=== PATIENT | male | born 1935 | race Caucasian/White ===

== ENCOUNTER 2017-04-29 08:15 | Emergency (ER) | payer MEDICARE, OTHER ==
[2017-04-29] MEDS ORDERED: HYDROmorphone 0.5 MG/0.5 ML Syringe IVPUSH ONE (08:49)
[2017-04-29] MEDS ORDERED: LORazepam 2 MG/ML MDV IVPUSH STA (08:49)
[2017-04-29] MEDS ORDERED: HYDROmorphone 0.5 MG/0.5 ML Syringe IVPUSH STA (10:00)
--- NOTE | 2017-04-29 11:03 | EDM.PDOC ---
ED HPI GENERAL MEDICAL PROBLEM - General Chief Complaint: Back Pain or Injury Stated Complaint: BACK PAIN Time Seen by Provider: 04/29/17 08:34 Source of Information: Reports: Patient, Family (), RN (Izabella) History Limitations: Reports: No Limitations - History of Present Illness INITIAL COMMENTS - FREE TEXT/NARRATIVE: The patient has had low back pain for the past 5-10 years, and right lower extremity radiculopathy for the past 1 year, approximately. He has undergone 3 local spinal injections. He states that the last 2 of them have induced the right lower extremity radiculopathy that eventually resolved. His most recent injection was about 2 months ago. He then developed right lower extremity radiculopathy, felt as pain going from his groin down his anterior thigh and to his mid-leg, about one month ago. He denies tingling, numbness, or weakness. No bowel or bladder incontinence. The pain has become significantly worse over the past week, however, to the point that he cannot longer walk, as his pain is made worse with straightening of his thigh at the hip. He is most comfortable if his right hip is flexed, regardless of whatever position he is in. He therefore has difficulty walking, and cannot lie flat unless he flexes his right hip, however, he states that he is "perfectly comfortable" while in a seated position. The patient was originally scheduled to have a MRI of his lumbar spine this coming 05/01/2017, however, arrangements have been made for the patient to undergo the study at 1045 this point. He now presents to the ED for pain control to allow him to undergo the MRI. The patient has oral narcotics already prescribed to him by his PCP, Dr. Ziegler, however, he has not found that they are adequate to treat his current pain. Lower Back Pain Score (Numeric/FACES): 8 - Related Data Allergies Allergy/AdvReac Type Severity Reaction Status Date / Time No Known Allergies Allergy Verified 04/29/17 08:50 Home Meds: Home Meds Albuterol Sulfate [Proair Respiclick] 2 puff IH QID PRN 04/29/17 [History] Albuterol/Ipratropium [DuoNeb 3.0-0.5 MG/3 ML] 3 ml INH Q6H PRN 04/29/17 [ History] Apixaban [Eliquis] 2.5 mg PO BID 04/29/17 [History] Ascorbic Acid [Vitamin C] 1,000 mg PO DAILY 04/29/17 [History] Aspirin 81 mg PO DAILY 04/29/17 [History] Budesonide/Formoterol [Symbicort 80-4.5 MCG] 2 puff INH BID 04/29/17 [History] Cholecalciferol (Vitamin D3) [Vitamin D3] 2,000 unit PO DAILY 04/29/17 [History] Furosemide 20 mg PO DAILY 04/29/17 [History] Isosorbide Mononitrate [Isosorbide Mononitrate ER] 60 mg PO DAILY 04/29/17 [ History] Lactobac Cmb #3/Fos/Pantethine [Probiotic & Acidophilus] 1 tab PO DAILY [History] Losartan [Cozaar] 25 mg PO DAILY 04/29/17 [History] Metoprolol Tartrate [Lopressor] 25 mg PO BID 04/29/17 [History] Nitroglycerin [Nitrostat] 0.4 mg SL Q5M PRN 04/29/17 [History] Rosuvastatin Calcium 20 mg PO DAILY 04/29/17 [History] Past Medical History HEENT History: Reports: Hard of Hearing, Impaired Vision Cardiovascular History: Reports: Afib, High Cholesterol, Hypertension Respiratory History: Reports: COPD - Past Surgical History Cardiovascular Surgical History: Reports: Coronary Artery Bypass, Coronary Artery Stent Musculoskeletal Surgical History: Reports: Knee Replacement Social & Family History - Tobacco Use Smoking Status *Q: Former Smoker Used Tobacco, but Quit: Yes Month Tobacco Last Used: 1982 - Caffeine Use Caffeine Use: Reports: Coffee - Recreational Drug Use Recreational Drug Use: No ED ROS GENERAL - Review of Systems Review Of Systems: See Below Constitutional: Reports: No Symptoms HEENT: Reports: No Symptoms Respiratory: Reports: No Symptoms Cardiovascular: Reports: No Symptoms Endocrine: Reports: No Symptoms GI/Abdominal: Reports: No Symptoms. Denies: Stool Incontinence : Reports: No Symptoms. Denies: Incontinence Musculoskeletal: Reports: Back Pain (as per the HPI) Skin: Reports: No Symptoms Neurological: Reports: Other (RLE radiculopathy pain, as per the HPI). Denies: Numbness, Tingling, Weakness Psychiatric: Reports: No Symptoms Hematologic/Lymphatic: Reports: No Symptoms Immunologic: Reports: No Symptoms ED EXAM, GENERAL - Physical Exam Exam: See Below Exam Limited By: No Limitations General Appearance: Alert, WD/WN, No Apparent Distress Ears: Normal External Exam, Hearing Grossly Normal (with hearing aids) Nose: Normal Inspection, No Blood Throat/Mouth: Normal Inspection, Normal Lips, Normal Voice, No Airway Compromise Head: Atraumatic, Normocephalic Neck: Normal Inspection, Full Range of Motion Respiratory/Chest: No Respiratory Distress, Lungs Clear, Normal Breath Sounds, No Accessory Muscle Use Cardiovascular: Normal Peripheral Pulses, Regular Rate, Rhythm, No Gallop, No JVD, No Murmur, No Rub Peripheral Pulses: 4+: Radial (L), Radial (R) GI/Abdominal: Normal Bowel Sounds, Soft, Non-Tender, No Organomegaly, No Distention, No Abnormal Bruit, No Mass (Male) Exam: Deferred Rectal (Males) Exam: Deferred Back Exam: Normal Inspection, Full Range of Motion. No: CVA Tenderness (L), CVA Tenderness (R), Muscle Spasm, Paraspinal Tenderness, Vertebral Tenderness Extremities: Normal Inspection, Normal Range of Motion, Non-Tender (including to right anterior thigh, leg), No Pedal Edema, Normal Capillary Refill Neurological: Alert, Oriented, Normal Cognition, No Motor/Sensory Deficits Psychiatric: Normal Affect Skin Exam: Warm, Dry, Intact, Normal Color, No Rash Course - Vital Signs Last Recorded V/S: Last Vital Signs Temp 36.3 C 04/29/17 08:48 Pulse 73 04/29/17 08:48 Resp 18 04/29/17 08:48 BP 136/82 04/29/17 08:48 Pulse Ox 98 04/29/17 08:48 - Orders/Labs/Meds Orders: Active Orders 24 hr Category Date Time Status Lumbar Spine Comp wo Cont [MR] Routine Exams 04/29/17 10:35 Taken Meds: Medications Discontinued Medications Generic Name Dose Route Start Last Admin Trade Name Freq PRN Reason Stop Dose Admin Hydromorphone HCl 0.5 mg 04/29/17 08:49 04/29/17 09:28 Dilaudid IVPUSH 04/29/17 08:50 0.5 mg ONETIME ONE Administration Hydromorphone HCl 0.5 mg 04/29/17 10:00 04/29/17 10:20 Dilaudid IVPUSH 04/29/17 10:01 0.5 mg STAT STA Administration Lorazepam 1 mg 04/29/17 08:49 04/29/17 09:30 Ativan IVPUSH 04/29/17 08:50 1 mg ONETIME STA Administration - Re-Assessments/Exams Free Text/Narrative Re-Assessment/Exam: 04/29/17 10:59 The patient was given Dilaudid 0.5 mg IVP and Ativan 1 mg IVP. In the ED. The patient stated that these medicines did not touch him, however, he was found to be quite groggy with slurred speech after receiving them. He was given an additional Dilaudid 0.5 mg just before going over to MRI. The patient already has prescriptions for oral narcotic medication. The purpose of his ER visit was to make him comfortable enough to be able to tolerate the MRI. I will have him follow-up with his PCP. Departure - Departure Time of Disposition: 11:01 Disposition: Home, Self-Care 01 Condition: Good Clinical Impression: Right lumbar radiculopathy - Discharge Information Instructions: Sciatica, [id number] Referrals: Dave Ziegler MD [Primary Care Provider] - Forms: ED Department Discharge Additional Instructions: You were seen in the emergency room for pain control prior to a MRI of your lower back. You received Dilaudid and Ativan in the ER. Follow-up with your PCP, Dr. Borjas, for long-term pain control. If any other problems, please do not hesitate to return to the ER. - My Orders Last 24 Hours: My Active Orders 04/29/17 10:35 Lumbar Spine Comp wo Cont [MR] Routine - Assessment/Plan Last 24 Hours: My Active Orders 04/29/17 10:35 Lumbar Spine Comp wo Cont [MR] Routine
--- NOTE | 2017-04-29 11:55 | MR ---
MRI lumbar spine Technique: T1 and T2-weighted axial images were obtained from above T12-L1 disc to the L5-S1 disc. T1, T2 and fat suppressed inversion recovery sagittal images were also obtained through the lumbar spine. Comparison: Previous MRI lumbar spine study of 06/04/11. Findings: T10-T11: Posterior disc shows narrowing. Disc protrusion is seen into the inferior endplate of T10. Disc bulging is seen into both neural foramina which is worse on the left side. Nerve roots appear to exit without definite compromise. Anterior disc bulge is also seen to the right side. T11-T12: Mild disc space narrowing is seen. Circumferential disc bulge is seen. Slight disc bulging into both inferior neural foramina are seen. No central canal stenosis or neural foraminal stenosis is seen. T12-L1: Circumferential disc bulge is seen. Very small disc herniation is seen to the midline. Mild degenerative apophyseal change is seen. No central canal stenosis is seen. Disc bulging is seen into both inferior neural foramina but nerve roots appear to exit without compromise. L1-L2: Moderate disc space narrowing is seen. Circumferential disc bulge is seen. Posterior disc maintains a concave margin. Mild degenerative apophyseal change is seen. Moderate left-sided neural foraminal stenosis is seen. Posterolateral spurring is seen off the endplates into the neural foramina on the left side. Disc bulge is seen into the inferior right neural foramina but nerve root appears to exit without compromise. Degenerative endplate signal change is seen. No central canal stenosis is seen. L2-L3: Severe disc space narrowing is seen. Circumferential disc bulge is noted. Mild degenerative apophyseal change is seen. Thickening of the ligamentum flavum is seen with findings causing a moderate degree of central canal stenosis. Disc bulging seen into both inferior neural foramina but nerve roots appear to exit without definite compromise. L3-L4: Mild disc space narrowing is seen. Circumferential disc bulge is present. Thickening of the ligamentum flavum is seen. Findings cause a moderate degree of central canal stenosis. Disc bulging is seen into both neural foramina which on the right side causes fairly severe is neural foraminal stenosis. Left neural foramina is patent where the nerve roots exit. L5-S1: Severe disc space narrowing is seen. Posterior spurring and diffuse circumferential disc bulge is noted. Mild degenerative apophyseal change is seen. Mild central canal stenosis is noted. Bilateral neural foraminal stenosis is seen causing compromise upon both nerve roots. L5-S1: Spondylolisthesis is seen measuring approximately 8 mm. Spondylolisthesis is due to degenerative apophyseal change. Diffuse posterior disc distortion from the spondylolisthesis is seen. Thickening of the ligamentum flavum is seen. Findings cause moderate to severe central canal stenosis. Bilateral neural foraminal stenosis is seen causing compromise upon both exiting nerve roots. Diffuse degenerative dehydration change seen. Conus medullaris and cauda equina shows no abnormal signal or mass. Impression: 1. Severe and diffuse degenerative change as described above. Multiple levels of neural foraminal stenosis are seen which have worsened in the interim from prior study. Areas of central canal stenosis are seen which have worsened in the interim from prior study. Diagnostic code #3
== END 2017-04-29 11:16 | disposition home or self-care (01) ==
LOC: JD.ED 08:15 → MERGE 08:15 → JD.ED 11:16
DX: M54.16 Radiculopathy, lumbar region (principal); I10 Essential (primary) hypertension; E78.00 Pure hypercholesterolemia, unspecified; J44.9 Chronic obstructive pulmonary disease, unspecified; Z87.891 Personal history of nicotine dependence; Z95.5 Presence of coronary angioplasty implant and graft; Z79.82 Long term (current) use of aspirin; Z79.899 Other long term (current) drug therapy
CPT/HCPCS: 72148; 96374; 96375; 96376; 99284; J1170; J2060

== ENCOUNTER 2020-03-24 15:01 | Emergency (ER) | payer MEDICARE, OTHER ==
[2020-03-24] MEDS ORDERED: Acetaminophen 325 MG Tab PO PRN (15:31)
--- NOTE | 2020-03-24 15:40 | EDM.PDOC ---
ED HPI GENERAL MEDICAL PROBLEM - General Chief Complaint: Respiratory Problem Stated Complaint: COVID +, WEAK AND FALLING Time Seen by Provider: 03/24/20 15:31 Source of Information: Reports: Patient History Limitations: Reports: No Limitations - History of Present Illness INITIAL COMMENTS - FREE TEXT/NARRATIVE: 84-year-old male presents to the ED for evaluation of COVID-19 illness. Patient has known quite bad COPD and chronic bronchitis. Increased fatigue and weakness over the last 24 hours. He fell last night and had a great deal of difficulty getting back up. He did not hit his head. He is not on home oxygen therapy. O2 sats here are 94 to 95% at rest. Patient knows he desaturates quite badly on exertion. Uses a cane or a walker to aid his ambulation. His was positive with COVID-19 illness 10 days ago. He got tested on Thursday,March 20 and was phoned last night that he is COVID-19 positive. He has been suffering fever chills mildly sore throat nasal congestion and increased paroxysmal cough not all that productive. Mildly decreased appetite with no diarrhea. He has not taken any medication for fever at this time Onset: Gradual Onset Date: 03/21/20 Duration: Day(s):, Getting Worse Location: Reports: Chest (Paroxysmal minimally productive cough.), Generalized (Generalized myalgia), Other (Creased appetite. Nasal congestion) Quality: Reports: Other (Typical symptoms of COVID-19 illness.) Severity: Moderate Improves with: Reports: None Worsens with: Reports: Other (Comes very short of breath on minimal exertion such as walking) Context: Reports: Sick Contact. Denies: Activity, Exercise ( 15 feet or so.), Lifting, Trauma, Other (Is ill at home with COVID-19 illness. She is doing well at this time she is on day 10 of illness.) Associated Symptoms: Reports: Cough, cough w sputum, Loss of Appetite, Malaise, Shortness of Breath, Weakness. 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 (see below) - Related Data Allergies Allergy/AdvReac Type Severity Reaction Status Date / Time No Known Allergies Allergy Verified 03/24/20 15:21 Home Meds: Home Meds Albuterol Sulfate [Proair Respiclick] 2 puff IH QID PRN 04/29/17 [History] Albuterol/Ipratropium [DuoNeb 3.0-0.5 MG/3 ML] 3 ml INH Q6H PRN 04/29/17 [History] Apixaban [Eliquis] 2.5 mg PO BID 04/29/17 [History] Ascorbic Acid [Vitamin C] 1,000 mg PO DAILY 04/29/17 [History] Aspirin 81 mg PO DAILY 04/29/17 [History] Budesonide/Formoterol [Symbicort 80-4.5 MCG] 2 puff INH BID 04/29/17 [History] Cholecalciferol (Vitamin D3) [Vitamin D3] 2,000 unit PO DAILY 04/29/17 [History] Furosemide 20 mg PO DAILY 04/29/17 [History] Isosorbide Mononitrate [Isosorbide Mononitrate ER] 60 mg PO DAILY 04/29/17 [History] Lactobacillus 3/Fos/Pantethine [Probiotic & Acidophilus] 1 tab PO DAILY 04/29/17 [History] Losartan [Cozaar] 25 mg PO DAILY 04/29/17 [History] Metoprolol Tartrate [Lopressor] 25 mg PO BID 04/29/17 [History] Nitroglycerin [Nitrostat] 0.4 mg SL Q5M PRN 04/29/17 [History] Rosuvastatin Calcium 20 mg PO DAILY 04/29/17 [History] Past Medical History HEENT History: Reports: Hard of Hearing, Impaired Vision Cardiovascular History: Reports: Afib, High Cholesterol, Hypertension Respiratory History: Reports: COPD - Infectious Disease History Infectious Disease History: Reports: Novel Coronavirus - Past Surgical History Cardiovascular Surgical History: Reports: Coronary Artery Bypass, Coronary Artery Stent Musculoskeletal Surgical History: Reports: Knee Replacement Social & Family History - Caffeine Use Caffeine Use: Reports: Coffee - Living Situation & Occupation Living situation: Reports: 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 Denies: Pleuritic Chest Pain Cardiovascular: Reports: Dyspnea on Exertion ( after having total knee replacement on that side chronically), Edema (Mild edema left lower extremity), Lightheadedness. Denies: Chest Pain, Blood Pressure Problem, Claudication, Orthopnea Endocrine: Reports: Fatigue GI/Abdominal: Reports: Decreased Appetite. Denies: Constipation, Diarrhea, Flatus, Nausea, Vomiting : Reports: Frequency, Other (Teary at x2. Patient has had a previous TURP) Musculoskeletal: Reports: Shoulder Pain, Back Pain (Knees hips chronic low back pain with multiple surgeries on his lower back due to degenerative disc disease and is fused.), Joint Pain Skin: Reports: Bruising Neurological: Reports: Difficulty Walking ( in his legs that caused him to fall. Difficulty walking since low back surgery and uses a walker or cane to aid his ambulation and balance), Weakness (Yes last night). Denies: Confusion, Dizziness (Bruises easily), Headache, Numbness, Syncope, Tingling Psychiatric: Reports: No Symptoms Hematologic/Lymphatic: Reports: No Symptoms Immunologic: Reports: No Symptoms ED EXAM, GENERAL - Physical Exam Exam: See Below Exam Limited By: No Limitations General Appearance: Alert, WD/WN, Mild Distress, Other (Patient is alert orientated and answers all questions appropriately. He is short of breath even on speaking more than 3 or 4 words.) Eye Exam: Bilateral Eye: Normal Inspection, PERRL Throat/Mouth: Normal Inspection, Normal Oropharynx, Other Head: Atraumatic, Other (Is mildly dry.) Neck: Normal Inspection, Supple, Full Range of Motion, Limited Range of Motion, Tender Lateral (Tenderness lateral cervical spine bilaterally. He reports no worse than normal). No: Lymphadenopathy (L), Lymphadenopathy (R) Respiratory/Chest: No Accessory Muscle Use, Respiratory Distress (Apnea at rest 25 to 28/min with O2 sats of 94 to 96% on room air), Decreased Breath Sounds, Rhonchi. No: Normal Breath Sounds, Crackles (Rhonchi upper anterior chest that clear with coughing.), Rales, Stridor Cardiovascular: Regular Rate, Rhythm, No Edema, No Gallop, No Murmur (Decreased breath sounds to the lower 25% lung vitale bilaterally.), No Rub. No: Normal Peripheral Pulses Peripheral Pulses: 1+: Posterior Tibial (L), Posterior Tibial (R), Dorsalis Pedis (L), Dorsalis Pedis (R), 2+: Carotid (L), Carotid (R) GI/Abdominal: Normal Bowel Sounds, Soft, Non-Tender, No Organomegaly (Groin is firm to palpation. Mildly distended to be to percussion compared with some degree of aerophagia.), No Mass, Pelvis Stable, Distended, Other Back Exam: Other (Patient has evidence of lumbar spine surgery with fixation.) Extremities: Pedal Edema (Base pedal edema left lower extremity. Feet are cool suggesting some degree of peripheral vascular disease.), Other (Arthritic changes both knees with left total knee replacement evident.) Neurological: Alert, Oriented, CN II-XII Intact, Normal Cognition Psychiatric: Normal Affect, Normal Mood Skin Exam: Warm, Dry, Intact, Normal Color, No Rash #1 Interpretation Rhythm: A-Fib (With rate) Rate (Beats/Min): 104 [place]: Normal P-Wave: Variable QRS: RBBB ST-T: Other (Of your wandering baseline makes interpretation impossible) QT: Prolonged EKG Interpretation Comments: Abnormal ECG Course - Vital Signs Last Recorded V/S: Last Vital Signs Temp 36.8 C 03/24/20 19:30 Pulse 73 03/24/20 19:30 Resp 32 H 03/24/20 19:30 BP 92/57 L 03/24/20 19:30 Pulse Ox 92 L 03/24/20 19:30 - Orders/Labs/Meds Orders: Active Orders 24 hr Category Date Time Status Chest 1V Frontal [CR] Stat Exams 03/24/20 15:33 Taken Acetaminophen [TylenoL] Med 03/24/20 15:31 Active 650 mg PO Q4H PRN Dextrose 5%-0.9% NaCl [Dextrose 5%-Normal Saline] 1,000 Med 03/24/20 15:45 Active ml IV ASDIRECTED Medication Orders Acetaminophen (Tylenol) 650 mg PO Q4H PRN PRN Reason: Pain Last Admin: 03/24/20 16:03 Dose: 650 mg Documented by: CHRISTIAN Dextrose/Sodium Chloride (Dextrose 5%-Normal Saline) 1,000 mls @ 150 mls/hr IV ASDIRECTED CHARLEE Last Admin: 03/24/20 16:03 Dose: 150 mls/hr Documented by: CHRISTIAN Labs: Laboratory Tests 03/24/20 03/24/20 03/24/20 Range/Units 16:00 16:00 16:00 WBC 4.43 (4.23-9.07) K/mm3 RBC 4.41 L (4.63-6.08) M/mm3 Hgb 13.2 L (13.7-17.5) gm/dl Hct 41.0 (40.1-51.0) % MCV 93.0 H (79.0-92.2) fl MCH 29.9 (25.7-32.2) pg MCHC 32.2 (32.2-35.5) g/dl RDW Std Deviation 50.6 H (35.1-43.9) fL Plt Count 110 L (163-337) K/mm3 MPV 10.6 (9.4-12.3) fl Neut % (Auto) 62.8 (34.0-67.9) % Lymph % (Auto) 19.6 L (21.8-53.1) % Br[place]ley % (Auto) 16.7 H (5.3-12.2) % Eos % (Auto) 0.5 L (0.8-7.0) Baso % (Auto) 0.2 (0.1-1.2) % Neut # (Auto) 2.78 (1.78-5.38) K/mm3 Lymph # (Auto) 0.87 L (1.32-3.57) K/mm3 [place]ley # (Auto) 0.74 (0.30-0.82) K/mm3 Eos # (Auto) 0.02 L (0.04-0.54) K/mm3 Baso # (Auto) 0.01 (0.01-0.08) K/mm3 Manual Slide Review Abnormal smear D-Dimer, Quantitative 0.49 (0.19-0.50) mg/L Sodium 136 (136-145) mEq/L Potassium 5.2 H (3.5-5.1) mEq/L Chloride 104 (98-107) mEq/L Carbon Dioxide 20 L (21-32) mEq/L Anion Gap 17.2 H (5-15) BUN 59 H (7-18) mg/dL Creatinine 2.7 H (0.7-1.3) mg/dL Est Cr Clr Drug Dosing 20.00 mL/min Estimated GFR (MDRD) 23 (>60) mL/min BUN/Creatinine Ratio 21.9 H (14-18) Glucose 115 (83-115) mg/dL Lactic Acid (0.4-2.0) mmol/L Calcium 8.1 L (8.5-10.1) mg/dL Magnesium 2.2 (1.8-2.4) mg/dl Ferritin (26-388) ng/ml Total Bilirubin 0.4 (0.2-1.0) mg/dL AST 18 (15-37) U/L ALT 21 (16-63) U/L Alkaline Phosphatase 46 (46-116) U/L Lactate Dehydrogenase 180 (85-227) U/L Troponin I 0.055 (0.00-0.056) ng/mL C-Reactive Protein 3.8 H* (<1.0) mg/dL NT-Pro-B Natriuret Pep (0-450) pg/mL Total Protein 6.0 L (6.4-8.2) g/dl Albumin 2.9 L (3.4-5.0) g/dl Globulin 3.1 gm/dL Albumin/Globulin Ratio 0.9 L (1-2) Urine Color (Yellow) Urine Appearance (Clear) Urine pH (5.0-8.0) Ur Specific [place] (1.005-1.030) Urine Protein (Negative) Urine Glucose (UA) (Negative) Urine Ketones (Negative) Urine Occult Blood (Negative) Urine Nitrite (Negative) Urine Bilirubin (Negative) Urine Urobilinogen (0.2-1.0) Ur Leukocyte Esterase (Negative) U Hyaline Cast (Auto) (0-5) /lpf Urine RBC (0-5) /hpf Urine WBC (0-5) /hpf Ur Squamous Epith Cells (0-5) /hpf Urine Bacteria (FEW) /hpf Urine Mucus (FEW) /hpf 03/24/20 03/24/20 03/24/20 Range/Units 16:00 16:00 16:00 WBC (4.23-9.07) K/mm3 RBC (4.63-6.08) M/mm3 Hgb (13.7-17.5) gm/dl Hct (40.1-51.0) % MCV (79.0-92.2) fl MCH (25.7-32.2) pg MCHC (32.2-35.5) g/dl RDW Std Deviation (35.1-43.9) fL Plt Count (163-337) K/mm3 MPV (9.4-12.3) fl Neut % (Auto) (34.0-67.9) % Lymph % (Auto) (21.8-53.1) % Brantley % (Auto) (5.3-12.2) % Eos % (Auto) (0.8-7.0) Baso % (Auto) (0.1-1.2) % Neut # (Auto) (1.78-5.38) K/mm3 Lymph # (Auto) (1.32-3.57) K/mm3 [place]ley # (Auto) (0.30-0.82) K/mm3 Eos # (Auto) (0.04-0.54) K/mm3 Baso # (Auto) (0.01-0.08) K/mm3 Manual Slide Review D-Dimer, Quantitative (0.19-0.50) mg/L Sodium (136-145) mEq/L Potassium (3.5-5.1) mEq/L Chloride (98-107) mEq/L Carbon Dioxide (21-32) mEq/L Anion Gap (5-15) BUN (7-18) mg/dL Creatinine (0.7-1.3) mg/dL Est Cr Clr Drug Dosing mL/min Estimated GFR (MDRD) (>60) mL/min BUN/Creatinine Ratio (14-18) Glucose (83-115) mg/dL Lactic Acid 1.0 (0.4-2.0) mmol/L Calcium (8.5-10.1) mg/dL Magnesium (1.8-2.4) mg/dl Ferritin 163 (26-388) ng/ml Total Bilirubin (0.2-1.0) mg/dL AST (15-37) U/L ALT (16-63) U/L Alkaline Phosphatase (46-116) U/L Lactate Dehydrogenase (85-227) U/L Troponin I (0.00-0.056) ng/mL C-Reactive Protein (<1.0) mg/dL NT-Pro-B Natriuret Pep 2006 H (0-450) pg/mL Total Protein (6.4-8.2) g/dl Albumin (3.4-5.0) g/dl Globulin gm/dL Albumin/Globulin Ratio (1-2) Urine Color (Yellow) Urine Appearance (Clear) Urine pH (5.0-8.0) Ur Specific [place] (1.005-1.030) Urine Protein (Negative) Urine Glucose (UA) (Negative) Urine Ketones (Negative) Urine Occult Blood (Negative) Urine Nitrite (Negative) Urine Bilirubin (Negative) Urine Urobilinogen (0.2-1.0) Ur Leukocyte Esterase (Negative) U Hyaline Cast (Auto) (0-5) /lpf Urine RBC (0-5) /hpf Urine WBC (0-5) /hpf Ur Squamous Epith Cells (0-5) /hpf Urine Bacteria (FEW) /hpf Urine Mucus (FEW) /hpf 03/24/20 Range/Units 17:36 WBC (4.23-9.07) K/mm3 RBC (4.63-6.08) M/mm3 Hgb (13.7-17.5) gm/dl Hct (40.1-51.0) % MCV (79.0-92.2) fl MCH (25.7-32.2) pg MCHC (32.2-35.5) g/dl RDW Std Deviation (35.1-43.9) fL Plt Count (163-337) K/mm3 MPV (9.4-12.3) fl Neut % (Auto) (34.0-67.9) % Lymph % (Auto) (21.8-53.1) % [place] % (Auto) (5.3-12.2) % Eos % (Auto) (0.8-7.0) Baso % (Auto) (0.1-1.2) % Neut # (Auto) (1.78-5.38) K/mm3 Lymph # (Auto) (1.32-3.57) K/mm3 [place] # (Auto) (0.30-0.82) K/mm3 Eos # (Auto) (0.04-0.54) K/mm3 Baso # (Auto) (0.01-0.08) K/mm3 Manual Slide Review D-Dimer, Quantitative (0.19-0.50) mg/L Sodium (136-145) mEq/L Potassium (3.5-5.1) mEq/L Chloride (98-107) mEq/L Carbon Dioxide (21-32) mEq/L Anion Gap (5-15) BUN (7-18) mg/dL Creatinine (0.7-1.3) mg/dL Est Cr Clr Drug Dosing mL/min Estimated GFR (MDRD) (>60) mL/min BUN/Creatinine Ratio (14-18) Glucose (83-115) mg/dL Lactic Acid (0.4-2.0) mmol/L Calcium (8.5-10.1) mg/dL Magnesium (1.8-2.4) mg/dl Ferritin (26-388) ng/ml Total Bilirubin (0.2-1.0) mg/dL AST (15-37) U/L ALT (16-63) U/L Alkaline Phosphatase (46-116) U/L Lactate Dehydrogenase (85-227) U/L Troponin I (0.00-0.056) ng/mL C-Reactive Protein (<1.0) mg/dL NT-Pro-B Natriuret Pep (0-450) pg/mL Total Protein (6.4-8.2) g/dl Albumin (3.4-5.0) g/dl Globulin gm/dL Albumin/Globulin Ratio (1-2) Urine Color Yellow (Yellow) Urine Appearance Clear (Clear) Urine pH 5.5 (5.0-8.0) Ur Specific [place] 1.025 (1.005-1.030) Urine Protein Trace H (Negative) Urine Glucose (UA) Negative (Negative) Urine Ketones Negative (Negative) Urine Occult Blood Negative (Negative) Urine Nitrite Negative (Negative) Urine Bilirubin Negative (Negative) Urine Urobilinogen 0.2 (0.2-1.0) Ur Leukocyte Esterase Negative (Negative) U Hyaline Cast (Auto) 5-10 H (0-5) /lpf Urine RBC Not seen (0-5) /hpf Urine WBC 0-5 (0-5) /hpf Ur Squamous Epith Cells 0-5 (0-5) /hpf Urine Bacteria Not seen (FEW) /hpf Urine Mucus Not seen (FEW) /hpf Meds: Medications Generic Name Dose Route Start Last Admin Trade Name Freq PRN Reason Stop Dose Admin Acetaminophen 650 mg 03/24/20 15:31 03/24/20 16:03 Tylenol PO 650 mg Q4H PRN Administration Pain Dextrose/Sodium Chloride 1,000 mls @ 150 mls/hr 03/24/20 15:45 03/24/20 16:03 Dextrose 5%-Normal Saline IV 150 mls/hr ASDIRECTED CHARLEE Administration Discontinued Medications Generic Name Dose Route Start Last Admin Trade Name Freq PRN Reason Stop Dose Admin Furosemide 40 mg 03/24/20 17:53 03/24/20 18:49 Lasix IVPUSH 03/24/20 17:54 40 mg NOW ONE Administration Bamlanivimab 700 mg/ Sodium 200 mls @ 200 mls/hr 03/24/20 16:48 03/24/20 17:28 Chloride IV 03/24/20 16:49 200 mls/hr ONETIME ONE Administration - Radiology Interpretation Free Text/Narrative:: 84-year-old male with known COPD with chronic bronchitis presents to the ED with COVID-19 illness diagnosed yesterday but tested on March 20. His also has contracted COVID-19 the week prior. He has fever chills mild headache nasal congestion paroxysmal cough decreased appetite no diarrhea or vomiting. O2 sats are 94 to 95% on room air. He is therefore a candidate for Bamlanivimab--clonal antibody. Consents to this procedure. Understands that it is an experimental drug and not cleared by the FDA. Spoken with Mr. Magen Finney to provide information aboutbamlanivamab been for himself. I offered the patient and caregiverEUA Bamlanivamab fax sheet to read and review. I stated the drug has been approved by an emergency use authorization process and has not been fully vetted by the FDA or approved. The patient meets the EUA requirements. I discussed there are other potential treatment options that are currently not FDA approved to treat COVID-19 illness. Offered opportunity to t alk and ask questions and all questions were answered. The patient Mr. Magen Finney voiced understanding and agreed to proceed with treatment for himself - Re-Assessments/Exams Free Text/Narrative Re-Assessment/Exam: 03/24/20 16:49 x-ray done portably reveals slightly hyperinflated lung vitale bilaterally. Cardiac silhouette is limits of normal. Previous cardiac bypass surgery noted. There is an infiltrate left lower lobe that could raise represent a early consolidation pneumonia. They could also represent scar tissue. Prominent right pulmonary artery noted. His white count is 4.43. Differential shows 62.8% neutrophils. Hemoglobin is 13.2 with hematocrit of 41.0 MCV is 90 with 3.0. Platelet counts 110,000 low side of normal. 03/24/20 17:01 His D-dimer is 0.49 normal for him. Sodium 136 potassium slightly elevated at 5.2. Chloride 104 the bicarb of 20 anion gap is elevated at 17.2. BUN was 59 indicating he is volume depleted. Creatinine is 2.7. Estimated GFR is 23 i.e. stage IV chronic kidney disease. Glucose is 115 with a lactic acid of 1.0 calcium is low at 8.1. Magnesium is 2.2 serum ferritin normal at 163 liver function normal lactic dehydrogenase normal at 180. Troponin I is 0.055 C-reactive protein is 3.8. BNP is elevated at 2006 total protein 6.0 with an albumin fraction of 2.9 03/24/20 17:40 vRAD over read of the chest x-ray done portably shows chronic appearing interstitial changes are present with focal airspace opacity in the left lower lobe finding is nonspecific this could represent pneumonia there is no pulmonary edema moderate grade cardiomegaly and postoperative change from prior coronary bypass surgery. He does mention patchy groundglass appearance in the left lower lobe and the patient is known to be COVID-19 positive. 03/24/20 18:15 Patient seems to be tolerating the infusion well with no side effects at this point time. Be given Lasix 40 mg IV after the infusion has been completed as his BNP is greater than 2000 at this time. Departure - Departure Time of Disposition: 20:10 Disposition: Home, Self-Care 01 Condition: Fair Clinical Impression: COVID-19 determined by clinical diagnostic criteria, Mild congestive heart failure, Chronic renal insufficiency, stage IV (severe) COPD (chronic obstructive pulmonary disease) Qualifiers: COPD type: emphysema Emphysema type: panlobular Qualified Code(s): J43.1 - Panlobular emphysema - Discharge Information Instructions: COVID-19, Chronic Obstructive Pulmonary Disease Exacerbation, Chronic Kidney Disease, Adult, [id number], Heart Failure, Diagnosis, [id number] Referrals: Dave Ziegler MD [Primary Care Provider] - Forms: ED Department Discharge Additional Instructions: Evaluation in the emergency room today in regards to at least a 3-day history of COVID-19 illness. Oxygen saturations are staying between 94 to 96% at rest. You were therefore a candidate for monoclonal antibody intravenous infusion and this was what was carried out. You appeared to tolerate this infusion very well. Lab tests reveal that you are a little bit on the dry side and need to take in a little bit more fluids particularly things like Gatorade or Powerade which is similar to IV fluid to improve your kidney function. Appetite is course very poor with COVID-19 illness. You would need to return to the hospital if your O2 sats on your pulse oximeter continuously drop particular if they are staying 90 and not coming up. Sepsis Event Note (ED) - Evaluation Sepsis Screening Result: No Definite Risk - Focused Exam Vital Signs: Vital Signs Temp Pulse Resp BP Pulse Ox 03/24/20 19:30 36.8 C 73 32 H 92/57 L 92 L 03/24/20 15:10 37.2 C 81 25 H 95/60 - My Orders Last 24 Hours: My Active Orders 03/24/20 15:31 Acetaminophen [TylenoL] 650 mg PO Q4H PRN 03/24/20 15:33 Chest 1V Frontal [CR] Stat 03/24/20 15:45 Dextrose 5%-0.9% NaCl [Dextrose 5%-Normal Saline] 1,000 ml IV ASDIRECTED - Assessment/Plan Last 24 Hours: My Active Orders 03/24/20 15:31 Acetaminophen [TylenoL] 650 mg PO Q4H PRN 03/24/20 15:33 Chest 1V Frontal [CR] Stat 03/24/20 15:45 Dextrose 5%-0.9% NaCl [Dextrose 5%-Normal Saline] 1,000 ml IV ASDIRECTED
[2020-03-24] MEDS ORDERED: Dextrose 5%-0.9% NaCl 1,000 ML IV SCH (15:45)
[2020-03-24] MEDS ORDERED: Furosemide 40 MG/4 ML VIAL IVPUSH ONE (17:53)
--- NOTE | 2020-03-26 12:38 | CR ---
PROCEDURE INFORMATION: Exam: XR Chest, 1 View Exam date and time: 03/24/2020 4:02 PM Age: 84 years old Clinical indication: Other: Known copd. Chronic bronchitis. Covid positive TECHNIQUE: Imaging protocol: XR of the chest Views: 1 view. COMPARISON: No relevant prior studies available. FINDINGS: Lungs: Chronic appearing interstitial changes are present with focal airspace opacity in the left lower lobe. Finding is nonspecific. This could represent pneumonia. There is no pulmonary edema. Pleural space: Unremarkable. No pleural effusion. No pneumothorax. Heart/Mediastinum: Moderate grade cardiomegaly and postoperative change from prior coronary bypass surgery present. Bones/joints: Unremarkable. IMPRESSION: 1. Chronic appearing interstitial change and postoperative change with patchy ground-glass in the left lower lobe. Pneumonia is possible. Consider viral etiology. Thank you for allowing us to participate in the care of your patient. Dictated and Authenticated by: Al Caputo MD 03/24/2020 5:52 PM Central Time ([place] & [place]) MTDNancy
== END 2020-03-24 20:15 | disposition home or self-care (01) ==
LOC: JD.ED 15:01
DX: U07.1 COVID-19 (principal); J43.1 Panlobular emphysema; I13.0 Hypertensive heart and chronic kidney disease with heart failure and stage 1 through stage 4 chronic kidney disease, or unspecified chronic kidney disease; N18.4 Chronic kidney disease, stage 4 (severe); I50.9 Heart failure, unspecified; I48.91 Unspecified atrial fibrillation; E78.00 Pure hypercholesterolemia, unspecified; I45.10 Unspecified right bundle-branch block; Z95.1 Presence of aortocoronary bypass graft; Z79.01 Long term (current) use of anticoagulants; Z79.82 Long term (current) use of aspirin; Z79.899 Other long term (current) drug therapy
CPT/HCPCS: 36415; 71045; 80053; 81001; 82728; 83605; 83615; 83735; 83880; 84484; 85025; 85379; 86140; 93005; 96365; 96375; 99285; A9270; J1940; J7042; J7050; 93010

== ENCOUNTER 2020-03-28 13:24 | Inpatient (IN) | payer MEDICARE, OTHER ==
[2020-03-28] MEDS ORDERED: Acetaminophen 325 MG Tab PO PRN (13:36)
[2020-03-28] MEDS ORDERED: Docusate Sodium 100 MG Cap PO PRN (13:36)
[2020-03-28] MEDS ORDERED: Ondansetron 4 MG/2 ML SDV IV PRN (13:36)
[2020-03-28] MEDS ORDERED: Sodium Chloride 0.9% 10 ML Syringe FLUSH PRN (13:36)
[2020-03-28] MEDS ORDERED: REMDESIVIR 200 MG in Sodium Chloride 0.9% 250 ML IV ONE ×2 (13:43→18:00)
--- NOTE | 2020-03-28 14:10 | PCM.HP.2 ---
H&P History of Present Illness - General Date of Service: 03/28/20 Admit Problem/Dx: Admission Diagnosis/Problem Admission Diagnosis/Problem Hypoxia Source of Information: Patient, Other (Family friend) History Limitations: Reports: No Limitations - History of Present Illness Initial Comments - Free Text/Narative: 84-year-old male presented to the ED for evaluation of COVID-19 illness on 03/24/20. Patient has known quite bad COPD and chronic bronchitis. Increased fatigue and weakness over the last 24 hours. He fell last night and had a great deal of difficulty getting back up. He did not hit his head. He is not on home oxygen therapy. O2 sats here are 94 to 95% at rest. Patient knows he desaturates quite badly on exertion. Uses a cane or a walker to aid his a mbulation. His was positive with COVID-19 illness on 03/14/2020. He got tested on March 20 and was phoned 03/23/2020 that he is COVID-19 positive. He has been suffering fever chills mildly sore throat nasal congestion and increased paroxysmal cough not all that productive. Mildly decreased appetite with no diarrhea. He has not taken any medication for fever at this time Pt is sent to us as a direct admit today. States he has increased shortness of breath and weakness despite receiving Bamlanivimad, the monoclonal antibody approved for emergency use for COVID-19 positive patients who are high risk on 03/24/20. Patient is 86% on room air at the time of admit. States he has had an increased cough as he also has a chronic cough prior to Covid diagnosis. States he is able to taste and smell however his appetite has been poor to fair. Denies body aches, nausea, vomiting, or diarrhea. - Related Data Allergies/Adverse Reactions: Allergies Allergy/AdvReac Type Severity Reaction Status Date / Time No Known Allergies Allergy Verified 03/28/20 13:48 Home Medications: Home Meds Albuterol Sulfate [Proair Respiclick] 2 puff IH QID PRN 04/29/17 [History] Albuterol/Ipratropium [DuoNeb 3.0-0.5 MG/3 ML] 3 ml INH Q6H PRN 04/29/17 [History] Apixaban [Eliquis] 2.5 mg PO BID 04/29/17 [History] Ascorbic Acid [Vitamin C] 1,000 mg PO DAILY 04/29/17 [History] Aspirin 81 mg PO DAILY 04/29/17 [History] Budesonide/Formoterol [Symbicort 80-4.5 MCG] 2 puff INH BID 04/29/17 [History] Cholecalciferol (Vitamin D3) [Vitamin D3] 2,000 unit PO DAILY 04/29/17 [History] Furosemide 20 mg PO DAILY 04/29/17 [History] Isosorbide Mononitrate [Isosorbide Mononitrate ER] 60 mg PO DAILY 04/29/17 [History] Lactobacillus 3/Fos/Pantethine [Probiotic & Acidophilus] 1 tab PO DAILY 04/29/17 [History] Losartan [Cozaar] 25 mg PO DAILY 04/29/17 [History] Metoprolol Tartrate [Lopressor] 25 mg PO BID 04/29/17 [History] Nitroglycerin [Nitrostat] 0.4 mg SL Q5M PRN 04/29/17 [History] Rosuvastatin Calcium 20 mg PO DAILY 04/29/17 [History] Past Medical History HEENT History: Reports: Hard of Hearing, Impaired Vision Cardiovascular History: Reports: Afib, High Cholesterol, Hypertension Respiratory History: Reports: COPD Neurological History: Reports: CVA - Infectious Disease History Infectious Disease History: Reports: Novel Coronavirus - Past Surgical History Cardiovascular Surgical History: Reports: Coronary Artery Bypass, Coronary Artery Stent Musculoskeletal Surgical History: Reports: Knee Replacement Social & Family History - Caffeine Use Caffeine Use: Reports: Coffee - Living Situation & Occupation Living situation: Reports: Occupation: Retired H&P Review of Systems - Review of Systems: Review Of Systems: See Below General: Reports: Fever, Chills, Malaise, Weakness, Decreased Appetite HEENT: Reports: Glasses Pulmonary: Reports: Shortness of Breath, Wheezing, Cough. Denies: Sputum Cardiovascular: Reports: No Symptoms Gastrointestinal: Reports: No Symptoms. Denies: Diarrhea, Nausea, Vomiting Genitourinary: Reports: No Symptoms Musculoskeletal: Reports: No Symptoms Skin: Reports: No Symptoms Psychiatric: Reports: No Symptoms Neurological: Reports: No Symptoms Hematologic/Lymphatic: Reports: No Symptoms Immunologic: Reports: No Symptoms Exam - Exam Exam: See Below - Vital Signs Vital Signs: Last Vital Signs Temp 97.4 F 03/28/20 13:37 Pulse 80 03/28/20 13:37 Resp 20 03/28/20 13:37 BP 102/76 03/28/20 13:37 Pulse Ox 92 L 03/28/20 13:37 - Exam Quality Assessment: Supplemental Oxygen (Patient was 86% on room air. O2 applied at 2 L per nasal cannula.), DVT Prophylaxis (Patient takes Eliquis for a trial fibrillation.) General: Alert, Oriented, Cooperative, Moderate Distress HEENT: Conjunctiva Clear, EACs Clear, Hearing Intact, Mucosa Moist & [place], Pupils Equal, Pupils Reactive Neck: Supple, Trachea Midline. No: Lymphadenopathy Lungs: Decreased Breath Sounds, Crackles (Right middle and lower lobe and bilateral lower lobes.), Wheezing (Expiratory wheeze noted anteriorly) Cardiovascular: Regular Rate, Irregular Rhythm (History of atrial fibrillation.) GI/Abdominal Exam: Normal Bowel Sounds, Soft, Non-Tender, No Distention (Male) Exam: Deferred Rectal (Males) Exam: Deferred Back Exam: Normal Inspection, Full Range of Motion Extremities: Normal Inspection, Normal Range of Motion, Non-Tender, No Pedal Edema, Normal Capillary Refill Peripheral Pulses: 2+: Radial (L), Radial (R), Dorsalis Pedis (L), Dorsalis Pe dis (R) Skin: Warm, Dry, Intact Neuro Extensive - Mental Status: Alert, Oriented x3, Normal Mood/Affect, Normal Cognition, Memory Intact Neuro Extensive - Motor, Sensory, Reflexes: Normal Gait Psychiatric: Alert, Normal Affect, Normal Mood - Patient Data Result Diagrams: 03/28/20 14:00 03/28/20 14:00 Sepsis Event Note - Focused Exam Vital Signs: Vital Signs Temp Pulse Resp BP Pulse Ox 03/28/20 13:37 97.4 F 80 20 102/76 92 L - Problem List (1) Pneumonia due to 2019 novel coronavirus SNOMED Code(s): 694851250401997249 ICD Code: U07.1 - COVID-19; J12.89 - OTHER VIRAL PNEUMONIA Status: Acute Priority: High Current Visit: Yes (2) COPD (chronic obstructive pulmonary disease) SNOMED Code(s): 25286350 ICD Code: J44.9 - CHRONIC OBSTRUCTIVE PULMONARY DISEASE, UNSPECIFIED Status: Chronic Priority: High Current Visit: Yes Qualifiers: COPD type: emphysema Emphysema type: panlobular Qualified Code(s): J43.1 - Panlobular emphysema (3) COVID-19 determined by clinical diagnostic criteria SNOMED Code(s): 843750844, 300780726 ICD Code: U07.1 - COVID-19 Status: Acute Priority: High Current Visit: Yes (4) Chronic renal insufficiency, stage IV (severe) SNOMED Code(s): 094626136 ICD Code: N18.4 - CHRONIC KIDNEY DISEASE, STAGE 4 (SEVERE) Status: Chronic Priority: High Current Visit: Yes (5) Mild congestive heart failure SNOMED Code(s): 83505399 ICD Code: I50.9 - HEART FAILURE, UNSPECIFIED Status: Chronic Priority: High Current Visit: Yes Problem List Initiated/Reviewed/Updated: Yes Orders Last 24hrs: Active Orders 24 hr Category Date Time Status Patient Status [ADT] Routine ADT 03/28/20 13:37 Active Height and Weight [RC] DAILY Care 03/28/20 13:36 Active Intake and Output [RC] QSHIFT Care 03/28/20 13:38 Active Nurse Communication: Isolation [RC] ASDIRECTED Care 03/28/20 13:45 Active Oxygen Therapy [RC] PRN Care 03/28/20 13:37 Active Pulse Oximetry [RC] CONTINUOUS Care 03/28/20 13:38 Active RT Aerosol Therapy [RC] ASDIRECTED Care 03/28/20 13:40 Active VTE/DVT Education [RC] PER UNIT ROUTINE Care 03/28/20 13:37 Active Vital Signs [RC] Q4H Care 03/28/20 13:37 Active Consult to Case Management/Drill Press Operator Numerical Control [CONS] Cons 03/28/20 13:36 Active Routine Consult to Learning Administrator [CONS] Routine Cons 03/28/20 13:36 Active Consult to Spiritual Care [CONS] Routine Cons 03/28/20 13:36 Active OT Evaluation and Treatment [CONS] Routine Cons 03/28/20 13:36 Active PT Evaluation and Treatment [CONS] Routine Cons 03/28/20 13:36 Active Respiratory Care Assess and Treatment [CONS] Routine Cons 03/28/20 13:36 Active Chest 1V Frontal [CR] Stat Exams 03/28/20 13:36 Taken BLOOD GAS ARTERIAL [BG] Stat Lab 03/28/20 13:44 Ordered C-REACTIVE PROTEIN [CHEM] Stat Lab 03/28/20 13:43 Ordered CBC WITH AUTO DIFF [HEME] Stat Lab 03/28/20 13:44 Ordered COMPREHENSIVE METABOLIC PN,CMP [CHEM] Stat Lab 03/28/20 13:43 Ordered CULTURE BLOOD [BC] Stat Lab 03/28/20 13:45 Ordered CULTURE SPUTUM + SMEAR [RM] Routine Lab 03/28/20 13:45 Ordered D-DIMER QUANTITATIVE [COAG] Stat Lab 03/28/20 13:43 Ordered FERRITIN [CHEM] Routine Lab 03/28/20 13:43 Ordered INR,PT,PROTHROMBIN TIME [COAG] Routine Lab 03/28/20 13:45 Ordered LACTATE DEHYDROGENASE,LDH [CHEM] Stat Lab 03/28/20 13:43 Ordered LACTIC ACID [CHEM] Stat Lab 03/28/20 13:43 Ordered PRO B-TYPE NATRIUR PEPT,BNPPRO [CHEM] Stat Lab 03/28/20 13:48 Ordered PROCALCITONIN [REF] Stat Lab 03/28/20 13:43 Ordered PTT,PARTIAL THROMBOPLSTIN TIME [COAG] Routine Lab 03/28/20 13:43 Ordered UA W/TREV RFLX IF INDICATED [URIN] Routine Lab 03/28/20 13:43 Ordered Acetaminophen [TylenoL] Med 03/28/20 13:36 Active 650 mg PO Q4H PRN Albuterol [Proventil Neb Soln] Med 03/28/20 13:36 Active 2.5 mg NEB Q2H PRN Docusate Sodium [Colace] Med 03/28/20 13:36 Active 100 mg PO BID PRN Ondansetron [Zofran] Med 03/28/20 13:36 Active 4 mg IV Q4H PRN Remdesivir (Eua) [Remdesivir (EUA)] 100 mg Med 03/29/20 09:00 Ordered Sodium Chloride 0.9% [Normal Saline] 100 ml IV DAILY Remdesivir (Eua) [Remdesivir (EUA)] 200 mg Med 03/28/20 13:43 Pending Sodium Chloride 0.9% [Normal Saline] 250 ml IV ONETIME Sodium Chloride 0.9% [Saline Flush] Med 03/28/20 13:36 Active 10 ml FLUSH ASDIRECTED PRN dexAMETHasone Med 03/28/20 15:00 Pending 6 mg PO Q24H Isolation [COMM] Stat Oth 11/18/20 13:44 Ordered Saline Lock Insert [OM.PC] Routine Oth 03/28/20 13:36 Ordered Medication Orders Acetaminophen (Tylenol) 650 mg PO Q4H PRN PRN Reason: Pain (Mild 1-3)/fever Albuterol (Proventil Neb Soln) 2.5 mg NEB Q2H PRN PRN Reason: Shortness Of Breath/wheezing Dexamethasone (Dexamethasone) 6 mg PO Q24H CHARLEE Stop: 04/06/20 15:01 Docusate Sodium (Colace) 100 mg PO BID PRN PRN Reason: Constipation Remdesivir 200 mg/ Sodium (Chloride) 250 mls @ 250 mls/hr IV ONETIME ONE Stop: 03/28/20 13:44 Remdesivir 100 mg/ Sodium (Chloride) 100 mls @ 100 mls/hr IV DAILY CHARLEE Stop: 04/01/20 09:59 Ondansetron HCl (Zofran) 4 mg IV Q4H PRN PRN Reason: Nausea/Vomiting Sodium Chloride (Saline Flush) 10 ml FLUSH ASDIRECTED PRN PRN Reason: Keep Vein Open Assessment/Plan Comment:: * 84-year-old male with an 8-day history of cough, shortness of breath, fever, chills, decreased appetite and general malaise. * Tested positive for Covid on 03/23/2020. * Received Bamlanivimab on 03/24/20. States that he felt better for about 24 hours and then symptoms of Covid returned. * Chest x-ray taken 03/28/20 shows patchy groundglass and interstitial opacities mid right and left lungs suggesting bilateral pneumonia. * Blood cultures x2 collected * Labs reveal: WBC 3.94, hemoglobin 13.1, platelet count 99, D-dimer 0.76, sodium 135, potassium 4.7, BUN 55, creatinine 2.4, GFR 26, ferritin 418, LDH 310, alk phos 43, C-reactive protein 7.6, BNP 1868, procalcitonin has been ordered. * Blood gases on 2 L of oxygen per nasal cannula reveal a pH of 7.43, PCO2 of 24.9, PO2 of 70.0, bicarb of 16.1 * Patient does have a significant history of COPD, chronic renal failure, CHF, and has atrial fibrillation taking Eliquis. PLAN: * Will be admitted to [facility] [place] floor with telemetry and continuous pulse oximetry. * Renally dose all medications. * Respiratory therapy to titrate oxygen as needed to maintain O2 saturations greater than 88%. * Incentive spirometer and flutter valve every 1 hour while awake. * Per Dr. Sellers we will give the patient loading dose of remdesivir even though his GFR is 26. * Rocephin 2 g IV daily x5 days and Zithromax 500 mg daily x3 days to treat pneumonia. * Patient received 2 units of convalescent plasma. Consent has been obtained. I spoke with the patient to provide information about convalescent plasma for himself. I offered him the fax sheet for patients and parents/caregivers for COVID-19 convalescent plasma to read and review. I stated the therapy has been approved by an emergency youth authorization process and has not fully been FDA reviewed or approved. I shared potential risks from the therapy including transmission of blood-borne pathogens such as HIV and hepatitis C, allergic and transfusion related reactions, post transfusion purpura. Additionally theoretical risks including a phenomenon called antibody dependent enhancement of infection such as seen in dengue or attenuation of an immune response that may may make the patients more susceptible to reinfection. I discussed there are other potential treatment options that are currently not FDA approved to treat Covid. Offered opportunity to ask questions and all questions were answered. Patient voiced understanding and agreed to proceed with the treatment for himself. * Closely monitor intake and output and daily weights as patient does have congestive heart failure. * Eliquis for DVT prophylaxis. * Repeat labs in the a.m. * career services assistant consult for discharge planning * PT and OT to evaluate and treat the patient * Dietitian to consult regarding dietary needs. * Spiritual care * Patient is a full code. - Mortality Measure Prognosis:: Poor
--- NOTE | 2020-03-28 14:28 | CR ---
PROCEDURE INFORMATION: Exam: XR Chest, 1 View Exam date and time: 03/28/2020 1:28 PM Age: 84 years old Clinical indication: Other: Covid TECHNIQUE: Imaging protocol: XR of the chest Views: 1 view. COMPARISON: CR Chest 1V Frontal 03/24/2020 4:02 PM FINDINGS: Lungs: Patchy ground-glass and interstitial opacities right and left mid lung. There is some reticulation at the left lung base which may represent some underlying chronic lung change. Pleural space: Unremarkable. No pleural effusion. No pneumothorax. Heart/Mediastinum: Unremarkable. No cardiomegaly. Bones/joints: Postsurgical changes with sternotomy wires and surgical clips. IMPRESSION: Patchy ground-glass and interstitial opacities mid right and left lungs suggesting bilateral pneumonia. Thank you for allowing us to participate in the care of your patient. Dictated and Authenticated by: Kaleb Sauceda MD 03/28/2020 3:22 PM Central Time ([place] & [place]) [place]
[2020-03-28] MEDS: cefTRIAXone 2 GM in Sodium Chloride 0.9% 100 ML IV SCH (15:54)
[2020-03-28] MEDS: Azithromycin 500 MG in Sodium Chloride 0.9% 250 ML IV SCH (15:57)
[2020-03-28] MEDS: Dexamethasone 4 MG Tab PO SCH (15:58)
[2020-03-28] MEDS ORDERED: Sodium Chloride 0.9% 250 ML IV SCH (17:00)
[2020-03-28] MEDS ORDERED: Sodium Chloride 0.9% 1,000 ML ONE (18:37)
[2020-03-28] MEDS ORDERED: Sodium Chloride 0.9% 1,000 ML IV ONE (18:45)
[2020-03-28] MEDS: Albuterol 0.083% 2.5 MG/3 ML Neb Soln NEB PRN (19:03)
[2020-03-29] MEDS ORDERED: Nitroglycerin 0.4 MG Tab.SL SL PRN (08:22)
[2020-03-29] MEDS ORDERED: REMDESIVIR 100 MG in Sodium Chloride 0.9% 100 ML IV SCH (09:00)
[2020-03-29] MEDS ORDERED: Albuterol 6.7 GM Inhaler INH PRN (11:29)
[2020-03-29] MEDS: Cholecalciferol (Vitamin D3) 25 MCG Tab PO SCH (12:45)
[2020-03-29] MEDS: Metoprolol Tartrate 25 MG Tab PO SCH ×2 (12:45→22:49)
[2020-03-29] MEDS: Isosorbide Mononitrate 60 MG Tab.ER PO SCH (12:45)
[2020-03-29] MEDS: Furosemide 20 MG Tab PO SCH (12:45)
[2020-03-29] MEDS: Aspirin 81 MG Tab.Chew PO SCH (12:45)
[2020-03-29] MEDS: Rosuvastatin 10 MG Tab PO SCH (12:46)
[2020-03-29] MEDS: Ascorbic Acid 500 MG Tab PO SCH (12:46)
[2020-03-29] MEDS: Apixaban 2.5 MG Tab PO SCH ×2 (12:46→22:49)
[2020-03-29] MEDS: Losartan 25 MG Tab PO SCH (12:46)
--- NOTE | 2020-03-29 13:44 | PCM.PN ---
- General Info Date of Service: 03/29/20 Admission Dx/Problem (Free Text): Admission Diagnosis/Problem Admission Diagnosis/Problem Hypoxia Functional Status: Reports: Pain Controlled, Tolerating Diet, Ambulating (With physical therapy), Urinating - Review of Systems General: Reports: No Symptoms HEENT: Reports: No Symptoms, Glasses Pulmonary: Reports: Cough. Denies: Sputum Cardiovascular: Reports: No Symptoms Gastrointestinal: Reports: No Symptoms Genitourinary: Reports: Incontinence Musculoskeletal: Reports: No Symptoms Skin: Reports: Other (2 areas of hallman noted to patient's lower backpatient admits to sleeping on a heating pad and not realizing that he had hallman.) Neurological: Reports: No Symptoms Psychiatric: Reports: No Symptoms - Patient Data Vitals - Most Recent: Last Vital Signs Temp 97.9 F 03/29/20 12:04 Pulse 80 03/29/20 12:45 Resp 24 H 03/29/20 12:04 BP 100/80 03/29/20 12:46 Pulse Ox 93 L 03/29/20 12:04 Weight - Most Recent: 181 lb I&O - Last 24 Hours: Intake & Output 03/28/20 03/29/20 03/29/20 22:59 06:59 14:59 Intake Total 635 500 480 Output Total 300 475 Balance 335 25 480 Lab Results Last 24 Hours: Laboratory Results - last 24 hr 03/28/20 03/28/20 03/28/20 Range/Units 13:44 14:00 14:00 WBC (4.23-9.07) K/mm3 RBC (4.63-6.08) M/mm3 Hgb (13.7-17.5) gm/dl Hct (40.1-51.0) % MCV (79.0-92.2) fl MCH (25.7-32.2) pg MCHC (32.2-35.5) g/dl RDW Std Deviation (35.1-43.9) fL Plt Count (163-337) K/mm3 MPV (9.4-12.3) fl Neut % (Auto) (34.0-67.9) % Lymph % (Auto) (21.8-53.1) % [place] % (Auto) (5.3-12.2) % Eos % (Auto) (0.8-7.0) Baso % (Auto) (0.1-1.2) % Neut # (Auto) (1.78-5.38) K/mm3 Lymph # (Auto) (1.32-3.57) K/mm3 [place] # (Auto) (0.30-0.82) K/mm3 Eos # (Auto) (0.04-0.54) K/mm3 Baso # (Auto) (0.01-0.08) K/mm3 Manual Slide Review PT (9.7-12.0) SECONDS INR APTT (21.7-31.4) SECONDS D-Dimer, Quantitative (0.19-0.50) mg/L Puncture Site Lt radial ABG pH 7.43 (7.35-7.45) ABG pCO2 24.9 L (35.0-45.0) mmHg ABG pO2 70.0 L (80.0-100.0) mmHg ABG HCO3 16.1 L (22.0-26.0) meq/L ABG O2 Saturation 93.7 L (96.0-97.0) % ABG Base Excess -6.4 L (-2-2.0) Bradley Test Positive O2 Delivery Device Nasal cannula Oxygen Flow Rate 2.0 FiO2 0.00 L (21.00-100.00) % Sodium 135 L (136-145) mEq/L Potassium 4.7 (3.5-5.1) mEq/L Chloride 104 (98-107) mEq/L Carbon Dioxide 22 (21-32) mEq/L Anion Gap 13.7 (5-15) BUN 55 H (7-18) mg/dL Creatinine 2.4 H (0.7-1.3) mg/dL Est Cr Clr Drug Dosing TNP Estimated GFR (MDRD) 26 (>60) mL/min BUN/Creatinine Ratio 22.9 H (14-18) Glucose 119 H (83-115) mg/dL Lactic Acid (0.4-2.0) mmol/L Calcium 8.2 L (8.5-10.1) mg/dL Magnesium (1.8-2.4) mg/dl Ferritin 418 H (26-388) ng/ml Total Bilirubin 0.4 (0.2-1.0) mg/dL AST 34 (15-37) U/L ALT 27 (16-63) U/L Alkaline Phosphatase 43 L (46-116) U/L Lactate Dehydrogenase 310 H (85-227) U/L C-Reactive Protein 7.6 H* (<1.0) mg/dL NT-Pro-B Natriuret Pep (0-450) pg/mL Total Protein 6.3 L (6.4-8.2) g/dl Albumin 2.7 L (3.4-5.0) g/dl Globulin 3.6 gm/dL Albumin/Globulin Ratio 0.8 L (1-2) Urine Color (Yellow) Urine Appearance (Clear) Urine pH (5.0-8.0) Ur Specific [place] (1.005-1.030) Urine Protein (Negative) Urine Glucose (UA) (Negative) Urine Ketones (Negative) Urine Occult Blood (Negative) Urine Nitrite (Negative) Urine Bilirubin (Negative) Urine Urobilinogen (0.2-1.0) Ur Leukocyte Esterase (Negative) U Hyaline Cast (Auto) (0-5) /lpf Urine RBC (0-5) /hpf Urine WBC (0-5) /hpf Ur Squamous Epith Cells (0-5) /hpf Amorphous Sediment (NOT SEEN) /hpf Urine Bacteria (FEW) /hpf Urine Mucus (FEW) /hpf Blood Type Tx Rx Implicated Unit 1 Unit 1 Component Tx React Review Date Reaction Clerical Check Pre-Trans Vis Hemolysis Pre-Trans Icterus Post-Trans Blood Type Post-Tx Visible Hemolys Post-Trans Icterus Post-Trans LISSY Poly Reaction Interpretation Reaction Pathol Review 03/28/20 03/28/20 03/28/20 Range/Units 14:00 14:00 14:00 WBC 3.94 L (4.23-9.07) K/mm3 RBC 4.42 L (4.63-6.08) M/mm3 Hgb 13.1 L (13.7-17.5) gm/dl Hct 40.3 (40.1-51.0) % MCV 91.2 (79.0-92.2) fl MCH 29.6 (25.7-32.2) pg MCHC 32.5 (32.2-35.5) g/dl RDW Std Deviation 49.3 H (35.1-43.9) fL Plt Count 99 L (163-337) K/mm3 MPV 10.5 (9.4-12.3) fl Neut % (Auto) 70.0 H (34.0-67.9) % Lymph % (Auto) 17.5 L (21.8-53.1) % [place] % (Auto) 11.4 (5.3-12.2) % Eos % (Auto) 0.3 L (0.8-7.0) Baso % (Auto) 0.3 (0.1-1.2) % Neut # (Auto) 2.76 (1.78-5.38) K/mm3 Lymph # (Auto) 0.69 L (1.32-3.57) K/mm3 [place] # (Auto) 0.45 (0.30-0.82) K/mm3 Eos # (Auto) 0.01 L (0.04-0.54) K/mm3 Baso # (Auto) 0.01 (0.01-0.08) K/mm3 Manual Slide Review Abnormal smear PT 11.4 (9.7-12.0) SECONDS INR 1.07 APTT 31.6 H (21.7-31.4) SECONDS D-Dimer, Quantitative 0.76 H (0.19-0.50) mg/L Puncture Site ABG pH (7.35-7.45) ABG pCO2 (35.0-45.0) mmHg ABG pO2 (80.0-100.0) mmHg ABG HCO3 (22.0-26.0) meq/L ABG O2 Saturation (96.0-97.0) % ABG Base Excess (-2-2.0) Bradley Test O2 Delivery Device Oxygen Flow Rate FiO2 (21.00-100.00) % Sodium (136-145) mEq/L Potassium (3.5-5.1) mEq/L Chloride (98-107) mEq/L Carbon Dioxide (21-32) mEq/L Anion Gap (5-15) BUN (7-18) mg/dL Creatinine (0.7-1.3) mg/dL Est Cr Clr Drug Dosing Estimated GFR (MDRD) (>60) mL/min BUN/Creatinine Ratio (14-18) Glucose (83-115) mg/dL Lactic Acid (0.4-2.0) mmol/L Calcium (8.5-10.1) mg/dL Magnesium (1.8-2.4) mg/dl Ferritin (26-388) ng/ml Total Bilirubin (0.2-1.0) mg/dL AST (15-37) U/L ALT (16-63) U/L Alkaline Phosphatase (46-116) U/L Lactate Dehydrogenase (85-227) U/L C-Reactive Protein (<1.0) mg/dL NT-Pro-B Natriuret Pep 1868 H (0-450) pg/mL Total Protein (6.4-8.2) g/dl Albumin (3.4-5.0) g/dl Globulin gm/dL Albumin/Globulin Ratio (1-2) Urine Color (Yellow) Urine Appearance (Clear) Urine pH (5.0-8.0) Ur Specific [place] (1.005-1.030) Urine Protein (Negative) Urine Glucose (UA) (Negative) Urine Ketones (Negative) Urine Occult Blood (Negative) Urine Nitrite (Negative) Urine Bilirubin (Negative) Urine Urobilinogen (0.2-1.0) Ur Leukocyte Esterase (Negative) U Hyaline Cast (Auto) (0-5) /lpf Urine RBC (0-5) /hpf Urine WBC (0-5) /hpf Ur Squamous Epith Cells (0-5) /hpf Amorphous Sediment (NOT SEEN) /hpf Urine Bacteria (FEW) /hpf Urine Mucus (FEW) /hpf Blood Type Tx Rx Implicated Unit 1 Unit 1 Component Tx React Review Date Reaction Clerical Check Pre-Trans Vis Hemolysis Pre-Trans Icterus Post-Trans Blood Type Post-Tx Visible Hemolys Post-Trans Icterus Post-Trans LISSY Poly Reaction Interpretation Reaction Pathol Review 03/28/20 03/28/20 03/28/20 Range/Units 14:00 14:00 14:30 WBC (4.23-9.07) K/mm3 RBC (4.63-6.08) M/mm3 Hgb (13.7-17.5) gm/dl Hct (40.1-51.0) % MCV (79.0-92.2) fl MCH (25.7-32.2) pg MCHC (32.2-35.5) g/dl RDW Std Deviation (35.1-43.9) fL Plt Count (163-337) K/mm3 MPV (9.4-12.3) fl Neut % (Auto) (34.0-67.9) % Lymph % (Auto) (21.8-53.1) % [place] % (Auto) (5.3-12.2) % Eos % (Auto) (0.8-7.0) Baso % (Auto) (0.1-1.2) % Neut # (Auto) (1.78-5.38) K/mm3 Lymph # (Auto) (1.32-3.57) K/mm3 [place] # (Auto) (0.30-0.82) K/mm3 Eos # (Auto) (0.04-0.54) K/mm3 Baso # (Auto) (0.01-0.08) K/mm3 Manual Slide Review PT (9.7-12.0) SECONDS INR APTT (21.7-31.4) SECONDS D-Dimer, Quantitative (0.19-0.50) mg/L Puncture Site ABG pH (7.35-7.45) ABG pCO2 (35.0-45.0) mmHg ABG pO2 (80.0-100.0) mmHg ABG HCO3 (22.0-26.0) meq/L ABG O2 Saturation (96.0-97.0) % ABG Base Excess (-2-2.0) Bradley Test O2 Delivery Device Oxygen Flow Rate FiO2 (21.00-100.00) % Sodium (136-145) mEq/L Potassium (3.5-5.1) mEq/L Chloride (98-107) mEq/L Carbon Dioxide (21-32) mEq/L Anion Gap (5-15) BUN (7-18) mg/dL Creatinine (0.7-1.3) mg/dL Est Cr Clr Drug Dosing Estimated GFR (MDRD) (>60) mL/min BUN/Creatinine Ratio (14-18) Glucose (83-115) mg/dL Lactic Acid 1.2 (0.4-2.0) mmol/L Calcium (8.5-10.1) mg/dL Magnesium 2.0 (1.8-2.4) mg/dl Ferritin (26-388) ng/ml Total Bilirubin (0.2-1.0) mg/dL AST (15-37) U/L ALT (16-63) U/L Alkaline Phosphatase (46-116) U/L Lactate Dehydrogenase (85-227) U/L C-Reactive Protein (<1.0) mg/dL NT-Pro-B Natriuret Pep (0-450) pg/mL Total Protein (6.4-8.2) g/dl Albumin (3.4-5.0) g/dl Globulin gm/dL Albumin/Globulin Ratio (1-2) Urine Color (Yellow) Urine Appearance (Clear) Urine pH (5.0-8.0) Ur Specific [place] (1.005-1.030) Urine Protein (Negative) Urine Glucose (UA) (Negative) Urine Ketones (Negative) Urine Occult Blood (Negative) Urine Nitrite (Negative) Urine Bilirubin (Negative) Urine Urobilinogen (0.2-1.0) Ur Leukocyte Esterase (Negative) U Hyaline Cast (Auto) (0-5) /lpf Urine RBC (0-5) /hpf Urine WBC (0-5) /hpf Ur Squamous Epith Cells (0-5) /hpf Amorphous Sediment (NOT SEEN) /hpf Urine Bacteria (FEW) /hpf Urine Mucus (FEW) /hpf Blood Type O POSITIVE Tx Rx Implicated Unit 1 Unit 1 Component Tx React Review Date Reaction Clerical Check Pre-Trans Vis Hemolysis Pre-Trans Icterus Post-Trans Blood Type Post-Tx Visible Hemolys Post-Trans Icterus Post-Trans LISSY Poly Reaction Interpretation Reaction Pathol Review 03/28/20 03/28/20 03/28/20 Range/Units 15:45 19:58 21:08 WBC (4.23-9.07) K/mm3 RBC (4.63-6.08) M/mm3 Hgb (13.7-17.5) gm/dl Hct (40.1-51.0) % MCV (79.0-92.2) fl MCH (25.7-32.2) pg MCHC (32.2-35.5) g/dl RDW Std Deviation (35.1-43.9) fL Plt Count (163-337) K/mm3 MPV (9.4-12.3) fl Neut % (Auto) (34.0-67.9) % Lymph % (Auto) (21.8-53.1) % [place] % (Auto) (5.3-12.2) % Eos % (Auto) (0.8-7.0) Baso % (Auto) (0.1-1.2) % Neut # (Auto) (1.78-5.38) K/mm3 Lymph # (Auto) (1.32-3.57) K/mm3 [place] # (Auto) (0.30-0.82) K/mm3 Eos # (Auto) (0.04-0.54) K/mm3 Baso # (Auto) (0.01-0.08) K/mm3 Manual Slide Review PT (9.7-12.0) SECONDS INR APTT (21.7-31.4) SECONDS D-Dimer, Quantitative (0.19-0.50) mg/L Puncture Site ABG pH (7.35-7.45) ABG pCO2 (35.0-45.0) mmHg ABG pO2 (80.0-100.0) mmHg ABG HCO3 (22.0-26.0) meq/L ABG O2 Saturation (96.0-97.0) % ABG Base Excess (-2-2.0) Bradley Test O2 Delivery Device Oxygen Flow Rate FiO2 (21.00-100.00) % Sodium (136-145) mEq/L Potassium (3.5-5.1) mEq/L Chloride (98-107) mEq/L Carbon Dioxide (21-32) mEq/L Anion Gap (5-15) BUN (7-18) mg/dL Creatinine (0.7-1.3) mg/dL Est Cr Clr Drug Dosing Estimated GFR (MDRD) (>60) mL/min BUN/Creatinine Ratio (14-18) Glucose (83-115) mg/dL Lactic Acid (0.4-2.0) mmol/L Calcium (8.5-10.1) mg/dL Magnesium (1.8-2.4) mg/dl Ferritin (26-388) ng/ml Total Bilirubin (0.2-1.0) mg/dL AST (15-37) U/L ALT (16-63) U/L Alkaline Phosphatase (46-116) U/L Lactate Dehydrogenase (85-227) U/L C-Reactive Protein (<1.0) mg/dL NT-Pro-B Natriuret Pep (0-450) pg/mL Total Protein (6.4-8.2) g/dl Albumin (3.4-5.0) g/dl Globulin gm/dL Albumin/Globulin Ratio (1-2) Urine Color Yellow Yellow (Yellow) Urine Appearance Clear Clear (Clear) Urine pH 6.0 5.5 (5.0-8.0) Ur Specific [place] 1.025 1.020 (1.005-1.030) Urine Protein 2+ H 1+ H (Negative) Urine Glucose (UA) Negative Negative (Negative) Urine Ketones Negative Negative (Negative) Urine Occult Blood Negative Negative (Negative) Urine Nitrite Negative Negative (Negative) Urine Bilirubin Negative Negative (Negative) Urine Urobilinogen 0.2 0.2 (0.2-1.0) Ur Leukocyte Esterase Negative Negative (Negative) U Hyaline Cast (Auto) 0-5 (0-5) /lpf Urine RBC 0-5 Not seen (0-5) /hpf Urine WBC 0-5 0-5 (0-5) /hpf Ur Squamous Epith Cells 0-5 0-5 (0-5) /hpf Amorphous Sediment Few H (NOT SEEN) /hpf Urine Bacteria Few Rare (FEW) /hpf Urine Mucus Few Not seen (FEW) /hpf Blood Type Tx Rx Implicated Unit 1 [id number] Unit 1 Component Ffp Tx React Review Date Reaction Clerical Check Acceptable Pre-Trans Vis Hemolysis Negative Pre-Trans Icterus Negative Post-Trans Blood Type O positive Post-Tx Visible Hemolys Negative Post-Trans Icterus Negative Post-Trans LISSY Poly Negative Reaction Interpretation Non-hem transf rx Reaction Pathol Review 03/29/20 03/29/20 03/29/20 Range/Units 05:22 05:22 05:22 WBC 2.67 L (4.23-9.07) K/mm3 RBC 4.07 L (4.63-6.08) M/mm3 Hgb 12.0 L (13.7-17.5) gm/dl Hct 36.9 L (40.1-51.0) % MCV 90.7 (79.0-92.2) fl MCH 29.5 (25.7-32.2) pg MCHC 32.5 (32.2-35.5) g/dl RDW Std Deviation 48.5 H (35.1-43.9) fL Plt Count 98 L (163-337) K/mm3 MPV 11.0 (9.4-12.3) fl Neut % (Auto) 74.2 H (34.0-67.9) % Lymph % (Auto) 16.1 L (21.8-53.1) % [place] % (Auto) 8.6 (5.3-12.2) % Eos % (Auto) 0 L (0.8-7.0) Baso % (Auto) 0.4 (0.1-1.2) % Neut # (Auto) 1.98 (1.78-5.38) K/mm3 Lymph # (Auto) 0.43 L (1.32-3.57) K/mm3 [place] # (Auto) 0.23 L (0.30-0.82) K/mm3 Eos # (Auto) 0.00 L (0.04-0.54) K/mm3 Baso # (Auto) 0.01 (0.01-0.08) K/mm3 Manual Slide Review Abnormal smear PT (9.7-12.0) SECONDS INR APTT (21.7-31.4) SECONDS D-Dimer, Quantitative 0.67 H (0.19-0.50) mg/L Puncture Site ABG pH (7.35-7.45) ABG pCO2 (35.0-45.0) mmHg ABG pO2 (80.0-100.0) mmHg ABG HCO3 (22.0-26.0) meq/L ABG O2 Saturation (96.0-97.0) % ABG Base Excess (-2-2.0) Bradley Test O2 Delivery Device Oxygen Flow Rate FiO2 (21.00-100.00) % Sodium 137 (136-145) mEq/L Potassium 4.5 (3.5-5.1) mEq/L Chloride 106 (98-107) mEq/L Carbon Dioxide 17 L (21-32) mEq/L Anion Gap 18.5 H (5-15) BUN 54 H (7-18) mg/dL Creatinine 2.1 H (0.7-1.3) mg/dL Est Cr Clr Drug Dosing 26.55 Estimated GFR (MDRD) 30 (>60) mL/min BUN/Creatinine Ratio 25.7 H (14-18) Glucose 145 H (83-115) mg/dL Lactic Acid (0.4-2.0) mmol/L Calcium 7.7 L (8.5-10.1) mg/dL Magnesium (1.8-2.4) mg/dl Ferritin (26-388) ng/ml Total Bilirubin 0.2 (0.2-1.0) mg/dL AST 34 (15-37) U/L ALT 28 (16-63) U/L Alkaline Phosphatase 36 L (46-116) U/L Lactate Dehydrogenase (85-227) U/L C-Reactive Protein 8.1 H* (<1.0) mg/dL NT-Pro-B Natriuret Pep (0-450) pg/mL Total Protein 5.7 L (6.4-8.2) g/dl Albumin 2.4 L (3.4-5.0) g/dl Globulin 3.3 gm/dL Albumin/Globulin Ratio 0.7 L (1-2) Urine Color (Yellow) Urine Appearance (Clear) Urine pH (5.0-8.0) Ur Specific [place] (1.005-1.030) Urine Protein (Negative) Urine Glucose (UA) (Negative) Urine Ketones (Negative) Urine Occult Blood (Negative) Urine Nitrite (Negative) Urine Bilirubin (Negative) Urine Urobilinogen (0.2-1.0) Ur Leukocyte Esterase (Negative) U Hyaline Cast (Auto) (0-5) /lpf Urine RBC (0-5) /hpf Urine WBC (0-5) /hpf Ur Squamous Epith Cells (0-5) /hpf Amorphous Sediment (NOT SEEN) /hpf Urine Bacteria (FEW) /hpf Urine Mucus (FEW) /hpf Blood Type Tx Rx Implicated Unit 1 Unit 1 Component Tx React Review Date Reaction Clerical Check Pre-Trans Vis Hemolysis Pre-Trans Icterus Post-Trans Blood Type Post-Tx Visible Hemolys Post-Trans Icterus Post-Trans LISSY Poly Reaction Interpretation Reaction Pathol Review Dimitrios Results Last 24 Hours: Microbiology 03/28/20 16:30 Gram Stain - Preliminary Sputum - Expectorated Sputum Culture - Preliminary Med Orders - Current: Current Medications Acetaminophen (Tylenol) 650 mg PO Q4H PRN PRN Reason: Pain (Mild 1-3)/fever Albuterol (Proventil Neb Soln) 2.5 mg NEB Q2H PRN PRN Reason: Shortness Of Breath/wheezing Last Admin: 03/28/20 19:03 Dose: 2.5 mg Documented by: Albuterol (Proventil Hfa) 0 gm INH QID PRN PRN Reason: Shortness of Breath Albuterol/Ipratropium (Duoneb 3.0-0.5 Mg/3 Ml) 3 ml INH Q6H PRN PRN Reason: Shortness of Breath Apixaban (Eliquis) 2.5 mg PO BID [facility] Last Admin: 03/29/20 12:46 Dose: 2.5 mg Documented by: Ascorbic Acid (Vitamin C) 1,000 mg PO DAILY [facility] Last Admin: 03/29/20 12:46 Dose: 1,000 mg Documented by: Aspirin (Aspirin) 81 mg PO DAILY [facility] Last Admin: 03/29/20 12:45 Dose: 81 mg Documented by: Cholecalciferol (Vitamin D3) 50 mcg PO DAILY [facility] Last Admin: 03/29/20 12:45 Dose: 50 mcg Documented by: Dexamethasone (Dexamethasone) 6 mg PO Q24H [facility] Stop: 04/06/20 16:01 Last Admin: 03/28/20 15:58 Dose: 6 mg Documented by: Docusate Sodium (Colace) 100 mg PO BID PRN PRN Reason: Constipation Furosemide (Lasix) 20 mg PO DAILY [facility] Last Admin: 03/29/20 12:45 Dose: 20 mg Documented by: Azithromycin 500 mg/ Sodium (Chloride) 250 mls @ 250 mls/hr IV Q24H [facility] Stop: 03/30/20 17:29 Last Admin: 03/28/20 15:57 Dose: 250 mls/hr Documented by: Ceftriaxone Sodium 2 gm/ (Sodium Chloride) 100 mls @ 200 mls/hr IV Q24H [facility] Stop: 04/01/20 16:29 Last Admin: 03/28/20 15:54 Dose: 200 mls/hr Documented by: Remdesivir 100 mg/ Sodium (Chloride) 100 mls @ 100 mls/hr IV Q24H [facility] Stop: 04/01/20 18:59 Isosorbide Mononitrate (Imdur) 60 mg PO DAILY [facility] Last Admin: 03/29/20 12:45 Dose: 60 mg Documented by: Losartan Potassium (Cozaar) 25 mg PO DAILY [facility] Last Admin: 03/29/20 12:46 Dose: 25 mg Documented by: Metoprolol Tartrate (Lopressor) 25 mg PO BID [facility] Last Admin: 03/29/20 12:45 Dose: 25 mg Documented by: Mometasone Furoate/Formoterol Fumar (Dulera 200-5 Mcg) 2 puff IH BID [facility] Nitroglycerin (Nitrostat) 0.4 mg SL Q5M PRN PRN Reason: Chest Pain Non-Formulary Medication (Budesonide/Formoterol) 2 puff INH BID [facility] Non-Formulary Medication (Tiotropium) 2 puff INH DAILY [facility] Ondansetron HCl (Zofran) 4 mg IV Q4H PRN PRN Reason: Nausea/Vomiting Oxybutynin Chloride (Oxybutynin Er) 10 mg PO DAILY [facility] Rosuvastatin Calcium (Crestor) 20 mg PO DAILY [facility] Last Admin: 03/29/20 12:46 Dose: 20 mg Documented by: Saccharomyces Boulardii (Florastor) 250 mg PO DAILY [facility] Sodium Chloride (Saline Flush) 10 ml FLUSH ASDIRECTED PRN PRN Reason: Keep Vein Open Discontinued Medications Remdesivir 200 mg/ Sodium (Chloride) 250 mls @ 250 mls/hr IV ONETIME ONE Stop: 03/28/20 13:44 Last Admin: 03/28/20 16:38 Dose: Not Given Documented by: Remdesivir 100 mg/ Sodium (Chloride) 100 mls @ 100 mls/hr IV DAILY [facility] Stop: 04/01/20 09:59 Remdesivir 200 mg/ Sodium (Chloride) 250 mls @ 250 mls/hr IV ONETIME ONE Stop: 03/28/20 18:59 Last Admin: 03/28/20 19:13 Dose: 250 mls/hr Documented by: Sodium Chloride (Normal Saline) 250 mls @ 100 mls/hr IV ASDIRECTED [facility] Stop: 03/28/20 23:00 Sodium Chloride (Normal Saline) 1,000 mls @ 999 mls/hr IV ONETIME ONE Stop: 03/28/20 19:45 Last Admin: 03/28/20 19:26 Dose: 999 mls/hr Documented by: Sodium Chloride (Normal Saline) Confirm Administered Dose 1,000 mls @ as directed .ROUTE .STK-MED ONE Stop: 03/28/20 18:38 Last Admin: 03/28/20 19:45 Dose: Not Given Documented by: - Exam Quality Assessment: Supplemental Oxygen (2 L per nasal cannula), DVT Prophylaxis (Patient takes Eliquis) General: Alert, Oriented, Cooperative, No Acute Distress HEENT: Pupils Equal, Pupils Reactive, Mucous Membr. Moist/Secor Neck: Supple, Trachea Midline. No: Lymphadenopathy Lungs: Normal Respiratory Effort, Decreased Breath Sounds, Crackles (Bilateral bases) Cardiovascular: Regular Rate, Irregular Rhythm (History of atrial fibrillation) GI/Abdominal Exam: Normal Bowel Sounds, Soft, Non-Tender, No Distention (Male) Exam: Deferred Back Exam: Normal Inspection, Full Range of Motion Extremities: Normal Inspection, Normal Range of Motion, Non-Tender, No Pedal Edema, Normal Capillary Refill Peripheral Pulses: 2+: Radial (L), Radial (R), Dorsalis Pedis (L), Dorsalis Pedis (R) Skin: Warm, Dry, Intact Neurological: No New Focal Deficit Psy/Mental Status: Alert, Normal Affect, Normal Mood Sepsis Event Note - Evaluation Sepsis Screening Result: No Definite Risk - Focused Exam Vital Signs: Vital Signs Temp Pulse Resp BP Pulse Ox Pulse Ox 03/29/20 12:46 100/80 03/29/20 12:45 80 100/80 03/29/20 12:04 97.9 F 80 24 H 100/80 93 L 03/29/20 09:21 93 L 03/29/20 07:45 97.5 F 72 20 126/59 L 92 L 03/29/20 05:41 93 L 03/29/20 04:17 97.3 F 72 20 113/74 91 L - Problem List & Annotations (1) Pneumonia due to 2019 novel coronavirus SNOMED Code(s): 837517141798803706 Code(s): U07.1 - COVID-19; J12.89 - OTHER VIRAL PNEUMONIA Status: Acute Priority: High Current Visit: Yes (2) COPD (chronic obstructive pulmonary disease) SNOMED Code(s): 18236066 Code(s): J44.9 - CHRONIC OBSTRUCTIVE PULMONARY DISEASE, UNSPECIFIED Status: Chronic Priority: High Current Visit: Yes Qualifiers: COPD type: emphysema Emphysema type: panlobular Qualified Code(s): J43.1 - Panlobular emphysema (3) COVID-19 determined by clinical diagnostic criteria SNOMED Code(s): 877719680, 196821144 Code(s): U07.1 - COVID-19 Status: Acute Priority: High Current Visit: Yes (4) Chronic renal insufficiency, stage IV (severe) SNOMED Code(s): 785487651 Code(s): N18.4 - CHRONIC KIDNEY DISEASE, STAGE 4 (SEVERE) Status: Chronic Priority: High Current Visit: Yes (5) Mild congestive heart failure SNOMED Code(s): 83115755 Code(s): I50.9 - HEART FAILURE, UNSPECIFIED Status: Chronic Priority: High Current Visit: Yes - Problem List Review Problem List Initiated/Reviewed/Updated: Yes - My Orders Last 24 Hours: My Active Orders 03/28/20 13:36 Consult to Case Management/Video Effects Editor [CONS] Routine Consult to Director Of Cardiology [CONS] Routine Consult to Spiritual Care [CONS] Routine OT Evaluation and Treatment [CONS] Routine PT Evaluation and Treatment [CONS] Routine Respiratory Care Assess and Treatment [CONS] Routine Acetaminophen [TylenoL] 650 mg PO Q4H PRN Albuterol [Proventil Neb Soln] 2.5 mg NEB Q2H PRN Docusate Sodium [Colace] 100 mg PO BID PRN Ondansetron [Zofran] 4 mg IV Q4H PRN Sodium Chloride 0.9% [Saline Flush] 10 ml FLUSH ASDIRECTED PRN Saline Lock Insert [OM.PC] Routine 03/28/20 13:37 Patient Status [ADT] Routine Oxygen Therapy [RC] PRN VTE/DVT Education [RC] PER UNIT ROUTINE 03/28/20 13:38 Intake and Output [RC] 04,16 Pulse Oximetry [RC] CONTINUOUS 03/28/20 13:40 RT Aerosol Therapy [RC] ASDIRECTED 03/28/20 13:44 Isolation [COMM] Stat 03/28/20 13:45 Nurse Communication: Isolation [RC] ASDIRECTED 03/28/20 14:00 ABO/RH TYPE [BBK] Routine FRESH FROZEN PLASMA [BBK] Routine PROCALCITONIN [REF] Stat 03/28/20 14:25 CULTURE BLOOD [BC] Stat 03/28/20 14:30 CULTURE BLOOD [BC] Stat 03/28/20 15:23 Verify Patient Consent Obtain [RC] ASDIRECTED Transfuse Fresh Frozen Plasma [COMM] Routine 03/28/20 15:26 Flutter Valve Therapy [RT Chest Physiotherapy] [RC] ASDIRECTED RT Incentive Spirometry [RC] Q1HWA 03/28/20 15:44 Code Status [Resuscitation Status] Routine 03/28/20 16:00 cefTRIAXone [Rocephin] 2 gm Sodium Chloride 0.9% [Normal Saline] 100 ml IV Q24H dexAMETHasone 6 mg PO Q24H 03/28/20 16:30 CULTURE SPUTUM + SMEAR [RM] Routine Azithromycin [Zithromax] 500 mg Sodium Chloride 0.9% [Normal Saline (AdvBag)] 250 ml IV Q24H 03/29/20 08:22 Albuterol/Ipratropium [DuoNeb 3.0-0.5 MG/3 ML] 3 ml INH Q6H PRN Nitroglycerin [Nitrostat] 0.4 mg SL Q5M PRN 03/29/20 08:25 RT Aerosol Therapy [RC] ASDIRECTED 03/29/20 11:29 Albuterol [Proventil HFA] 0 gm INH QID PRN 03/29/20 12:00 Apixaban [Eliquis] 2.5 mg PO BID Ascorbic Acid [Vitamin C] 1,000 mg PO DAILY Aspirin 81 mg PO DAILY Cholecalciferol (Vitamin D3) [Vitamin D3] 50 mcg PO DAILY Furosemide [Lasix] 20 mg PO DAILY Isosorbide Mononitrate [Imdur] 60 mg PO DAILY Losartan [Cozaar] 25 mg PO DAILY Metoprolol Tartrate [Lopressor] 25 mg PO BID Rosuvastatin [Crestor] 20 mg PO DAILY 03/29/20 13:45 Budesonide/Formoterol 2 puff INH BID Oxybutynin [Oxybutynin ER] 10 mg PO DAILY Tiotropium 2 puff INH DAILY 03/29/20 18:00 Remdesivir (Eua) [Remdesivir (EUA)] 100 mg Sodium Chloride 0.9% [Normal Saline] 100 ml IV Q24H 03/29/20 21:00 Mometasone/Formoterol [Dulera 200-5 MCG] 2 puff IH BID 03/30/20 05:11 CBC WITH AUTO DIFF [HEME] DAILY COMPREHENSIVE METABOLIC PN,CMP [CHEM] DAILY 03/30/20 09:00 Saccharomyces Boulardii [Florastor] 250 mg PO DAILY 03/31/20 05:11 CBC WITH AUTO DIFF [HEME] DAILY COMPREHENSIVE METABOLIC PN,CMP [CHEM] DAILY CRP [C-REACTIVE PROTEIN] [CHEM] Q48H D-DIMER QUANTITATIVE [COAG] Q48H 04/01/20 05:11 CBC WITH AUTO DIFF [HEME] DAILY COMPREHENSIVE METABOLIC PN,CMP [CHEM] DAILY 04/02/20 05:11 CBC WITH AUTO DIFF [HEME] DAILY COMPREHENSIVE METABOLIC PN,CMP [CHEM] DAILY CRP [C-REACTIVE PROTEIN] [CHEM] Q48H D-DIMER QUANTITATIVE [COAG] Q48H 04/04/20 05:11 CRP [C-REACTIVE PROTEIN] [CHEM] Q48H D-DIMER QUANTITATIVE [COAG] Q48H 04/06/20 05:11 CRP [C-REACTIVE PROTEIN] [CHEM] Q48H D-DIMER QUANTITATIVE [COAG] Q48H - Assessment Assessment:: 03/29/20 * Patient had a transfusion reaction to convalescent plasma last evening. He had received 14.7 mL of the convalescent plasma when his blood pressures dropped into the 70s systolically and his temperature manish to around 101. Infusion was immediately stopped at that time and he did receive a 500 mL fluid bolus. First voided urine after his reaction was sent to the lab for analysis. I suspect this is due to the patient receiving the Bamlanivimab. * Patient reports feeling much better today. Less shortness of breath noted. And less generalized malaise. * Day 2 of remdesivir and dexamethasone. * Currently on 2 L of oxygen per nasal cannula * Labs reveal: WBC 2.67, D-dimer 0.67, BUN 54, creatinine 2.1, GFR 30, C- reactive protein 8.1. * Patient takes Eliquis for DVT prophylaxis. - Plan Plan:: 03/29/20 * Renally dose all medications. * Respiratory therapy to titrate oxygen as needed to maintain O2 saturations greater than 88%. * Incentive spirometer and flutter valve every 1 hour while awake. * Continue remdesivir and dexamethasone * Rocephin 2 g IV daily x5 days and Zithromax 500 mg daily x3 days to treat pneumonia. * Closely monitor intake and output and daily weights as patient does have congestive heart failure. * Eliquis for DVT prophylaxis. * Repeat labs in the a.m. * tax services specialist consult for discharge planning * PT and OT to evaluate and treat the patient * Dietitian to consult regarding dietary needs. * Spiritual care * Patient is a full code.
[2020-03-29] MEDS ORDERED: Non-Formulary Medication 1 Each (Budesonide/Formoterol 2 PUFF) INH SCH (13:45)
[2020-03-29] MEDS: Dexamethasone 4 MG Tab PO SCH (15:06)
[2020-03-29] MEDS: Oxybutynin 5 MG Tab.ER PO SCH (15:06)
[2020-03-29] MEDS: cefTRIAXone 2 GM in Sodium Chloride 0.9% 100 ML IV SCH (15:07)
[2020-03-29] MEDS: Azithromycin 500 MG in Sodium Chloride 0.9% 250 ML IV SCH (15:52)
[2020-03-29] MEDS: REMDESIVIR 100 MG in Sodium Chloride 0.9% 100 ML IV SCH (17:13)
[2020-03-29] MEDS: Formoterol/Mometasone 200-5 MCG 8.8 GM Inhaler IH SCH (20:00)
[2020-03-30] MEDS: Formoterol/Mometasone 200-5 MCG 8.8 GM Inhaler IH SCH (08:41)
[2020-03-30] MEDS: Isosorbide Mononitrate 60 MG Tab.ER PO SCH (09:33)
[2020-03-30] MEDS: Aspirin 81 MG Tab.Chew PO SCH (09:33)
[2020-03-30] MEDS: Oxybutynin 5 MG Tab.ER PO SCH (09:33)
[2020-03-30] MEDS: Metoprolol Tartrate 25 MG Tab PO SCH ×2 (09:33→21:44)
[2020-03-30] MEDS: Saccharomyces Boulardii (Probiotic) 250 MG Cap PO SCH (09:33)
[2020-03-30] MEDS: Furosemide 20 MG Tab PO SCH (09:33)
[2020-03-30] MEDS: Apixaban 2.5 MG Tab PO SCH ×2 (09:34→21:44)
[2020-03-30] MEDS: Rosuvastatin 10 MG Tab PO SCH (09:34)
[2020-03-30] MEDS: Cholecalciferol (Vitamin D3) 25 MCG Tab PO SCH (09:34)
[2020-03-30] MEDS: Losartan 25 MG Tab PO SCH (09:34)
[2020-03-30] MEDS: Ascorbic Acid 500 MG Tab PO SCH (09:35)
[2020-03-30] MEDS ORDERED: Albuterol 6.7 GM Inhaler **PTOM INH PRN (10:02)
[2020-03-30] MEDS: Tiotropium Bromide 4 GM Inhalation Spray (2.5mcg/1 dose; 10 doses) INH SCH (10:09)
[2020-03-30] MEDS: SYMBICORT INH SCH ×2 (10:14→20:52)
--- NOTE | 2020-03-30 14:36 | PCM.PN ---
- General Info Date of Service: 03/30/20 Admission Dx/Problem (Free Text): Admission Diagnosis/Problem Admission Diagnosis/Problem Hypoxia Subjective Update: Reports feeling much better today. Continues on 2 L of oxygen per nasal cannula. Is requesting to be up independently in his room. Will wait for physical therapy recommendations. Functional Status: Reports: Pain Controlled, Tolerating Diet, Ambulating, Urinating, Incentive Spirometry - Review of Systems General: Reports: No Symptoms HEENT: Reports: No Symptoms, Glasses Pulmonary: Reports: Cough, Wheezing. Denies: Sputum Cardiovascular: Reports: No Symptoms Gastrointestinal: Reports: Diarrhea. Denies: Nausea, Vomiting Genitourinary: Reports: No Symptoms Musculoskeletal: Reports: No Symptoms Skin: Reports: Other (Ortega noted to the lower back from heating pad use. Dressings are intact) Neurological: Reports: No Symptoms Psychiatric: Reports: No Symptoms - Patient Data Vitals - Most Recent: Last Vital Signs Temp 98.2 F 03/30/20 11:08 Pulse 74 03/30/20 11:08 Resp 22 H 03/30/20 11:08 BP 117/75 03/30/20 11:08 Pulse Ox 90 L 03/30/20 11:08 Weight - Most Recent: 179 lb 12.8 oz I&O - Last 24 Hours: Intake & Output 03/29/20 03/30/20 03/30/20 22:59 06:59 14:59 Intake Total 1450 500 240 Output Total 650 1200 Balance 800 -700 240 Lab Results Last 24 Hours: Laboratory Results - last 24 hr 03/28/20 03/30/20 03/30/20 Range/Units 14:00 05:22 05:22 WBC 7.26 (4.23-9.07) K/mm3 RBC 4.34 L (4.63-6.08) M/mm3 Hgb 12.9 L (13.7-17.5) gm/dl Hct 39.1 L (40.1-51.0) % MCV 90.1 (79.0-92.2) fl MCH 29.7 (25.7-32.2) pg MCHC 33.0 (32.2-35.5) g/dl RDW Std Deviation 48.8 H (35.1-43.9) fL Plt Count 126 L (163-337) K/mm3 MPV 10.9 (9.4-12.3) fl Neut % (Auto) 84.0 H (34.0-67.9) % Lymph % (Auto) 7.3 L (21.8-53.1) % [place] % (Auto) 7.9 (5.3-12.2) % Eos % (Auto) 0 L (0.8-7.0) Baso % (Auto) 0.1 (0.1-1.2) % Neut # (Auto) 6.10 H (1.78-5.38) K/mm3 Lymph # (Auto) 0.53 L (1.32-3.57) K/mm3 [place] # (Auto) 0.57 (0.30-0.82) K/mm3 Eos # (Auto) 0.00 L (0.04-0.54) K/mm3 Baso # (Auto) 0.01 (0.01-0.08) K/mm3 Manual Slide Review Sodium 135 L (136-145) mEq/L Potassium 4.1 (3.5-5.1) mEq/L Chloride 106 (98-107) mEq/L Carbon Dioxide 20 L (21-32) mEq/L Anion Gap 13.1 (5-15) BUN 58 H (7-18) mg/dL Creatinine 1.9 H (0.7-1.3) mg/dL Est Cr Clr Drug Dosing 29.35 mL/min Estimated GFR (MDRD) 34 (>60) mL/min BUN/Creatinine Ratio 30.5 H (14-18) Glucose 116 H (83-115) mg/dL Calcium 7.7 L (8.5-10.1) mg/dL Total Bilirubin 0.2 (0.2-1.0) mg/dL AST 40 H (15-37) U/L ALT 31 (16-63) U/L Alkaline Phosphatase 41 L (46-116) U/L Total Protein 5.9 L (6.4-8.2) g/dl Albumin 2.4 L (3.4-5.0) g/dl Globulin 3.5 gm/dL Albumin/Globulin Ratio 0.7 L (1-2) Procalcitonin 0.29 H (<0.10) ng/mL Dimitrios Results Last 24 Hours: Microbiology 03/28/20 14:30 Aerobic Blood Culture - Preliminary Blood - Venous NO GROWTH AFTER 1 DAY Anaerobic Blood Culture - Preliminary NO GROWTH AFTER 1 DAY 03/28/20 14:25 Aerobic Blood Culture - Preliminary Blood NO GROWTH AFTER 1 DAY Anaerobic Blood Culture - Preliminary NO GROWTH AFTER 1 DAY Med Orders - Current: Current Medications Acetaminophen (Tylenol) 650 mg PO Q4H PRN PRN Reason: Pain (Mild 1-3)/fever Albuterol (Proventil Neb Soln) 2.5 mg NEB Q2H PRN PRN Reason: Shortness Of Breath/wheezing Last Admin: 03/28/20 19:03 Dose: 2.5 mg Documented by: Albuterol/Ipratropium (Duoneb 3.0-0.5 Mg/3 Ml) 3 ml INH Q6H PRN PRN Reason: Shortness of Breath Apixaban (Eliquis) 2.5 mg PO BID [facility] Last Admin: 03/30/20 09:34 Dose: 2.5 mg Documented by: Ascorbic Acid (Vitamin C) 1,000 mg PO DAILY [facility] Last Admin: 03/30/20 09:35 Dose: 1,000 mg Documented by: Aspirin (Aspirin) 81 mg PO DAILY [facility] Last Admin: 03/30/20 09:33 Dose: 81 mg Documented by: Cholecalciferol (Vitamin D3) 50 mcg PO DAILY [facility] Last Admin: 03/30/20 09:34 Dose: 50 mcg Documented by: Dexamethasone (Dexamethasone) 6 mg PO Q24H [facility] Stop: 04/06/20 16:01 Last Admin: 03/29/20 15:06 Dose: 6 mg Documented by: Docusate Sodium (Colace) 100 mg PO BID PRN PRN Reason: Constipation Furosemide (Lasix) 20 mg PO DAILY [facility] Last Admin: 03/30/20 09:33 Dose: 20 mg Documented by: Azithromycin 500 mg/ Sodium (Chloride) 250 mls @ 250 mls/hr IV Q24H [facility] Stop: 03/30/20 17:29 Last Admin: 03/29/20 15:52 Dose: 250 mls/hr Documented by: Ceftriaxone Sodium 2 gm/ (Sodium Chloride) 100 mls @ 200 mls/hr IV Q24H [facility] Stop: 04/01/20 16:29 Last Admin: 03/29/20 15:07 Dose: 200 mls/hr Documented by: Remdesivir 100 mg/ Sodium (Chloride) 100 mls @ 100 mls/hr IV Q24H [facility] Stop: 04/01/20 18:59 Last Admin: 03/29/20 17:13 Dose: 100 mls/hr Documented by: Isosorbide Mononitrate (Imdur) 60 mg PO DAILY [facility] Last Admin: 03/30/20 09:33 Dose: 60 mg Documented by: Losartan Potassium (Cozaar) 25 mg PO DAILY [facility] Last Admin: 03/30/20 09:34 Dose: 25 mg Documented by: Metoprolol Tartrate (Lopressor) 25 mg PO BID [facility] Last Admin: 03/30/20 09:33 Dose: 25 mg Documented by: Nitroglycerin (Nitrostat) 0.4 mg SL Q5M PRN PRN Reason: Chest Pain Symbicort 160/4.5 (Mcg Inhaler Ptom) 2 puff INH BID [facility] Last Admin: 03/30/20 10:14 Dose: Not Given Documented by: Ondansetron HCl (Zofran) 4 mg IV Q4H PRN PRN Reason: Nausea/Vomiting Oxybutynin Chloride (Oxybutynin Er) 10 mg PO DAILY [facility] Last Admin: 03/30/20 09:33 Dose: 10 mg Documented by: Proair Inhaler 6.7 (Gm Inhaler Ptom) 0 each INH BID [facility] Rosuvastatin Calcium (Crestor) 20 mg PO DAILY [facility] Last Admin: 03/30/20 09:34 Dose: 20 mg Documented by: Saccharomyces Boulardii (Florastor) 250 mg PO DAILY [facility] Last Admin: 03/30/20 09:33 Dose: 250 mg Documented by: Sodium Chloride (Saline Flush) 10 ml FLUSH ASDIRECTED PRN PRN Reason: Keep Vein Open Tiotropium [place] (Spiriva Respimat) 0 gm INH DAILY [facility] Last Admin: 03/30/20 10:09 Dose: 4 gm Documented by: Discontinued Medications Albuterol (Proventil Hfa) 0 gm INH QID PRN PRN Reason: Shortness of Breath Albuterol (Proventil Hfa) 0 gm INH QID PRN PRN Reason: Shortness of Breath Remdesivir 200 mg/ Sodium (Chloride) 250 mls @ 250 mls/hr IV ONETIME ONE Stop: 03/28/20 13:44 Last Admin: 03/28/20 16:38 Dose: Not Given Documented by: Remdesivir 100 mg/ Sodium (Chloride) 100 mls @ 100 mls/hr IV DAILY [facility] Stop: 04/01/20 09:59 Remdesivir 200 mg/ Sodium (Chloride) 250 mls @ 250 mls/hr IV ONETIME ONE Stop: 03/28/20 18:59 Last Admin: 03/28/20 19:13 Dose: 250 mls/hr Documented by: Sodium Chloride (Normal Saline) 250 mls @ 100 mls/hr IV ASDIRECTED [facility] Stop: 03/28/20 23:00 Sodium Chloride (Normal Saline) 1,000 mls @ 999 mls/hr IV ONETIME ONE Stop: 03/28/20 19:45 Last Admin: 03/28/20 19:26 Dose: 999 mls/hr Documented by: Sodium Chloride (Normal Saline) Confirm Administered Dose 1,000 mls @ as directed .ROUTE .STK-MED ONE Stop: 03/28/20 18:38 Last Admin: 03/28/20 19:45 Dose: Not Given Documented by: Mometasone Furoate/Formoterol Fumar (Dulera 200-5 Mcg) 2 puff IH BID [facility] Last Admin: 03/30/20 08:41 Dose: Not Given Documented by: Non-Formulary Medication (Budesonide/Formoterol) 2 puff INH BID [facility] - Exam Quality Assessment: Supplemental Oxygen (2 L per nasal cannula), DVT Prophylaxis (Eliquis) General: Alert, Oriented, Cooperative, No Acute Distress HEENT: Pupils Equal, Pupils Reactive, Mucous Membr. Moist/[place] Neck: Supple, Trachea Midline. No: Lymphadenopathy Lungs: Decreased Breath Sounds, Crackles, Wheezing Cardiovascular: Regular Rate, No Murmurs, Irregular Rhythm (History of atrial fibrillation) GI/Abdominal Exam: Normal Bowel Sounds, Soft, Non-Tender, No Distention (Male) Exam: Deferred Back Exam: Normal Inspection, Full Range of Motion Extremities: Normal Inspection, Normal Range of Motion, Non-Tender, No Pedal Edema, Normal Capillary Refill Peripheral Pulses: 2+: Radial (L), Radial (R), Dorsalis Pedis (L), Dorsalis Pedis (R) Skin: Warm, Dry, Intact Neurological: No New Focal Deficit Psy/Mental Status: Alert, Normal Affect, Normal Mood Sepsis Event Note - Evaluation Sepsis Screening Result: No Definite Risk - Focused Exam Vital Signs: Vital Signs Temp Pulse Resp BP Pulse Ox Pulse Ox 03/30/20 11:08 98.2 F 74 22 H 117/75 90 L 03/30/20 09:34 137/78 03/30/20 09:33 70 138/78 03/30/20 07:32 97.5 F 70 20 137/78 91 L 03/30/20 06:49 68 20 125/76 91 L 03/30/20 06:07 92 L - Problem List & Annotations (1) Pneumonia due to 2019 novel coronavirus SNOMED Code(s): 583194959084246778 Code(s): U07.1 - COVID-19; J12.89 - OTHER VIRAL PNEUMONIA Status: Acute Priority: High Current Visit: Yes (2) COPD (chronic obstructive pulmonary disease) SNOMED Code(s): 04064781 Code(s): J44.9 - CHRONIC OBSTRUCTIVE PULMONARY DISEASE, UNSPECIFIED Status: Chronic Priority: High Current Visit: Yes Qualifiers: COPD type: emphysema Emphysema type: panlobular Qualified Code(s): J43.1 - Panlobular emphysema (3) COVID-19 determined by clinical diagnostic criteria SNOMED Code(s): 349943716, 141848881 Code(s): U07.1 - COVID-19 Status: Acute Priority: High Current Visit: Yes (4) Chronic renal insufficiency, stage IV (severe) SNOMED Code(s): 708383608 Code(s): N18.4 - CHRONIC KIDNEY DISEASE, STAGE 4 (SEVERE) Status: Chronic Priority: High Current Visit: Yes (5) Mild congestive heart failure SNOMED Code(s): 83947597 Code(s): I50.9 - HEART FAILURE, UNSPECIFIED Status: Chronic Priority: High Current Visit: Yes - Problem List Review Problem List Initiated/Reviewed/Updated: Yes - My Orders Last 24 Hours: My Active Orders 03/29/20 14:00 Oxybutynin [Oxybutynin ER] 10 mg PO DAILY 03/29/20 18:00 Remdesivir (Eua) [Remdesivir (EUA)] 100 mg Sodium Chloride 0.9% [Normal Saline] 100 ml IV Q24H 03/30/20 09:00 Saccharomyces Boulardii [Florastor] 250 mg PO DAILY Tiotropium [place] [Spiriva Respimat] 0 gm INH DAILY 03/30/20 11:00 Budesonide/Formoterol 2 puff INH BID 03/30/20 21:00 Patient's Own Medication [Ptom] 0 each INH BID 03/31/20 05:11 CBC WITH AUTO DIFF [HEME] DAILY COMPREHENSIVE METABOLIC PN,CMP [CHEM] DAILY CRP [C-REACTIVE PROTEIN] [CHEM] Q48H D-DIMER QUANTITATIVE [COAG] Q48H 04/01/20 05:11 CBC WITH AUTO DIFF [HEME] DAILY COMPREHENSIVE METABOLIC PN,CMP [CHEM] DAILY 04/02/20 05:11 CBC WITH AUTO DIFF [HEME] DAILY COMPREHENSIVE METABOLIC PN,CMP [CHEM] DAILY CRP [C-REACTIVE PROTEIN] [CHEM] Q48H D-DIMER QUANTITATIVE [COAG] Q48H 04/04/20 05:11 CRP [C-REACTIVE PROTEIN] [CHEM] Q48H D-DIMER QUANTITATIVE [COAG] Q48H 04/06/20 05:11 CRP [C-REACTIVE PROTEIN] [CHEM] Q48H D-DIMER QUANTITATIVE [COAG] Q48H - Assessment Assessment:: 03/29/20 * Patient had a transfusion reaction to convalescent plasma last evening. He had received 14.7 mL of the convalescent plasma when his blood pressures dropped into the 70s systolically and his temperature manish to around 101. Infusion was immediately stopped at that time and he did receive a 500 mL fluid bolus. First voided urine after his reaction was sent to the lab for analysis. I suspect this transfusion reaction is due to the patient receiving the Bamlanivimab. * Patient reports feeling much better today. Less shortness of breath noted. And less generalized malaise. * Day 2 of remdesivir and dexamethasone. * Currently on 2 L of oxygen per nasal cannula * Labs reveal: WBC 2.67, D-dimer 0.67, BUN 54, creatinine 2.1, GFR 30, C- reactive protein 8.1. * Patient takes Eliquis for DVT prophylaxis. 03/30/20 * Patient is doing much better today. Denies shortness of breath even with activity, however he continues on 2 L of oxygen per nasal cannula. * Increased crackles and wheezes noted posteriorly. Expiratory wheeze noted anteriorly. * Day 3 of remdesivir and dexamethasone. * Pro calcitonin that was drawn on 03/28/20 is 0.29. * Day 3 of Rocephin and Zithromax. * Labs reveal WBC 7.26, hemoglobin 12.9, platelet 126, anion gap 13.1, BUN 58, creatinine 1.9, urinalysis post transfusion reaction is unremarkable, blood cultures are showing no growth after 1 day. * Most recent echocardiogram dated 12/27/2019: 1. Left ventricular ejection fraction is 55 to 60%. 2. Mild to moderately increased left ventricular cavity size. 3. Mild concentric left ventricular hypertrophy. 4. Basal and mid inferior wall and basal and mid inferolateral wall are abnormal. 5. Severely dilated left atrium. 6. Moderate to severely dilated right atrium. 7. Mild mitral valve regurgitation. - Plan Plan:: 03/29/20 * Renally dose all medications. * Respiratory therapy to titrate oxygen as needed to maintain O2 saturations greater than 88%. * Incentive spirometer and flutter valve every 1 hour while awake. * Continue remdesivir and dexamethasone * Rocephin 2 g IV daily x5 days and Zithromax 500 mg daily x3 days to treat pneumonia. * Closely monitor intake and output and daily weights as patient does have congestive heart failure. * Eliquis for DVT prophylaxis. * Repeat labs in the a.m. * director of convention services consult for discharge planning * PT and OT to evaluate and treat the patient * Dietitian to consult regarding dietary needs. * Spiritual care * Patient is a full code. 03/30/20 * Continue to titrate oxygen per respiratory therapy * Incentive spirometer and flutter valve every 1 hour while awake * Renally dose all medications * Continue remdesivir and dexamethasone * Continue Rocephin and Zithromax * Continue to monitor intake and output and daily weights * Eliquis for DVT prophylaxis * PT and OT to continue to evaluate and treat the patient * Repeat labs in the a.m. * Patient is a full code * Patient will be here greater than 96 hours due to the 5-day treatment course for Covid
[2020-03-30] MEDS: Azithromycin 500 MG in Sodium Chloride 0.9% 250 ML IV SCH (15:39)
[2020-03-30] MEDS: Dexamethasone 4 MG Tab PO SCH (15:42)
[2020-03-30] MEDS: cefTRIAXone 2 GM in Sodium Chloride 0.9% 100 ML IV SCH (15:43)
[2020-03-30] MEDS: REMDESIVIR 100 MG in Sodium Chloride 0.9% 100 ML IV SCH (17:25)
[2020-03-30] MEDS: ALBUTEROL INH SCH (20:52)
[2020-03-31] MEDS: Tiotropium Bromide 4 GM Inhalation Spray (2.5mcg/1 dose; 10 doses) INH SCH (09:26)
[2020-03-31] MEDS: ALBUTEROL INH SCH ×2 (09:26→21:30)
[2020-03-31] MEDS: SYMBICORT INH SCH ×2 (09:26→21:30)
[2020-03-31] MEDS: Saccharomyces Boulardii (Probiotic) 250 MG Cap PO SCH (09:43)
[2020-03-31] MEDS: Cholecalciferol (Vitamin D3) 25 MCG Tab PO SCH (09:43)
[2020-03-31] MEDS: Oxybutynin 5 MG Tab.ER PO SCH (09:43)
[2020-03-31] MEDS: Isosorbide Mononitrate 60 MG Tab.ER PO SCH (09:44)
[2020-03-31] MEDS: Ascorbic Acid 500 MG Tab PO SCH (09:45)
[2020-03-31] MEDS: Aspirin 81 MG Tab.Chew PO SCH (09:45)
[2020-03-31] MEDS: Losartan 25 MG Tab PO SCH (09:45)
[2020-03-31] MEDS: Furosemide 20 MG Tab PO SCH (09:46)
[2020-03-31] MEDS: Metoprolol Tartrate 25 MG Tab PO SCH ×2 (09:46→20:07)
[2020-03-31] MEDS: Rosuvastatin 10 MG Tab PO SCH (09:46)
[2020-03-31] MEDS: Apixaban 2.5 MG Tab PO SCH ×2 (09:47→20:11)
--- NOTE | 2020-03-31 14:19 | PCM.PN ---
- General Info Date of Service: 03/31/20 Admission Dx/Problem (Free Text): Admission Diagnosis/Problem Admission Diagnosis/Problem Hypoxia Subjective Update: No overnight or acute issues. He rested well and feels pretty good this morning. He denies having shortness of breath or chest pain. He is eating and drinking well. No GI/ complaints. However he is still on 3.5 L NC sating bet 87-92%. His cr continues to improve. BS is controlled. Functional Status: Reports: Pain Controlled - Review of Systems General: Denies: Fever, Fatigue, Chills HEENT: Denies: Headaches Pulmonary: Denies: Shortness of Breath, Cough Cardiovascular: Denies: Chest Pain Gastrointestinal: Denies: Abdominal Pain, Nausea, Vomiting Genitourinary: Denies: Incontinence Musculoskeletal: Denies: Joint Pain Skin: Denies: Rash Neurological: Denies: Dizziness, Difficulty Walking, Weakness Psychiatric: Denies: Confusion, Depression, Anxiety - Patient Data Vitals - Most Recent: Last Vital Signs Temp 36.8 C 03/31/20 05:17 Pulse 74 03/31/20 11:17 Resp 28 H 03/31/20 11:16 BP 121/82 03/31/20 11:16 Pulse Ox 92 L 03/31/20 12:13 Weight - Most Recent: 80.739 kg I&O - Last 24 Hours: Intake & Output 03/30/20 03/31/20 03/31/20 22:59 06:59 14:59 Intake Total 2410 500 120 Output Total 1025 1250 Balance 1385 -750 120 Lab Results Last 24 Hours: Laboratory Results - last 24 hr 03/31/20 03/31/20 03/31/20 Range/Units 07:01 07:01 07:01 WBC 8.67 (4.23-9.07) K/mm3 RBC 4.72 (4.63-6.08) M/mm3 Hgb 14.1 (13.7-17.5) gm/dl Hct 42.3 (40.1-51.0) % MCV 89.6 (79.0-92.2) fl MCH 29.9 (25.7-32.2) pg MCHC 33.3 (32.2-35.5) g/dl RDW Std Deviation 48.9 H (35.1-43.9) fL Plt Count 152 L (163-337) K/mm3 MPV 10.5 (9.4-12.3) fl Neut % (Auto) 88.2 H (34.0-67.9) % Lymph % (Auto) 4.5 L (21.8-53.1) % [place] % (Auto) 6.6 (5.3-12.2) % Eos % (Auto) 0 L (0.8-7.0) Baso % (Auto) 0.1 (0.1-1.2) % Neut # (Auto) 7.65 H (1.78-5.38) K/mm3 Lymph # (Auto) 0.39 L (1.32-3.57) K/mm3 [place] # (Auto) 0.57 (0.30-0.82) K/mm3 Eos # (Auto) 0.00 L (0.04-0.54) K/mm3 Baso # (Auto) 0.01 (0.01-0.08) K/mm3 Manual Slide Review Abnormal smear D-Dimer, Quantitative 1.63 H (0.19-0.50) mg/L Sodium 140 (136-145) mEq/L Potassium 3.9 (3.5-5.1) mEq/L Chloride 107 (98-107) mEq/L Carbon Dioxide 21 (21-32) mEq/L Anion Gap 15.9 H (5-15) BUN 57 H (7-18) mg/dL Creatinine 1.8 H (0.7-1.3) mg/dL Est Cr Clr Drug Dosing 30.98 mL/min Estimated GFR (MDRD) 36 (>60) mL/min BUN/Creatinine Ratio 31.7 H (14-18) Glucose 113 (83-115) mg/dL Calcium 8.0 L (8.5-10.1) mg/dL Total Bilirubin 0.3 (0.2-1.0) mg/dL AST 31 (15-37) U/L ALT 31 (16-63) U/L Alkaline Phosphatase 53 (46-116) U/L C-Reactive Protein 4.3 H* (<1.0) mg/dL Total Protein 6.3 L (6.4-8.2) g/dl Albumin 2.6 L (3.4-5.0) g/dl Globulin 3.7 gm/dL Albumin/Globulin Ratio 0.7 L (1-2) Dimitrios Results Last 24 Hours: Microbiology 03/28/20 16:30 Gram Stain - Final Sputum - Expectorated Sputum Culture - Final NORMAL RESPIRATORY TIFFANIE 2 DAYS 03/28/20 14:30 Aerobic Blood Culture - Preliminary Blood - Venous NO GROWTH AFTER 2 DAYS Anaerobic Blood Culture - Preliminary NO GROWTH AFTER 2 DAYS 03/28/20 14:25 Aerobic Blood Culture - Preliminary Blood NO GROWTH AFTER 2 DAYS Anaerobic Blood Culture - Preliminary NO GROWTH AFTER 2 DAYS Med Orders - Current: Current Medications Acetaminophen (Tylenol) 650 mg PO Q4H PRN PRN Reason: Pain (Mild 1-3)/fever Albuterol (Proventil Neb Soln) 2.5 mg NEB Q2H PRN PRN Reason: Shortness Of Breath/wheezing Last Admin: 03/28/20 19:03 Dose: 2.5 mg Documented by: Albuterol/Ipratropium (Duoneb 3.0-0.5 Mg/3 Ml) 3 ml INH Q6H PRN PRN Reason: Shortness of Breath Apixaban (Eliquis) 2.5 mg PO BID [facility] Last Admin: 03/31/20 09:47 Dose: 2.5 mg Documented by: Ascorbic Acid (Vitamin C) 1,000 mg PO DAILY [facility] Last Admin: 03/31/20 09:45 Dose: 1,000 mg Documented by: Aspirin (Aspirin) 81 mg PO DAILY [facility] Last Admin: 03/31/20 09:45 Dose: 81 mg Documented by: Cholecalciferol (Vitamin D3) 50 mcg PO DAILY [facility] Last Admin: 03/31/20 09:43 Dose: 50 mcg Documented by: Dexamethasone (Dexamethasone) 6 mg PO Q24H [facility] Stop: 04/06/20 16:01 Last Admin: 03/30/20 15:42 Dose: 6 mg Documented by: Docusate Sodium (Colace) 100 mg PO BID PRN PRN Reason: Constipation Furosemide (Lasix) 20 mg PO DAILY [facility] Last Admin: 03/31/20 09:46 Dose: 20 mg Documented by: Ceftriaxone Sodium 2 gm/ (Sodium Chloride) 100 mls @ 200 mls/hr IV Q24H [facility] Stop: 04/01/20 16:29 Last Admin: 03/30/20 15:43 Dose: 200 mls/hr Documented by: Remdesivir 100 mg/ Sodium (Chloride) 100 mls @ 100 mls/hr IV Q24H [facility] Stop: 04/01/20 18:59 Last Admin: 03/30/20 17:25 Dose: 100 mls/hr Documented by: Isosorbide Mononitrate (Imdur) 60 mg PO DAILY [facility] Last Admin: 03/31/20 09:44 Dose: 60 mg Documented by: Losartan Potassium (Cozaar) 25 mg PO DAILY [facility] Last Admin: 03/31/20 09:45 Dose: 25 mg Documented by: Metoprolol Tartrate (Lopressor) 25 mg PO BID [facility] Last Admin: 03/31/20 09:46 Dose: 25 mg Documented by: Nitroglycerin (Nitrostat) 0.4 mg SL Q5M PRN PRN Reason: Chest Pain Symbicort 160/4.5 (Mcg Inhaler Ptom) 2 puff INH BID [facility] Last Admin: 03/31/20 09:26 Dose: 2 puff Documented by: Ondansetron HCl (Zofran) 4 mg IV Q4H PRN PRN Reason: Nausea/Vomiting Oxybutynin Chloride (Oxybutynin Er) 10 mg PO DAILY [facility] Last Admin: 03/31/20 09:43 Dose: 10 mg Documented by: Proair Inhaler 6.7 (Gm Inhaler Ptom) 0 each INH BID [facility] Last Admin: 03/31/20 09:26 Dose: 2 each Documented by: Rosuvastatin Calcium (Crestor) 20 mg PO DAILY [facility] Last Admin: 03/31/20 09:46 Dose: 20 mg Documented by: Saccharomyces Boulardii (Florastor) 250 mg PO DAILY [facility] Last Admin: 03/31/20 09:43 Dose: 250 mg Documented by: Sodium Chloride (Saline Flush) 10 ml FLUSH ASDIRECTED PRN PRN Reason: Keep Vein Open Tiotropium [place] (Spiriva Respimat) 0 gm INH DAILY [facility] Last Admin: 03/31/20 09:26 Dose: 4 gm Documented by: Discontinued Medications Albuterol (Proventil Hfa) 0 gm INH QID PRN PRN Reason: Shortness of Breath Albuterol (Proventil Hfa) 0 gm INH QID PRN PRN Reason: Shortness of Breath Remdesivir 200 mg/ Sodium (Chloride) 250 mls @ 250 mls/hr IV ONETIME ONE Stop: 03/28/20 13:44 Last Admin: 03/28/20 16:38 Dose: Not Given Documented by: Remdesivir 100 mg/ Sodium (Chloride) 100 mls @ 100 mls/hr IV DAILY [facility] Stop: 04/01/20 09:59 Azithromycin 500 mg/ Sodium (Chloride) 250 mls @ 250 mls/hr IV Q24H [facility] Stop: 03/30/20 17:29 Last Admin: 03/30/20 15:39 Dose: 250 mls/hr Documented by: Remdesivir 200 mg/ Sodium (Chloride) 250 mls @ 250 mls/hr IV ONETIME ONE Stop: 03/28/20 18:59 Last Admin: 03/28/20 19:13 Dose: 250 mls/hr Documented by: Sodium Chloride (Normal Saline) 250 mls @ 100 mls/hr IV ASDIRECTED [facility] Stop: 03/28/20 23:00 Sodium Chloride (Normal Saline) 1,000 mls @ 999 mls/hr IV ONETIME ONE Stop: 03/28/20 19:45 Last Admin: 03/28/20 19:26 Dose: 999 mls/hr Documented by: Sodium Chloride (Normal Saline) Confirm Administered Dose 1,000 mls @ as directed .ROUTE .STK-MED ONE Stop: 03/28/20 18:38 Last Admin: 03/28/20 19:45 Dose: Not Given Documented by: Mometasone Furoate/Formoterol Fumar (Dulera 200-5 Mcg) 2 puff IH BID [facility] Last Admin: 03/30/20 08:41 Dose: Not Given Documented by: Non-Formulary Medication (Budesonide/Formoterol) 2 puff INH BID [facility] - Exam Quality Assessment: Supplemental Oxygen General: Alert, Oriented, Cooperative, No Acute Distress HEENT: Pupils Equal, Pupils Reactive, EOMI, Mucous Membr. Moist/[place] Neck: Supple Lungs: Clear to Auscultation, Normal Respiratory Effort Cardiovascular: Regular Rate, Regular Rhythm GI/Abdominal Exam: Normal Bowel Sounds, Soft, Non-Tender, No Organomegaly, No Distention, No Abnormal Bruit (Male) Exam: Deferred Back Exam: Normal Inspection, Decreased Range of Motion Extremities: Normal Inspection, Normal Range of Motion, Non-Tender, No Pedal Edema, Normal Capillary Refill Peripheral Pulses: 2+: Dorsalis Pedis (L), Dorsalis Pedis (R) Skin: Warm, Dry, Intact Neurological: No New Focal Deficit, Normal Gait Psy/Mental Status: Alert, Normal Affect, Normal Mood Sepsis Event Note - Evaluation Sepsis Screening Result: No Definite Risk - Focused Exam Vital Signs: Vital Signs Temp Pulse Resp BP Pulse Ox Pulse Ox 03/31/20 12:13 92 L 03/31/20 11:17 74 89 L 03/31/20 11:16 73 28 H 121/82 87 L 03/31/20 09:46 66 149/68 H 03/31/20 09:45 149/68 H 03/31/20 09:26 91 L 03/31/20 07:58 66 149/68 H 90 L 03/31/20 05:22 92 L 03/31/20 05:17 36.8 C 67 16 124/82 - Problem List Review Problem List Initiated/Reviewed/Updated: Yes - Assessment Assessment:: Covid-19 Infection Viral Pneumonitis COPD CKD Stage IV CHF S/p Lymphophenia Elevated D-Dimer already on eliquis Increased AG Metabolic Acidosis Hypocalcemia, non corrected Elevated CRP Hypoalbuminemia - Plan Plan:: 03/29/20 * Renally dose all medications. * Respiratory therapy to titrate oxygen as needed to maintain O2 saturations greater than 88%. * Incentive spirometer and flutter valve every 1 hour while awake. * Continue remdesivir and dexamethasone * Rocephin 2 g IV daily x5 days and Zithromax 500 mg daily x3 days to treat pneumonia. * Closely monitor intake and output and daily weights as patient does have congestive heart failure. * Eliquis for DVT prophylaxis. * Repeat labs in the a.m. * career services assistant consult for discharge planning * PT and OT to evaluate and treat the patient * Dietitian to consult regarding dietary needs. * Spiritual care * Patient is a full code. 03/30/20 * Continue to titrate oxygen per respiratory therapy * Incentive spirometer and flutter valve every 1 hour while awake * Renally dose all medications * Continue remdesivir and dexamethasone * Continue Rocephin and Zithromax * Continue to monitor intake and output and daily weights * Eliquis for DVT prophylaxis * PT and OT to continue to evaluate and treat the patient * Repeat labs in the a.m. * Patient is a full code * Patient will be here greater than 96 hours due to the 5-day treatment course for Covid 03/31/20 * Did not have is O2 on when I walked into his room this morning * Continue to titrate O2 * Completed Azithromycin * Continue with Rocephine 07/13 and Dexamethasone 07/18 * Remedisir 06/14 * Encourage to use IS/FV and bedside pulmonary exercise * Routine AM Labs * DVT ppx on elqiuis * Anticipate discharge > 96 hrs * Discharge pending completion of treatment
[2020-03-31] MEDS: cefTRIAXone 2 GM in Sodium Chloride 0.9% 100 ML IV SCH (15:12)
[2020-03-31] MEDS: Dexamethasone 4 MG Tab PO SCH (15:13)
[2020-03-31] MEDS: REMDESIVIR 100 MG in Sodium Chloride 0.9% 100 ML IV SCH (17:04)
[2020-04-01] MEDS: Tiotropium Bromide 4 GM Inhalation Spray (2.5mcg/1 dose; 10 doses) INH SCH (08:58)
[2020-04-01] MEDS: ALBUTEROL INH SCH ×2 (08:58→20:44)
[2020-04-01] MEDS: SYMBICORT INH SCH ×2 (08:58→20:44)
[2020-04-01] MEDS: Aspirin 81 MG Tab.Chew PO SCH (09:37)
[2020-04-01] MEDS: Ascorbic Acid 500 MG Tab PO SCH (09:38)
[2020-04-01] MEDS: Cholecalciferol (Vitamin D3) 25 MCG Tab PO SCH (09:38)
[2020-04-01] MEDS: Rosuvastatin 10 MG Tab PO SCH (09:39)
[2020-04-01] MEDS: Oxybutynin 5 MG Tab.ER PO SCH (09:39)
[2020-04-01] MEDS: Saccharomyces Boulardii (Probiotic) 250 MG Cap PO SCH (09:41)
[2020-04-01] MEDS: Apixaban 2.5 MG Tab PO SCH ×2 (09:41→20:54)
[2020-04-01] MEDS: Furosemide 20 MG Tab PO SCH (09:43)
[2020-04-01] MEDS: Losartan 25 MG Tab PO SCH (09:44)
[2020-04-01] MEDS: Metoprolol Tartrate 25 MG Tab PO SCH ×2 (09:45→20:53)
[2020-04-01] MEDS: Isosorbide Mononitrate 60 MG Tab.ER PO SCH (09:46)
[2020-04-01] MEDS: Dexamethasone 4 MG Tab PO SCH (16:13)
[2020-04-01] MEDS: cefTRIAXone 2 GM in Sodium Chloride 0.9% 100 ML IV SCH (16:13)
[2020-04-01] MEDS: REMDESIVIR 100 MG in Sodium Chloride 0.9% 100 ML IV SCH (17:12)
--- NOTE | 2020-04-01 17:37 | PCM.PN ---
- General Info Date of Service: 04/01/20 Admission Dx/Problem (Free Text): Admission Diagnosis/Problem Admission Diagnosis/Problem Hypoxia Subjective Update: Magen is doing well today. He has no significant complaints. Appetite is good. Still short of breath. Functional Status: Reports: Pain Controlled - Review of Systems General: Reports: No Symptoms HEENT: Reports: No Symptoms Pulmonary: Reports: Shortness of Breath Cardiovascular: Reports: No Symptoms Gastrointestinal: Reports: No Symptoms Musculoskeletal: Reports: No Symptoms Neurological: Reports: No Symptoms Psychiatric: Reports: No Symptoms - Patient Data Vitals - Most Recent: Last Vital Signs Temp 98.4 F 04/01/20 07:42 Pulse 74 04/01/20 09:45 Resp 24 H 04/01/20 07:42 BP 120/80 04/01/20 09:45 Pulse Ox 94 L 04/01/20 17:21 Weight - Most Recent: 179 lb I&O - Last 24 Hours: Intake & Output 04/01/20 04/01/20 04/01/20 06:59 14:59 22:59 Intake Total 162 736 3373 Output Total 750 950 Balance -550 240 770 Lab Results Last 24 Hours: Laboratory Results - last 24 hr 04/01/20 04/01/20 Range/Units 05:38 05:38 WBC 8.84 (4.23-9.07) K/mm3 RBC 4.65 (4.63-6.08) M/mm3 Hgb 13.8 (13.7-17.5) gm/dl Hct 41.4 (40.1-51.0) % MCV 89.0 (79.0-92.2) fl MCH 29.7 (25.7-32.2) pg MCHC 33.3 (32.2-35.5) g/dl RDW Std Deviation 48.4 H (35.1-43.9) fL Plt Count 167 (163-337) K/mm3 MPV 10.4 (9.4-12.3) fl Neut % (Auto) 88.8 H (34.0-67.9) % Lymph % (Auto) 4.2 L (21.8-53.1) % [place] % (Auto) 6.2 (5.3-12.2) % Eos % (Auto) 0 L (0.8-7.0) Baso % (Auto) 0.2 (0.1-1.2) % Neut # (Auto) 7.85 H (1.78-5.38) K/mm3 Lymph # (Auto) 0.37 L (1.32-3.57) K/mm3 [place] # (Auto) 0.55 (0.30-0.82) K/mm3 Eos # (Auto) 0.00 L (0.04-0.54) K/mm3 Baso # (Auto) 0.02 (0.01-0.08) K/mm3 Manual Slide Review Abnormal smear Sodium 138 (136-145) mEq/L Potassium 4.2 (3.5-5.1) mEq/L Chloride 108 H (98-107) mEq/L Carbon Dioxide 20 L (21-32) mEq/L Anion Gap 14.2 (5-15) BUN 55 H (7-18) mg/dL Creatinine 1.7 H (0.7-1.3) mg/dL Est Cr Clr Drug Dosing 32.80 mL/min Estimated GFR (MDRD) 38 (>60) mL/min BUN/Creatinine Ratio 32.4 H (14-18) Glucose 118 H (83-115) mg/dL Calcium 8.1 L (8.5-10.1) mg/dL Total Bilirubin 0.4 (0.2-1.0) mg/dL AST 30 (15-37) U/L ALT 30 (16-63) U/L Alkaline Phosphatase 54 (46-116) U/L Total Protein 6.0 L (6.4-8.2) g/dl Albumin 2.5 L (3.4-5.0) g/dl Globulin 3.5 gm/dL Albumin/Globulin Ratio 0.7 L (1-2) Dimitrios Results Last 24 Hours: Microbiology 03/28/20 14:30 Aerobic Blood Culture - Preliminary Blood - Venous NO GROWTH AFTER 4 DAYS Anaerobic Blood Culture - Preliminary NO GROWTH AFTER 4 DAYS 03/28/20 14:25 Aerobic Blood Culture - Preliminary Blood NO GROWTH AFTER 4 DAYS Anaerobic Blood Culture - Preliminary NO GROWTH AFTER 4 DAYS Med Orders - Current: Current Medications Acetaminophen (Tylenol) 650 mg PO Q4H PRN PRN Reason: Pain (Mild 1-3)/fever Albuterol (Proventil Neb Soln) 2.5 mg NEB Q2H PRN PRN Reason: Shortness Of Breath/wheezing Last Admin: 03/28/20 19:03 Dose: 2.5 mg Documented by: Albuterol/Ipratropium (Duoneb 3.0-0.5 Mg/3 Ml) 3 ml INH Q6H PRN PRN Reason: Shortness of Breath Apixaban (Eliquis) 2.5 mg PO BID [facility] Last Admin: 04/01/20 09:41 Dose: 2.5 mg Documented by: Ascorbic Acid (Vitamin C) 1,000 mg PO DAILY [facility] Last Admin: 04/01/20 09:38 Dose: 1,000 mg Documented by: Aspirin (Aspirin) 81 mg PO DAILY [facility] Last Admin: 04/01/20 09:37 Dose: 81 mg Documented by: Cholecalciferol (Vitamin D3) 50 mcg PO DAILY [facility] Last Admin: 04/01/20 09:38 Dose: 50 mcg Documented by: Dexamethasone (Dexamethasone) 6 mg PO Q24H [facility] Stop: 04/06/20 16:01 Last Admin: 04/01/20 16:13 Dose: 6 mg Documented by: Docusate Sodium (Colace) 100 mg PO BID PRN PRN Reason: Constipation Furosemide (Lasix) 20 mg PO DAILY [facility] Last Admin: 04/01/20 09:43 Dose: 20 mg Documented by: Remdesivir 100 mg/ Sodium (Chloride) 100 mls @ 100 mls/hr IV Q24H [facility] Stop: 04/01/20 18:59 Last Admin: 04/01/20 17:12 Dose: 100 mls/hr Documented by: Isosorbide Mononitrate (Imdur) 60 mg PO DAILY [facility] Last Admin: 04/01/20 09:46 Dose: 60 mg Documented by: Losartan Potassium (Cozaar) 25 mg PO DAILY [facility] Last Admin: 04/01/20 09:44 Dose: 25 mg Documented by: Metoprolol Tartrate (Lopressor) 25 mg PO BID [facility] Last Admin: 04/01/20 09:45 Dose: 25 mg Documented by: Nitroglycerin (Nitrostat) 0.4 mg SL Q5M PRN PRN Reason: Chest Pain Symbicort 160/4.5 (Mcg Inhaler Ptom) 2 puff INH BID [facility] Last Admin: 04/01/20 08:58 Dose: 2 puff Documented by: Ondansetron HCl (Zofran) 4 mg IV Q4H PRN PRN Reason: Nausea/Vomiting Oxybutynin Chloride (Oxybutynin Er) 10 mg PO DAILY [facility] Last Admin: 04/01/20 09:39 Dose: 10 mg Documented by: Proair Inhaler 6.7 (Gm Inhaler Ptom) 0 each INH BID [facility] Last Admin: 04/01/20 08:58 Dose: 2 each Documented by: Rosuvastatin Calcium (Crestor) 20 mg PO DAILY [facility] Last Admin: 04/01/20 09:39 Dose: 20 mg Documented by: Saccharomyces Boulardii (Florastor) 250 mg PO DAILY [facility] Last Admin: 04/01/20 09:41 Dose: 250 mg Documented by: Sodium Chloride (Saline Flush) 10 ml FLUSH ASDIRECTED PRN PRN Reason: Keep Vein Open Tiotropium [place] (Spiriva Respimat) 0 gm INH DAILY [facility] Last Admin: 04/01/20 08:58 Dose: 4 gm Documented by: Discontinued Medications Albuterol (Proventil Hfa) 0 gm INH QID PRN PRN Reason: Shortness of Breath Albuterol (Proventil Hfa) 0 gm INH QID PRN PRN Reason: Shortness of Breath Remdesivir 200 mg/ Sodium (Chloride) 250 mls @ 250 mls/hr IV ONETIME ONE Stop: 03/28/20 13:44 Last Admin: 03/28/20 16:38 Dose: Not Given Documented by: Remdesivir 100 mg/ Sodium (Chloride) 100 mls @ 100 mls/hr IV DAILY [facility] Stop: 04/01/20 09:59 Azithromycin 500 mg/ Sodium (Chloride) 250 mls @ 250 mls/hr IV Q24H [facility] Stop: 03/30/20 17:29 Last Admin: 03/30/20 15:39 Dose: 250 mls/hr Documented by: Ceftriaxone Sodium 2 gm/ (Sodium Chloride) 100 mls @ 200 mls/hr IV Q24H [facility] Stop: 04/01/20 16:29 Last Admin: 04/01/20 16:13 Dose: 200 mls/hr Documented by: Remdesivir 200 mg/ Sodium (Chloride) 250 mls @ 250 mls/hr IV ONETIME ONE Stop: 03/28/20 18:59 Last Admin: 03/28/20 19:13 Dose: 250 mls/hr Documented by: Sodium Chloride (Normal Saline) 250 mls @ 100 mls/hr IV ASDIRECTED [facility] Stop: 03/28/20 23:00 Sodium Chloride (Normal Saline) 1,000 mls @ 999 mls/hr IV ONETIME ONE Stop: 03/28/20 19:45 Last Admin: 03/28/20 19:26 Dose: 999 mls/hr Documented by: Sodium Chloride (Normal Saline) Confirm Administered Dose 1,000 mls @ as directed .ROUTE .STK-MED ONE Stop: 03/28/20 18:38 Last Admin: 03/28/20 19:45 Dose: Not Given Documented by: Mometasone Furoate/Formoterol Fumar (Dulera 200-5 Mcg) 2 puff IH BID [facility] Last Admin: 03/30/20 08:41 Dose: Not Given Documented by: Non-Formulary Medication (Budesonide/Formoterol) 2 puff INH BID [facility] - Exam Quality Assessment: Supplemental Oxygen General: Alert, Oriented HEENT: Pupils Equal, Mucous Membr. Moist/[place] Neck: Supple Lungs: Normal Respiratory Effort, [place] Cardiovascular: Regular Rate, Regular Rhythm GI/Abdominal Exam: Normal Bowel Sounds, Soft, Non-Tender, No Distention Extremities: Normal Inspection, Normal Capillary Refill Skin: Warm, Dry, Intact Psy/Mental Status: Alert, Normal Affect, Normal Mood Sepsis Event Note - Evaluation Sepsis Screening Result: No Definite Risk - Focused Exam Vital Signs: Vital Signs Temp Pulse Resp BP BP Pulse Ox Pulse Ox 04/01/20 17:21 94 L 04/01/20 09:45 74 120/80 04/01/20 09:44 120/80 04/01/20 08:59 92 L 04/01/20 07:42 98.4 F 74 24 H 120/81 88 L - Problem List & Annotations (1) Pneumonia due to 2019 novel coronavirus SNOMED Code(s): 354741113161961136 Code(s): U07.1 - COVID-19; J12.89 - OTHER VIRAL PNEUMONIA Status: Acute Priority: High Current Visit: Yes (2) COPD (chronic obstructive pulmonary disease) SNOMED Code(s): 15703334 Code(s): J44.9 - CHRONIC OBSTRUCTIVE PULMONARY DISEASE, UNSPECIFIED Status: Chronic Priority: High Current Visit: Yes Qualifiers: COPD type: emphysema Emphysema type: panlobular Qualified Code(s): J43.1 - Panlobular emphysema (3) Chronic renal insufficiency, stage IV (severe) SNOMED Code(s): 440186945 Code(s): N18.4 - CHRONIC KIDNEY DISEASE, STAGE 4 (SEVERE) Status: Chronic Priority: High Current Visit: Yes (4) Mild congestive heart failure SNOMED Code(s): 52400353 Code(s): I50.9 - HEART FAILURE, UNSPECIFIED Status: Chronic Priority: High Current Visit: Yes (5) Right lumbar radiculopathy SNOMED Code(s): 230818196 Code(s): M54.16 - RADICULOPATHY, LUMBAR REGION Status: Acute Current Visit: No - Problem List Review Problem List Initiated/Reviewed/Updated: Yes - Assessment Assessment:: Covid-19 Infection-unchanged Viral Pneumonitisunchanged COPDstable CKD Stage 3improved CHFimproved S/p Lymphophenia Elevated D-Dimer already on eliquis Increased AG Metabolic Acidosisresolved Normal calcium level when corrected9.3 Elevated CRP Hypoalbuminemia2.5 g/dL - Plan Plan:: 03/29/20 * Renally dose all medications. * Respiratory therapy to titrate oxygen as needed to maintain O2 saturations greater than 88%. * Incentive spirometer and flutter valve every 1 hour while awake. * Continue remdesivir and dexamethasone * Rocephin 2 g IV daily x5 days and Zithromax 500 mg daily x3 days to treat pneumonia. * Closely monitor intake and output and daily weights as patient does have congestive heart failure. * Eliquis for DVT prophylaxis. * Repeat labs in the a.m. * technical services specialist consult for discharge planning * PT and OT to evaluate and treat the patient * Dietitian to consult regarding dietary needs. * Spiritual care * Patient is a full code. 03/30/20 * Continue to titrate oxygen per respiratory therapy * Incentive spirometer and flutter valve every 1 hour while awake * Renally dose all medications * Continue remdesivir and dexamethasone * Continue Rocephin and Zithromax * Continue to monitor intake and output and daily weights * Eliquis for DVT prophylaxis * PT and OT to continue to evaluate and treat the patient * Repeat labs in the a.m. * Patient is a full code * Patient will be here greater than 96 hours due to the 5-day treatment course for Covid 03/31/20 * Did not have is O2 on when I walked into his room this morning * Continue to titrate O2 * Completed Azithromycin * Continue with Rocephine 07/13 and Dexamethasone 07/18 * Remedisir 06/14 * Encourage to use IS/FV and bedside pulmonary exercise * Routine AM Labs * DVT ppx on elqiuis * Anticipate discharge > 96 hrs * Discharge pending completion of treatment 04/01/2020 * Currently on 5 L nasal cannula with oxygen saturations in the low to mid 90s * Continue titrating O2 * Rocephin day of 5 and dexamethasone day * Remdesivir day 5 of * Completed azithromycin * Continue encouraging I-S and Acapella with RT consult * Length of stay greater than 96 hours secondary to treatment for COVID-19 and continued hypoxemia
[2020-04-02] MEDS: SYMBICORT INH SCH ×2 (08:27→20:53)
[2020-04-02] MEDS: ALBUTEROL INH SCH ×2 (08:27→20:53)
[2020-04-02] MEDS: Tiotropium Bromide 4 GM Inhalation Spray (2.5mcg/1 dose; 10 doses) INH SCH (08:27)
[2020-04-02] MEDS: Rosuvastatin 10 MG Tab PO SCH (09:07)
[2020-04-02] MEDS: Losartan 25 MG Tab PO SCH (09:07)
[2020-04-02] MEDS: Furosemide 20 MG Tab PO SCH (09:07)
[2020-04-02] MEDS: Oxybutynin 5 MG Tab.ER PO SCH (09:07)
[2020-04-02] MEDS: Cholecalciferol (Vitamin D3) 25 MCG Tab PO SCH (09:07)
[2020-04-02] MEDS: Aspirin 81 MG Tab.Chew PO SCH (09:07)
[2020-04-02] MEDS: Saccharomyces Boulardii (Probiotic) 250 MG Cap PO SCH (09:07)
[2020-04-02] MEDS: Apixaban 2.5 MG Tab PO SCH (09:08)
[2020-04-02] MEDS: Isosorbide Mononitrate 60 MG Tab.ER PO SCH (09:08)
[2020-04-02] MEDS: Ascorbic Acid 500 MG Tab PO SCH (09:08)
[2020-04-02] MEDS: Metoprolol Tartrate 25 MG Tab PO SCH ×2 (09:08→20:22)
--- NOTE | 2020-04-02 11:06 | CR ---
PROCEDURE INFORMATION: Exam: XR Chest, 1 View Exam date and time: 04/02/2020 7:31 AM Age: 84 years old Clinical indication: Other: Covid TECHNIQUE: Imaging protocol: XR of the chest Views: 1 view. COMPARISON: CR Chest 1V Frontal 03/28/2020 1:28 PM FINDINGS: Lungs: There are mildly increasing interstitial and patchy airspace opacities in the bilateral mid and left lower lung vitale. Pleural space: Unremarkable. No pleural effusion. No pneumothorax. Heart/Mediastinum: The cardiomediastinal silhouette is fairly stable in appearance. 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 Bones/joints: Median sternotomy wires are again present. IMPRESSION: Mildly increasing interstitial and patchy airspace opacities in the bilateral mid and left lower lung vitale as compared with 03/28/20. Thank you for allowing us to participate in the care of your patient. Dictated and Authenticated by: Michael Shaffer MD 04/02/2020 9:22 AM Central Time ([place] & [place]) [place]
[2020-04-02] MEDS ORDERED: Apixaban 2.5 MG Tab PO ONE (11:15)
[2020-04-02] MEDS ORDERED: Enoxaparin 80 MG/0.8 ML Syringe SUBCUT SCH (11:30)
[2020-04-02] MEDS ORDERED: Aspirin 81 MG Tab.Chew PO ONE (11:31)
[2020-04-02] MEDS ORDERED: Aspirin 81 MG Tab.Chew ONE (11:32)
[2020-04-02] MEDS: Enoxaparin 80 MG/0.8 ML Syringe SUBCUT ONE ×3 (11:35→11:51)
[2020-04-02] MEDS ORDERED: Enoxaparin 80 MG/0.8 ML Syringe SUBCUT ONE (12:00)
--- NOTE | 2020-04-02 14:52 | PCM.PN ---
- General Info Date of Service: 04/02/20 Admission Dx/Problem (Free Text): Admission Diagnosis/Problem Admission Diagnosis/Problem Hypoxia Subjective Update: Patient reports feeling well today, however his oxygen needs have increased over the weekend. Currently on 5 L per nasal cannula. He does appear short of breath. Functional Status: Reports: Pain Controlled, Tolerating Diet, Ambulating (With physical therapy in the room), Urinating, Incentive Spirometry - Review of Systems General: Reports: No Symptoms HEENT: Reports: Glasses Pulmonary: Reports: Shortness of Breath, Cough, Sputum, Wheezing Cardiovascular: Reports: Dyspnea on Exertion. Denies: Chest Pain, Palpitations, Edema, Lightheadedness Gastrointestinal: Reports: No Symptoms Genitourinary: Reports: No Symptoms Musculoskeletal: Reports: No Symptoms Skin: Reports: No Symptoms Neurological: Reports: No Symptoms Psychiatric: Reports: No Symptoms - Patient Data Vitals - Most Recent: Last Vital Signs Temp 98.6 F 04/02/20 04:04 Pulse 77 04/02/20 11:36 Resp 20 04/02/20 11:36 BP 109/88 04/02/20 11:36 Pulse Ox 89 L 04/02/20 11:46 Weight - Most Recent: 175 lb 9.6 oz I&O - Last 24 Hours: Intake & Output 04/01/20 04/02/20 04/02/20 22:59 06:59 14:59 Intake Total 1920 600 Output Total 950 925 Balance 970 -325 Lab Results Last 24 Hours: Laboratory Results - last 24 hr 04/02/20 04/02/20 04/02/20 Range/Units 07:06 07:06 07:06 WBC 11.99 H (4.23-9.07) K/mm3 RBC 4.93 (4.63-6.08) M/mm3 Hgb 14.7 (13.7-17.5) gm/dl Hct 43.0 (40.1-51.0) % MCV 87.2 (79.0-92.2) fl MCH 29.8 (25.7-32.2) pg MCHC 34.2 (32.2-35.5) g/dl RDW Std Deviation 47.5 H (35.1-43.9) fL Plt Count 147 L (163-337) K/mm3 MPV 10.4 (9.4-12.3) fl Neut % (Auto) 88.4 H (34.0-67.9) % Lymph % (Auto) 4.1 L (21.8-53.1) % [place] % (Auto) 6.2 (5.3-12.2) % Eos % (Auto) 0 L (0.8-7.0) Baso % (Auto) 0.2 (0.1-1.2) % Neut # (Auto) 10.61 H (1.78-5.38) K/mm3 Lymph # (Auto) 0.49 L (1.32-3.57) K/mm3 [place] # (Auto) 0.74 (0.30-0.82) K/mm3 Eos # (Auto) 0.00 L (0.04-0.54) K/mm3 Baso # (Auto) 0.02 (0.01-0.08) K/mm3 Manual Slide Review Abnormal smear D-Dimer, Quantitative 27.88 H (0.19-0.50) mg/L Sodium 140 (136-145) mEq/L Potassium 4.1 (3.5-5.1) mEq/L Chloride 109 H (98-107) mEq/L Carbon Dioxide 18 L (21-32) mEq/L Anion Gap 17.1 H (5-15) BUN 49 H (7-18) mg/dL Creatinine 1.7 H (0.7-1.3) mg/dL Est Cr Clr Drug Dosing 32.80 mL/min Estimated GFR (MDRD) 38 (>60) mL/min BUN/Creatinine Ratio 28.8 H (14-18) Glucose 118 H (83-115) mg/dL Calcium 8.2 L (8.5-10.1) mg/dL Total Bilirubin 0.4 (0.2-1.0) mg/dL AST 35 (15-37) U/L ALT 27 (16-63) U/L Alkaline Phosphatase 68 (46-116) U/L Troponin I (0.00-0.056) ng/mL C-Reactive Protein 3.5 H* (<1.0) mg/dL Total Protein 6.2 L (6.4-8.2) g/dl Albumin 2.6 L (3.4-5.0) g/dl Globulin 3.6 gm/dL Albumin/Globulin Ratio 0.7 L (1-2) 04/02/20 04/02/20 Range/Units 09:20 10:47 WBC (4.23-9.07) K/mm3 RBC (4.63-6.08) M/mm3 Hgb (13.7-17.5) gm/dl Hct (40.1-51.0) % MCV (79.0-92.2) fl MCH (25.7-32.2) pg MCHC (32.2-35.5) g/dl RDW Std Deviation (35.1-43.9) fL Plt Count (163-337) K/mm3 MPV (9.4-12.3) fl Neut % (Auto) (34.0-67.9) % Lymph % (Auto) (21.8-53.1) % [place] % (Auto) (5.3-12.2) % Eos % (Auto) (0.8-7.0) Baso % (Auto) (0.1-1.2) % Neut # (Auto) (1.78-5.38) K/mm3 Lymph # (Auto) (1.32-3.57) K/mm3 [place] # (Auto) (0.30-0.82) K/mm3 Eos # (Auto) (0.04-0.54) K/mm3 Baso # (Auto) (0.01-0.08) K/mm3 Manual Slide Review D-Dimer, Quantitative > 35.20 H (0.19-0.50) mg/L Sodium (136-145) mEq/L Potassium (3.5-5.1) mEq/L Chloride (98-107) mEq/L Carbon Dioxide (21-32) mEq/L Anion Gap (5-15) BUN (7-18) mg/dL Creatinine (0.7-1.3) mg/dL Est Cr Clr Drug Dosing mL/min Estimated GFR (MDRD) (>60) mL/min BUN/Creatinine Ratio (14-18) Glucose (83-115) mg/dL Calcium (8.5-10.1) mg/dL Total Bilirubin (0.2-1.0) mg/dL AST (15-37) U/L ALT (16-63) U/L Alkaline Phosphatase (46-116) U/L Troponin I 1.517 H* (0.00-0.056) ng/mL C-Reactive Protein (<1.0) mg/dL Total Protein (6.4-8.2) g/dl Albumin (3.4-5.0) g/dl Globulin gm/dL Albumin/Globulin Ratio (1-2) Dimitrios Results Last 24 Hours: Microbiology 03/28/20 14:30 Aerobic Blood Culture - Preliminary Blood - Venous NO GROWTH AFTER 5 DAYS Anaerobic Blood Culture - Preliminary NO GROWTH AFTER 5 DAYS 03/28/20 14:25 Aerobic Blood Culture - Preliminary Blood NO GROWTH AFTER 5 DAYS Anaerobic Blood Culture - Preliminary NO GROWTH AFTER 5 DAYS Med Orders - Current: Current Medications Acetaminophen (Tylenol) 650 mg PO Q4H PRN PRN Reason: Pain (Mild 1-3)/fever Albuterol (Proventil Neb Soln) 2.5 mg NEB Q2H PRN PRN Reason: Shortness Of Breath/wheezing Last Admin: 03/28/20 19:03 Dose: 2.5 mg Documented by: Albuterol/Ipratropium (Duoneb 3.0-0.5 Mg/3 Ml) 3 ml INH Q6H PRN PRN Reason: Shortness of Breath Ascorbic Acid (Vitamin C) 1,000 mg PO DAILY [facility] Last Admin: 04/02/20 09:08 Dose: 1,000 mg Documented by: Aspirin (Aspirin) 81 mg PO DAILY [facility] Last Admin: 04/02/20 09:07 Dose: 81 mg Documented by: Cholecalciferol (Vitamin D3) 50 mcg PO DAILY [facility] Last Admin: 04/02/20 09:07 Dose: 50 mcg Documented by: Dexamethasone (Dexamethasone) 6 mg PO Q24H [facility] Stop: 04/06/20 16:01 Last Admin: 04/01/20 16:13 Dose: 6 mg Documented by: Docusate Sodium (Colace) 100 mg PO BID PRN PRN Reason: Constipation Enoxaparin Sodium (Lovenox) 80 mg SUBCUT Q12H [facility] Furosemide (Lasix) 20 mg PO DAILY [facility] Last Admin: 04/02/20 09:07 Dose: 20 mg Documented by: Isosorbide Mononitrate (Imdur) 60 mg PO DAILY [facility] Last Admin: 04/02/20 09:08 Dose: 60 mg Documented by: Losartan Potassium (Cozaar) 25 mg PO DAILY [facility] Last Admin: 04/02/20 09:07 Dose: 25 mg Documented by: Metoprolol Tartrate (Lopressor) 25 mg PO BID [facility] Last Admin: 04/02/20 09:08 Dose: 25 mg Documented by: Nitroglycerin (Nitrostat) 0.4 mg SL Q5M PRN PRN Reason: Chest Pain Symbicort 160/4.5 (Mcg Inhaler Ptom) 2 puff INH BID [facility] Last Admin: 04/02/20 08:27 Dose: 2 puff Documented by: Ondansetron HCl (Zofran) 4 mg IV Q4H PRN PRN Reason: Nausea/Vomiting Oxybutynin Chloride (Oxybutynin Er) 10 mg PO DAILY [facility] Last Admin: 04/02/20 09:07 Dose: 10 mg Documented by: Proair Inhaler 6.7 (Gm Inhaler Ptom) 0 each INH BID [facility] Last Admin: 04/02/20 08:27 Dose: 2 each Documented by: Rosuvastatin Calcium (Crestor) 20 mg PO DAILY [facility] Last Admin: 04/02/20 09:07 Dose: 20 mg Documented by: Saccharomyces Boulardii (Florastor) 250 mg PO DAILY [facility] Last Admin: 04/02/20 09:07 Dose: 250 mg Documented by: Sodium Chloride (Saline Flush) 10 ml FLUSH ASDIRECTED PRN PRN Reason: Keep Vein Open Tiotropium [place] (Spiriva Respimat) 0 gm INH DAILY [facility] Last Admin: 04/02/20 08:27 Dose: 4 gm Documented by: Discontinued Medications Albuterol (Proventil Hfa) 0 gm INH QID PRN PRN Reason: Shortness of Breath Albuterol (Proventil Hfa) 0 gm INH QID PRN PRN Reason: Shortness of Breath Apixaban (Eliquis) 2.5 mg PO BID [facility] Last Admin: 04/02/20 09:08 Dose: 2.5 mg Documented by: Aspirin (Aspirin) 243 mg PO ONETIME ONE Stop: 04/02/20 11:32 Last Admin: 04/02/20 11:34 Dose: 243 mg Documented by: Aspirin (Aspirin) Confirm Administered Dose 81 mg .ROUTE .STK-MED ONE Stop: 04/02/20 11:33 Last Admin: 04/02/20 11:40 Dose: 81 mg Documented by: Enoxaparin Sodium (Lovenox) 80 mg SUBCUT ONETIME ONE Stop: 04/02/20 11:31 Last Admin: 04/02/20 11:51 Dose: 80 mg Documented by: Enoxaparin Sodium (Lovenox) 80 mg SUBCUT ONETIME ONE Stop: 04/02/20 12:01 Last Admin: 04/02/20 11:51 Dose: Not Given Documented by: Remdesivir 200 mg/ Sodium (Chloride) 250 mls @ 250 mls/hr IV ONETIME ONE Stop: 03/28/20 13:44 Last Admin: 03/28/20 16:38 Dose: Not Given Documented by: Remdesivir 100 mg/ Sodium (Chloride) 100 mls @ 100 mls/hr IV DAILY [facility] Stop: 04/01/20 09:59 Azithromycin 500 mg/ Sodium (Chloride) 250 mls @ 250 mls/hr IV Q24H [facility] Stop: 03/30/20 17:29 Last Admin: 03/30/20 15:39 Dose: 250 mls/hr Documented by: Ceftriaxone Sodium 2 gm/ (Sodium Chloride) 100 mls @ 200 mls/hr IV Q24H [facility] Stop: 04/01/20 16:29 Last Admin: 04/01/20 16:13 Dose: 200 mls/hr Documented by: Remdesivir 200 mg/ Sodium (Chloride) 250 mls @ 250 mls/hr IV ONETIME ONE Stop: 03/28/20 18:59 Last Admin: 03/28/20 19:13 Dose: 250 mls/hr Documented by: Remdesivir 100 mg/ Sodium (Chloride) 100 mls @ 100 mls/hr IV Q24H [facility] Stop: 04/01/20 18:59 Last Admin: 04/01/20 17:12 Dose: 100 mls/hr Documented by: Sodium Chloride (Normal Saline) 250 mls @ 100 mls/hr IV ASDIRECTED [facility] Stop: 03/28/20 23:00 Sodium Chloride (Normal Saline) 1,000 mls @ 999 mls/hr IV ONETIME ONE Stop: 03/28/20 19:45 Last Admin: 03/28/20 19:26 Dose: 999 mls/hr Documented by: Sodium Chloride (Normal Saline) Confirm Administered Dose 1,000 mls @ as directed .ROUTE .STK-MED ONE Stop: 03/28/20 18:38 Last Admin: 03/28/20 19:45 Dose: Not Given Documented by: Mometasone Furoate/Formoterol Fumar (Dulera 200-5 Mcg) 2 puff IH BID [facility] Last Admin: 03/30/20 08:41 Dose: Not Given Documented by: Non-Formulary Medication (Budesonide/Formoterol) 2 puff INH BID [facility]LEE - Exam Quality Assessment: Supplemental Oxygen (5 L per nasal cannula), DVT Prophylaxis (Eliquis 2.5 mg twice daily) General: Alert, Oriented, Cooperative, Mild Distress HEENT: Pupils Equal, Pupils Reactive, Mucous Membr. Moist/[place] Neck: Supple, Trachea Midline. No: Lymphadenopathy Lungs: Decreased Breath Sounds, Crackles, Wheezing Cardiovascular: Regular Rate, Irregular Rhythm (History of atrial fibrillation). No: Regular Rhythm GI/Abdominal Exam: Normal Bowel Sounds, Soft, Non-Tender, No Distention (Male) Exam: Deferred Back Exam: Normal Inspection, Full Range of Motion Extremities: Normal Inspection, Normal Range of Motion, Non-Tender, No Pedal Edema, Normal Capillary Refill Peripheral Pulses: 2+: Radial (L), Radial (R), Dorsalis Pedis (L), Dorsalis Pedis (R) Skin: Warm, Dry, Intact Neurological: No New Focal Deficit Psy/Mental Status: Alert, Normal Affect, Normal Mood Sepsis Event Note - Evaluation Sepsis Screening Result: No Definite Risk - Focused Exam Vital Signs: Vital Signs Temp Pulse Resp BP Pulse Ox Pulse Ox 04/02/20 11:46 89 L 04/02/20 11:36 77 20 109/88 89 L 04/02/20 09:08 72 139/85 04/02/20 09:07 139/85 04/02/20 07:59 72 24 H 139/85 89 L 04/02/20 06:28 96 04/02/20 04:04 98.6 F 65 16 134/95 H 04/02/20 04:00 95 - Problem List & Annotations (1) Pneumonia due to 2019 novel coronavirus SNOMED Code(s): 071739712109877431 Code(s): U07.1 - COVID-19; J12.89 - OTHER VIRAL PNEUMONIA Status: Acute Priority: High Current Visit: Yes (2) COPD (chronic obstructive pulmonary disease) SNOMED Code(s): 45350769 Code(s): J44.9 - CHRONIC OBSTRUCTIVE PULMONARY DISEASE, UNSPECIFIED Status: Chronic Priority: High Current Visit: Yes Qualifiers: COPD type: emphysema Emphysema type: panlobular Qualified Code(s): J43.1 - Panlobular emphysema (3) COVID-19 determined by clinical diagnostic criteria SNOMED Code(s): 705029311, 686661860 Code(s): U07.1 - COVID-19 Status: Acute Priority: High Current Visit: Yes (4) Chronic renal insufficiency, stage IV (severe) SNOMED Code(s): 026069083 Code(s): N18.4 - CHRONIC KIDNEY DISEASE, STAGE 4 (SEVERE) Status: Chronic Priority: High Current Visit: Yes (5) Mild congestive heart failure SNOMED Code(s): 48702680 Code(s): I50.9 - HEART FAILURE, UNSPECIFIED Status: Chronic Priority: High Current Visit: Yes (6) Troponin level elevated SNOMED Code(s): 097529608, 062522355, 181990170 Code(s): R77.8 - OTHER SPECIFIED ABNORMALITIES OF PLASMA PROTEINS Status: Acute Priority: High Current Visit: Yes - Problem List Review Problem List Initiated/Reviewed/Updated: Yes - My Orders Last 24 Hours: My Active Orders 04/02/20 10:47 PROCALCITONIN [REF] Stat 04/02/20 11:26 EKG Documentation Completion [RC] STAT 04/02/20 16:00 TROPONIN I [CHEM] Routine 04/02/20 21:00 Enoxaparin [Lovenox] 80 mg SUBCUT Q12H 04/03/20 05:11 C-REACTIVE PROTEIN [CHEM] AM CBC WITH AUTO DIFF [HEME] AM COMPREHENSIVE METABOLIC PN,CMP [CHEM] AM D-DIMER QUANTITATIVE [COAG] AM MAGNESIUM [CHEM] AM 04/04/20 05:11 CRP [C-REACTIVE PROTEIN] [CHEM] Q48H D-DIMER QUANTITATIVE [COAG] Q48H 04/06/20 05:11 CRP [C-REACTIVE PROTEIN] [CHEM] Q48H D-DIMER QUANTITATIVE [COAG] Q48H - Assessment Assessment:: Covid-19 Infection-unchanged Viral Pneumonitisunchanged COPDstable CKD Stage 3improved CHFimproved S/p Lymphophenia Elevated D-Dimer already on eliquis Increased AG Metabolic Acidosisresolved Normal calcium level when corrected9.3 Elevated CRP Hypoalbuminemia2.5 g/dL 04/02/20 * Patient with increased oxygen needs and noticeable dyspnea at rest. * D-dimer is elevated at 27.88. I requested that the lab redraw this patient and D-dimer came back at greater than 35.2. Patient is denying increased shortness of breath or chest pain. Denies any pains in extremities. Patient also has been taking Eliquis 2.5 mg twice daily while hospitalized. * Shortly after rounding on this patient nursing staff notified me that the patient was complaining of numbness to his left cheek. Thorough neuro risk assessment was unremarkable and patient denied numbness to his left cheek at the time of assessment. I ordered an EKG stat this was unchanged from EKG that was taken on 1113 other than the fact that he is now in a sinus rhythm versus atrial fib from 03/24/2020. Patient was also given 4 baby aspirin at this time. Eliquis was discontinued after consult with pharmacy and they recommend full dose Lovenox twice daily. This was ordered for the patient. Troponin from today reveals1.517, WBC 11.99 and that is up from 8.84, platelet count 147, that is down from 167, neutrophil percentage 88.4, BUN 49, creatinine 1.7, GFR 38, C-reactive protein 3.5 which is down from 4.3. Patient continues to deny chest pain. I consulted with Dr. Martinez regarding the current patient situation and he agrees that we do not need to do a CTA on this patient as we will just treat him with high-dose Lovenox rather than subject him to CT dye and worsen his renal status. It is agreed that we will recheck the troponin in 4 hours as we both believe the elevation in troponin is due to the Covid virus. We will continue all other current treatments. * Chest x-ray from today impression: Mildly increasing interstitial and patchy airspace opacities in the bilateral mid and left lower lung vitale as compared with 03/28/2020. Patient is currently receiving Rocephin and Zithromax and remdesivir. - Plan Plan:: 03/29/20 * Renally dose all medications. * Respiratory therapy to titrate oxygen as needed to maintain O2 saturations greater than 88%. * Incentive spirometer and flutter valve every 1 hour while awake. * Continue remdesivir and dexamethasone * Rocephin 2 g IV daily x5 days and Zithromax 500 mg daily x3 days to treat pneumonia. * Closely monitor intake and output and daily weights as patient does have congestive heart failure. * Eliquis for DVT prophylaxis. * Repeat labs in the a.m. * environmental services associate consult for discharge planning * PT and OT to evaluate and treat the patient * Dietitian to consult regarding dietary needs. * Spiritual care * Patient is a full code. 03/30/20 * Continue to titrate oxygen per respiratory therapy * Incentive spirometer and flutter valve every 1 hour while awake * Renally dose all medications * Continue remdesivir and dexamethasone * Continue Rocephin and Zithromax * Continue to monitor intake and output and daily weights * Eliquis for DVT prophylaxis * PT and OT to continue to evaluate and treat the patient * Repeat labs in the a.m. * Patient is a full code * Patient will be here greater than 96 hours due to the 5-day treatment course for Covid 03/31/20 * Did not have is O2 on when I walked into his room this morning * Continue to titrate O2 * Completed Azithromycin * Continue with Rocephine 07/13 and Dexamethasone 07/18 * Remedisir 06/14 * Encourage to use IS/FV and bedside pulmonary exercise * Routine AM Labs * DVT ppx on elqiuis * Anticipate discharge > 96 hrs * Discharge pending completion of treatment 04/01/2020 * Currently on 5 L nasal cannula with oxygen saturations in the low to mid 90s * Continue titrating O2 * Rocephin day 5 of 5 and dexamethasone day 5 of * Remdesivir day 5 of 5 * Completed azithromycin * Continue encouraging I-S and Acapella with RT consult * Length of stay greater than 96 hours secondary to treatment for COVID-19 and continued hypoxemia 04/02/20 * Currently on 6 L per nasal cannula with oxygen saturations in the upper 80s. Respiratory therapy to titrate oxygen as needed for sats greater than 88%. * Incentive spirometer and flutter valve every 1 hour while awake * C completed Rocephin, azithromycin, and remdesivir. * Continues on dexamethasone * Repeat troponin * Lovenox 1 mg/kg every 12 hours. Discontinue Eliquis * Renally dose all medications * Repeat labs in the a.m. * Encourage prone positioning. * Length of stay will be greater than 96 hours due to the treatment of Covid and hypoxemia.
[2020-04-02] MEDS: Dexamethasone 4 MG Tab PO SCH (15:17)
[2020-04-02] MEDS: Clopidogrel 75 MG Tab PO SCH (18:36)
[2020-04-02] MEDS: Enoxaparin 80 MG/0.8 ML Syringe SUBCUT SCH (20:23)
[2020-04-02] MEDS ORDERED: Apixaban 5 MG Tab PO SCH (21:00)
[2020-04-03] MEDS: ALBUTEROL INH SCH ×2 (08:26→20:12)
[2020-04-03] MEDS: SYMBICORT INH SCH ×2 (08:26→20:12)
[2020-04-03] MEDS: Tiotropium Bromide 4 GM Inhalation Spray (2.5mcg/1 dose; 10 doses) INH SCH (08:26)
[2020-04-03] MEDS: Aspirin 81 MG Tab.Chew PO SCH (09:44)
[2020-04-03] MEDS: Enoxaparin 80 MG/0.8 ML Syringe SUBCUT SCH ×2 (09:44→20:44)
[2020-04-03] MEDS: Saccharomyces Boulardii (Probiotic) 250 MG Cap PO SCH (09:45)
[2020-04-03] MEDS: Ascorbic Acid 500 MG Tab PO SCH (09:45)
[2020-04-03] MEDS: Oxybutynin 5 MG Tab.ER PO SCH (09:45)
[2020-04-03] MEDS: Cholecalciferol (Vitamin D3) 25 MCG Tab PO SCH (09:45)
[2020-04-03] MEDS: Rosuvastatin 10 MG Tab PO SCH (09:45)
[2020-04-03] MEDS: Isosorbide Mononitrate 60 MG Tab.ER PO SCH (09:45)
[2020-04-03] MEDS: Furosemide 20 MG Tab PO SCH (09:46)
[2020-04-03] MEDS: Clopidogrel 75 MG Tab PO SCH (09:46)
[2020-04-03] MEDS: Metoprolol Tartrate 25 MG Tab PO SCH ×2 (09:55→20:45)
[2020-04-03] MEDS: Losartan 25 MG Tab PO SCH (09:55)
[2020-04-03] MEDS ORDERED: Furosemide 20 MG/2 ML VIAL IVPUSH ONE (11:00)
--- NOTE | 2020-04-03 14:38 | PCM.PN ---
- General Info Date of Service: 04/03/20 Admission Dx/Problem (Free Text): Admission Diagnosis/Problem Admission Diagnosis/Problem Hypoxia Subjective Update: Patient reports feeling well however he appears very dyspneic and tired. States he is still coughing a moderate amount of sputum. Functional Status: Reports: Pain Controlled, Tolerating Diet, Ambulating (With physical therapy), Urinating, Incentive Spirometry - Review of Systems General: Reports: Weakness, Fatigue HEENT: Reports: Glasses Pulmonary: Reports: Shortness of Breath, Cough, Sputum, Wheezing Cardiovascular: Reports: Dyspnea on Exertion. Denies: Chest Pain, Palpitations, Edema Gastrointestinal: Reports: No Symptoms Genitourinary: Reports: No Symptoms Musculoskeletal: Reports: No Symptoms Skin: Reports: No Symptoms Neurological: Reports: No Symptoms Psychiatric: Reports: No Symptoms - Patient Data Vitals - Most Recent: Last Vital Signs Temp 98.8 F 04/03/20 12:06 Pulse 82 04/03/20 12:06 Resp 22 H 04/03/20 12:06 BP 100/78 04/03/20 12:06 Pulse Ox 83 L 04/03/20 12:06 Weight - Most Recent: 176 lb 11.2 oz I&O - Last 24 Hours: Intake & Output 04/02/20 04/03/20 04/03/20 22:59 06:59 14:59 Intake Total 700 600 Output Total 525 700 Balance 175 -100 Lab Results Last 24 Hours: Laboratory Results - last 24 hr 03/28/20 04/02/20 04/02/20 Range/Units 14:00 10:47 16:08 WBC (4.23-9.07) K/mm3 RBC (4.63-6.08) M/mm3 Hgb (13.7-17.5) gm/dl Hct (40.1-51.0) % MCV (79.0-92.2) fl MCH (25.7-32.2) pg MCHC (32.2-35.5) g/dl RDW Std Deviation (35.1-43.9) fL Plt Count (163-337) K/mm3 MPV (9.4-12.3) fl Neut % (Auto) (34.0-67.9) % Lymph % (Auto) (21.8-53.1) % [place] % (Auto) (5.3-12.2) % Eos % (Auto) (0.8-7.0) Baso % (Auto) (0.1-1.2) % Neut # (Auto) (1.78-5.38) K/mm3 Lymph # (Auto) (1.32-3.57) K/mm3 [place] # (Auto) (0.30-0.82) K/mm3 Eos # (Auto) (0.04-0.54) K/mm3 Baso # (Auto) (0.01-0.08) K/mm3 Manual Slide Review D-Dimer, Quantitative (0.19-0.50) mg/L Puncture Site ABG pH (7.35-7.45) ABG pCO2 (35.0-45.0) mmHg ABG pO2 (80.0-100.0) mmHg ABG HCO3 (22.0-26.0) meq/L ABG O2 Saturation (96.0-97.0) % ABG Base Excess (-2-2.0) Bradley Test A-a Gradient mmHg O2 Delivery Device Oxygen Flow Rate FiO2 (21.00-100.00) % Sodium (136-145) mEq/L Potassium (3.5-5.1) mEq/L Chloride (98-107) mEq/L Carbon Dioxide (21-32) mEq/L Anion Gap (5-15) BUN (7-18) mg/dL Creatinine (0.7-1.3) mg/dL Est Cr Clr Drug Dosing mL/min Estimated GFR (MDRD) (>60) mL/min BUN/Creatinine Ratio (14-18) Glucose (83-115) mg/dL Calcium (8.5-10.1) mg/dL Magnesium (1.8-2.4) mg/dl Total Bilirubin (0.2-1.0) mg/dL AST (15-37) U/L ALT (16-63) U/L Alkaline Phosphatase (46-116) U/L Troponin I 2.608 H* (0.00-0.056) ng/mL C-Reactive Protein (<1.0) mg/dL NT-Pro-B Natriuret Pep (0-450) pg/mL Total Protein (6.4-8.2) g/dl Albumin (3.4-5.0) g/dl Globulin gm/dL Albumin/Globulin Ratio (1-2) Procalcitonin <0.05 (<0.10) ng/mL Blood Type O POSITIVE 04/03/20 04/03/20 04/03/20 Range/Units 04:41 04:41 04:41 WBC 12.47 H (4.23-9.07) K/mm3 RBC 5.14 (4.63-6.08) M/mm3 Hgb 15.6 (13.7-17.5) gm/dl Hct 43.9 (40.1-51.0) % MCV 85.4 (79.0-92.2) fl MCH 30.4 (25.7-32.2) pg MCHC 35.5 (32.2-35.5) g/dl RDW Std Deviation 46.7 H (35.1-43.9) fL Plt Count 147 L (163-337) K/mm3 MPV 10.8 (9.4-12.3) fl Neut % (Auto) 88.7 H (34.0-67.9) % Lymph % (Auto) 4.0 L (21.8-53.1) % [place] % (Auto) 6.8 (5.3-12.2) % Eos % (Auto) 0 L (0.8-7.0) Baso % (Auto) 0.5 (0.1-1.2) % Neut # (Auto) 11.06 H (1.78-5.38) K/mm3 Lymph # (Auto) 0.50 L (1.32-3.57) K/mm3 [place] # (Auto) 0.85 H (0.30-0.82) K/mm3 Eos # (Auto) 0.00 L (0.04-0.54) K/mm3 Baso # (Auto) 0.06 (0.01-0.08) K/mm3 Manual Slide Review Abnormal smear D-Dimer, Quantitative 25.53 H (0.19-0.50) mg/L Puncture Site ABG pH (7.35-7.45) ABG pCO2 (35.0-45.0) mmHg ABG pO2 (80.0-100.0) mmHg ABG HCO3 (22.0-26.0) meq/L ABG O2 Saturation (96.0-97.0) % ABG Base Excess (-2-2.0) Bradley Test A-a Gradient mmHg O2 Delivery Device Oxygen Flow Rate FiO2 (21.00-100.00) % Sodium 141 (136-145) mEq/L Potassium 4.3 (3.5-5.1) mEq/L Chloride 110 H (98-107) mEq/L Carbon Dioxide 13 L (21-32) mEq/L Anion Gap 22.3 H (5-15) BUN 60 H (7-18) mg/dL Creatinine 1.7 H (0.7-1.3) mg/dL Est Cr Clr Drug Dosing 32.80 mL/min Estimated GFR (MDRD) 38 (>60) mL/min BUN/Creatinine Ratio 35.3 H (14-18) Glucose 122 H (83-115) mg/dL Calcium 8.3 L (8.5-10.1) mg/dL Magnesium 2.1 (1.8-2.4) mg/dl Total Bilirubin 0.6 (0.2-1.0) mg/dL AST 36 (15-37) U/L ALT 34 (16-63) U/L Alkaline Phosphatase 76 (46-116) U/L Troponin I 2.395 H* (0.00-0.056) ng/mL C-Reactive Protein 4.6 H* (<1.0) mg/dL NT-Pro-B Natriuret Pep (0-450) pg/mL Total Protein 6.7 (6.4-8.2) g/dl Albumin 2.9 L (3.4-5.0) g/dl Globulin 3.8 gm/dL Albumin/Globulin Ratio 0.8 L (1-2) Procalcitonin (<0.10) ng/mL Blood Type 04/03/20 04/03/20 Range/Units 08:50 11:49 WBC (4.23-9.07) K/mm3 RBC (4.63-6.08) M/mm3 Hgb (13.7-17.5) gm/dl Hct (40.1-51.0) % MCV (79.0-92.2) fl MCH (25.7-32.2) pg MCHC (32.2-35.5) g/dl RDW Std Deviation (35.1-43.9) fL Plt Count (163-337) K/mm3 MPV (9.4-12.3) fl Neut % (Auto) (34.0-67.9) % Lymph % (Auto) (21.8-53.1) % [place] % (Auto) (5.3-12.2) % Eos % (Auto) (0.8-7.0) Baso % (Auto) (0.1-1.2) % Neut # (Auto) (1.78-5.38) K/mm3 Lymph # (Auto) (1.32-3.57) K/mm3 [place] # (Auto) (0.30-0.82) K/mm3 Eos # (Auto) (0.04-0.54) K/mm3 Baso # (Auto) (0.01-0.08) K/mm3 Manual Slide Review D-Dimer, Quantitative (0.19-0.50) mg/L Puncture Site Rt radial ABG pH 7.44 (7.35-7.45) ABG pCO2 21.9 L (35.0-45.0) mmHg ABG pO2 52.0 L (80.0-100.0) mmHg ABG HCO3 14.5 L (22.0-26.0) meq/L ABG O2 Saturation 84.1 L (96.0-97.0) % ABG Base Excess -7.4 L (-2-2.0) Bradley Test Positive A-a Gradient 235 mmHg O2 Delivery Device Nasal cannula Oxygen Flow Rate 6.0 FiO2 44.00 (21.00-100.00) % Sodium (136-145) mEq/L Potassium (3.5-5.1) mEq/L Chloride (98-107) mEq/L Carbon Dioxide (21-32) mEq/L Anion Gap (5-15) BUN (7-18) mg/dL Creatinine (0.7-1.3) mg/dL Est Cr Clr Drug Dosing mL/min Estimated GFR (MDRD) (>60) mL/min BUN/Creatinine Ratio (14-18) Glucose (83-115) mg/dL Calcium (8.5-10.1) mg/dL Magnesium (1.8-2.4) mg/dl Total Bilirubin (0.2-1.0) mg/dL AST (15-37) U/L ALT (16-63) U/L Alkaline Phosphatase (46-116) U/L Troponin I (0.00-0.056) ng/mL C-Reactive Protein (<1.0) mg/dL NT-Pro-B Natriuret Pep 6267 H (0-450) pg/mL Total Protein (6.4-8.2) g/dl Albumin (3.4-5.0) g/dl Globulin gm/dL Albumin/Globulin Ratio (1-2) Procalcitonin (<0.10) ng/mL Blood Type Dimitrios Results Last 24 Hours: Microbiology 03/28/20 14:30 Aerobic Blood Culture - Preliminary Blood - Venous NO GROWTH AFTER 5 DAYS Anaerobic Blood Culture - Preliminary NO GROWTH AFTER 5 DAYS 03/28/20 14:25 Aerobic Blood Culture - Preliminary Blood NO GROWTH AFTER 5 DAYS Anaerobic Blood Culture - Preliminary NO GROWTH AFTER 5 DAYS Med Orders - Current: Current Medications Acetaminophen (Tylenol) 650 mg PO Q4H PRN PRN Reason: Pain (Mild 1-3)/fever Albuterol (Proventil Neb Soln) 2.5 mg NEB Q2H PRN PRN Reason: Shortness Of Breath/wheezing Last Admin: 03/28/20 19:03 Dose: 2.5 mg Documented by: Albuterol/Ipratropium (Duoneb 3.0-0.5 Mg/3 Ml) 3 ml INH Q6H PRN PRN Reason: Shortness of Breath Ascorbic Acid (Vitamin C) 1,000 mg PO DAILY [facility] Last Admin: 04/03/20 09:45 Dose: 1,000 mg Documented by: Aspirin (Aspirin) 81 mg PO DAILY [facility] Last Admin: 04/03/20 09:44 Dose: 81 mg Documented by: Cholecalciferol (Vitamin D3) 50 mcg PO DAILY [facility] Last Admin: 04/03/20 09:45 Dose: 50 mcg Documented by: Clopidogrel Bisulfate (Plavix) 75 mg PO DAILY [facility] Last Admin: 04/03/20 09:46 Dose: 75 mg Documented by: Dexamethasone (Dexamethasone) 6 mg PO Q24H [facility] Stop: 04/06/20 16:01 Last Admin: 04/02/20 15:17 Dose: 6 mg Documented by: Docusate Sodium (Colace) 100 mg PO BID PRN PRN Reason: Constipation Enoxaparin Sodium (Lovenox) 80 mg SUBCUT Q12H [facility] Last Admin: 04/03/20 09:44 Dose: 80 mg Documented by: Furosemide (Lasix) 20 mg PO DAILY [facility] Last Admin: 04/03/20 09:46 Dose: 20 mg Documented by: Isosorbide Mononitrate (Imdur) 60 mg PO DAILY [facility] Last Admin: 04/03/20 09:45 Dose: 60 mg Documented by: Losartan Potassium (Cozaar) 25 mg PO DAILY [facility] Last Admin: 04/03/20 09:55 Dose: 25 mg Documented by: Metoprolol Tartrate (Lopressor) 12.5 mg PO BID [facility] Nitroglycerin (Nitrostat) 0.4 mg SL Q5M PRN PRN Reason: Chest Pain Symbicort 160/4.5 (Mcg Inhaler Ptom) 2 puff INH BID [facility] Last Admin: 04/03/20 08:26 Dose: 2 puff Documented by: Ondansetron HCl (Zofran) 4 mg IV Q4H PRN PRN Reason: Nausea/Vomiting Oxybutynin Chloride (Oxybutynin Er) 10 mg PO DAILY [facility] Last Admin: 04/03/20 09:45 Dose: 10 mg Documented by: Proair Inhaler 6.7 (Gm Inhaler Ptom) 0 each INH BID [facility] Last Admin: 04/03/20 08:26 Dose: 2 each Documented by: Rosuvastatin Calcium (Crestor) 20 mg PO DAILY [facility] Last Admin: 04/03/20 09:45 Dose: 20 mg Documented by: Saccharomyces Boulardii (Florastor) 250 mg PO DAILY [facility] Last Admin: 04/03/20 09:45 Dose: 250 mg Documented by: Sodium Chloride (Saline Flush) 10 ml FLUSH ASDIRECTED PRN PRN Reason: Keep Vein Open Tiotropium Rogers (Spiriva Respimat) 0 gm INH DAILY [facility] Last Admin: 04/03/20 08:26 Dose: 4 gm Documented by: Discontinued Medications Albuterol (Proventil Hfa) 0 gm INH QID PRN PRN Reason: Shortness of Breath Albuterol (Proventil Hfa) 0 gm INH QID PRN PRN Reason: Shortness of Breath Apixaban (Eliquis) 2.5 mg PO BID [facility] Last Admin: 04/02/20 09:08 Dose: 2.5 mg Documented by: Aspirin (Aspirin) 243 mg PO ONETIME ONE Stop: 04/02/20 11:32 Last Admin: 04/02/20 11:34 Dose: 243 mg Documented by: Aspirin (Aspirin) Confirm Administered Dose 81 mg .ROUTE .STK-MED ONE Stop: 04/02/20 11:33 Last Admin: 04/02/20 11:40 Dose: 81 mg Documented by: Enoxaparin Sodium (Lovenox) 80 mg SUBCUT ONETIME ONE Stop: 04/02/20 11:31 Last Admin: 04/02/20 11:51 Dose: 80 mg Documented by: Enoxaparin Sodium (Lovenox) 80 mg SUBCUT ONETIME ONE Stop: 04/02/20 12:01 Last Admin: 04/02/20 11:51 Dose: Not Given Documented by: Furosemide (Lasix) 20 mg IVPUSH NOW ONE Stop: 04/03/20 11:01 Last Admin: 04/03/20 12:02 Dose: 20 mg Documented by: Remdesivir 200 mg/ Sodium (Chloride) 250 mls @ 250 mls/hr IV ONETIME ONE Stop: 03/28/20 13:44 Last Admin: 03/28/20 16:38 Dose: Not Given Documented by: Remdesivir 100 mg/ Sodium (Chloride) 100 mls @ 100 mls/hr IV DAILY [facility] Stop: 04/01/20 09:59 Azithromycin 500 mg/ Sodium (Chloride) 250 mls @ 250 mls/hr IV Q24H [facility] Stop: 03/30/20 17:29 Last Admin: 03/30/20 15:39 Dose: 250 mls/hr Documented by: Ceftriaxone Sodium 2 gm/ (Sodium Chloride) 100 mls @ 200 mls/hr IV Q24H [facility]LEE Stop: 04/01/20 16:29 Last Admin: 04/01/20 16:13 Dose: 200 mls/hr Documented by: Remdesivir 200 mg/ Sodium (Chloride) 250 mls @ 250 mls/hr IV ONETIME ONE Stop: 03/28/20 18:59 Last Admin: 03/28/20 19:13 Dose: 250 mls/hr Documented by: Remdesivir 100 mg/ Sodium (Chloride) 100 mls @ 100 mls/hr IV Q24H [facility] Stop: 04/01/20 18:59 Last Admin: 04/01/20 17:12 Dose: 100 mls/hr Documented by: Sodium Chloride (Normal Saline) 250 mls @ 100 mls/hr IV ASDIRECTED [facility] Stop: 03/28/20 23:00 Sodium Chloride (Normal Saline) 1,000 mls @ 999 mls/hr IV ONETIME ONE Stop: 03/28/20 19:45 Last Admin: 03/28/20 19:26 Dose: 999 mls/hr Documented by: Sodium Chloride (Normal Saline) Confirm Administered Dose 1,000 mls @ as directed .ROUTE .STK-MED ONE Stop: 03/28/20 18:38 Last Admin: 03/28/20 19:45 Dose: Not Given Documented by: Metoprolol Tartrate (Lopressor) 25 mg PO BID [facility] Last Admin: 04/03/20 09:55 Dose: 25 mg Documented by: Mometasone Furoate/Formoterol Fumar (Dulera 200-5 Mcg) 2 puff IH BID [facility] Last Admin: 03/30/20 08:41 Dose: Not Given Documented by: Non-Formulary Medication (Budesonide/Formoterol) 2 puff INH BID CHARLEE - Exam Quality Assessment: Supplemental Oxygen (6 L per nasal cannula), DVT Prophylaxis (Lovenox) General: Alert, Oriented, Cooperative, Moderate Distress HEENT: Pupils Equal, Pupils Reactive, Mucous Membr. Moist/[place] Neck: Supple, Trachea Midline. No: Lymphadenopathy Lungs: Decreased Breath Sounds, Crackles, Rhonchi Cardiovascular: Regular Rate, Regular Rhythm GI/Abdominal Exam: Normal Bowel Sounds, Soft, Non-Tender, No Distention (Male) Exam: Deferred Back Exam: Normal Inspection, Full Range of Motion Extremities: Normal Inspection, Normal Range of Motion, Non-Tender, No Pedal Edema, Normal Capillary Refill Peripheral Pulses: 2+: Radial (L), Radial (R), Dorsalis Pedis (L), Dorsalis Pedis (R) Skin: Warm, Dry, Intact Neurological: No New Focal Deficit Psy/Mental Status: Alert, Normal Affect, Normal Mood Sepsis Event Note - Evaluation Sepsis Screening Result: No Definite Risk - Focused Exam Vital Signs: Vital Signs Temp Temp Pulse Resp BP Pulse Ox Pulse Ox 04/03/20 12:06 98.8 F 82 22 H 100/78 83 L 04/03/20 09:55 78 123/63 04/03/20 09:54 97.5 F 91 22 H 122/63 89 L 04/03/20 08:27 90 L 04/03/20 04:25 133/81 04/03/20 04:05 79 87 L 04/03/20 04:00 97.9 F 16 - Problem List & Annotations (1) Pneumonia due to 2019 novel coronavirus SNOMED Code(s): 615727246398808553 Code(s): U07.1 - COVID-19; J12.89 - OTHER VIRAL PNEUMONIA Status: Acute Priority: High Current Visit: Yes (2) COPD (chronic obstructive pulmonary disease) SNOMED Code(s): 93776610 Code(s): J44.9 - CHRONIC OBSTRUCTIVE PULMONARY DISEASE, UNSPECIFIED Status: Chronic Priority: High Current Visit: Yes Qualifiers: COPD type: emphysema Emphysema type: panlobular Qualified Code(s): J43.1 - Panlobular emphysema (3) COVID-19 determined by clinical diagnostic criteria SNOMED Code(s): 317585547, 953060452 Code(s): U07.1 - COVID-19 Status: Acute Priority: High Current Visit: Yes (4) Chronic renal insufficiency, stage IV (severe) SNOMED Code(s): 094929603 Code(s): N18.4 - CHRONIC KIDNEY DISEASE, STAGE 4 (SEVERE) Status: Chronic Priority: High Current Visit: Yes (5) Mild congestive heart failure SNOMED Code(s): 51638598 Code(s): I50.9 - HEART FAILURE, UNSPECIFIED Status: Chronic Priority: High Current Visit: Yes (6) Troponin level elevated SNOMED Code(s): 810514426, 848091455, 833366790 Code(s): R77.8 - OTHER SPECIFIED ABNORMALITIES OF PLASMA PROTEINS Status: Acute Priority: High Current Visit: Yes - Problem List Review Problem List Initiated/Reviewed/Updated: Yes - My Orders Last 24 Hours: My Active Orders 04/02/20 21:00 Enoxaparin [Lovenox] 80 mg SUBCUT Q12H 04/03/20 11:05 EKG Documentation Completion [RC] STAT 04/03/20 11:44 RT Arterial Blood Gases, ABG [RC] Click to Edit 04/03/20 11:49 One To One Therapy [] Stat 04/03/20 12:32 Echo Comp wo Cont [US] Stat 04/03/20 21:00 Metoprolol Tartrate [Lopressor] 12.5 mg PO BID 04/04/20 05:11 CRP [C-REACTIVE PROTEIN] [CHEM] Q48H D-DIMER QUANTITATIVE [COAG] Q48H 04/06/20 05:11 CRP [C-REACTIVE PROTEIN] [CHEM] Q48H D-DIMER QUANTITATIVE [COAG] Q48H - Assessment Assessment:: Covid-19 Infection-unchanged Viral Pneumonitisunchanged COPDstable CKD Stage 3improved CHFimproved S/p Lymphophenia Elevated D-Dimer already on eliquis Increased AG Metabolic Acidosisresolved Normal calcium level when corrected9.3 Elevated CRP Hypoalbuminemia2.5 g/dL 04/02/20 * Patient with increased oxygen needs and noticeable dyspnea at rest. * D-dimer is elevated at 27.88. I requested that the lab redraw this patient and D-dimer came back at greater than 35.2. Patient is denying increased shortness of breath or chest pain. Denies any pains in extremities. Patient also has been taking Eliquis 2.5 mg twice daily while hospitalized. * Shortly after rounding on this patient nursing staff notified me that the patient was complaining of numbness to his left cheek. Thorough neuro risk assessment was unremarkable and patient denied numbness to his left cheek at the time of assessment. I ordered an EKG stat this was unchanged from EKG t hat was taken on 1113 other than the fact that he is now in a sinus rhythm versus atrial fib from 03/24/2020. Patient was also given 4 baby aspirin at this time. Eliquis was discontinued after consult with pharmacy and they recommend full dose Lovenox twice daily. This was ordered for the patient. Troponin from today reveals1.517, WBC 11.99 and that is up from 8.84, platelet count 147, that is down from 167, neutrophil percentage 88.4, BUN 49, creatinine 1.7, GFR 38, C-reactive protein 3.5 which is down from 4.3. Patient continues to deny chest pain. I consulted with Dr. Martinez regarding the current patient situation and he agrees that we do not need to do a CTA on this patient as we will just treat him with high-dose Lovenox rather than subject him to CT dye and worsen his renal status. It is agreed that we will recheck the troponin in 4 hours as we both believe the elevation in troponin is due to the Covid virus. We will continue all other current treatments. * Chest x-ray from today impression: Mildly increasing interstitial and patchy airspace opacities in the bilateral mid and left lower lung vitale as compared with 03/28/2020. Patient is currently receiving Rocephin and Zithromax and remdesivir. 04/03/20 * Continues on 6 L of oxygen per nasal cannula with moderate dyspnea and respiratory distress noted. Patient however reports that he is feeling well. * Patient was placed on Plavix yesterday per Dr. Martinez after second troponin came back at 2.608. * Labs reveal WBC 12.47 which is up from 11.99, platelet count 147, D-dimer 25 .53 which is down from greater than 35.20, anion gap is 22.3 which is up from 17.1, BUN 60, creatinine 1.7, C-reactive protein 4.6 which is up from 3.5, troponin 2.395 which is down from 2.608, proBNP 6267, procalcitonin that was drawn yesterday less than 0.05. * At around 1130 this morning nursing staff reported to me that patient was found in his room without his oxygen in place and was very confused. Blood gases were drawn at this time and they revealed a pH of 7.44, PCO2 21.9, PO2 of 52, bicarb 14.5, base excess -7.4. * EKG was obtained as well. This showed no acute changes from the EKG that was taken yesterday. There is no obvious acute cardiac injury noted. 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 An episode of bradycardia into the 30s was also noted around 830 this morning. * I attempted to transfer the patient however there are no beds available at either [facility] or [facility] in [place]. I then called [facility] in [place] and consulted with their surgical scrub tech Dr. Beckman and distributed energy systems consultant Dr. Ramirez regarding the patient's condition. They stated at this point we are doing everything for the patient treatment ibarra that they would be doing at their facility. They requested that I get a new echo on the patient since his diagnosis of Covid and if it shows any changes in the ejection fraction or any new wall motion changes to contact them and they would be more likely to accept him in transfer. 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 - Plan Plan:: 03/29/20 * Renally dose all medications. * Respiratory therapy to titrate oxygen as needed to maintain O2 saturations greater than 88%. * Incentive spirometer and flutter valve every 1 hour while awake. * Continue remdesivir and dexamethasone * Rocephin 2 g IV daily x5 days and Zithromax 500 mg daily x3 days to treat pneumonia. * Closely monitor intake and output and daily weights as patient does have congestive heart failure. * Eliquis for DVT prophylaxis. * Repeat labs in the a.m. * patient financial services specialist consult for discharge planning * PT and OT to evaluate and treat the patient * Dietitian to consult regarding dietary needs. * Spiritual care * Patient is a full code. 03/30/20 * Continue to titrate oxygen per respiratory therapy * Incentive spirometer and flutter valve every 1 hour while awake * Renally dose all medications * Continue remdesivir and dexamethasone * Continue Rocephin and Zithromax * Continue to monitor intake and output and daily weights * Eliquis for DVT prophylaxis * PT and OT to continue to evaluate and treat the patient * Repeat labs in the a.m. * Patient is a full code * Patient will be here greater than 96 hours due to the 5-day treatment course for Covid 03/31/20 * Did not have is O2 on when I walked into his room this morning * Continue to titrate O2 * Completed Azithromycin * Continue with Rocephine 07/13 and Dexamethasone 07/18 * Remedisir 06/14 * Encourage to use IS/FV and bedside pulmonary exercise * Routine AM Labs * DVT ppx on elqiuis * Anticipate discharge > 96 hrs * Discharge pending completion of treatment 04/01/2020 * Currently on 5 L nasal cannula with oxygen saturations in the low to mid 90s * Continue titrating O2 * Rocephin day 5 of and dexamethasone day 5 of * Remdesivir day * Completed azithromycin * Continue encouraging I-S and Acapella with RT consult * Length of stay greater than 96 hours secondary to treatment for COVID-19 and continued hypoxemia 04/02/20 * Currently on 6 L per nasal cannula with oxygen saturations in the upper 80s. Respiratory therapy to titrate oxygen as needed for sats greater than 88%. * Incentive spirometer and flutter valve every 1 hour while awake * completed Rocephin, azithromycin, and remdesivir. * Continues on dexamethasone * Repeat troponin * Lovenox 1 mg/kg every 12 hours. Discontinue Eliquis * Renally dose all medications * Repeat labs in the a.m. * Encourage prone positioning. * Length of stay will be greater than 96 hours due to the treatment of Covid and hypoxemia. 04/03/20 * Make patient a one-to-one and transferred to the ICU. * Decrease metoprolol to 12.5 mg p.o. twice daily. * Lasix 40 mg IV x1 dose now * Zoloft 25 mg daily and Ativan 0.25 mg p.o. every 2 hours as needed. * Renally dose all medications. * Continue on dexamethasone * Respiratory therapy to continue titrating oxygen for O2 sats greater than 88%. * Incentive spirometer with flutter valve every 1 hour while awake * Strict I&O and daily weights * Stat echocardiogram * Lovenox for DVT prophylaxis * Encourage prone positioning * Repeat labs in the a.m. * I spoke with the patient's and updated her on the patient's current status and plan of care.
[2020-04-03] MEDS: Sertraline 25 MG Tab PO SCH (17:00)
[2020-04-03] MEDS: Dexamethasone 4 MG Tab PO SCH (17:00)
[2020-04-04] MEDS: LORazepam 0.5 MG Tab PO PRN ×2 (01:34→19:59)
[2020-04-04] MEDS: Enoxaparin 80 MG/0.8 ML Syringe SUBCUT SCH ×2 (07:59→19:59)
[2020-04-04] MEDS: Oxybutynin 5 MG Tab.ER PO SCH (08:00)
[2020-04-04] MEDS: Rosuvastatin 10 MG Tab PO SCH (08:00)
[2020-04-04] MEDS: Ascorbic Acid 500 MG Tab PO SCH (08:00)
[2020-04-04] MEDS: Aspirin 81 MG Tab.Chew PO SCH (08:01)
[2020-04-04] MEDS: Cholecalciferol (Vitamin D3) 25 MCG Tab PO SCH ×2 (08:01→20:00)
[2020-04-04] MEDS: Metoprolol Tartrate 25 MG Tab PO SCH ×2 (08:01→20:00)
[2020-04-04] MEDS: Clopidogrel 75 MG Tab PO SCH (08:01)
[2020-04-04] MEDS: Losartan 25 MG Tab PO SCH (08:02)
[2020-04-04] MEDS: Furosemide 20 MG Tab PO SCH (08:02)
[2020-04-04] MEDS: Isosorbide Mononitrate 60 MG Tab.ER PO SCH (08:02)
[2020-04-04] MEDS: Sertraline 25 MG Tab PO SCH (08:02)
[2020-04-04] MEDS: Saccharomyces Boulardii (Probiotic) 250 MG Cap PO SCH (08:02)
[2020-04-04] MEDS: Tiotropium Bromide 4 GM Inhalation Spray (2.5mcg/1 dose; 10 doses) INH SCH (08:15)
[2020-04-04] MEDS: SYMBICORT INH SCH ×2 (08:16→20:11)
[2020-04-04] MEDS: ALBUTEROL INH SCH ×2 (08:16→20:11)
[2020-04-04] MEDS ORDERED: Furosemide 40 MG/4 ML VIAL IVPUSH ONE (08:18)
--- NOTE | 2020-04-04 08:54 | CR ---
PROCEDURE INFORMATION: Exam: XR Chest, 1 View Exam date and time: 04/04/2020 7:38 AM Age: 84 years old Clinical indication: Condition or disease; Other: F/U covid TECHNIQUE: Imaging protocol: XR of the chest Views: 1 view. COMPARISON: CR Chest 1V Frontal 04/02/2020 7:31 AM FINDINGS: Lungs: Peripheral areas of ground-glass attenuation and interstitial thickening, worse on the. This is stable since 04/02/2020. Pleural space: Unremarkable. No pleural effusion. No pneumothorax. Heart/Mediastinum: Mild cardiac enlargement. Bones/joints: Sternotomy with mediastinal clips. IMPRESSION: No change in the bilateral pulmonary infiltrates since 04/02/2020. Thank you for allowing us to participate in the care of your patient. Dictated and Authenticated by: Linda Martinez MD 04/04/2020 9:18 AM Central Time ([place] & [place]) [place]
--- NOTE | 2020-04-04 12:55 | PCM.PN ---
- General Info Date of Service: 04/04/20 Admission Dx/Problem (Free Text): Admission Diagnosis/Problem Admission Diagnosis/Problem Hypoxia Subjective Update: Patient is doing better today. States he feels better than yesterday. Is more alert today. Functional Status: Reports: Pain Controlled, Tolerating Diet, Ambulating (Physical therapy ordered), Urinating (Gong catheter), Incentive Spirometry (Every 1 hour while awake) - Review of Systems General: Reports: Weakness, Fatigue HEENT: Reports: Glasses Pulmonary: Reports: Shortness of Breath, Cough, Sputum. Denies: Wheezing Cardiovascular: Reports: Dyspnea on Exertion. Denies: Chest Pain, Palpitations, Edema Gastrointestinal: Reports: No Symptoms Genitourinary: Reports: Other (Gong catheter) Musculoskeletal: Reports: No Symptoms Skin: Reports: No Symptoms Neurological: Reports: No Symptoms Psychiatric: Reports: No Symptoms - Patient Data Vitals - Most Recent: Last Vital Signs Temp 97.8 F 04/04/20 12:00 Pulse 70 04/04/20 08:01 Resp 23 H 04/04/20 12:00 BP 112/57 L 04/04/20 12:00 Pulse Ox 90 L 04/04/20 12:00 Weight - Most Recent: 170 lb 4.998 oz I&O - Last 24 Hours: Intake & Output 04/03/20 04/04/20 04/04/20 22:59 06:59 14:59 Intake Total 600 400 360 Output Total 5704 187 0896 Balance -922 15 -665 Lab Results Last 24 Hours: Laboratory Results - last 24 hr 04/04/20 04/04/20 04/04/20 Range/Units 05:36 05:36 05:36 WBC 8.80 (4.23-9.07) K/mm3 RBC 4.65 (4.63-6.08) M/mm3 Hgb 14.1 D (13.7-17.5) gm/dl Hct 39.8 L (40.1-51.0) % MCV 85.6 (79.0-92.2) fl MCH 30.3 (25.7-32.2) pg MCHC 35.4 (32.2-35.5) g/dl RDW Std Deviation 45.9 H (35.1-43.9) fL Plt Count 157 L (163-337) K/mm3 MPV 10.6 (9.4-12.3) fl Neut % (Auto) 90.5 H (34.0-67.9) % Lymph % (Auto) 3.6 L (21.8-53.1) % [place] % (Auto) 5.7 (5.3-12.2) % Eos % (Auto) 0 L (0.8-7.0) Baso % (Auto) 0.2 (0.1-1.2) % Neut # (Auto) 7.96 H (1.78-5.38) K/mm3 Lymph # (Auto) 0.32 L (1.32-3.57) K/mm3 [place] # (Auto) 0.50 (0.30-0.82) K/mm3 Eos # (Auto) 0.00 L (0.04-0.54) K/mm3 Baso # (Auto) 0.02 (0.01-0.08) K/mm3 Manual Slide Review Abnormal smear D-Dimer, Quantitative 14.50 H (0.19-0.50) mg/L Sodium 142 (136-145) mEq/L Potassium 4.4 (3.5-5.1) mEq/L Chloride 111 H (98-107) mEq/L Carbon Dioxide 21 (21-32) mEq/L Anion Gap 14.4 (5-15) BUN 63 H (7-18) mg/dL Creatinine 1.8 H (0.7-1.3) mg/dL Est Cr Clr Drug Dosing 30.98 mL/min Estimated GFR (MDRD) 36 (>60) mL/min BUN/Creatinine Ratio 35.0 H (14-18) Glucose 135 H (83-115) mg/dL Calcium 8.4 L (8.5-10.1) mg/dL Phosphorus 3.3 (2.6-4.7) mg/dL Magnesium 2.2 (1.8-2.4) mg/dl Total Bilirubin 0.6 (0.2-1.0) mg/dL AST 25 (15-37) U/L ALT 25 (16-63) U/L Alkaline Phosphatase 66 (46-116) U/L Troponin I 1.431 H* (0.00-0.056) ng/mL C-Reactive Protein 5.8 H* (<1.0) mg/dL NT-Pro-B Natriuret Pep (0-450) pg/mL Total Protein 5.9 L (6.4-8.2) g/dl Albumin 2.4 L (3.4-5.0) g/dl Globulin 3.5 gm/dL Albumin/Globulin Ratio 0.7 L (1-2) 04/04/ Range/Units 05:36 WBC (4.23-9.07) K/mm3 RBC (4.63-6.08) M/mm3 Hgb (13.7-17.5) gm/dl Hct (40.1-51.0) % MCV (79.0-92.2) fl MCH (25.7-32.2) pg MCHC (32.2-35.5) g/dl RDW Std Deviation (35.1-43.9) fL Plt Count (163-337) K/mm3 MPV (9.4-12.3) fl Neut % (Auto) (34.0-67.9) % Lymph % (Auto) (21.8-53.1) % [place] % (Auto) (5.3-12.2) % Eos % (Auto) (0.8-7.0) Baso % (Auto) (0.1-1.2) % Neut # (Auto) (1.78-5.38) K/mm3 Lymph # (Auto) (1.32-3.57) K/mm3 [place] # (Auto) (0.30-0.82) K/mm3 Eos # (Auto) (0.04-0.54) K/mm3 Baso # (Auto) (0.01-0.08) K/mm3 Manual Slide Review D-Dimer, Quantitative (0.19-0.50) mg/L Sodium (136-145) mEq/L Potassium (3.5-5.1) mEq/L Chloride (98-107) mEq/L Carbon Dioxide (21-32) mEq/L Anion Gap (5-15) BUN (7-18) mg/dL Creatinine (0.7-1.3) mg/dL Est Cr Clr Drug Dosing mL/min Estimated GFR (MDRD) (>60) mL/min BUN/Creatinine Ratio (14-18) Glucose (83-115) mg/dL Calcium (8.5-10.1) mg/dL Phosphorus (2.6-4.7) mg/dL Magnesium (1.8-2.4) mg/dl Total Bilirubin (0.2-1.0) mg/dL AST (15-37) U/L ALT (16-63) U/L Alkaline Phosphatase (46-116) U/L Troponin I (0.00-0.056) ng/mL C-Reactive Protein (<1.0) mg/dL NT-Pro-B Natriuret Pep 3992 H (0-450) pg/mL Total Protein (6.4-8.2) g/dl Albumin (3.4-5.0) g/dl Globulin gm/dL Albumin/Globulin Ratio (1-2) Dimitrios Results Last 24 Hours: Microbiology 03/28/20 14:30 Aerobic Blood Culture - Preliminary Blood - Venous NO GROWTH AFTER 6 DAYS Anaerobic Blood Culture - Preliminary NO GROWTH AFTER 6 DAYS 03/28/20 14:25 Aerobic Blood Culture - Preliminary Blood NO GROWTH AFTER 6 DAYS Anaerobic Blood Culture - Preliminary NO GROWTH AFTER 6 DAYS Med Orders - Current: Current Medications Acetaminophen (Tylenol) 650 mg PO Q4H PRN PRN Reason: Pain (Mild 1-3)/fever Albuterol (Proventil Neb Soln) 2.5 mg NEB Q2H PRN PRN Reason: Shortness Of Breath/wheezing Last Admin: 03/28/20 19:03 Dose: 2.5 mg Documented by: Albuterol/Ipratropium (Duoneb 3.0-0.5 Mg/3 Ml) 3 ml INH Q6H PRN PRN Reason: Shortness of Breath Ascorbic Acid (Vitamin C) 1,000 mg PO DAILY [facility] Last Admin: 04/04/20 08:00 Dose: 1,000 mg Documented by: Aspirin (Aspirin) 81 mg PO DAILY [facility] Last Admin: 04/04/20 08:01 Dose: 81 mg Documented by: Cholecalciferol (Vitamin D3) 50 mcg PO DAILY [facility] Last Admin: 04/04/20 08:01 Dose: 50 mcg Documented by: Clopidogrel Bisulfate (Plavix) 75 mg PO DAILY [facility] Last Admin: 04/04/20 08:01 Dose: 75 mg Documented by: Dexamethasone (Dexamethasone) 6 mg PO Q24H [facility] Stop: 04/06/20 16:01 Last Admin: 04/03/20 17:00 Dose: 6 mg Documented by: Docusate Sodium (Colace) 100 mg PO BID PRN PRN Reason: Constipation Enoxaparin Sodium (Lovenox) 80 mg SUBCUT Q12H [facility] Last Admin: 04/04/20 07:59 Dose: 80 mg Documented by: Furosemide (Lasix) 20 mg PO DAILY [facility] Last Admin: 04/04/20 08:02 Dose: 20 mg Documented by: Isosorbide Mononitrate (Imdur) 60 mg PO DAILY [facility] Last Admin: 04/04/20 08:02 Dose: 60 mg Documented by: Lorazepam (Ativan) 0.25 mg PO Q2H PRN PRN Reason: Anxiety Last Admin: 04/04/20 01:34 Dose: 0.25 mg Documented by: Losartan Potassium (Cozaar) 25 mg PO DAILY [facility] Last Admin: 04/04/20 08:02 Dose: 25 mg Documented by: Metoprolol Tartrate (Lopressor) 12.5 mg PO BID [facility] Last Admin: 04/04/20 08:01 Dose: 12.5 mg Documented by: Nitroglycerin (Nitrostat) 0.4 mg SL Q5M PRN PRN Reason: Chest Pain Symbicort 160/4.5 (Mcg Inhaler Ptom) 2 puff INH BID [facility] Last Admin: 04/04/20 08:16 Dose: 2 puff Documented by: Ondansetron HCl (Zofran) 4 mg IV Q4H PRN PRN Reason: Nausea/Vomiting Oxybutynin Chloride (Oxybutynin Er) 10 mg PO DAILY [facility] Last Admin: 04/04/20 08:00 Dose: 10 mg Documented by: Proair Inhaler 6.7 (Gm Inhaler Ptom) 0 each INH BID [facility] Last Admin: 04/04/20 08:16 Dose: 2 each Documented by: Rosuvastatin Calcium (Crestor) 20 mg PO DAILY [facility] Last Admin: 04/04/20 08:00 Dose: 20 mg Documented by: Saccharomyces Boulardii (Florastor) 250 mg PO DAILY [facility] Last Admin: 04/04/20 08:02 Dose: 250 mg Documented by: Sertraline HCl (Zoloft) 25 mg PO DAILY [facility] Last Admin: 04/04/20 08:02 Dose: 25 mg Documented by: Sodium Chloride (Saline Flush) 10 ml FLUSH ASDIRECTED PRN PRN Reason: Keep Vein Open Tiotropium [place] (Spiriva Respimat) 0 gm INH DAILY [facility] Last Admin: 04/04/20 08:15 Dose: 4 gm Documented by: Discontinued Medications Albuterol (Proventil Hfa) 0 gm INH QID PRN PRN Reason: Shortness of Breath Albuterol (Proventil Hfa) 0 gm INH QID PRN PRN Reason: Shortness of Breath Apixaban (Eliquis) 2.5 mg PO BID [facility] Last Admin: 04/02/20 09:08 Dose: 2.5 mg Documented by: Aspirin (Aspirin) 243 mg PO ONETIME ONE Stop: 04/02/20 11:32 Last Admin: 04/02/20 11:34 Dose: 243 mg Documented by: Aspirin (Aspirin) Confirm Administered Dose 81 mg .ROUTE .STK-MED ONE Stop: 04/02/20 11:33 Last Admin: 04/02/20 11:40 Dose: 81 mg Documented by: Enoxaparin Sodium (Lovenox) 80 mg SUBCUT ONETIME ONE Stop: 04/02/20 11:31 Last Admin: 04/02/20 11:51 Dose: 80 mg Documented by: Enoxaparin Sodium (Lovenox) 80 mg SUBCUT ONETIME ONE Stop: 04/02/20 12:01 Last Admin: 04/02/20 11:51 Dose: Not Given Documented by: Furosemide (Lasix) 20 mg IVPUSH NOW ONE Stop: 04/03/20 11:01 Last Admin: 04/03/20 12:02 Dose: 20 mg Documented by: Furosemide (Lasix) 40 mg IVPUSH NOW ONE Stop: 04/04/20 08:19 Last Admin: 04/04/20 10:11 Dose: 40 mg Documented by: Remdesivir 200 mg/ Sodium (Chloride) 250 mls @ 250 mls/hr IV ONETIME ONE Stop: 03/28/20 13:44 Last Admin: 03/28/20 16:38 Dose: Not Given Documented by: Remdesivir 100 mg/ Sodium (Chloride) 100 mls @ 100 mls/hr IV DAILY [facility] Stop: 04/01/20 09:59 Azithromycin 500 mg/ Sodium (Chloride) 250 mls @ 250 mls/hr IV Q24H [facility] Stop: 03/30/20 17:29 Last Admin: 03/30/20 15:39 Dose: 250 mls/hr Documented by: Ceftriaxone Sodium 2 gm/ (Sodium Chloride) 100 mls @ 200 mls/hr IV Q24H [facility] Stop: 04/01/20 16:29 Last Admin: 04/01/20 16:13 Dose: 200 mls/hr Documented by: Remdesivir 200 mg/ Sodium (Chloride) 250 mls @ 250 mls/hr IV ONETIME ONE Stop: 03/28/20 18:59 Last Admin: 03/28/20 19:13 Dose: 250 mls/hr Documented by: Remdesivir 100 mg/ Sodium (Chloride) 100 mls @ 100 mls/hr IV Q24H [facility] Stop: 04/01/20 18:59 Last Admin: 04/01/20 17:12 Dose: 100 mls/hr Documented by: Sodium Chloride (Normal Saline) 250 mls @ 100 mls/hr IV ASDIRECTED [facility] Stop: 03/28/20 23:00 Sodium Chloride (Normal Saline) 1,000 mls @ 999 mls/hr IV ONETIME ONE Stop: 03/28/20 19:45 Last Admin: 03/28/20 19:26 Dose: 999 mls/hr Documented by: Sodium Chloride (Normal Saline) Confirm Administered Dose 1,000 mls @ as directed .ROUTE .STK-MED ONE Stop: 03/28/20 18:38 Last Admin: 03/28/20 19:45 Dose: Not Given Documented by: Metoprolol Tartrate (Lopressor) 25 mg PO BID [facility] Last Admin: 04/03/20 09:55 Dose: 25 mg Documented by: Mometasone Furoate/Formoterol Fumar (Dulera 200-5 Mcg) 2 puff IH BID [facility] Last Admin: 03/30/20 08:41 Dose: Not Given Documented by: Non-Formulary Medication (Budesonide/Formoterol) 2 puff INH BID [facility] - Exam Quality Assessment: Supplemental Oxygen (6 L per nasal cannula), DVT Prophylaxis (Lovenox) General: Alert, Oriented, Cooperative, Moderate Distress HEENT: Pupils Equal, Pupils Reactive, Mucous Membr. Moist/[place] Neck: Supple, Trachea Midline. No: Lymphadenopathy Lungs: Decreased Breath Sounds, Crackles. No: Wheezing Cardiovascular: Regular Rate, Irregular Rhythm. No: Regular Rhythm, No Murmurs GI/Abdominal Exam: Normal Bowel Sounds, Soft, Non-Tender, No Distention (Male) Exam: Deferred Back Exam: Normal Inspection, Full Range of Motion Extremities: Normal Inspection, Normal Range of Motion, Non-Tender, No Pedal Edema, Normal Capillary Refill Peripheral Pulses: 2+: Radial (L), Radial (R), Dorsalis Pedis (L), Dorsalis Pedis (R) Skin: Warm, Dry, Intact Neurological: No New Focal Deficit Psy/Mental Status: Alert, Normal Affect, Normal Mood Sepsis Event Note - Evaluation Sepsis Screening Result: No Definite Risk - Focused Exam Vital Signs: Vital Signs Temp Temp Pulse Pulse Resp BP BP 04/04/20 12:00 97.8 F 23 H 112/57 L 04/04/20 08:02 104/94 H 04/04/20 08:01 70 104/94 H 04/04/20 08:00 97.8 F 20 104/94 H 04/04/20 05:42 04/04/20 04:00 98.6 F 70 25 H 104/73 Pulse Ox Pulse Ox 04/04/20 12:00 90 L 04/04/20 08:02 04/04/20 08:01 04/04/20 08:00 88 L 04/04/20 05:42 94 L 04/04/20 04:00 94 L - Problem List & Annotations (1) Pneumonia due to 2019 novel coronavirus SNOMED Code(s): 213218690747664267 Code(s): U07.1 - COVID-19; J12.89 - OTHER VIRAL PNEUMONIA Status: Acute Priority: High Current Visit: Yes (2) COPD (chronic obstructive pulmonary disease) SNOMED Code(s): 81249832 Code(s): J44.9 - CHRONIC OBSTRUCTIVE PULMONARY DISEASE, UNSPECIFIED Status: Chronic Priority: High Current Visit: Yes Qualifiers: COPD type: emphysema Emphysema type: panlobular Qualified Code(s): J43.1 - Panlobular emphysema (3) COVID-19 determined by clinical diagnostic criteria SNOMED Code(s): 166802221, 556704443 Code(s): U07.1 - COVID-19 Status: Acute Priority: High Current Visit: Yes (4) Chronic renal insufficiency, stage IV (severe) SNOMED Code(s): 808479368 Code(s): N18.4 - CHRONIC KIDNEY DISEASE, STAGE 4 (SEVERE) Status: Chronic Priority: High Current Visit: Yes (5) Mild congestive heart failure SNOMED Code(s): 56080869 Code(s): I50.9 - HEART FAILURE, UNSPECIFIED Status: Chronic Priority: High Current Visit: Yes (6) Troponin level elevated SNOMED Code(s): 519845110, 946807230, 102232295 Code(s): R77.8 - OTHER SPECIFIED ABNORMALITIES OF PLASMA PROTEINS Status: Acute Priority: High Current Visit: Yes - Problem List Review Problem List Initiated/Reviewed/Updated: Yes - My Orders Last 24 Hours: My Active Orders 04/03/20 16:00 LORazepam [Ativan] 0.25 mg PO Q2H PRN 04/03/20 17:00 Sertraline [Zoloft] 25 mg PO DAILY 04/03/20 21:00 Metoprolol Tartrate [Lopressor] 12.5 mg PO BID 04/04/20 08:15 OT Evaluation and Treatment [CONS] Routine PT Evaluation and Treatment [CONS] Routine 04/05/20 05:11 CBC WITH AUTO DIFF [HEME] AM COMPREHENSIVE METABOLIC PN,CMP [CHEM] AM MAGNESIUM [CHEM] AM PHOSPHORUS [CHEM] AM PRO B-TYPE NATRIUR PEPT,BNPPRO [CHEM] Routine TROPONIN I [CHEM] AM 04/06/20 05:11 CRP [C-REACTIVE PROTEIN] [CHEM] Q48H D-DIMER QUANTITATIVE [COAG] Q48H - Assessment Assessment:: Covid-19 Infection Viral Pneumonitis COPD CKD Stage IV CHF S/p Lymphophenia Elevated D-Dimer already on eliquis Increased AG Metabolic Acidosis Hypocalcemia, non corrected Elevated CRP Hypoalbuminemia - Plan Plan:: 03/29/20 * Renally dose all medications. * Respiratory therapy to titrate oxygen as needed to maintain O2 saturations greater than 88%. * Incentive spirometer and flutter valve every 1 hour while awake. * Continue remdesivir and dexamethasone * Rocephin 2 g IV daily x5 days and Zithromax 500 mg daily x3 days to treat pneumonia. * Closely monitor intake and output and daily weights as patient does have congestive heart failure. * Eliquis for DVT prophylaxis. * Repeat labs in the a.m. * director pharmacy services consult for discharge planning * PT and OT to evaluate and treat the patient * Dietitian to consult regarding dietary needs. * Spiritual care * Patient is a full code. 03/30/20 * Continue to titrate oxygen per respiratory therapy * Incentive spirometer and flutter valve every 1 hour while awake * Renally dose all medications * Continue remdesivir and dexamethasone * Continue Rocephin and Zithromax * Continue to monitor intake and output and daily weights * Eliquis for DVT prophylaxis * PT and OT to continue to evaluate and treat the patient * Repeat labs in the a.m. * Patient is a full code * Patient will be here greater than 96 hours due to the 5-day treatment course for Covid 03/31/20 * Did not have is O2 on when I walked into his room this morning * Continue to titrate O2 * Completed Azithromycin * Continue with Rocephine 07/13 and Dexamethasone 07/18 * Remedisir / * Encourage to use IS/FV and bedside pulmonary exercise * Routine AM Labs * DVT ppx on elqiuis * Anticipate discharge > 96 hrs * Discharge pending completion of treatment
[2020-04-04] MEDS: Dexamethasone 4 MG Tab PO SCH (17:13)
[2020-04-04] MEDS: [UNRECOGNIZED DRUG - OTHER] PO SCH (20:01)
[2020-04-04] MEDS: [UNRECOGNIZED DRUG - OTHER] PO SCH (20:01)
[2020-04-04] MEDS: [UNRECOGNIZED DRUG - OTHER] PO SCH (20:01)
[2020-04-05] MEDS: Rosuvastatin 10 MG Tab PO SCH (08:15)
[2020-04-05] MEDS: Aspirin 81 MG Tab.Chew PO SCH (08:15)
[2020-04-05] MEDS: Metoprolol Tartrate 25 MG Tab PO SCH ×2 (08:15→21:32)
[2020-04-05] MEDS: Ascorbic Acid 500 MG Tab PO SCH (08:15)
[2020-04-05] MEDS: Clopidogrel 75 MG Tab PO SCH (08:15)
[2020-04-05] MEDS: Losartan 25 MG Tab PO SCH (08:19)
[2020-04-05] MEDS: Cholecalciferol (Vitamin D3) 25 MCG Tab PO SCH ×2 (08:21→21:32)
[2020-04-05] MEDS: Saccharomyces Boulardii (Probiotic) 250 MG Cap PO SCH (08:21)
[2020-04-05] MEDS: [UNRECOGNIZED DRUG - OTHER] PO SCH ×2 (08:22→21:36)
[2020-04-05] MEDS: Furosemide 20 MG Tab PO SCH (08:22)
[2020-04-05] MEDS: Sertraline 25 MG Tab PO SCH (08:22)
[2020-04-05] MEDS: [UNRECOGNIZED DRUG - OTHER] PO SCH ×2 (08:22→21:35)
[2020-04-05] MEDS: Isosorbide Mononitrate 60 MG Tab.ER PO SCH (08:22)
[2020-04-05] MEDS: Oxybutynin 5 MG Tab.ER PO SCH (08:22)
[2020-04-05] MEDS: Enoxaparin 80 MG/0.8 ML Syringe SUBCUT SCH ×2 (08:22→21:35)
[2020-04-05] MEDS: [UNRECOGNIZED DRUG - OTHER] PO SCH ×2 (08:23→21:36)
[2020-04-05] MEDS: Tiotropium Bromide 4 GM Inhalation Spray (2.5mcg/1 dose; 10 doses) INH SCH (08:47)
[2020-04-05] MEDS: SYMBICORT INH SCH ×2 (08:47→21:28)
[2020-04-05] MEDS: ALBUTEROL INH SCH ×2 (08:47→21:29)
[2020-04-05] MEDS: Nystatin Susp 100,000 Unit/ML 5 ML Oral Syringe PO SCH ×5 (09:00→21:32)
[2020-04-05] MEDS: LORazepam 0.5 MG Tab PO PRN ×2 (09:18→21:38)
--- NOTE | 2020-04-05 09:53 | PCM.PN ---
- General Info Date of Service: 04/05/20 Admission Dx/Problem (Free Text): Admission Diagnosis/Problem Admission Diagnosis/Problem Hypoxia Subjective Update: Magen had a better night. He is less confused and tolerating his nasal cannula. Appetite is good. Patient does complain of being hoarse and having a dry scratchy throat. He has been on steroids and antibiotics. Functional Status: Reports: Pain Controlled - Review of Systems General: Reports: No Symptoms HEENT: Reports: No Symptoms Pulmonary: Reports: Shortness of Breath Cardiovascular: Reports: No Symptoms Gastrointestinal: Reports: No Symptoms Musculoskeletal: Reports: No Symptoms Neurological: Reports: No Symptoms - Patient Data Vitals - Most Recent: Last Vital Signs Temp 97.0 F 04/05/20 08:00 Pulse 103 H 04/05/20 08:15 Resp 20 04/05/20 08:00 BP 107/72 04/05/20 08:19 Pulse Ox 90 L 04/05/20 08:48 Weight - Most Recent: 172 lb I&O - Last 24 Hours: Intake & Output 04/04/20 04/05/20 04/05/20 22:59 06:59 14:59 Intake Total 360 400 Output Total 575 700 200 Balance -215 -300 -200 Lab Results Last 24 Hours: Laboratory Results - last 24 hr 04/05/20 04/05/20 04/05/20 Range/Units 05:53 05:53 05:53 WBC 10.14 H (4.23-9.07) K/mm3 RBC 4.67 (4.63-6.08) M/mm3 Hgb 14.3 (13.7-17.5) gm/dl Hct 40.7 (40.1-51.0) % MCV 87.2 (79.0-92.2) fl MCH 30.6 (25.7-32.2) pg MCHC 35.1 (32.2-35.5) g/dl RDW Std Deviation 46.7 H (35.1-43.9) fL Plt Count 169 (163-337) K/mm3 MPV 10.6 (9.4-12.3) fl Neut % (Auto) 90.0 H (34.0-67.9) % Lymph % (Auto) 2.8 L (21.8-53.1) % [place] % (Auto) 7.0 (5.3-12.2) % Eos % (Auto) 0 L (0.8-7.0) Baso % (Auto) 0.2 (0.1-1.2) % Neut # (Auto) 9.13 H (1.78-5.38) K/mm3 Lymph # (Auto) 0.28 L (1.32-3.57) K/mm3 [place] # (Auto) 0.71 (0.30-0.82) K/mm3 Eos # (Auto) 0.00 L (0.04-0.54) K/mm3 Baso # (Auto) 0.02 (0.01-0.08) K/mm3 Manual Slide Review Abnormal smear Sodium 140 (136-145) mEq/L Potassium 4.3 (3.5-5.1) mEq/L Chloride 108 H (98-107) mEq/L Carbon Dioxide 20 L (21-32) mEq/L Anion Gap 16.3 H (5-15) BUN 66 H (7-18) mg/dL Creatinine 1.9 H (0.7-1.3) mg/dL Est Cr Clr Drug Dosing 29.35 mL/min Estimated GFR (MDRD) 34 (>60) mL/min BUN/Creatinine Ratio 34.7 H (14-18) Glucose 127 H (83-115) mg/dL Calcium 8.4 L (8.5-10.1) mg/dL Phosphorus 2.6 (2.6-4.7) mg/dL Magnesium 2.1 (1.8-2.4) mg/dl Total Bilirubin 0.7 (0.2-1.0) mg/dL AST 32 (15-37) U/L ALT 30 (16-63) U/L Alkaline Phosphatase 73 (46-116) U/L Troponin I 1.016 H* (0.00-0.056) ng/mL NT-Pro-B Natriuret Pep 2428 H (0-450) pg/mL Total Protein 6.1 L (6.4-8.2) g/dl Albumin 2.4 L (3.4-5.0) g/dl Globulin 3.7 gm/dL Albumin/Globulin Ratio 0.7 L (1-2) Dimitrios Results Last 24 Hours: Microbiology 03/28/20 14:30 Aerobic Blood Culture - Final Blood - Venous NO GROWTH AFTER 7 DAYS Anaerobic Blood Culture - Final NO GROWTH AFTER 7 DAYS 03/28/20 14:25 Aerobic Blood Culture - Final Blood NO GROWTH AFTER 7 DAYS Anaerobic Blood Culture - Final NO GROWTH AFTER 7 DAYS Med Orders - Current: Current Medications Acetaminophen (Tylenol) 650 mg PO Q4H PRN PRN Reason: Pain (Mild 1-3)/fever Albuterol (Proventil Neb Soln) 2.5 mg NEB Q2H PRN PRN Reason: Shortness Of Breath/wheezing Last Admin: 03/28/20 19:03 Dose: 2.5 mg Documented by: Albuterol/Ipratropium (Duoneb 3.0-0.5 Mg/3 Ml) 3 ml INH Q6H PRN PRN Reason: Shortness of Breath Ascorbic Acid (Vitamin C) 1,000 mg PO DAILY [facility] Last Admin: 04/05/20 08:15 Dose: 1,000 mg Documented by: Aspirin (Aspirin) 81 mg PO DAILY [facility] Last Admin: 04/05/20 08:15 Dose: 81 mg Documented by: Cholecalciferol (Vitamin D3) 50 mcg PO BID [facility] Last Admin: 04/05/20 08:21 Dose: 50 mcg Documented by: Clopidogrel Bisulfate (Plavix) 75 mg PO DAILY [facility] Last Admin: 04/05/20 08:15 Dose: 75 mg Documented by: Dexamethasone (Dexamethasone) 6 mg PO Q24H [facility] Stop: 04/06/20 16:01 Last Admin: 04/04/20 17:13 Dose: 6 mg Documented by: Docusate Sodium (Colace) 100 mg PO BID PRN PRN Reason: Constipation Enoxaparin Sodium (Lovenox) 80 mg SUBCUT Q12H [facility] Last Admin: 04/05/20 08:22 Dose: 80 mg Documented by: Furosemide (Lasix) 20 mg PO DAILY [facility] Last Admin: 04/05/20 08:22 Dose: 20 mg Documented by: Isosorbide Mononitrate (Imdur) 60 mg PO DAILY [facility] Last Admin: 04/05/20 08:22 Dose: 60 mg Documented by: Lorazepam (Ativan) 0.25 mg PO Q2H PRN PRN Reason: Anxiety Last Admin: 04/05/20 09:18 Dose: 0.25 mg Documented by: Losartan Potassium (Cozaar) 25 mg PO DAILY [facility] Last Admin: 04/05/20 08:19 Dose: 25 mg Documented by: Metoprolol Tartrate (Lopressor) 12.5 mg PO BID [facility] Last Admin: 04/05/20 08:15 Dose: 12.5 mg Documented by: Nitroglycerin (Nitrostat) 0.4 mg SL Q5M PRN PRN Reason: Chest Pain Symbicort 160/4.5 (Mcg Inhaler Ptom) 2 puff INH BID [facility] Last Admin: 04/05/20 08:47 Dose: 2 puff Documented by: Nystatin (Nystatin Oral Syringe) 500,000 unit PO QID [facility] Ondansetron HCl (Zofran) 4 mg IV Q4H PRN PRN Reason: Nausea/Vomiting Oxybutynin Chloride (Oxybutynin Er) 10 mg PO DAILY [facility] Last Admin: 04/05/20 08:22 Dose: 10 mg Documented by: Proair Inhaler 6.7 (Gm Inhaler Ptom) 0 each INH BID [facility] Last Admin: 04/05/20 08:47 Dose: 2 each Documented by: Vegetable Juice Plus 0 each PO BID [facility] Last Admin: 04/05/20 08:23 Dose: 1 each Documented by: Fruit Blend Juice (Plus) 0 each PO BID [facility] Last Admin: 04/05/20 08:22 Dose: 1 each Documented by: Thorne Blend Juice (Plus) 0 each PO BID [facility] Last Admin: 04/05/20 08:22 Dose: 1 each Documented by: Rosuvastatin Calcium (Crestor) 20 mg PO DAILY [facility] Last Admin: 04/05/20 08:15 Dose: 20 mg Documented by: Saccharomyces Boulardii (Florastor) 250 mg PO DAILY [facility] Last Admin: 04/05/20 08:21 Dose: 250 mg Documented by: Sertraline HCl (Zoloft) 25 mg PO DAILY [facility] Last Admin: 04/05/20 08:22 Dose: 25 mg Documented by: Sodium Chloride (Saline Flush) 10 ml FLUSH ASDIRECTED PRN PRN Reason: Keep Vein Open Tiotropium [employer] (Spiriva Respimat) 0 gm INH DAILY [facility] Last Admin: 04/05/20 08:47 Dose: 4 gm Documented by: Discontinued Medications Albuterol (Proventil Hfa) 0 gm INH QID PRN PRN Reason: Shortness of Breath Albuterol (Proventil Hfa) 0 gm INH QID PRN PRN Reason: Shortness of Breath Apixaban (Eliquis) 2.5 mg PO BID [facility] Last Admin: 04/02/20 09:08 Dose: 2.5 mg Documented by: Aspirin (Aspirin) 243 mg PO ONETIME ONE Stop: 04/02/20 11:32 Last Admin: 04/02/20 11:34 Dose: 243 mg Documented by: Aspirin (Aspirin) Confirm Administered Dose 81 mg .ROUTE .STK-MED ONE Stop: 04/02/20 11:33 Last Admin: 04/02/20 11:40 Dose: 81 mg Documented by: Cholecalciferol (Vitamin D3) 50 mcg PO DAILY [facility] Last Admin: 04/04/20 08:01 Dose: 50 mcg Documented by: Enoxaparin Sodium (Lovenox) 80 mg SUBCUT ONETIME ONE Stop: 04/02/20 11:31 Last Admin: 04/02/20 11:51 Dose: 80 mg Documented by: Enoxaparin Sodium (Lovenox) 80 mg SUBCUT ONETIME ONE Stop: 04/02/20 12:01 Last Admin: 04/02/20 11:51 Dose: Not Given Documented by: Furosemide (Lasix) 20 mg IVPUSH NOW ONE Stop: 04/03/20 11:01 Last Admin: 04/03/20 12:02 Dose: 20 mg Documented by: Furosemide (Lasix) 40 mg IVPUSH NOW ONE Stop: 04/04/20 08:19 Last Admin: 04/04/20 10:11 Dose: 40 mg Documented by: Remdesivir 200 mg/ Sodium (Chloride) 250 mls @ 250 mls/hr IV ONETIME ONE Stop: 03/28/20 13:44 Last Admin: 03/28/20 16:38 Dose: Not Given Documented by: Remdesivir 100 mg/ Sodium (Chloride) 100 mls @ 100 mls/hr IV DAILY [facility] Stop: 04/01/20 09:59 Azithromycin 500 mg/ Sodium (Chloride) 250 mls @ 250 mls/hr IV Q24H [facility] Stop: 03/30/20 17:29 Last Admin: 03/30/20 15:39 Dose: 250 mls/hr Documented by: Ceftriaxone Sodium 2 gm/ (Sodium Chloride) 100 mls @ 200 mls/hr IV Q24H [facility] Stop: 04/01/20 16:29 Last Admin: 04/01/20 16:13 Dose: 200 mls/hr Documented by: Remdesivir 200 mg/ Sodium (Chloride) 250 mls @ 250 mls/hr IV ONETIME ONE Stop: 03/28/20 18:59 Last Admin: 03/28/20 19:13 Dose: 250 mls/hr Documented by: Remdesivir 100 mg/ Sodium (Chloride) 100 mls @ 100 mls/hr IV Q24H [facility] Stop: 04/01/20 18:59 Last Admin: 04/01/20 17:12 Dose: 100 mls/hr Documented by: Sodium Chloride (Normal Saline) 250 mls @ 100 mls/hr IV ASDIRECTED [facility] Stop: 03/28/20 23:00 Sodium Chloride (Normal Saline) 1,000 mls @ 999 mls/hr IV ONETIME ONE Stop: 03/28/20 19:45 Last Admin: 03/28/20 19:26 Dose: 999 mls/hr Documented by: Sodium Chloride (Normal Saline) Confirm Administered Dose 1,000 mls @ as directed .ROUTE .STK-MED ONE Stop: 03/28/20 18:38 Last Admin: 03/28/20 19:45 Dose: Not Given Documented by: Metoprolol Tartrate (Lopressor) 25 mg PO BID [facility] Last Admin: 04/03/20 09:55 Dose: 25 mg Documented by: Mometasone Furoate/Formoterol Fumar (Dulera 200-5 Mcg) 2 puff IH BID [facility] Last Admin: 03/30/20 08:41 Dose: Not Given Documented by: Non-Formulary Medication (Budesonide/Formoterol) 2 puff INH BID [facility] - Exam Quality Assessment: Supplemental Oxygen General: Alert, Oriented HEENT: Pupils Equal, Mucous Membr. Moist/[place], Other (Because she is discharged on the soft palate.) Neck: Supple Lungs: Normal Respiratory Effort, Rales (Bibasilar) Cardiovascular: Regular Rate, Regular Rhythm GI/Abdominal Exam: Normal Bowel Sounds, Soft, Non-Tender, No Distention Extremities: Normal Inspection, Normal Range of Motion, Non-Tender, No Pedal Edema, Normal Capillary Refill Skin: Warm, Dry, Intact Psy/Mental Status: Alert, Normal Affect, Normal Mood Sepsis Event Note - Evaluation Sepsis Screening Result: No Definite Risk - Focused Exam Vital Signs: Vital Signs Temp Pulse Resp BP BP BP Pulse Ox 04/05/20 08:48 04/05/20 08:19 107/72 04/05/20 08:15 103 H 107/72 04/05/20 08:00 97.0 F 20 107/72 92 L 04/05/20 07:52 04/05/20 03:59 98.2 F 15 119/69 92 L 04/05/20 00:00 97.3 F 16 100/69 93 L Pulse Ox 04/05/20 08:48 90 L 04/05/20 08:19 04/05/20 08:15 04/05/20 08:00 04/05/20 07:52 86 L 04/05/20 03:59 04/05/20 00:00 - Problem List & Annotations (1) Pneumonia due to 2019 novel coronavirus SNOMED Code(s): 353086360772061632 Code(s): U07.1 - COVID-19; J12.89 - OTHER VIRAL PNEUMONIA Status: Acute Priority: High Current Visit: Yes (2) COPD (chronic obstructive pulmonary disease) SNOMED Code(s): 32946811 Code(s): J44.9 - CHRONIC OBSTRUCTIVE PULMONARY DISEASE, UNSPECIFIED Status: Chronic Priority: High Current Visit: Yes Qualifiers: COPD type: emphysema Emphysema type: panlobular Qualified Code(s): J43.1 - Panlobular emphysema (3) Chronic renal insufficiency, stage IV (severe) SNOMED Code(s): 936742935 Code(s): N18.4 - CHRONIC KIDNEY DISEASE, STAGE 4 (SEVERE) Status: Chronic Priority: High Current Visit: Yes (4) Mild congestive heart failure SNOMED Code(s): 98603231 Code(s): I50.9 - HEART FAILURE, UNSPECIFIED Status: Chronic Priority: High Current Visit: Yes (5) Right lumbar radiculopathy SNOMED Code(s): 870454095 Code(s): M54.16 - RADICULOPATHY, LUMBAR REGION Status: Acute Current Visit: No (6) Thrush SNOMED Code(s): 20259613 Code(s): B37.0 - CANDIDAL STOMATITIS Status: Acute Current Visit: Yes - Problem List Review Problem List Initiated/Reviewed/Updated: Yes - My Orders Last 24 Hours: My Active Orders 04/04/20 21:00 Cholecalciferol (Vitamin D3) [Vitamin D3] 50 mcg PO BID 04/05/20 13:00 Nystatin [Nystatin Oral Syringe] 500,000 unit PO QID - Assessment Assessment:: Covid-19 Infection Viral Pneumonitis COPD CKD Stage IV CHF S/p Lymphophenia Elevated D-Dimer already on eliquis Increased AG Metabolic Acidosis Hypocalcemia, non corrected Elevated CRP Hypoalbuminemia Oral thrush 2/2 steroids and antibx - Plan Plan:: * Patient has been stable on 6 L over the last 3 days. He is clearly improving, but his oxygenation has been slow to respond. He has finished Rocephin, azithromycin, remdesivir, and has 2 days left of dexamethasone. * Patient continues on therapeutic Lovenox at 1 mg/kg twice daily, 80 mg twice daily, Plavix, and aspirin. Troponin has trended down and is now 1.016. Will stop following this. * On 04/03/2020 cardiology was consulted in regards to his elevated troponin. They felt it was likely secondary to myocarditis associated with Covid. They did recommend an echocardiogram which was performed but we do not have those results yet. * Kidney function has slowly worsened with an estimated GFR of 34, creatinine of 1.9, and BUN of 66. We will continue to follow. * Patient can be switched back to MedSurg status and no longer one-on-one. * Continue to encourage prone positioning.
[2020-04-05] MEDS: Dexamethasone 4 MG Tab PO SCH (16:08)
[2020-04-05] MEDS: Albuterol 0.083% 2.5 MG/3 ML Neb Soln NEB PRN (16:36)
[2020-04-06] MEDS: Sertraline 25 MG Tab PO SCH ×2 (07:38→10:03)
[2020-04-06] MEDS: Oxybutynin 5 MG Tab.ER PO SCH ×2 (07:38→10:02)
[2020-04-06] MEDS: Clopidogrel 75 MG Tab PO SCH ×2 (07:39→10:02)
[2020-04-06] MEDS: Metoprolol Tartrate 25 MG Tab PO SCH ×2 (07:39→10:00)
[2020-04-06] MEDS: Cholecalciferol (Vitamin D3) 25 MCG Tab PO SCH ×3 (07:39→20:11)
[2020-04-06] MEDS: Furosemide 20 MG Tab PO SCH ×2 (07:43→10:00)
[2020-04-06] MEDS: Isosorbide Mononitrate 60 MG Tab.ER PO SCH ×2 (07:44→10:00)
[2020-04-06] MEDS: Losartan 25 MG Tab PO SCH ×2 (07:45→09:59)
[2020-04-06] MEDS: Aspirin 81 MG Tab.Chew PO SCH ×2 (07:45→09:59)
[2020-04-06] MEDS: Rosuvastatin 10 MG Tab PO SCH ×2 (07:46→09:59)
[2020-04-06] MEDS: Ascorbic Acid 500 MG Tab PO SCH ×2 (07:46→10:02)
[2020-04-06] MEDS: Saccharomyces Boulardii (Probiotic) 250 MG Cap PO SCH ×2 (07:47→09:59)
[2020-04-06] MEDS: Nystatin Susp 100,000 Unit/ML 5 ML Oral Syringe PO SCH ×5 (07:47→20:17)
[2020-04-06] MEDS: Enoxaparin 80 MG/0.8 ML Syringe SUBCUT SCH ×3 (07:48→20:17)
[2020-04-06] MEDS: [UNRECOGNIZED DRUG - OTHER] PO SCH ×2 (08:02→20:17)
[2020-04-06] MEDS: [UNRECOGNIZED DRUG - OTHER] PO SCH ×2 (08:02→20:17)
[2020-04-06] MEDS: [UNRECOGNIZED DRUG - OTHER] PO SCH ×2 (08:02→20:18)
[2020-04-06] MEDS: Benzocaine/Cetylpyridinium/Menthol Lozenge MUCMEM PRN ×2 (09:00→12:11)
[2020-04-06] MEDS: Tiotropium Bromide 4 GM Inhalation Spray (2.5mcg/1 dose; 10 doses) INH SCH (09:10)
[2020-04-06] MEDS: ALBUTEROL INH SCH ×2 (09:10→20:33)
[2020-04-06] MEDS: SYMBICORT INH SCH ×2 (09:12→20:33)
[2020-04-06] MEDS: LORazepam 0.5 MG Tab PO PRN ×2 (10:13→20:12)
--- NOTE | 2020-04-06 13:20 | PCM.PN ---
- General Info Date of Service: 04/06/20 Admission Dx/Problem (Free Text): Admission Diagnosis/Problem Admission Diagnosis/Problem Hypoxia Subjective Update: Patient is doing much better today. Overall he appears better. Continues on 6 L of oxygen per nasal cannula. Functional Status: Reports: Pain Controlled, Tolerating Diet, Ambulating (With therapies), Urinating (Gong catheter), Incentive Spirometry - Review of Systems General: Reports: Weakness, Appetite HEENT: Reports: Glasses Pulmonary: Reports: Shortness of Breath (With activity), Cough, Sputum. Denies: Pleuritic Chest Pain, Hemoptysis, Wheezing Cardiovascular: Reports: Dyspnea on Exertion. Denies: Chest Pain, Palpitations, Orthopnea, Edema Gastrointestinal: Reports: No Symptoms Genitourinary: Reports: Other (Gong catheter) Musculoskeletal: Reports: No Symptoms Skin: Reports: Other (Mepilex x2 to the lower back from hallman incurred at home from a heating pad, Mepilex to left elbow) Neurological: Reports: No Symptoms Psychiatric: Reports: No Symptoms - Patient Data Vitals - Most Recent: Last Vital Signs Temp 97.1 F 04/06/20 12:00 Pulse 77 04/06/20 12:00 Resp 18 04/06/20 12:00 BP 102/43 L 04/06/20 12:00 Pulse Ox 87 L 04/06/20 12:00 Weight - Most Recent: 174 lb 3.2 oz I&O - Last 24 Hours: Intake & Output 04/05/20 04/06/20 04/06/20 22:59 06:59 14:59 Intake Total 1390 200 Output Total 225 675 550 Balance 1165 -475 -550 Lab Results Last 24 Hours: Laboratory Results - last 24 hr 04/06/20 04/06/20 04/06/20 Range/Units 04:52 04:52 04:52 WBC 10.13 H (4.23-9.07) K/mm3 RBC 4.39 L (4.63-6.08) M/mm3 Hgb 13.5 L (13.7-17.5) gm/dl Hct 38.8 L (40.1-51.0) % MCV 88.4 (79.0-92.2) fl MCH 30.8 (25.7-32.2) pg MCHC 34.8 (32.2-35.5) g/dl RDW Std Deviation 47.6 H (35.1-43.9) fL Plt Count 169 (163-337) K/mm3 MPV 11.1 (9.4-12.3) fl Neut % (Auto) 91.7 H (34.0-67.9) % Lymph % (Auto) 2.7 L (21.8-53.1) % [place] % (Auto) 5.1 L (5.3-12.2) % Eos % (Auto) 0 L (0.8-7.0) Baso % (Auto) 0.5 (0.1-1.2) % Neut # (Auto) 9.29 H (1.78-5.38) K/mm3 Lymph # (Auto) 0.27 L (1.32-3.57) K/mm3 [place] # (Auto) 0.52 (0.30-0.82) K/mm3 Eos # (Auto) 0.00 L (0.04-0.54) K/mm3 Baso # (Auto) 0.05 (0.01-0.08) K/mm3 Manual Slide Review Abnormal smear D-Dimer, Quantitative 1.99 H (0.19-0.50) mg/L Sodium 140 (136-145) mEq/L Potassium 4.6 (3.5-5.1) mEq/L Chloride 108 H (98-107) mEq/L Carbon Dioxide 19 L (21-32) mEq/L Anion Gap 17.6 H (5-15) BUN 72 H (7-18) mg/dL Creatinine 1.9 H (0.7-1.3) mg/dL Est Cr Clr Drug Dosing 29.35 mL/min Estimated GFR (MDRD) 34 (>60) mL/min BUN/Creatinine Ratio 37.9 H (14-18) Glucose 143 H (83-115) mg/dL Calcium 8.5 (8.5-10.1) mg/dL Magnesium (1.8-2.4) mg/dl C-Reactive Protein (<1.0) mg/dL 04/06/20 04/06/20 Range/Units 04:52 05:11 WBC (4.23-9.07) K/mm3 RBC (4.63-6.08) M/mm3 Hgb (13.7-17.5) gm/dl Hct (40.1-51.0) % MCV (79.0-92.2) fl MCH (25.7-32.2) pg MCHC (32.2-35.5) g/dl RDW Std Deviation (35.1-43.9) fL Plt Count (163-337) K/mm3 MPV (9.4-12.3) fl Neut % (Auto) (34.0-67.9) % Lymph % (Auto) (21.8-53.1) % [place] % (Auto) (5.3-12.2) % Eos % (Auto) (0.8-7.0) Baso % (Auto) (0.1-1.2) % Neut # (Auto) (1.78-5.38) K/mm3 Lymph # (Auto) (1.32-3.57) K/mm3 [place] # (Auto) (0.30-0.82) K/mm3 Eos # (Auto) (0.04-0.54) K/mm3 Baso # (Auto) (0.01-0.08) K/mm3 Manual Slide Review D-Dimer, Quantitative (0.19-0.50) mg/L Sodium (136-145) mEq/L Potassium (3.5-5.1) mEq/L Chloride (98-107) mEq/L Carbon Dioxide (21-32) mEq/L Anion Gap (5-15) BUN (7-18) mg/dL Creatinine (0.7-1.3) mg/dL Est Cr Clr Drug Dosing mL/min Estimated GFR (MDRD) (>60) mL/min BUN/Creatinine Ratio (14-18) Glucose (83-115) mg/dL Calcium (8.5-10.1) mg/dL Magnesium 2.3 (1.8-2.4) mg/dl C-Reactive Protein 2.9 H* (<1.0) mg/dL Med Orders - Current: Current Medications Acetaminophen (Tylenol) 650 mg PO Q4H PRN PRN Reason: Pain (Mild 1-3)/fever Albuterol (Proventil Neb Soln) 2.5 mg NEB Q2H PRN PRN Reason: Shortness Of Breath/wheezing Last Admin: 11/26/20 16:36 Dose: 2.5 mg Documented by: Albuterol/Ipratropium (Duoneb 3.0-0.5 Mg/3 Ml) 3 ml INH Q6H PRN PRN Reason: Shortness of Breath Ascorbic Acid (Vitamin C) 1,000 mg PO DAILY [facility] Last Admin: 04/06/20 10:02 Dose: Not Given Documented by: Aspirin (Aspirin) 81 mg PO DAILY [facility] Last Admin: 04/06/20 09:59 Dose: Not Given Documented by: Benzocaine/Menthol (Cepacol Sore Throat) 1 lozenge MUCMEM Q2HR PRN PRN Reason: Sore Throat Last Admin: 04/06/20 12:11 Dose: 1 lozenge Documented by: Cholecalciferol (Vitamin D3) 50 mcg PO BID [facility] Last Admin: 04/06/20 10:02 Dose: Not Given Documented by: Clopidogrel Bisulfate (Plavix) 75 mg PO DAILY [facility] Last Admin: 04/06/20 10:02 Dose: Not Given Documented by: Dexamethasone (Dexamethasone) 6 mg PO Q24H [facility] Stop: 04/06/20 16:01 Last Admin: 04/05/20 16:08 Dose: 6 mg Documented by: Docusate Sodium (Colace) 100 mg PO BID PRN PRN Reason: Constipation Enoxaparin Sodium (Lovenox) 80 mg SUBCUT Q12H [facility] Last Admin: 04/06/20 10:01 Dose: Not Given Documented by: Furosemide (Lasix) 20 mg PO DAILY [facility] Last Admin: 04/06/20 10:00 Dose: Not Given Documented by: Isosorbide Mononitrate (Imdur) 60 mg PO DAILY [facility] Last Admin: 04/06/20 10:00 Dose: Not Given Documented by: Lorazepam (Ativan) 0.25 mg PO Q2H PRN PRN Reason: Anxiety Last Admin: 04/06/20 10:13 Dose: 0.25 mg Documented by: Losartan Potassium (Cozaar) 25 mg PO DAILY [facility] Last Admin: 04/06/20 09:59 Dose: Not Given Documented by: Metoprolol Tartrate (Lopressor) 12.5 mg PO BID [facility] Last Admin: 04/06/20 10:00 Dose: Not Given Documented by: Nitroglycerin (Nitrostat) 0.4 mg SL Q5M PRN PRN Reason: Chest Pain Symbicort 160/4.5 (Mcg Inhaler Ptom) 2 puff INH BID [facility] Last Admin: 04/06/20 09:12 Dose: 2 puff Documented by: Nystatin (Nystatin Oral Syringe) 500,000 unit PO QID [facility] Last Admin: 04/06/20 12:11 Dose: 500,000 unit Documented by: Ondansetron HCl (Zofran) 4 mg IV Q4H PRN PRN Reason: Nausea/Vomiting Oxybutynin Chloride (Oxybutynin Er) 10 mg PO DAILY [facility] Last Admin: 04/06/20 10:02 Dose: Not Given Documented by: Proair Inhaler 6.7 (Gm Inhaler Ptom) 0 each INH BID [facility] Last Admin: 04/06/20 09:10 Dose: 2 each Documented by: Vegetable Juice Plus 0 each PO BID [facility] Last Admin: 04/06/20 08:02 Dose: 1 each Documented by: Fruit Blend Juice (Plus) 0 each PO BID [facility] Last Admin: 04/06/20 08:02 Dose: 1 each Documented by: Thorne Blend Juice (Plus) 0 each PO BID [facility] Last Admin: 04/06/20 08:02 Dose: 1 each Documented by: Rosuvastatin Calcium (Crestor) 20 mg PO DAILY [facility] Last Admin: 04/06/20 09:59 Dose: Not Given Documented by: Saccharomyces Boulardii (Florastor) 250 mg PO DAILY [facility] Last Admin: 04/06/20 09:59 Dose: Not Given Documented by: Sertraline HCl (Zoloft) 25 mg PO DAILY [facility] Last Admin: 04/06/20 10:03 Dose: Not Given Documented by: Sodium Chloride (Saline Flush) 10 ml FLUSH ASDIRECTED PRN PRN Reason: Keep Vein Open Tiotropium [place] (Spiriva Respimat) 0 gm INH DAILY [facility] Last Admin: 04/06/20 09:10 Dose: 4 gm Documented by: Warfarin Sodium (Pharmacy To Dose - Warfarin) 1 dose PO ASDIRECTED PRN PRN Reason: RX TO DOSE WARFARIN Warfarin Sodium (Coumadin) 3 mg PO QPM [facility] Stop: 04/06/20 18:01 Discontinued Medications Albuterol (Proventil Hfa) 0 gm INH QID PRN PRN Reason: Shortness of Breath Albuterol (Proventil Hfa) 0 gm INH QID PRN PRN Reason: Shortness of Breath Apixaban (Eliquis) 2.5 mg PO BID [facility] Last Admin: 04/02/20 09:08 Dose: 2.5 mg Documented by: Aspirin (Aspirin) 243 mg PO ONETIME ONE Stop: 04/02/20 11:32 Last Admin: 04/02/20 11:34 Dose: 243 mg Documented by: Aspirin (Aspirin) Confirm Administered Dose 81 mg .ROUTE .STK-MED ONE Stop: 04/02/20 11:33 Last Admin: 04/02/20 11:40 Dose: 81 mg Documented by: Cholecalciferol (Vitamin D3) 50 mcg PO DAILY [facility] Last Admin: 04/04/20 08:01 Dose: 50 mcg Documented by: Enoxaparin Sodium (Lovenox) 80 mg SUBCUT ONETIME ONE Stop: 04/02/20 11:31 Last Admin: 04/02/20 11:51 Dose: 80 mg Documented by: Enoxaparin Sodium (Lovenox) 80 mg SUBCUT ONETIME ONE Stop: 04/02/20 12:01 Last Admin: 04/02/20 11:51 Dose: Not Given Documented by: Furosemide (Lasix) 20 mg IVPUSH NOW ONE Stop: 04/03/20 11:01 Last Admin: 04/03/20 12:02 Dose: 20 mg Documented by: Furosemide (Lasix) 40 mg IVPUSH NOW ONE Stop: 04/04/20 08:19 Last Admin: 04/04/20 10:11 Dose: 40 mg Documented by: Remdesivir 200 mg/ Sodium (Chloride) 250 mls @ 250 mls/hr IV ONETIME ONE Stop: 03/28/20 13:44 Last Admin: 03/28/20 16:38 Dose: Not Given Documented by: Remdesivir 100 mg/ Sodium (Chloride) 100 mls @ 100 mls/hr IV DAILY [facility] Stop: 04/01/20 09:59 Azithromycin 500 mg/ Sodium (Chloride) 250 mls @ 250 mls/hr IV Q24H [facility] Stop: 03/30/20 17:29 Last Admin: 03/30/20 15:39 Dose: 250 mls/hr Documented by: Ceftriaxone Sodium 2 gm/ (Sodium Chloride) 100 mls @ 200 mls/hr IV Q24H [facility] Stop: 04/01/20 16:29 Last Admin: 04/01/20 16:13 Dose: 200 mls/hr Documented by: Remdesivir 200 mg/ Sodium (Chloride) 250 mls @ 250 mls/hr IV ONETIME ONE Stop: 03/28/20 18:59 Last Admin: 03/28/20 19:13 Dose: 250 mls/hr Documented by: Remdesivir 100 mg/ Sodium (Chloride) 100 mls @ 100 mls/hr IV Q24H [facility] Stop: 04/01/20 18:59 Last Admin: 04/01/20 17:12 Dose: 100 mls/hr Documented by: Sodium Chloride (Normal Saline) 250 mls @ 100 mls/hr IV ASDIRECTED [facility] Stop: 03/28/20 23:00 Sodium Chloride (Normal Saline) 1,000 mls @ 999 mls/hr IV ONETIME ONE Stop: 03/28/20 19:45 Last Admin: 03/28/20 19:26 Dose: 999 mls/hr Documented by: Sodium Chloride (Normal Saline) Confirm Administered Dose 1,000 mls @ as directed .ROUTE .STK-MED ONE Stop: 03/28/20 18:38 Last Admin: 03/28/20 19:45 Dose: Not Given Documented by: Metoprolol Tartrate (Lopressor) 25 mg PO BID [facility] Last Admin: 04/03/20 09:55 Dose: 25 mg Documented by: Mometasone Furoate/Formoterol Fumar (Dulera 200-5 Mcg) 2 puff IH BID [facility] Last Admin: 03/30/20 08:41 Dose: Not Given Documented by: Non-Formulary Medication (Budesonide/Formoterol) 2 puff INH BID [facility] - Exam Quality Assessment: Supplemental Oxygen (6 L per nasal cannula), Urine Catheter, DVT Prophylaxis (Lovenox) General: Alert, Oriented, Cooperative, Moderate Distress HEENT: Pupils Equal, Pupils Reactive, Mucous Membr. Moist/[place] Neck: Supple, Trachea Midline. No: Lymphadenopathy Lungs: Crackles. No: Wheezing Cardiovascular: Regular Rate, Irregular Rhythm (History of atrial fibrillation). No: Regular Rhythm GI/Abdominal Exam: Normal Bowel Sounds, Soft, Non-Tender, No Distention (Male) Exam: Deferred Back Exam: Normal Inspection, Full Range of Motion Extremities: Normal Inspection, Normal Range of Motion, Non-Tender, No Pedal Edema, Normal Capillary Refill Peripheral Pulses: 2+: Radial (L), Radial (R), Dorsalis Pedis (L), Dorsalis Pedis (R) Skin: Warm, Dry, Intact Neurological: No New Focal Deficit Psy/Mental Status: Alert, Normal Affect, Normal Mood Sepsis Event Note - Evaluation Sepsis Screening Result: No Definite Risk - Focused Exam Vital Signs: Vital Signs Temp Pulse Pulse Resp BP BP Pulse Ox 04/06/20 12:00 97.1 F 77 18 102/43 L 87 L 04/06/20 11:00 12 85 L 04/06/20 09:12 04/06/20 09:00 22 H 85 L 04/06/20 08:00 97.7 F 77 20 122/57 L 88 L 04/06/20 07:45 122/57 L 04/06/20 07:39 74 122/57 L 04/06/20 04:00 97.2 F 18 104/56 L 94 L 04/06/20 03:00 92 L 04/06/20 02:00 94 L Pulse Ox 04/06/20 12:00 04/06/20 11:00 04/06/20 09:12 88 L 04/06/20 09:00 04/06/20 08:00 04/06/20 07:45 04/06/20 07:39 04/06/20 04:00 04/06/20 03:00 04/06/20 02:00 - Problem List & Annotations (1) Pneumonia due to 2019 novel coronavirus SNOMED Code(s): 401705857455447766 Code(s): U07.1 - COVID-19; J12.89 - OTHER VIRAL PNEUMONIA Status: Acute Priority: High Current Visit: Yes (2) COPD (chronic obstructive pulmonary disease) SNOMED Code(s): 42153083 Code(s): J44.9 - CHRONIC OBSTRUCTIVE PULMONARY DISEASE, UNSPECIFIED Status: Chronic Priority: High Current Visit: Yes Qualifiers: COPD type: emphysema Emphysema type: panlobular Qualified Code(s): J43.1 - Panlobular emphysema (3) COVID-19 determined by clinical diagnostic criteria SNOMED Code(s): 820316508, 145421217 Code(s): U07.1 - COVID-19 Status: Acute Priority: High Current Visit: Yes (4) Chronic renal insufficiency, stage IV (severe) SNOMED Code(s): 541863201 Code(s): N18.4 - CHRONIC KIDNEY DISEASE, STAGE 4 (SEVERE) Status: Chronic Priority: High Current Visit: Yes (5) Mild congestive heart failure SNOMED Code(s): 55239569 Code(s): I50.9 - HEART FAILURE, UNSPECIFIED Status: Chronic Priority: High Current Visit: Yes (6) Troponin level elevated SNOMED Code(s): 408734226, 011206941, 241810647 Code(s): R77.8 - OTHER SPECIFIED ABNORMALITIES OF PLASMA PROTEINS Status: Acute Priority: High Current Visit: Yes - Problem List Review Problem List Initiated/Reviewed/Updated: Yes - My Orders Last 24 Hours: My Active Orders 04/06/20 08:39 Benzocaine/Cetylpyrd/Menthol [Cepacol Sore Throat] 1 lozenge MUCMEM Q2HR PRN 04/06/20 11:58 Warfarin Pharmacy to Dose [Pharmacy to Dose - Warfarin] 1 dose PO ASDIRECTED PRN 04/06/20 18:00 Warfarin [Coumadin] 3 mg PO QPM 04/07/20 05:11 INR,PT,PROTHROMBIN TIME [[facility]] AM 04/08/20 05:11 INR,PT,PROTHROMBIN TIME [[facility]] AM 04/09/20 05:11 INR,PT,PROTHROMBIN TIME [[facility]] AM 04/10/20 05:11 INR,PT,PROTHROMBIN TIME [[facility]] AM - Assessment Assessment:: Covid-19 Infection Viral Pneumonitis COPD CKD Stage IV CHF S/p Lymphophenia Elevated D-Dimer already on eliquis Increased AG Metabolic Acidosis Hypocalcemia, non corrected Elevated CRP Hypoalbuminemia Oral thrush 2/2 steroids and antibx 04/06/20 * Day 10 of dexamethasone * Has received 5 days of Rocephin, 3 days of Zithromax, 5 days of remdesivir for the treatment of Covid * Continues on 6 L of oxygen per nasal cannula * Nursing staff reports that patient's heart rate dropped into the 20s several times last evening while he was sleeping. * Labs reveal: WBC 10.13, hemoglobin 13.5, neutrophil percentage auto 91.7, D- dimer 1.99, anion gap 17.6, BUN 72, creatinine 1.9, C-reactive protein 2.9 * Patient slowly improving * Currently on full dose Lovenox and Plavix - Plan Plan:: * Patient has been stable on 6 L over the last 3 days. He is clearly improving, but his oxygenation has been slow to respond. He has finished Rocephin, azithromycin, remdesivir, and has 2 days left of dexamethasone. * Patient continues on therapeutic Lovenox at 1 mg/kg twice daily, 80 mg twice daily, Plavix, and aspirin. Troponin has trended down and is now 1.016. Will stop following this. * On 04/03/2020 cardiology was consulted in regards to his elevated troponin. They felt it was likely secondary to myocarditis associated with Covid. They did recommend an echocardiogram which was performed but we do not have those results yet. * Kidney function has slowly worsened with an estimated GFR of 34, creatinine of 1.9, and BUN of 66. We will continue to follow. * Patient can be switched back to [facility] status and no longer one-on-one. * Continue to encourage prone positioning. 04/06/20 * Respiratory therapy to continue titrating oxygen to keep oxygen saturations between 88 to 94% * PT/OT to continue working with the patient * Encourage prone positioning * Continue incentive spirometer and flutter valve every 1 hour while awake * After discussion with Dr. Sellers we agreed that patient will be started on Coumadin with pharmacy dosing. Considering patient failed therapy on Eliquis. Will continue on Lovenox until patient is at therapeutic Coumadin dose. * Discontinue metoprolol for now, as patient is still having bradycardia on a lesser dose. [place] cardiology did recommend discontinuation of metoprolol if patient continued to be bradycardic. * Renally dose all medications * Repeat labs in the a.m. * procurement services manager to assist with discharge planning. * Will look at discharge to home once we can safely titrate patient's oxygen down to 2 L nasal cannula.
[2020-04-06] MEDS: Dexamethasone 4 MG Tab PO SCH (16:53)
[2020-04-06] MEDS: Warfarin 3 MG Tab PO SCH ×2 (16:54→19:19)
[2020-04-07] MEDS: Albuterol 0.083% 2.5 MG/3 ML Neb Soln NEB PRN (06:25)
--- NOTE | 2020-04-07 07:36 | PCM.PN ---
- General Info Date of Service: 04/07/20 Admission Dx/Problem (Free Text): Admission Diagnosis/Problem Admission Diagnosis/Problem Hypoxia Subjective Update: No overnight or acute issues. He looks relatively good. He has been eating and drinking fine. No issues with bowel movement. He seems to be alert and awake. CXR taken on 04/04/2020 shows persistent ground glass opacification. Functional Status: Reports: Pain Controlled - Review of Systems General: Denies: Fever, Weakness, Fatigue, Chills HEENT: Reports: No Symptoms Pulmonary: Reports: Shortness of Breath. Denies: Cough Cardiovascular: Denies: Chest Pain Gastrointestinal: Denies: Abdominal Pain, Nausea, Vomiting Genitourinary: Reports: Retention Musculoskeletal: Reports: No Symptoms Skin: Denies: Rash Neurological: Denies: Confusion, Difficulty Walking, Gait Disturbance Psychiatric: Denies: Depression, Anxiety - Patient Data Vitals - Most Recent: Last Vital Signs Temp 36.1 C 04/07/20 04:00 Pulse 76 04/06/20 16:00 Resp 12 04/07/20 04:00 BP 129/72 04/07/20 04:00 Pulse Ox 90 L 04/07/20 06:25 Weight - Most Recent: 77.746 kg I&O - Last 24 Hours: Intake & Output 04/06/20 04/07/20 04/07/20 22:59 06:59 14:59 Intake Total 1640 Output Total 1300 955 Balance 340 -955 Lab Results Last 24 Hours: Laboratory Results - last 24 hr 04/06/20 04/06/20 04/07/20 Range/Units 04:52 17:40 03:57 WBC (4.23-9.07) K/mm3 RBC (4.63-6.08) M/mm3 Hgb (13.7-17.5) gm/dl Hct (40.1-51.0) % MCV (79.0-92.2) fl MCH (25.7-32.2) pg MCHC (32.2-35.5) g/dl RDW Std Deviation (35.1-43.9) fL Plt Count (163-337) K/mm3 MPV (9.4-12.3) fl Neut % (Auto) (34.0-67.9) % Lymph % (Auto) (21.8-53.1) % [place] % (Auto) (5.3-12.2) % Eos % (Auto) (0.8-7.0) Baso % (Auto) (0.1-1.2) % Neut # (Auto) (1.78-5.38) K/mm3 Lymph # (Auto) (1.32-3.57) K/mm3 [place] # (Auto) (0.30-0.82) K/mm3 Eos # (Auto) (0.04-0.54) K/mm3 Baso # (Auto) (0.01-0.08) K/mm3 Manual Slide Review Abnormal smear PT 11.5 11.4 (9.7-12.0) SECONDS INR 1.08 1.07 Sodium (136-145) mEq/L Potassium (3.5-5.1) mEq/L Chloride (98-107) mEq/L Carbon Dioxide (21-32) mEq/L Anion Gap (5-15) BUN (7-18) mg/dL Creatinine (0.7-1.3) mg/dL Est Cr Clr Drug Dosing mL/min Estimated GFR (MDRD) (>60) mL/min BUN/Creatinine Ratio (14-18) Glucose (83-115) mg/dL Calcium (8.5-10.1) mg/dL Magnesium (1.8-2.4) mg/dl Total Bilirubin (0.2-1.0) mg/dL AST (15-37) U/L ALT (16-63) U/L Alkaline Phosphatase (46-116) U/L Total Protein (6.4-8.2) g/dl Albumin (3.4-5.0) g/dl Globulin gm/dL Albumin/Globulin Ratio (1-2) 04/07/20 04/07/20 Range/Units 03:57 03:57 WBC 10.15 H (4.23-9.07) K/mm3 RBC 4.38 L (4.63-6.08) M/mm3 Hgb 13.3 L (13.7-17.5) gm/dl Hct 38.8 L (40.1-51.0) % MCV 88.6 (79.0-92.2) fl MCH 30.4 (25.7-32.2) pg MCHC 34.3 (32.2-35.5) g/dl RDW Std Deviation 48.0 H (35.1-43.9) fL Plt Count 157 L (163-337) K/mm3 MPV 10.8 (9.4-12.3) fl Neut % (Auto) 91.7 H (34.0-67.9) % Lymph % (Auto) 3.3 L (21.8-53.1) % [place] % (Auto) 4.7 L (5.3-12.2) % Eos % (Auto) 0 L (0.8-7.0) Baso % (Auto) 0.3 (0.1-1.2) % Neut # (Auto) 9.30 H (1.78-5.38) K/mm3 Lymph # (Auto) 0.34 L (1.32-3.57) K/mm3 [place] # (Auto) 0.48 (0.30-0.82) K/mm3 Eos # (Auto) 0.00 L (0.04-0.54) K/mm3 Baso # (Auto) 0.03 (0.01-0.08) K/mm3 Manual Slide Review Abnormal smear PT (9.7-12.0) SECONDS INR Sodium 138 (136-145) mEq/L Potassium 4.7 (3.5-5.1) mEq/L Chloride 108 H (98-107) mEq/L Carbon Dioxide 20 L (21-32) mEq/L Anion Gap 14.7 (5-15) BUN 63 H (7-18) mg/dL Creatinine 1.8 H (0.7-1.3) mg/dL Est Cr Clr Drug Dosing 30.98 mL/min Estimated GFR (MDRD) 36 (>60) mL/min BUN/Creatinine Ratio 35.0 H (14-18) Glucose 132 H (83-115) mg/dL Calcium 8.4 L (8.5-10.1) mg/dL Magnesium 2.1 (1.8-2.4) mg/dl Total Bilirubin 0.5 (0.2-1.0) mg/dL AST 26 (15-37) U/L ALT 35 (16-63) U/L Alkaline Phosphatase 66 (46-116) U/L Total Protein 5.8 L (6.4-8.2) g/dl Albumin 2.2 L (3.4-5.0) g/dl Globulin 3.6 gm/dL Albumin/Globulin Ratio 0.6 L (1-2) Med Orders - Current: Current Medications Acetaminophen (Tylenol) 650 mg PO Q4H PRN PRN Reason: Pain (Mild 1-3)/fever Albuterol (Proventil Neb Soln) 2.5 mg NEB Q2H PRN PRN Reason: Shortness Of Breath/wheezing Last Admin: 04/07/20 06:25 Dose: 2.5 mg Documented by: Albuterol/Ipratropium (Duoneb 3.0-0.5 Mg/3 Ml) 3 ml INH Q6H PRN PRN Reason: Shortness of Breath Ascorbic Acid (Vitamin C) 1,000 mg PO DAILY [facility] Last Admin: 04/06/20 10:02 Dose: Not Given Documented by: Aspirin (Aspirin) 81 mg PO DAILY [facility] Last Admin: 04/06/20 09:59 Dose: Not Given Documented by: Benzocaine/Menthol (Cepacol Sore Throat) 1 lozenge MUCMEM Q2HR PRN PRN Reason: Sore Throat Last Admin: 04/06/20 12:11 Dose: 1 lozenge Documented by: Cholecalciferol (Vitamin D3) 50 mcg PO BID [facility] Last Admin: 04/06/20 20:11 Dose: 50 mcg Documented by: Clopidogrel Bisulfate (Plavix) 75 mg PO DAILY [facility] Last Admin: 04/06/20 10:02 Dose: Not Given Documented by: Docusate Sodium (Colace) 100 mg PO BID PRN PRN Reason: Constipation Enoxaparin Sodium (Lovenox) 80 mg SUBCUT Q12H [facility] Last Admin: 04/06/20 20:17 Dose: 80 mg Documented by: Furosemide (Lasix) 20 mg PO DAILY [facility] Last Admin: 04/06/20 10:00 Dose: Not Given Documented by: Isosorbide Mononitrate (Imdur) 60 mg PO DAILY [facility] Last Admin: 04/06/20 10:00 Dose: Not Given Documented by: Lorazepam (Ativan) 0.25 mg PO Q2H PRN PRN Reason: Anxiety Last Admin: 04/06/20 20:12 Dose: 0.25 mg Documented by: Losartan Potassium (Cozaar) 25 mg PO DAILY [facility] Last Admin: 04/06/20 09:59 Dose: Not Given Documented by: Nitroglycerin (Nitrostat) 0.4 mg SL Q5M PRN PRN Reason: Chest Pain Symbicort 160/4.5 (Mcg Inhaler Ptom) 2 puff INH BID [facility] Last Admin: 04/06/20 20:33 Dose: 2 puff Documented by: Nystatin (Nystatin Oral Syringe) 500,000 unit PO QID [facility] Last Admin: 04/06/20 20:17 Dose: 500,000 unit Documented by: Ondansetron HCl (Zofran) 4 mg IV Q4H PRN PRN Reason: Nausea/Vomiting Oxybutynin Chloride (Oxybutynin Er) 10 mg PO DAILY [facility] Last Admin: 04/06/20 10:02 Dose: Not Given Documented by: Proair Inhaler 6.7 (Gm Inhaler Ptom) 0 each INH BID [facility] Last Admin: 04/06/20 20:33 Dose: 2 each Documented by: Vegetable Juice Plus 0 each PO BID [facility] Last Admin: 04/06/20 20:18 Dose: 1 each Documented by: Fruit Blend Juice (Plus) 0 each PO BID [facility] Last Admin: 04/06/20 20:17 Dose: 1 each Documented by: Thorne Blend Juice (Plus) 0 each PO BID [facility] Last Admin: 04/06/20 20:17 Dose: 1 each Documented by: Rosuvastatin Calcium (Crestor) 20 mg PO DAILY [facility] Last Admin: 04/06/20 09:59 Dose: Not Given Documented by: Saccharomyces Boulardii (Florastor) 250 mg PO DAILY [facility] Last Admin: 04/06/20 09:59 Dose: Not Given Documented by: Sertraline HCl (Zoloft) 25 mg PO DAILY [facility] Last Admin: 04/06/20 10:03 Dose: Not Given Documented by: Sodium Chloride (Saline Flush) 10 ml FLUSH ASDIRECTED PRN PRN Reason: Keep Vein Open Tiotropium [place] (Spiriva Respimat) 0 gm INH DAILY [facility] Last Admin: 04/06/20 09:10 Dose: 4 gm Documented by: Warfarin Sodium (Pharmacy To Dose - Warfarin) 1 dose PO ASDIRECTED PRN PRN Reason: RX TO DOSE WARFARIN Discontinued Medications Albuterol (Proventil Hfa) 0 gm INH QID PRN PRN Reason: Shortness of Breath Albuterol (Proventil Hfa) 0 gm INH QID PRN PRN Reason: Shortness of Breath Apixaban (Eliquis) 2.5 mg PO BID [facility] Last Admin: 04/02/20 09:08 Dose: 2.5 mg Documented by: Aspirin (Aspirin) 243 mg PO ONETIME ONE Stop: 04/02/20 11:32 Last Admin: 04/02/20 11:34 Dose: 243 mg Documented by: Aspirin (Aspirin) Confirm Administered Dose 81 mg .ROUTE .STK-MED ONE Stop: 04/02/20 11:33 Last Admin: 04/02/20 11:40 Dose: 81 mg Documented by: Cholecalciferol (Vitamin D3) 50 mcg PO DAILY [facility] Last Admin: 04/04/20 08:01 Dose: 50 mcg Documented by: Dexamethasone (Dexamethasone) 6 mg PO Q24H [facility] Stop: 04/06/20 16:01 Last Admin: 04/06/20 16:53 Dose: 6 mg Documented by: Enoxaparin Sodium (Lovenox) 80 mg SUBCUT ONETIME ONE Stop: 04/02/20 11:31 Last Admin: 04/02/20 11:51 Dose: 80 mg Documented by: Enoxaparin Sodium (Lovenox) 80 mg SUBCUT ONETIME ONE Stop: 04/02/20 12:01 Last Admin: 04/02/20 11:51 Dose: Not Given Documented by: Furosemide (Lasix) 20 mg IVPUSH NOW ONE Stop: 04/03/20 11:01 Last Admin: 04/03/20 12:02 Dose: 20 mg Documented by: Furosemide (Lasix) 40 mg IVPUSH NOW ONE Stop: 04/04/20 08:19 Last Admin: 04/04/20 10:11 Dose: 40 mg Documented by: Remdesivir 200 mg/ Sodium (Chloride) 250 mls @ 250 mls/hr IV ONETIME ONE Stop: 03/28/20 13:44 Last Admin: 03/28/20 16:38 Dose: Not Given Documented by: Remdesivir 100 mg/ Sodium (Chloride) 100 mls @ 100 mls/hr IV DAILY [facility] Stop: 04/01/20 09:59 Azithromycin 500 mg/ Sodium (Chloride) 250 mls @ 250 mls/hr IV Q24H [facility] Stop: 03/30/20 17:29 Last Admin: 03/30/20 15:39 Dose: 250 mls/hr Documented by: Ceftriaxone Sodium 2 gm/ (Sodium Chloride) 100 mls @ 200 mls/hr IV Q24H [facility] Stop: 04/01/20 16:29 Last Admin: 04/01/20 16:13 Dose: 200 mls/hr Documented by: Remdesivir 200 mg/ Sodium (Chloride) 250 mls @ 250 mls/hr IV ONETIME ONE Stop: 03/28/20 18:59 Last Admin: 03/28/20 19:13 Dose: 250 mls/hr Documented by: Remdesivir 100 mg/ Sodium (Chloride) 100 mls @ 100 mls/hr IV Q24H [facility] Stop: 04/01/20 18:59 Last Admin: 04/01/20 17:12 Dose: 100 mls/hr Documented by: Sodium Chloride (Normal Saline) 250 mls @ 100 mls/hr IV ASDIRECTED [facility] Stop: 03/28/20 23:00 Sodium Chloride (Normal Saline) 1,000 mls @ 999 mls/hr IV ONETIME ONE Stop: 03/28/20 19:45 Last Admin: 03/28/20 19:26 Dose: 999 mls/hr Documented by: Sodium Chloride (Normal Saline) Confirm Administered Dose 1,000 mls @ as directed .ROUTE .STK-MED ONE Stop: 03/28/20 18:38 Last Admin: 03/28/20 19:45 Dose: Not Given Documented by: Metoprolol Tartrate (Lopressor) 25 mg PO BID [facility] Last Admin: 04/03/20 09:55 Dose: 25 mg Documented by: Metoprolol Tartrate (Lopressor) 12.5 mg PO BID [facility] Last Admin: 04/06/20 10:00 Dose: Not Given Documented by: Mometasone Furoate/Formoterol Fumar (Dulera 200-5 Mcg) 2 puff IH BID [facility] Last Admin: 03/30/20 08:41 Dose: Not Given Documented by: Non-Formulary Medication (Budesonide/Formoterol) 2 puff INH BID [facility] Warfarin Sodium (Coumadin) 3 mg PO QPM [facility] Stop: 04/06/20 18:01 Last Admin: 04/06/20 19:19 Dose: Not Given Documented by: - Exam Quality Assessment: Supplemental Oxygen, Urine Catheter General: Alert, Cooperative, No Acute Distress HEENT: Pupils Equal, Pupils Reactive, EOMI, Mucous Membr. Moist/[place] Neck: Supple Lungs: Normal Respiratory Effort, Decreased Breath Sounds Cardiovascular: Regular Rate, Regular Rhythm GI/Abdominal Exam: Normal Bowel Sounds, Soft, Non-Tender, No Organomegaly, No Distention, No Abnormal Bruit (Male) Exam: Deferred Back Exam: Normal Inspection, Decreased Range of Motion Extremities: Normal Inspection, Normal Range of Motion, Non-Tender, No Pedal Edema, Normal Capillary Refill Peripheral Pulses: 2+: Dorsalis Pedis (L), Dorsalis Pedis (R) Skin: Ecchymosis (on upper extremities) Neurological: No New Focal Deficit, Normal Gait Psy/Mental Status: Alert, Normal Affect, Normal Mood Sepsis Event Note - Evaluation Sepsis Screening Result: No Definite Risk - Focused Exam Vital Signs: Vital Signs Temp Resp BP Pulse Ox Pulse Ox 04/07/20 06:25 90 L 04/07/20 04:00 36.1 C 12 129/72 90 L 04/06/20 20:34 91 L 04/06/20 20:00 36.6 C 21 H 122/104 H - Problem List Review Problem List Initiated/Reviewed/Updated: Yes - Assessment Assessment:: Assessment: Covid-19 Infection Viral Pneumonitis COPD Leukocytosis Hyperglycemia, controlled CKD 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 * Labs reveal: WBC 10.13, hemoglobin 13.5, neutrophil percentage auto 91.7, D- dimer 1.99, anion gap 17.6, BUN 72, creatinine 1.9, C-reactive protein 2.9 * Patient slowly improving * Currently on full dose Lovenox and Plavix 04/07/20 * Now off Steroid * On ASA 81 mg , Plavix 75 mg, Lovenox 80 mg SubQ Q12H, and Crestor 20 mg Daily * Eliqiuis discontinued due to cardiac event; he has been switched to Warfarin for prophylaxis after consultation with cardiology * Now completely off Metoprolol, no bradycadic episode * Antifungal started on 04/05/2020 * Continue RT and PT/OT * Encourage prone positioning * IS and FV with bedside pulmonary exercise * He remains on 6L sating anywhere at 86-91% * Continue supportive care * Recommend SNF placement
[2020-04-07] MEDS: SYMBICORT INH SCH ×2 (08:46→21:44)
[2020-04-07] MEDS: ALBUTEROL INH SCH ×2 (08:46→21:44)
[2020-04-07] MEDS: Tiotropium Bromide 4 GM Inhalation Spray (2.5mcg/1 dose; 10 doses) INH SCH (08:47)
[2020-04-07] MEDS: Ascorbic Acid 500 MG Tab PO SCH (08:57)
[2020-04-07] MEDS: Furosemide 20 MG Tab PO SCH (08:58)
[2020-04-07] MEDS: Isosorbide Mononitrate 60 MG Tab.ER PO SCH (08:59)
[2020-04-07] MEDS: Aspirin 81 MG Tab.Chew PO SCH (08:59)
[2020-04-07] MEDS: Losartan 25 MG Tab PO SCH (08:59)
[2020-04-07] MEDS: Sertraline 25 MG Tab PO SCH (09:00)
[2020-04-07] MEDS: Saccharomyces Boulardii (Probiotic) 250 MG Cap PO SCH (09:00)
[2020-04-07] MEDS: Clopidogrel 75 MG Tab PO SCH (09:01)
[2020-04-07] MEDS: Rosuvastatin 10 MG Tab PO SCH (09:01)
[2020-04-07] MEDS: Cholecalciferol (Vitamin D3) 25 MCG Tab PO SCH ×2 (09:01→20:29)
[2020-04-07] MEDS: Oxybutynin 5 MG Tab.ER PO SCH (09:01)
[2020-04-07] MEDS: [UNRECOGNIZED DRUG - OTHER] PO SCH ×2 (09:02→20:29)
[2020-04-07] MEDS: [UNRECOGNIZED DRUG - OTHER] PO SCH ×2 (09:02→20:30)
[2020-04-07] MEDS: [UNRECOGNIZED DRUG - OTHER] PO SCH ×2 (09:02→20:31)
[2020-04-07] MEDS: Enoxaparin 80 MG/0.8 ML Syringe SUBCUT SCH ×2 (09:04→20:29)
[2020-04-07] MEDS: Nystatin Susp 100,000 Unit/ML 5 ML Oral Syringe PO SCH ×4 (09:04→20:29)
[2020-04-07] MEDS: LORazepam 0.5 MG Tab PO PRN ×3 (09:12→20:29)
[2020-04-07] MEDS ORDERED: Warfarin 3 MG Tab PO SCH (18:00)
[2020-04-07] MEDS ORDERED: Carvedilol 6.25 MG Tab PO ONE (22:21)
[2020-04-07] MEDS ORDERED: QUEtiapine 25 MG Tab PO ONE (22:21)
[2020-04-07] MEDS ORDERED: QUEtiapine 25 MG Tab PO PRN (22:21)
[2020-04-08] MEDS: Carvedilol 6.25 MG Tab PO SCH ×2 (06:49→17:04)
--- NOTE | 2020-04-08 07:42 | PCM.PN ---
- General Info Date of Service: 04/08/20 Admission Dx/Problem (Free Text): Admission Diagnosis/Problem Admission Diagnosis/Problem Hypoxia Subjective Update: Had a 60 seconds run of V-tach last night so low dose Coreg was started. 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 He still on 6 L sating anywhere from 86-89%. He slept good and no complaints this morning. We encouraged him to prone but could not do it due to bad back. He mostly lay on his right side. Repeat chest x-ray shows persisted opacification in the later aspects of the upper lobes and mid lungs as well in the left base. His Cr level went up to 2.0. Functional Status: Reports: Pain Controlled - Review of Systems General: Denies: Fever, Chills HEENT: Denies: Contact Lenses Pulmonary: Denies: Shortness of Breath, Cough Cardiovascular: Denies: Chest Pain Gastrointestinal: Denies: Abdominal Pain, Nausea, Vomiting Genitourinary: Reports: Frequency Musculoskeletal: Reports: Back Pain. Denies: Joint Pain Skin: Denies: Rash Neurological: Denies: Confusion, Dizziness Psychiatric: Denies: Depression, Anxiety - Patient Data Vitals - Most Recent: Last Vital Signs Temp 36.4 C 04/08/20 04:00 Pulse 84 04/08/20 06:49 Resp 18 04/08/20 04:00 BP 99/70 04/08/20 06:49 Pulse Ox 90 L 04/08/20 06:23 Weight - Most Recent: 76.975 kg I&O - Last 24 Hours: Intake & Output 04/07/20 04/08/20 04/08/20 22:59 06:59 14:59 Intake Total 900 Output Total 405 250 Balance 495 -250 Lab Results Last 24 Hours: Laboratory Results - last 24 hr 04/08/20 04/08/20 04/08/20 Range/Units 03:39 03:39 03:39 WBC 10.19 H (4.23-9.07) K/mm3 RBC 4.16 L (4.63-6.08) M/mm3 Hgb 12.6 L (13.7-17.5) gm/dl Hct 37.4 L (40.1-51.0) % MCV 89.9 (79.0-92.2) fl MCH 30.3 (25.7-32.2) pg MCHC 33.7 (32.2-35.5) g/dl RDW Std Deviation 49.6 H (35.1-43.9) fL Plt Count 152 L (163-337) K/mm3 MPV 10.8 (9.4-12.3) fl Neut % (Auto) 87.4 H (34.0-67.9) % Lymph % (Auto) 3.6 L (21.8-53.1) % Whitman % (Auto) 7.6 (5.3-12.2) % Eos % (Auto) 1.1 (0.8-7.0) Baso % (Auto) 0.3 (0.1-1.2) % Neut # (Auto) 8.91 H (1.78-5.38) K/mm3 Lymph # (Auto) 0.37 L (1.32-3.57) K/mm3 Whitman # (Auto) 0.77 (0.30-0.82) K/mm3 Eos # (Auto) 0.11 (0.04-0.54) K/mm3 Baso # (Auto) 0.03 (0.01-0.08) K/mm3 Manual Slide Review Abnormal smear PT 11.4 (9.7-12.0) SECONDS INR 1.07 Sodium 139 (136-145) mEq/L Potassium 4.3 (3.5-5.1) mEq/L Chloride 107 (98-107) mEq/L Carbon Dioxide 22 (21-32) mEq/L Anion Gap 14.3 (5-15) BUN 60 H (7-18) mg/dL Creatinine 2.0 H (0.7-1.3) mg/dL Est Cr Clr Drug Dosing 27.88 mL/min Estimated GFR (MDRD) 32 (>60) mL/min BUN/Creatinine Ratio 30.0 H (14-18) Glucose 112 (83-115) mg/dL Calcium 8.4 L (8.5-10.1) mg/dL Magnesium 2.1 (1.8-2.4) mg/dl C-Reactive Protein 3.6 H* (<1.0) mg/dL Med Orders - Current: Current Medications Acetaminophen (Tylenol) 650 mg PO Q4H PRN PRN Reason: Pain (Mild 1-3)/fever Albuterol (Proventil Neb Soln) 2.5 mg NEB Q2H PRN PRN Reason: Shortness Of Breath/wheezing Last Admin: 04/07/20 06:25 Dose: 2.5 mg Documented by: Albuterol/Ipratropium (Duoneb 3.0-0.5 Mg/3 Ml) 3 ml INH Q6H PRN PRN Reason: Shortness of Breath Ascorbic Acid (Vitamin C) 1,000 mg PO DAILY [facility] Last Admin: 04/07/20 08:57 Dose: 1,000 mg Documented by: Aspirin (Aspirin) 81 mg PO DAILY [facility] Last Admin: 04/07/20 08:59 Dose: 81 mg Documented by: Benzocaine/Menthol (Cepacol Sore Throat) 1 lozenge MUCMEM Q2HR PRN PRN Reason: Sore Throat Last Admin: 04/06/20 12:11 Dose: 1 lozenge Documented by: Carvedilol (Coreg) 6.25 mg PO BIDMEALS [facility] Last Admin: 04/08/20 06:49 Dose: 6.25 mg Documented by: Cholecalciferol (Vitamin D3) 50 mcg PO BID [facility] Last Admin: 04/07/20 20:29 Dose: 50 mcg Documented by: Clopidogrel Bisulfate (Plavix) 75 mg PO DAILY [facility] Last Admin: 04/07/20 09:01 Dose: 75 mg Documented by: Docusate Sodium (Colace) 100 mg PO BID PRN PRN Reason: Constipation Enoxaparin Sodium (Lovenox) 80 mg SUBCUT Q12H [facility] Last Admin: 04/07/20 20:29 Dose: 80 mg Documented by: Furosemide (Lasix) 20 mg PO DAILY [facility] Last Admin: 04/07/20 08:58 Dose: 20 mg Documented by: Isosorbide Mononitrate (Imdur) 60 mg PO DAILY [facility] Last Admin: 04/07/20 08:59 Dose: 60 mg Documented by: Lorazepam (Ativan) 0.25 mg PO Q2H PRN PRN Reason: Anxiety Last Admin: 04/07/20 20:29 Dose: 0.25 mg Documented by: Losartan Potassium (Cozaar) 25 mg PO DAILY [facility] Last Admin: 04/07/20 08:59 Dose: 25 mg Documented by: Nitroglycerin (Nitrostat) 0.4 mg SL Q5M PRN PRN Reason: Chest Pain Symbicort 160/4.5 (Mcg Inhaler Ptom) 2 puff INH BID [facility] Last Admin: 04/07/20 21:44 Dose: 2 puff Documented by: Nystatin (Nystatin Oral Syringe) 500,000 unit PO QID [facility] Last Admin: 04/07/20 20:29 Dose: 500,000 unit Documented by: Ondansetron HCl (Zofran) 4 mg IV Q4H PRN PRN Reason: Nausea/Vomiting Oxybutynin Chloride (Oxybutynin Er) 10 mg PO DAILY [facility] Last Admin: 04/07/20 09:01 Dose: 10 mg Documented by: Proair Inhaler 6.7 (Gm Inhaler Ptom) 0 each INH BID [facility] Last Admin: 04/07/20 21:44 Dose: 2 each Documented by: Vegetable Juice Plus 0 each PO BID [facility] Last Admin: 04/07/20 20:31 Dose: 1 each Documented by: Fruit Blend Juice (Plus) 0 each PO BID [facility] Last Admin: 04/07/20 20:30 Dose: 1 each Documented by: Thorne Blend Juice (Plus) 0 each PO BID [facility] Last Admin: 04/07/20 20:29 Dose: 1 each Documented by: Quetiapine Fumarate (Seroquel) 12.5 mg PO BEDTIME PRN PRN Reason: Insomnia Rosuvastatin Calcium (Crestor) 20 mg PO DAILY [facility] Last Admin: 04/07/20 09:01 Dose: 20 mg Documented by: Saccharomyces Boulardii (Florastor) 250 mg PO DAILY [facility] Last Admin: 04/07/20 09:00 Dose: 250 mg Documented by: Sertraline HCl (Zoloft) 25 mg PO DAILY [facility] Last Admin: 04/07/20 09:00 Dose: 25 mg Documented by: Sodium Chloride (Saline Flush) 10 ml FLUSH ASDIRECTED PRN PRN Reason: Keep Vein Open Tiotropium [place] (Spiriva Respimat) 0 gm INH DAILY [facility] Last Admin: 04/07/20 08:47 Dose: 4 gm Documented by: Warfarin Sodium (Pharmacy To Dose - Warfarin) 1 dose PO ASDIRECTED PRN PRN Reason: RX TO DOSE WARFARIN Zinc Sulfate (Zincate) 220 mg PO DAILY [facility] Discontinued Medications Albuterol (Proventil Hfa) 0 gm INH QID PRN PRN Reason: Shortness of Breath Albuterol (Proventil Hfa) 0 gm INH QID PRN PRN Reason: Shortness of Breath Apixaban (Eliquis) 2.5 mg PO BID [facility] Last Admin: 04/02/20 09:08 Dose: 2.5 mg Documented by: Aspirin (Aspirin) 243 mg PO ONETIME ONE Stop: 04/02/20 11:32 Last Admin: 04/02/20 11:34 Dose: 243 mg Documented by: Aspirin (Aspirin) Confirm Administered Dose 81 mg .ROUTE .STK-MED ONE Stop: 04/02/20 11:33 Last Admin: 04/02/20 11:40 Dose: 81 mg Documented by: Carvedilol (Coreg) 6.25 mg PO ONETIME ONE Stop: 04/07/20 22:22 Last Admin: 04/07/20 22:30 Dose: 6.25 mg Documented by: Cholecalciferol (Vitamin D3) 50 mcg PO DAILY [facility] Last Admin: 04/04/20 08:01 Dose: 50 mcg Documented by: Dexamethasone (Dexamethasone) 6 mg PO Q24H [facility] Stop: 04/06/20 16:01 Last Admin: 04/06/20 16:53 Dose: 6 mg Documented by: Enoxaparin Sodium (Lovenox) 80 mg SUBCUT ONETIME ONE Stop: 04/02/20 11:31 Last Admin: 04/02/20 11:51 Dose: 80 mg Documented by: Enoxaparin Sodium (Lovenox) 80 mg SUBCUT ONETIME ONE Stop: 04/02/20 12:01 Last Admin: 04/02/20 11:51 Dose: Not Given Documented by: Furosemide (Lasix) 20 mg IVPUSH NOW ONE Stop: 04/03/20 11:01 Last Admin: 04/03/20 12:02 Dose: 20 mg Documented by: Furosemide (Lasix) 40 mg IVPUSH NOW ONE Stop: 04/04/20 08:19 Last Admin: 04/04/20 10:11 Dose: 40 mg Documented by: Remdesivir 200 mg/ Sodium (Chloride) 250 mls @ 250 mls/hr IV ONETIME ONE Stop: 03/28/20 13:44 Last Admin: 03/28/20 16:38 Dose: Not Given Documented by: Remdesivir 100 mg/ Sodium (Chloride) 100 mls @ 100 mls/hr IV DAILY [facility] Stop: 04/01/20 09:59 Azithromycin 500 mg/ Sodium (Chloride) 250 mls @ 250 mls/hr IV Q24H [facility] Stop: 03/30/20 17:29 Last Admin: 03/30/20 15:39 Dose: 250 mls/hr Documented by: Ceftriaxone Sodium 2 gm/ (Sodium Chloride) 100 mls @ 200 mls/hr IV Q24H [facility] Stop: 04/01/20 16:29 Last Admin: 04/01/20 16:13 Dose: 200 mls/hr Documented by: Remdesivir 200 mg/ Sodium (Chloride) 250 mls @ 250 mls/hr IV ONETIME ONE Stop: 03/28/20 18:59 Last Admin: 03/28/20 19:13 Dose: 250 mls/hr Documented by: Remdesivir 100 mg/ Sodium (Chloride) 100 mls @ 100 mls/hr IV Q24H [facility] Stop: 04/01/20 18:59 Last Admin: 04/01/20 17:12 Dose: 100 mls/hr Documented by: Sodium Chloride (Normal Saline) 250 mls @ 100 mls/hr IV ASDIRECTED [facility] Stop: 03/28/20 23:00 Sodium Chloride (Normal Saline) 1,000 mls @ 999 mls/hr IV ONETIME ONE Stop: 03/28/20 19:45 Last Admin: 03/28/20 19:26 Dose: 999 mls/hr Documented by: Sodium Chloride (Normal Saline) Confirm Administered Dose 1,000 mls @ as directed .ROUTE .STK-MED ONE Stop: 03/28/20 18:38 Last Admin: 03/28/20 19:45 Dose: Not Given Documented by: Metoprolol Tartrate (Lopressor) 25 mg PO BID [facility] Last Admin: 04/03/20 09:55 Dose: 25 mg Documented by: Metoprolol Tartrate (Lopressor) 12.5 mg PO BID [facility] Last Admin: 04/06/20 10:00 Dose: Not Given Documented by: Mometasone Furoate/Formoterol Fumar (Dulera 200-5 Mcg) 2 puff IH BID [facility] Last Admin: 03/30/20 08:41 Dose: Not Given Documented by: Non-Formulary Medication (Budesonide/Formoterol) 2 puff INH BID [facility] Quetiapine Fumarate (Seroquel) 12.5 mg PO ONETIME ONE Stop: 04/07/20 22:22 Last Admin: 04/07/20 22:30 Dose: 12.5 mg Documented by: Warfarin Sodium (Coumadin) 3 mg PO QPM [facility] Stop: 04/06/20 18:01 Last Admin: 04/06/20 19:19 Dose: Not Given Documented by: Warfarin Sodium (Coumadin) 3 mg PO QPM [facility] Stop: 04/07/20 18:01 Last Admin: 04/07/20 18:18 Dose: 3 mg Documented by: - Exam Quality Assessment: Supplemental Oxygen General: Alert, Oriented, Cooperative HEENT: Pupils Equal, Pupils Reactive, EOMI, Mucous Membr. Moist/[place] Neck: Supple Lungs: Normal Respiratory Effort, Crackles, Rhonchi, Wheezing Cardiovascular: Regular Rate, Regular Rhythm GI/Abdominal Exam: Normal Bowel Sounds, Soft, Non-Tender, No Organomegaly, No Distention, No Abnormal Bruit, No Mass (Male) Exam: Deferred Back Exam: Normal Inspection, Decreased Range of Motion Extremities: Normal Inspection, Normal Range of Motion, Non-Tender, No Pedal Edema, Normal Capillary Refill Peripheral Pulses: 0: Dorsalis Pedis (R), 2+: Dorsalis Pedis (L) Skin: Warm, Dry, Intact Neurological: No New Focal Deficit Psy/Mental Status: Alert, Normal Affect, Normal Mood Sepsis Event Note - Evaluation Sepsis Screening Result: No Definite Risk - Focused Exam Vital Signs: Vital Signs Temp Pulse Resp BP BP Pulse Ox Pulse Ox 04/08/20 06:49 84 99/70 04/08/20 06:23 90 L 04/08/20 04:00 36.4 C 18 93/59 L 89 L 04/07/20 22:30 95 115/55 L 04/07/20 22:00 36.5 C 20 115/55 L 91 L 04/07/20 21:44 88 L - Problem List Review Problem List Initiated/Reviewed/Updated: Yes - My Orders Last 24 Hours: My Active Orders 04/07/20 22:21 QUEtiapine [SEROqueL] 12.5 mg PO BEDTIME PRN 04/08/20 06:00 Chest 1V Frontal [CR] Routine 04/08/20 07:00 carvediloL [Coreg] 6.25 mg PO BIDMEALS 04/08/20 09:00 Zinc Sulfate [Zincate] 220 mg PO DAILY 04/09/20 05:00 BMP [BASIC METABOLIC PANEL,BMP] [CHEM] DAILY CBC WITH AUTO DIFF [HEME] DAILY CRP [C-REACTIVE PROTEIN] [CHEM] DAILY 04/10/20 05:00 BMP [BASIC METABOLIC PANEL,BMP] [CHEM] DAILY CBC WITH AUTO DIFF [HEME] DAILY CRP [C-REACTIVE PROTEIN] [CHEM] DAILY 04/11/20 05:00 BMP [BASIC METABOLIC PANEL,BMP] [CHEM] DAILY CBC WITH AUTO DIFF [HEME] DAILY - Assessment Assessment:: Assessment: Covid-19 Infection Viral Pneumonitis COPD Leukocytosis Hyperglycemia, controlled CKD 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 * Labs reveal: WBC 10.13, hemoglobin 13.5, neutrophil percentage auto 91.7, D- dimer 1.99, anion gap 17.6, BUN 72, creatinine 1.9, C-reactive protein 2.9 * Patient slowly improving * Currently on full dose Lovenox and Plavix 04/07/20 * Now off Steroid * On ASA 81 mg , Plavix 75 mg, Lovenox 80 mg SubQ Q12H, and Crestor 20 mg Daily * Eliqiuis discontinued due to cardiac event; he has been switched to Warfarin for prophylaxis after consultation with cardiology * Now completely off Metoprolol, no bradycadic episode * Antifungal started on 04/05/2020 * Continue RT and PT/OT * Encourage prone positioning * IS and FV with bedside pulmonary exercise * He remains on 6L sating anywhere at 86-91% * Continue supportive care * Recommend SNF placement 04/08/20 * Continue current treatment * On Low dose Coreg 6.25 mg po BID for V-tach/PVCs * INR is still subtherapeutic * Continue antifungal agent * Routine AM labs and INR level * PRN Douneb for SOB and Wheezing * Continue to encourage proning position * IS and FV with bedside pulmonary exercise * Prognosis remains guarded * Recommend SNF Placement
[2020-04-08] MEDS: Tiotropium Bromide 4 GM Inhalation Spray (2.5mcg/1 dose; 10 doses) INH SCH (09:00)
[2020-04-08] MEDS: SYMBICORT INH SCH ×2 (09:00→21:16)
[2020-04-08] MEDS: ALBUTEROL INH SCH ×2 (09:00→21:16)
[2020-04-08] MEDS: Losartan 25 MG Tab PO SCH (09:17)
[2020-04-08] MEDS: Oxybutynin 5 MG Tab.ER PO SCH (09:17)
[2020-04-08] MEDS: Furosemide 20 MG Tab PO SCH (09:19)
[2020-04-08] MEDS: Sertraline 25 MG Tab PO SCH (09:19)
[2020-04-08] MEDS: Rosuvastatin 10 MG Tab PO SCH (09:19)
[2020-04-08] MEDS: Zinc Sulfate 220 MG Cap PO SCH (09:23)
[2020-04-08] MEDS: Ascorbic Acid 500 MG Tab PO SCH (09:23)
[2020-04-08] MEDS: Saccharomyces Boulardii (Probiotic) 250 MG Cap PO SCH (09:23)
[2020-04-08] MEDS: Cholecalciferol (Vitamin D3) 25 MCG Tab PO SCH ×2 (09:24→20:12)
[2020-04-08] MEDS: Isosorbide Mononitrate 60 MG Tab.ER PO SCH (09:24)
[2020-04-08] MEDS: Clopidogrel 75 MG Tab PO SCH (09:24)
[2020-04-08] MEDS: Aspirin 81 MG Tab.Chew PO SCH (09:25)
[2020-04-08] MEDS: Enoxaparin 80 MG/0.8 ML Syringe SUBCUT SCH ×2 (09:27→20:16)
[2020-04-08] MEDS: [UNRECOGNIZED DRUG - OTHER] PO SCH ×2 (10:21→20:20)
[2020-04-08] MEDS: [UNRECOGNIZED DRUG - OTHER] PO SCH ×2 (10:21→20:20)
[2020-04-08] MEDS: Nystatin Susp 100,000 Unit/ML 5 ML Oral Syringe PO SCH ×4 (10:21→20:14)
[2020-04-08] MEDS: [UNRECOGNIZED DRUG - OTHER] PO SCH ×2 (10:21→20:21)
[2020-04-08] MEDS: Albuterol/Ipratropium 3.0-0.5 MG/3 ML Neb Soln INH PRN ×2 (11:11→17:07)
[2020-04-08] MEDS ORDERED: Sodium Chloride 0.9% 250 ML IV ONE (16:48)
[2020-04-08] MEDS ORDERED: Midodrine 5 MG Tab PO ONE (16:49)
[2020-04-08] MEDS ORDERED: Warfarin 4 MG Tab PO SCH (18:00)
[2020-04-09] MEDS: Albuterol/Ipratropium 3.0-0.5 MG/3 ML Neb Soln INH PRN ×3 (02:34→20:49)
[2020-04-09] MEDS: Carvedilol 6.25 MG Tab PO SCH ×2 (06:07→17:51)
[2020-04-09] MEDS: Tiotropium Bromide 4 GM Inhalation Spray (2.5mcg/1 dose; 10 doses) INH SCH (08:52)
[2020-04-09] MEDS: ALBUTEROL INH SCH ×2 (08:53→20:11)
[2020-04-09] MEDS: SYMBICORT INH SCH ×2 (08:53→20:10)
[2020-04-09] MEDS ORDERED: Isosorbide Mononitrate 60 MG Tab.ER PO SCH (09:00)
[2020-04-09] MEDS: Nystatin Susp 100,000 Unit/ML 5 ML Oral Syringe PO SCH ×3 (09:43→20:26)
[2020-04-09] MEDS: Losartan 25 MG Tab PO SCH (09:43)
[2020-04-09] MEDS: Enoxaparin 80 MG/0.8 ML Syringe SUBCUT SCH ×2 (09:43→20:28)
[2020-04-09] MEDS: Sertraline 25 MG Tab PO SCH (09:44)
[2020-04-09] MEDS: Zinc Sulfate 220 MG Cap PO SCH (09:45)
[2020-04-09] MEDS: Clopidogrel 75 MG Tab PO SCH (09:45)
[2020-04-09] MEDS: Aspirin 81 MG Tab.Chew PO SCH (09:45)
[2020-04-09] MEDS: Cholecalciferol (Vitamin D3) 25 MCG Tab PO SCH ×2 (09:46→20:27)
[2020-04-09] MEDS: Ascorbic Acid 500 MG Tab PO SCH (09:46)
[2020-04-09] MEDS: Saccharomyces Boulardii (Probiotic) 250 MG Cap PO SCH (09:46)
[2020-04-09] MEDS: Oxybutynin 5 MG Tab.ER PO SCH (09:47)
[2020-04-09] MEDS: Furosemide 20 MG Tab PO SCH (09:48)
[2020-04-09] MEDS: Isosorbide Mononitrate 30 MG Tab.ER PO SCH (09:48)
[2020-04-09] MEDS: [UNRECOGNIZED DRUG - OTHER] PO SCH ×2 (09:49→20:32)
[2020-04-09] MEDS: [UNRECOGNIZED DRUG - OTHER] PO SCH ×2 (09:49→20:32)
[2020-04-09] MEDS: Rosuvastatin 10 MG Tab PO SCH (09:49)
[2020-04-09] MEDS: [UNRECOGNIZED DRUG - OTHER] PO SCH ×2 (09:49→20:31)
--- NOTE | 2020-04-09 10:13 | PCM.PN ---
- General Info Date of Service: 04/09/20 Admission Dx/Problem (Free Text): Admission Diagnosis/Problem Admission Diagnosis/Problem Hypoxia Subjective Update: Magen has required increasing oxygenation supplementation with high flow nasal cannula. His appetite is still good, but he does state he has had worsening shortness of breath. Weight is down approximately 8 pounds since admission, but up 4 pounds overnight and 2 pounds in the last 2 days Functional Status: Reports: Pain Controlled - Review of Systems General: Reports: No Symptoms HEENT: Reports: No Symptoms Pulmonary: Reports: Shortness of Breath, Cough Cardiovascular: Reports: No Symptoms Gastrointestinal: Reports: No Symptoms Musculoskeletal: Reports: No Symptoms - Patient Data Vitals - Most Recent: Last Vital Signs Temp 97.5 F 04/09/20 04:00 Pulse 87 04/09/20 06:07 Resp 15 04/09/20 04:00 BP 99/59 L 04/09/20 09:48 Pulse Ox 87 L 04/09/20 08:54 Weight - Most Recent: 173 lb 3.2 oz I&O - Last 24 Hours: Intake & Output 04/08/20 04/09/20 04/09/20 22:59 06:59 14:59 Intake Total 850 Output Total 326 550 Balance 524 -550 Lab Results Last 24 Hours: Laboratory Results - last 24 hr 04/09/20 04/09/20 04/09/20 Range/Units 03:49 03:49 03:49 WBC 11.86 H (4.23-9.07) K/mm3 RBC 4.08 L (4.63-6.08) M/mm3 Hgb 12.4 L (13.7-17.5) gm/dl Hct 36.8 L (40.1-51.0) % MCV 90.2 (79.0-92.2) fl MCH 30.4 (25.7-32.2) pg MCHC 33.7 (32.2-35.5) g/dl RDW Std Deviation 49.7 H (35.1-43.9) fL Plt Count 150 L (163-337) K/mm3 MPV 10.6 (9.4-12.3) fl Neut % (Auto) 87.5 H (34.0-67.9) % Lymph % (Auto) 3.5 L (21.8-53.1) % [place] % (Auto) 7.5 (5.3-12.2) % Eos % (Auto) 1.2 (0.8-7.0) Baso % (Auto) 0.3 (0.1-1.2) % Neut # (Auto) 10.38 H (1.78-5.38) K/mm3 Lymph # (Auto) 0.42 L (1.32-3.57) K/mm3 [place] # (Auto) 0.89 H (0.30-0.82) K/mm3 Eos # (Auto) 0.14 (0.04-0.54) K/mm3 Baso # (Auto) 0.03 (0.01-0.08) K/mm3 Manual Slide Review Abnormal smear PT 13.3 H (9.7-12.0) SECONDS INR 1.25 Sodium 138 (136-145) mEq/L Potassium 3.8 (3.5-5.1) mEq/L Chloride 107 (98-107) mEq/L Carbon Dioxide 19 L (21-32) mEq/L Anion Gap 15.8 H (5-15) BUN 57 H (7-18) mg/dL Creatinine 1.9 H (0.7-1.3) mg/dL Est Cr Clr Drug Dosing 29.35 mL/min Estimated GFR (MDRD) 34 (>60) mL/min BUN/Creatinine Ratio 30.0 H (14-18) Glucose 93 (83-115) mg/dL Calcium 8.1 L (8.5-10.1) mg/dL C-Reactive Protein 8.8 H* (<1.0) mg/dL Med Orders - Current: Current Medications Acetaminophen (Tylenol) 650 mg PO Q4H PRN PRN Reason: Pain (Mild 1-3)/fever Albuterol (Proventil Neb Soln) 2.5 mg NEB Q2H PRN PRN Reason: Shortness Of Breath/wheezing Last Admin: 04/07/20 06:25 Dose: 2.5 mg Documented by: Albuterol/Ipratropium (Duoneb 3.0-0.5 Mg/3 Ml) 3 ml INH Q6H PRN PRN Reason: Shortness of Breath Last Admin: 04/09/20 02:34 Dose: 3 ml Documented by: Ascorbic Acid (Vitamin C) 1,000 mg PO DAILY [facility] Last Admin: 04/09/20 09:46 Dose: 1,000 mg Documented by: Aspirin (Aspirin) 81 mg PO DAILY [facility] Last Admin: 04/09/20 09:45 Dose: 81 mg Documented by: Benzocaine/Menthol (Cepacol Sore Throat) 1 lozenge MUCMEM Q2HR PRN PRN Reason: Sore Throat Last Admin: 04/06/20 12:11 Dose: 1 lozenge Documented by: Carvedilol (Coreg) 6.25 mg PO BIDMEALS [facility] Last Admin: 04/09/20 06:07 Dose: 6.25 mg Documented by: Cholecalciferol (Vitamin D3) 50 mcg PO BID [facility] Last Admin: 04/09/20 09:46 Dose: 50 mcg Documented by: Clopidogrel Bisulfate (Plavix) 75 mg PO DAILY [facility] Last Admin: 04/09/20 09:45 Dose: 75 mg Documented by: Docusate Sodium (Colace) 100 mg PO BID PRN PRN Reason: Constipation Enoxaparin Sodium (Lovenox) 80 mg SUBCUT Q12H [facility] Last Admin: 04/09/20 09:43 Dose: 80 mg Documented by: Furosemide (Lasix) 20 mg PO DAILY [facility] Last Admin: 04/09/20 09:48 Dose: 20 mg Documented by: Isosorbide Mononitrate (Imdur) 30 mg PO DAILY [facility] Last Admin: 04/09/20 09:48 Dose: Not Given Documented by: Lorazepam (Ativan) 0.25 mg PO Q2H PRN PRN Reason: Anxiety Last Admin: 04/07/20 20:29 Dose: 0.25 mg Documented by: Losartan Potassium (Cozaar) 25 mg PO DAILY [facility] Last Admin: 04/09/20 09:43 Dose: 25 mg Documented by: Nitroglycerin (Nitrostat) 0.4 mg SL Q5M PRN PRN Reason: Chest Pain Symbicort 160/4.5 (Mcg Inhaler Ptom) 2 puff INH BID [facility] Last Admin: 04/09/20 08:53 Dose: 2 puff Documented by: Nystatin (Nystatin Oral Syringe) 500,000 unit PO QID [facility] Last Admin: 04/09/20 09:43 Dose: 500,000 unit Documented by: Ondansetron HCl (Zofran) 4 mg IV Q4H PRN PRN Reason: Nausea/Vomiting Oxybutynin Chloride (Oxybutynin Er) 10 mg PO DAILY [facility] Last Admin: 04/09/20 09:47 Dose: 10 mg Documented by: Proair Inhaler 6.7 (Gm Inhaler Ptom) 0 each INH BID [facility] Last Admin: 04/09/20 08:53 Dose: 2 each Documented by: Vegetable Juice Plus 0 each PO BID [facility] Last Admin: 04/09/20 09:49 Dose: 1 each Documented by: Fruit Blend Juice (Plus) 0 each PO BID [facility] Last Admin: 04/09/20 09:49 Dose: 1 each Documented by: Thorne Blend Juice (Plus) 0 each PO BID [facility] Last Admin: 04/09/20 09:49 Dose: 1 each Documented by: Quetiapine Fumarate (Seroquel) 12.5 mg PO BEDTIME PRN PRN Reason: Insomnia Rosuvastatin Calcium (Crestor) 20 mg PO DAILY [facility] Last Admin: 04/09/20 09:49 Dose: 20 mg Documented by: Saccharomyces Boulardii (Florastor) 250 mg PO DAILY [facility] Last Admin: 04/09/20 09:46 Dose: 250 mg Documented by: Sertraline HCl (Zoloft) 25 mg PO DAILY [facility] Last Admin: 04/09/20 09:44 Dose: 25 mg Documented by: Sodium Chloride (Saline Flush) 10 ml FLUSH ASDIRECTED PRN PRN Reason: Keep Vein Open Tiotropium [place] (Spiriva Respimat) 0 gm INH DAILY [facility] Last Admin: 04/09/20 08:52 Dose: 4 gm Documented by: Warfarin Sodium (Pharmacy To Dose - Warfarin) 1 dose PO ASDIRECTED PRN PRN Reason: RX TO DOSE WARFARIN Zinc Sulfate (Zincate) 220 mg PO DAILY [facility] Last Admin: 04/09/20 09:45 Dose: 220 mg Documented by: Discontinued Medications Albuterol (Proventil Hfa) 0 gm INH QID PRN PRN Reason: Shortness of Breath Albuterol (Proventil Hfa) 0 gm INH QID PRN PRN Reason: Shortness of Breath Apixaban (Eliquis) 2.5 mg PO BID [facility] Last Admin: 04/02/20 09:08 Dose: 2.5 mg Documented by: Aspirin (Aspirin) 243 mg PO ONETIME ONE Stop: 11/23/20 11:32 Last Admin: 04/02/20 11:34 Dose: 243 mg Documented by: Aspirin (Aspirin) Confirm Administered Dose 81 mg .ROUTE .STK-MED ONE Stop: 04/02/20 11:33 Last Admin: 04/02/20 11:40 Dose: 81 mg Documented by: Carvedilol (Coreg) 6.25 mg PO ONETIME ONE Stop: 04/07/20 22:22 Last Admin: 04/07/20 22:30 Dose: 6.25 mg Documented by: Cholecalciferol (Vitamin D3) 50 mcg PO DAILY [facility] Last Admin: 04/04/20 08:01 Dose: 50 mcg Documented by: Dexamethasone (Dexamethasone) 6 mg PO Q24H CHARLEE Stop: 04/06/20 16:01 Last Admin: 04/06/20 16:53 Dose: 6 mg Documented by: Enoxaparin Sodium (Lovenox) 80 mg SUBCUT ONETIME ONE Stop: 04/02/20 11:31 Last Admin: 04/02/20 11:51 Dose: 80 mg Documented by: Enoxaparin Sodium (Lovenox) 80 mg SUBCUT ONETIME ONE Stop: 04/02/20 12:01 Last Admin: 04/02/20 11:51 Dose: Not Given Documented by: Furosemide (Lasix) 20 mg PO DAILY [facility] Last Admin: 04/08/20 09:19 Dose: 20 mg Documented by: Furosemide (Lasix) 20 mg IVPUSH NOW ONE Stop: 04/03/20 11:01 Last Admin: 04/03/20 12:02 Dose: 20 mg Documented by: Furosemide (Lasix) 40 mg IVPUSH NOW ONE Stop: 04/04/20 08:19 Last Admin: 04/04/20 10:11 Dose: 40 mg Documented by: Furosemide (Lasix) 20 mg PO DAILY [facility] Remdesivir 200 mg/ Sodium (Chloride) 250 mls @ 250 mls/hr IV ONETIME ONE Stop: 03/28/20 13:44 Last Admin: 03/28/20 16:38 Dose: Not Given Documented by: Remdesivir 100 mg/ Sodium (Chloride) 100 mls @ 100 mls/hr IV DAILY [facility] Stop: 04/01/20 09:59 Azithromycin 500 mg/ Sodium (Chloride) 250 mls @ 250 mls/hr IV Q24H [facility] Stop: 03/30/20 17:29 Last Admin: 03/30/20 15:39 Dose: 250 mls/hr Documented by: Ceftriaxone Sodium 2 gm/ (Sodium Chloride) 100 mls @ 200 mls/hr IV Q24H CHARLEE Stop: 04/01/20 16:29 Last Admin: 04/01/20 16:13 Dose: 200 mls/hr Documented by: Remdesivir 200 mg/ Sodium (Chloride) 250 mls @ 250 mls/hr IV ONETIME ONE Stop: 03/28/20 18:59 Last Admin: 03/28/20 19:13 Dose: 250 mls/hr Documented by: Remdesivir 100 mg/ Sodium (Chloride) 100 mls @ 100 mls/hr IV Q24H [facility] Stop: 04/01/20 18:59 Last Admin: 04/01/20 17:12 Dose: 100 mls/hr Documented by: Sodium Chloride (Normal Saline) 250 mls @ 100 mls/hr IV ASDIRECTED [facility] Stop: 03/28/20 23:00 Sodium Chloride (Normal Saline) 1,000 mls @ 999 mls/hr IV ONETIME ONE Stop: 03/28/20 19:45 Last Admin: 03/28/20 19:26 Dose: 999 mls/hr Documented by: Sodium Chloride (Normal Saline) Confirm Administered Dose 1,000 mls @ as directed .ROUTE .STK-MED ONE Stop: 03/28/20 18:38 Last Admin: 03/28/20 19:45 Dose: Not Given Documented by: Sodium Chloride (Normal Saline) 250 mls @ 999 mls/hr IV .BOLUS ONE Stop: 04/08/20 17:03 Last Admin: 04/08/20 16:58 Dose: 999 mls/hr Documented by: Isosorbide Mononitrate (Imdur) 60 mg PO DAILY [facility] Last Admin: 04/08/20 09:24 Dose: 60 mg Documented by: Isosorbide Mononitrate (Imdur) 30 mg PO DAILY [facility] Losartan Potassium (Cozaar) 25 mg PO DAILY [facility] Last Admin: 04/08/20 09:17 Dose: 25 mg Documented by: Losartan Potassium (Cozaar) 25 mg PO DAILY [facility] Metoprolol Tartrate (Lopressor) 25 mg PO BID [facility] Last Admin: 04/03/20 09:55 Dose: 25 mg Documented by: Metoprolol Tartrate (Lopressor) 12.5 mg PO BID [facility] Last Admin: 04/06/20 10:00 Dose: Not Given Documented by: Midodrine (Midodrine) 5 mg PO ONETIME ONE Stop: 04/08/20 16:50 Last Admin: 04/08/20 16:55 Dose: 5 mg Documented by: Mometasone Furoate/Formoterol Fumar (Dulera 200-5 Mcg) 2 puff IH BID [facility] Last Admin: 03/30/20 08:41 Dose: Not Given Documented by: Non-Formulary Medication (Budesonide/Formoterol) 2 puff INH BID [facility] Quetiapine Fumarate (Seroquel) 12.5 mg PO ONETIME ONE Stop: 04/07/20 22:22 Last Admin: 04/07/20 22:30 Dose: 12.5 mg Documented by: Warfarin Sodium (Coumadin) 3 mg PO QPM [facility] Stop: 04/06/20 18:01 Last Admin: 04/06/20 19:19 Dose: Not Given Documented by: Warfarin Sodium (Coumadin) 3 mg PO QPM [facility] Stop: 04/07/20 18:01 Last Admin: 04/07/20 18:18 Dose: 3 mg Documented by: Warfarin Sodium (Coumadin) 4 mg PO QPM [facility] Stop: 04/08/20 18:01 Last Admin: 04/08/20 17:29 Dose: 4 mg Documented by: - Exam Quality Assessment: Supplemental Oxygen, Urine Catheter General: Alert, Oriented HEENT: Pupils Equal, Mucous Membr. Moist/Boring Neck: Supple Lungs: Rales (Throughout both lung vitale), Wheezing. No: Normal Respiratory Effort (Increased respiratory rate and effort) Cardiovascular: Regular Rate, Regular Rhythm GI/Abdominal Exam: Normal Bowel Sounds, Soft, Non-Tender, No Abnormal Bruit Sepsis Event Note - Evaluation Sepsis Screening Result: No Definite Risk - Focused Exam Vital Signs: Vital Signs Temp Pulse Resp BP BP Pulse Ox Pulse Ox 04/09/20 09:48 99/59 L 04/09/20 09:43 99/59 L 04/09/20 08:54 87 L 04/09/20 06:07 87 102/64 04/09/20 04:00 97.5 F 15 93/54 L 95 11/30/20 02:36 90 L - Problem List & Annotations (1) Pneumonia due to 2019 novel coronavirus SNOMED Code(s): 247318836896535514 Code(s): U07.1 - COVID-19; J12.89 - OTHER VIRAL PNEUMONIA Status: Acute Priority: High Current Visit: Yes (2) COPD (chronic obstructive pulmonary disease) SNOMED Code(s): 98712019 Code(s): J44.9 - CHRONIC OBSTRUCTIVE PULMONARY DISEASE, UNSPECIFIED Status: Chronic Priority: High Current Visit: Yes Qualifiers: COPD type: emphysema Emphysema type: panlobular Qualified Code(s): J43.1 - Panlobular emphysema (3) Chronic renal insufficiency, stage IV (severe) SNOMED Code(s): 834608133 Code(s): N18.4 - CHRONIC KIDNEY DISEASE, STAGE 4 (SEVERE) Status: Chronic Priority: High Current Visit: Yes (4) Mild congestive heart failure SNOMED Code(s): 50298449 Code(s): I50.9 - HEART FAILURE, UNSPECIFIED Status: Chronic Priority: High Current Visit: Yes (5) Right lumbar radiculopathy SNOMED Code(s): 921942439 Code(s): M54.16 - RADICULOPATHY, LUMBAR REGION Status: Acute Current Visit: No (6) Thrush SNOMED Code(s): 30434927 Code(s): B37.0 - CANDIDAL STOMATITIS Status: Acute Current Visit: Yes - Problem List Review Problem List Initiated/Reviewed/Updated: Yes - Assessment Assessment:: Assessment: Covid-19 Infection Viral Pneumonitis COPD Leukocytosisslightly deteriorated to 11.8 Hyperglycemia, controlled CKD Stage IV CHF3 pound weight gain overnight 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 Switching to Coumadin AG Metabolic Acidosis Elevated CRP -increasing over the last 3 days. Currently 8.5 Hypoalbuminemia Oral thrush 2/2 steroids and antibx - Plan Plan:: Plan: 04/06/20 * Day 10 of dexamethasone * Has received 5 days of Rocephin, 3 days of Zithromax, 5 days of remdesivir for the treatment of Covid * Continues on 6 L of oxygen per nasal cannula * Nursing staff reports that patient's heart rate dropped into the 20s several times last evening while he was sleeping. * Labs reveal: WBC 10.13, hemoglobin 13.5, neutrophil percentage auto 91.7, D- dimer 1.99, anion gap 17.6, BUN 72, creatinine 1.9, C-reactive protein 2.9 * Patient slowly improving * Currently on full dose Lovenox and Plavix 04/07/20 * Now off Steroid * On ASA 81 mg , Plavix 75 mg, Lovenox 80 mg SubQ Q12H, and Crestor 20 mg Daily * Eliqiuis discontinued due to cardiac event; he has been switched to Warfarin for prophylaxis after consultation with cardiology * Now completely off Metoprolol, no bradycadic episode * Antifungal started on 04/05/2020 * Continue RT and PT/OT * Encourage prone positioning * IS and FV with bedside pulmonary exercise * He remains on 6L sating anywhere at 86-91% * Continue supportive care * Recommend SNF placement 04/08/20 * Continue current treatement * On Low dose Coreg 6.25 po BID for V-tach/PVCs * INR is still subtherapeutic * Continue antifungal agent * Routine AM labs and INR level * PRN Douneb for SOB and Wheezing * Continue to encourage proning position * IS and FV with bedside pulmonary exercise * Prognosis remains guarded * Recommend SNF Placement 04/09/2020 * Started yesterday on Coreg 6.25 twice daily secondary to V. tach/PVCs * Worsening respiratory status today requiring high flow nasal cannula * INR is still subtherapeutic at 1.2, continue Lovenox * Give additional Lasix 20 mg IV this afternoon * Continue monitoring Covid related labs * Prognosis remains guarded but has deteriorated * Recommend SNF placement * Continue oral nystatin for thrush
--- NOTE | 2020-04-09 12:50 | CR ---
PROCEDURE INFORMATION: Exam: XR Chest, 1 View Exam date and time: 04/08/2020 8:03 AM Age: 84 years old Clinical indication: Condition or disease; Other: Covid-19 positive TECHNIQUE: Imaging protocol: XR of the chest Views: 1 view. COMPARISON: CR Chest 1V Frontal 04/04/2020 7:38 AM FINDINGS: Tubes, catheters and devices: Overlying EKG wires Lungs: Again noted are opacities in the lateral aspect of the upper lobes and mid lung regions and opacities in the left base. Findings consistent with multifocal pneumonia including COVID-19. Pleural space: Unremarkable. No pleural effusion. No pneumothorax. Heart/Mediastinum: Unremarkable. No cardiomegaly. Bones/joints: Median sternotomy Osseous structures are stable IMPRESSION: Again noted are opacities in the lateral aspect of the upper lobes and mid lung regions and opacities in the left base. Findings consistent with multifocal pneumonia including COVID-19. Thank you for allowing us to participate in the care of your patient. Dictated and Authenticated by: Olivia Roe MD 04/08/2020 10:15 AM Central Time ([place] & [place]) MTDD
[2020-04-09] MEDS ORDERED: Furosemide 20 MG/2 ML VIAL IVPUSH ONE (16:00)
[2020-04-09] MEDS: guaiFENesin 600 MG Tab.ER PO SCH (17:58)
[2020-04-09] MEDS ORDERED: Warfarin 5 MG Tab PO SCH (18:00)
[2020-04-10] MEDS: guaiFENesin 600 MG Tab.ER PO SCH ×3 (00:32→20:15)
[2020-04-10] MEDS: SYMBICORT INH SCH ×2 (08:07→20:30)
[2020-04-10] MEDS: ALBUTEROL INH SCH ×2 (08:07→20:17)
[2020-04-10] MEDS: Tiotropium Bromide 4 GM Inhalation Spray (2.5mcg/1 dose; 10 doses) INH SCH (08:07)
[2020-04-10] MEDS ORDERED: Furosemide 20 MG Tab PO SCH (09:00)
[2020-04-10] MEDS: Rosuvastatin 10 MG Tab PO SCH (09:17)
[2020-04-10] MEDS: Ascorbic Acid 500 MG Tab PO SCH (09:18)
[2020-04-10] MEDS: Oxybutynin 5 MG Tab.ER PO SCH (09:18)
[2020-04-10] MEDS: Metoprolol Succinate 25 MG Tab.ER PO SCH (09:19)
[2020-04-10] MEDS: Losartan 25 MG Tab PO SCH (09:19)
[2020-04-10] MEDS: Aspirin 81 MG Tab.Chew PO SCH (09:22)
[2020-04-10] MEDS: Furosemide 20 MG Tab PO SCH (09:22)
[2020-04-10] MEDS: Saccharomyces Boulardii (Probiotic) 250 MG Cap PO SCH (09:23)
[2020-04-10] MEDS: Isosorbide Mononitrate 30 MG Tab.ER PO SCH (09:23)
[2020-04-10] MEDS: Zinc Sulfate 220 MG Cap PO SCH (09:24)
[2020-04-10] MEDS: Enoxaparin 80 MG/0.8 ML Syringe SUBCUT SCH ×2 (09:24→20:36)
[2020-04-10] MEDS: Clopidogrel 75 MG Tab PO SCH (09:26)
[2020-04-10] MEDS: Nystatin Susp 100,000 Unit/ML 5 ML Oral Syringe PO SCH (09:26)
[2020-04-10] MEDS: Cholecalciferol (Vitamin D3) 25 MCG Tab PO SCH ×2 (09:27→20:17)
[2020-04-10] MEDS: [UNRECOGNIZED DRUG - OTHER] PO SCH ×2 (09:27→20:17)
[2020-04-10] MEDS: [UNRECOGNIZED DRUG - OTHER] PO SCH ×2 (09:27→20:16)
[2020-04-10] MEDS: [UNRECOGNIZED DRUG - OTHER] PO SCH ×2 (09:27→20:16)
--- NOTE | 2020-04-10 09:57 | CR ---
Chest: Portable view of the chest was obtained. Comparison: Prior chest x-ray of 04/08/20 is available. Findings: Heart size: Heart is not enlarged. Slight tortuosity of the thoracic aorta is seen. Previous sternotomy is noted. Lungs: Increasing density on both sides of the chest is noted. Findings within the right base appears slightly increased. Other findings within both sides of the chest are otherwise felt to be fairly stable for differences in technique. Bony structures: No gross abnormality is seen. Impression: 1. Slight increasing density within the right lung base from prior study. 2. Other findings within the chest remain stable from most recent exam. Diagnostic code #3
[2020-04-10] MEDS ORDERED: Levofloxacin/Dextrose 5%-Water 150 ML IV ONE (10:16)
[2020-04-10] MEDS ORDERED: Morphine 2 MG/ML SYRINGE IVPUSH ONE (10:30)
[2020-04-10] MEDS ORDERED: Vancomycin 1 GM, Vancomycin 500 MG in Sodium Chloride 0.9% 500 ML IV ONE (11:00)
[2020-04-10] MEDS: Levofloxacin/Dextrose 5%-Water 750 MG in Premix Bag 1 BAG IV SCH (11:15)
[2020-04-10] MEDS: Cefepime 2 GM in Premix Bag 1 BAG IV SCH (11:18)
[2020-04-10] MEDS ORDERED: Losartan 25 MG Tab PO SCH (12:00)
--- NOTE | 2020-04-10 13:03 | PCM.PN ---
- General Info Date of Service: 04/10/20 Admission Dx/Problem (Free Text): Admission Diagnosis/Problem Admission Diagnosis/Problem Hypoxia Subjective Update: Magen has had worsening in respiratory effort today. He has been more tachypneic, blood gases show respiratory alkalosis, and his work of breathing seems to increase. He denies any significant pain, but he is coughing. Overnight there was some concern that patient had widening of his QRS. EKG did show a right bundle branch block and he had some changes in EKG. Troponin was significantly lower than previous at 0.135. He denies any chest pain. Functional Status: Reports: Pain Controlled - Review of Systems General: Reports: Weakness, Fatigue Pulmonary: Reports: Shortness of Breath, Cough Cardiovascular: Reports: No Symptoms Gastrointestinal: Reports: No Symptoms Musculoskeletal: Reports: No Symptoms Neurological: Reports: No Symptoms Psychiatric: Reports: No Symptoms - Patient Data Vitals - Most Recent: Last Vital Signs Temp 97.8 F 04/10/20 04:00 Pulse 77 04/10/20 09:19 Resp 19 04/10/20 04:00 BP 98/63 04/10/20 09:23 Pulse Ox 90 L 04/10/20 07:42 Weight - Most Recent: 171 lb I&O - Last 24 Hours: Intake & Output 04/09/20 04/10/20 04/10/20 22:59 06:59 14:59 Output Total 960 555 50 Balance -960 -555 -50 Imaging Impressions - Last 24 Hours: Chest x-ray: Slight increasing density within the right lung base from prior study, otherwise stable Lab Results Last 24 Hours: Laboratory Results - last 24 hr 04/09/20 04/10/20 04/10/20 Range/Units 20:43 05:33 05:33 WBC 12.69 H (4.23-9.07) K/mm3 RBC 4.25 L (4.63-6.08) M/mm3 Hgb 12.7 L (13.7-17.5) gm/dl Hct 38.4 L (40.1-51.0) % MCV 90.4 (79.0-92.2) fl MCH 29.9 (25.7-32.2) pg MCHC 33.1 (32.2-35.5) g/dl RDW Std Deviation 48.9 H (35.1-43.9) fL Plt Count 155 L (163-337) K/mm3 MPV 10.6 (9.4-12.3) fl Neut % (Auto) 86.4 H (34.0-67.9) % Lymph % (Auto) 3.0 L (21.8-53.1) % Nelson % (Auto) 6.6 (5.3-12.2) % Eos % (Auto) 0.9 (0.8-7.0) Baso % (Auto) 0.2 (0.1-1.2) % Neut # (Auto) 10.97 H (1.78-5.38) K/mm3 Lymph # (Auto) 0.38 L (1.32-3.57) K/mm3 Nelson # (Auto) 0.84 H (0.30-0.82) K/mm3 Eos # (Auto) 0.11 (0.04-0.54) K/mm3 Baso # (Auto) 0.02 (0.01-0.08) K/mm3 Manual Slide Review Abnormal smear PT 16.1 H (9.7-12.0) SECONDS INR 1.52 Sodium (136-145) mEq/L Potassium (3.5-5.1) mEq/L Chloride (98-107) mEq/L Carbon Dioxide (21-32) mEq/L Anion Gap (5-15) BUN (7-18) mg/dL Creatinine (0.7-1.3) mg/dL Est Cr Clr Drug Dosing mL/min Estimated GFR (MDRD) (>60) mL/min BUN/Creatinine Ratio (14-18) Glucose (83-115) mg/dL Calcium (8.5-10.1) mg/dL Troponin I 0.135 H* (0.00-0.056) ng/mL C-Reactive Protein (<1.0) mg/dL 04/10/20 Range/Units 05:33 WBC (4.23-9.07) K/mm3 RBC (4.63-6.08) M/mm3 Hgb (13.7-17.5) gm/dl Hct (40.1-51.0) % MCV (79.0-92.2) fl MCH (25.7-32.2) pg MCHC (32.2-35.5) g/dl RDW Std Deviation (35.1-43.9) fL Plt Count (163-337) K/mm3 MPV (9.4-12.3) fl Neut % (Auto) (34.0-67.9) % Lymph % (Auto) (21.8-53.1) % Nelson % (Auto) (5.3-12.2) % Eos % (Auto) (0.8-7.0) Baso % (Auto) (0.1-1.2) % Neut # (Auto) (1.78-5.38) K/mm3 Lymph # (Auto) (1.32-3.57) K/mm3 Nelson # (Auto) (0.30-0.82) K/mm3 Eos # (Auto) (0.04-0.54) K/mm3 Baso # (Auto) (0.01-0.08) K/mm3 Manual Slide Review PT (9.7-12.0) SECONDS INR Sodium 136 (136-145) mEq/L Potassium 3.5 (3.5-5.1) mEq/L Chloride 104 (98-107) mEq/L Carbon Dioxide 21 (21-32) mEq/L Anion Gap 14.5 (5-15) BUN 58 H (7-18) mg/dL Creatinine 2.0 H (0.7-1.3) mg/dL Est Cr Clr Drug Dosing 19.10 mL/min Estimated GFR (MDRD) 32 (>60) mL/min BUN/Creatinine Ratio 29.0 H (14-18) Glucose 115 (83-115) mg/dL Calcium 8.4 L (8.5-10.1) mg/dL Troponin I (0.00-0.056) ng/mL C-Reactive Protein 13.1 H* (<1.0) mg/dL Med Orders - Current: Current Medications Acetaminophen (Tylenol) 650 mg PO Q4H PRN PRN Reason: Pain (Mild 1-3)/fever Albuterol (Proventil Neb Soln) 2.5 mg NEB Q2H PRN PRN Reason: Shortness Of Breath/wheezing Last Admin: 04/07/20 06:25 Dose: 2.5 mg Documented by: Albuterol/Ipratropium (Duoneb 3.0-0.5 Mg/3 Ml) 3 ml INH Q6H PRN PRN Reason: Shortness of Breath Last Admin: 04/09/20 20:49 Dose: 3 ml Documented by: Ascorbic Acid (Vitamin C) 1,000 mg PO DAILY [facility] [place] Last Admin: 04/10/20 09:18 Dose: 1,000 mg Documented by: Aspirin (Aspirin) 81 mg PO DAILY [facility] [place] Last Admin: 04/10/20 09:22 Dose: 81 mg Documented by: Benzocaine/Menthol (Cepacol Sore Throat) 1 lozenge MUCMEM Q2HR PRN PRN Reason: Sore Throat Last Admin: 04/06/20 12:11 Dose: 1 lozenge Documented by: Cholecalciferol (Vitamin D3) 50 mcg PO BID [facility] [place] Last Admin: 04/10/20 09:27 Dose: 50 mcg Documented by: Clopidogrel Bisulfate (Plavix) 75 mg PO DAILY [facility] [place] Last Admin: 04/10/20 09:26 Dose: 75 mg Documented by: Docusate Sodium (Colace) 100 mg PO BID PRN PRN Reason: Constipation Enoxaparin Sodium (Lovenox) 80 mg SUBCUT Q12H [facility] [place] Last Admin: 04/10/20 09:24 Dose: 80 mg Documented by: Furosemide (Lasix) 20 mg PO DAILY [facility] [place] Last Admin: 04/10/20 09:22 Dose: 20 mg Documented by: Guaifenesin (Mucinex) 600 mg PO BID [facility] [place] Last Admin: 04/10/20 09:23 Dose: 600 mg Documented by: Cefepime HCl 2 gm/ Premix 50 mls @ 100 mls/hr IV Q24H [facility] [place] Last Admin: 04/10/20 11:18 Dose: 100 mls/hr Documented by: Levofloxacin/Dextrose 750 mg/ (Premix) 150 mls @ 100 mls/hr IV Q48H [facility] [place] Last Admin: 04/10/20 11:15 Dose: 100 mls/hr Documented by: Vancomycin HCl 1 gm/Vancomycin HCl 250 mg/ Sodium Chloride 250 mls @ 166.667 mls/hr IV Q24H [facility] [place] Isosorbide Mononitrate (Imdur) 30 mg PO DAILY [facility] [place] Last Admin: 04/10/20 09:23 Dose: 30 mg Documented by: Lorazepam (Ativan) 0.25 mg PO Q2H PRN PRN Reason: Anxiety Last Admin: 04/07/20 20:29 Dose: 0.25 mg Documented by: Losartan Potassium (Cozaar) 25 mg PO DAILY [facility] [place] Last Admin: 04/10/20 09:19 Dose: 25 mg Documented by: Metoprolol Succinate (Toprol Xl) 12.5 mg PO DAILY [facility] [place] Last Admin: 04/10/20 09:19 Dose: 12.5 mg Documented by: Nitroglycerin (Nitrostat) 0.4 mg SL Q5M PRN PRN Reason: Chest Pain Symbicort 160/4.5 (Mcg Inhaler Ptom) 2 puff INH BID [facility] [place] Last Admin: 04/10/20 08:07 Dose: 2 puff Documented by: Ondansetron HCl (Zofran) 4 mg IV Q4H PRN PRN Reason: Nausea/Vomiting Oxybutynin Chloride (Oxybutynin Er) 10 mg PO DAILY [facility] [place] Last Admin: 04/10/20 09:18 Dose: 10 mg Documented by: Proair Inhaler 6.7 (Gm Inhaler Ptom) 0 each INH BID [facility] [place] Last Admin: 04/10/20 08:07 Dose: 2 each Documented by: Vegetable Juice Plus 0 each PO BID [facility] [place] Last Admin: 04/10/20 09:27 Dose: 1 each Documented by: Fruit Blend Juice (Plus) 0 each PO BID [facility] [place] Last Admin: 04/10/20 09:27 Dose: 1 each Documented by: Thorne Blend Juice (Plus) 0 each PO BID [facility] [place] Last Admin: 04/10/20 09:27 Dose: 1 each Documented by: Quetiapine Fumarate (Seroquel) 12.5 mg PO BEDTIME PRN PRN Reason: Insomnia Last Admin: 04/10/20 01:43 Dose: 12.5 mg Documented by: Rosuvastatin Calcium (Crestor) 20 mg PO DAILY [facility] [place] Last Admin: 04/10/20 09:17 Dose: 20 mg Documented by: Saccharomyces Boulardii (Florastor) 250 mg PO DAILY [facility] [place] Last Admin: 04/10/20 09:23 Dose: 250 mg Documented by: Sodium Chloride (Saline Flush) 10 ml FLUSH ASDIRECTED PRN PRN Reason: Keep Vein Open Tiotropium Telford (Spiriva Respimat) 0 gm INH DAILY [facility] [place] Last Admin: 04/10/20 08:07 Dose: 4 gm Documented by: Vancomycin HCl (Pharmacy To Dose - Vancomycin) 1 dose .XX ASDIRECTED PRN PRN Reason: RX TO DOSE VANCO Warfarin Sodium (Pharmacy To Dose - Warfarin) 1 dose PO ASDIRECTED PRN PRN Reason: RX TO DOSE WARFARIN Warfarin Sodium (Coumadin) 4 mg PO QPM [facility] [place] Stop: 04/10/20 18:01 Zinc Sulfate (Zincate) 220 mg PO DAILY [facility] [place] Last Admin: 04/10/20 09:24 Dose: 220 mg Documented by: Discontinued Medications Albuterol (Proventil Hfa) 0 gm INH QID PRN PRN Reason: Shortness of Breath Albuterol (Proventil Hfa) 0 gm INH QID PRN PRN Reason: Shortness of Breath Apixaban (Eliquis) 2.5 mg PO BID [facility] [place] Last Admin: 04/02/20 09:08 Dose: 2.5 mg Documented by: Aspirin (Aspirin) 243 mg PO ONETIME ONE Stop: 04/02/20 11:32 Last Admin: 04/02/20 11:34 Dose: 243 mg Documented by: Aspirin (Aspirin) Confirm Administered Dose 81 mg .ROUTE .STK-MED ONE Stop: 04/02/20 11:33 Last Admin: 04/02/20 11:40 Dose: 81 mg Documented by: Carvedilol (Coreg) 6.25 mg PO ONETIME ONE Stop: 04/07/20 22:22 Last Admin: 04/07/20 22:30 Dose: 6.25 mg Documented by: Carvedilol (Coreg) 6.25 mg PO BIDMEALS [facility] [place] Last Admin: 04/09/20 17:51 Dose: 6.25 mg Documented by: Cholecalciferol (Vitamin D3) 50 mcg PO DAILY [facility] [place] Last Admin: 04/04/20 08:01 Dose: 50 mcg Documented by: Dexamethasone (Dexamethasone) 6 mg PO Q24H [facility] [place] Stop: 04/06/20 16:01 Last Admin: 04/06/20 16:53 Dose: 6 mg Documented by: Enoxaparin Sodium (Lovenox) 80 mg SUBCUT ONETIME ONE Stop: 04/02/20 11:31 Last Admin: 04/02/20 11:51 Dose: 80 mg Documented by: Enoxaparin Sodium (Lovenox) 80 mg SUBCUT ONETIME ONE Stop: 04/02/20 12:01 Last Admin: 04/02/20 11:51 Dose: Not Given Documented by: Furosemide (Lasix) 20 mg PO DAILY [facility] [place] Last Admin: 04/08/20 09:19 Dose: 20 mg Documented by: Furosemide (Lasix) 20 mg IVPUSH NOW ONE Stop: 04/03/20 11:01 Last Admin: 04/03/20 12:02 Dose: 20 mg Documented by: Furosemide (Lasix) 40 mg IVPUSH NOW ONE Stop: 04/04/20 08:19 Last Admin: 04/04/20 10:11 Dose: 40 mg Documented by: Furosemide (Lasix) 20 mg PO DAILY [facility] [place] Furosemide (Lasix) 20 mg IVPUSH NOW ONE Stop: 04/09/20 16:01 Last Admin: 04/09/20 17:50 Dose: 20 mg Documented by: Remdesivir 200 mg/ Sodium (Chloride) 250 mls @ 250 mls/hr IV ONETIME ONE Stop: 03/28/20 13:44 Last Admin: 03/28/20 16:38 Dose: Not Given Documented by: Remdesivir 100 mg/ Sodium (Chloride) 100 mls @ 100 mls/hr IV DAILY [facility] [place] Stop: 04/01/20 09:59 Azithromycin 500 mg/ Sodium (Chloride) 250 mls @ 250 mls/hr IV Q24H [facility] Stop: 03/30/20 17:29 Last Admin: 03/30/20 15:39 Dose: 250 mls/hr Documented by: Ceftriaxone Sodium 2 gm/ (Sodium Chloride) 100 mls @ 200 mls/hr IV Q24H [facility] Stop: 04/01/20 16:29 Last Admin: 04/01/20 16:13 Dose: 200 mls/hr Documented by: Remdesivir 200 mg/ Sodium (Chloride) 250 mls @ 250 mls/hr IV ONETIME ONE Stop: 03/28/20 18:59 Last Admin: 03/28/20 19:13 Dose: 250 mls/hr Documented by: Remdesivir 100 mg/ Sodium (Chloride) 100 mls @ 100 mls/hr IV Q24H [facility] Stop: 04/01/20 18:59 Last Admin: 04/01/20 17:12 Dose: 100 mls/hr Documented by: Sodium Chloride (Normal Saline) 250 mls @ 100 mls/hr IV ASDIRECTED [facility] Stop: 03/28/20 23:00 Sodium Chloride (Normal Saline) 1,000 mls @ 999 mls/hr IV ONETIME ONE Stop: 03/28/20 19:45 Last Admin: 03/28/20 19:26 Dose: 999 mls/hr Documented by: Sodium Chloride (Normal Saline) Confirm Administered Dose 1,000 mls @ as directed .ROUTE .STK-MED ONE Stop: 03/28/20 18:38 Last Admin: 03/28/20 19:45 Dose: Not Given Documented by: Sodium Chloride (Normal Saline) 250 mls @ 999 mls/hr IV .BOLUS ONE Stop: 04/08/20 17:03 Last Admin: 04/08/20 16:58 Dose: 999 mls/hr Documented by: Vancomycin HCl 1 gm/Vancomycin HCl 500 mg/ Sodium Chloride 500 mls @ 250 mls/hr IV ONETIME ONE Stop: 04/10/20 12:59 Last Admin: 04/10/20 12:14 Dose: 250 mls/hr Documented by: Levofloxacin/Dextrose (Levaquin In D5w 750 Mg/150 Ml) Confirm Administered Dose 150 mls @ as directed IV .STK-MED ONE Stop: 04/10/20 10:17 Last Admin: 04/10/20 11:27 Dose: Not Given Documented by: Isosorbide Mononitrate (Imdur) 60 mg PO DAILY [facility] [place] Last Admin: 04/08/20 09:24 Dose: 60 mg Documented by: Isosorbide Mononitrate (Imdur) 30 mg PO DAILY [facility] [place] Losartan Potassium (Cozaar) 25 mg PO DAILY [facility] [place] Last Admin: 04/08/20 09:17 Dose: 25 mg Documented by: Losartan Potassium (Cozaar) 25 mg PO DAILY [facility] [place] Metoprolol Tartrate (Lopressor) 25 mg PO BID [facility] [place] Last Admin: 04/03/20 09:55 Dose: 25 mg Documented by: Metoprolol Tartrate (Lopressor) 12.5 mg PO BID [facility] [place] Last Admin: 04/06/20 10:00 Dose: Not Given Documented by: Midodrine (Midodrine) 5 mg PO ONETIME ONE Stop: 04/08/20 16:50 Last Admin: 04/08/20 16:55 Dose: 5 mg Documented by: Mometasone Furoate/Formoterol Fumar (Dulera 200-5 Mcg) 2 puff IH BID [facility] [place] Last Admin: 03/30/20 08:41 Dose: Not Given Documented by: Morphine Sulfate (Morphine) 1 mg IVPUSH ONETIME ONE Stop: 04/10/20 10:31 Last Admin: 04/10/20 11:15 Dose: 1 mg Documented by: Non-Formulary Medication (Budesonide/Formoterol) 2 puff INH BID [facility] [place] Nystatin (Nystatin Oral Syringe) 500,000 unit PO QID [facility] [place] Last Admin: 04/10/20 09:26 Dose: 500,000 unit Documented by: Quetiapine Fumarate (Seroquel) 12.5 mg PO ONETIME ONE Stop: 04/07/20 22:22 Last Admin: 04/07/20 22:30 Dose: 12.5 mg Documented by: Sertraline HCl (Zoloft) 25 mg PO DAILY [facility] [place] Last Admin: 04/09/20 09:44 Dose: 25 mg Documented by: Warfarin Sodium (Coumadin) 3 mg PO QPM [facility] [place] Stop: 04/06/20 18:01 Last Admin: 04/06/20 19:19 Dose: Not Given Documented by: Warfarin Sodium (Coumadin) 3 mg PO QPM [facility] [place] Stop: 04/07/20 18:01 Last Admin: 04/07/20 18:18 Dose: 3 mg Documented by: Warfarin Sodium (Coumadin) 4 mg PO QPM [facility] [place] Stop: 04/08/20 18:01 Last Admin: 04/08/20 17:29 Dose: 4 mg Documented by: Warfarin Sodium (Coumadin) 5 mg PO QPM [facility] [place] Stop: 04/09/20 18:01 Last Admin: 04/09/20 17:51 Dose: 5 mg Documented by: - Exam Quality Assessment: Supplemental Oxygen General: Alert, Oriented HEENT: Pupils Equal, Mucous Membr. Moist/[place] Neck: Supple Lungs: Rales (Throughout both lung vitale). No: Normal Respiratory Effort (Increased respiratory rate and effort) Cardiovascular: Regular Rate, Regular Rhythm GI/Abdominal Exam: Normal Bowel Sounds, Soft, Non-Tender, No Organomegaly, No Distention, No Abnormal Bruit, No Mass Back Exam: Normal Inspection Extremities: Normal Inspection, No Pedal Edema, Normal Capillary Refill Skin: Warm, Dry, Intact Psy/Mental Status: Alert, Normal Affect, Normal Mood Sepsis Event Note - Evaluation Sepsis Screening Result: No Definite Risk - Focused Exam Vital Signs: Vital Signs Temp Pulse Pulse Resp BP BP Pulse Ox 04/10/20 09:23 98/63 04/10/20 09:19 77 98/63 04/10/20 07:42 04/10/20 04:00 97.8 F 76 19 112/52 L 87 L 04/10/20 03:45 Pulse Ox 04/10/20 09:23 04/10/20 09:19 04/10/20 07:42 90 L 04/10/20 04:00 04/10/20 03:45 91 L - Problem List & Annotations (1) Pneumonia due to 2019 novel coronavirus SNOMED Code(s): 361896177912097317 Code(s): U07.1 - COVID-19; J12.89 - OTHER VIRAL PNEUMONIA Status: Acute Priority: High Current Visit: Yes (2) COPD (chronic obstructive pulmonary disease) SNOMED Code(s): 06191865 Code(s): J44.9 - CHRONIC OBSTRUCTIVE PULMONARY DISEASE, UNSPECIFIED Status: Chronic Priority: High Current Visit: Yes Qualifiers: COPD type: emphysema Emphysema type: panlobular Qualified Code(s): J43.1 - Panlobular emphysema (3) Chronic renal insufficiency, stage IV (severe) SNOMED Code(s): 107076557 Code(s): N18.4 - CHRONIC KIDNEY DISEASE, STAGE 4 (SEVERE) Status: Chronic Priority: High Current Visit: Yes (4) Mild congestive heart failure SNOMED Code(s): 77086026 Code(s): I50.9 - HEART FAILURE, UNSPECIFIED Status: Chronic Priority: High Current Visit: Yes (5) Right lumbar radiculopathy SNOMED Code(s): 866675328 Code(s): M54.16 - RADICULOPATHY, LUMBAR REGION Status: Acute Current Visit: No (6) Thrush SNOMED Code(s): 59139609 Code(s): B37.0 - CANDIDAL STOMATITIS Status: Acute Current Visit: Yes - Problem List Review Problem List Initiated/Reviewed/Updated: Yes - My Orders Last 24 Hours: My Active Orders 04/09/20 13:00 guaiFENesin [Mucinex] 600 mg PO BID 04/09/20 20:00 EKG 12 Lead [EK] Stat 04/10/20 05:33 PROCALCITONIN [REF] Routine 04/10/20 09:00 Metoprolol Succinate [Toprol XL] 12.5 mg PO DAILY 04/10/20 10:00 Pharmacy to Dose - Vancomycin 1 dose .XX ASDIRECTED PRN 04/10/20 10:30 Cefepime [Maxipime in D5W 2 GM/50 ML] 2 gm Premix Bag 1 bag IV Q24H Levofloxacin/Dextrose 5%-Water [Levaquin in D5W 750 MG/150 ML] 750 mg Premix Bag 1 bag IV Q48H 04/11/20 05:11 INR,PT,PROTHROMBIN TIME [COAG] AM 04/11/20 11:00 Vancomycin 1 gm Vancomycin 250 mg Sodium Chloride 0.9% [Normal Saline] 250 ml IV Q24H 04/12/20 05:11 INR,PT,PROTHROMBIN TIME [COAG] AM 04/12/20 10:00 VANCOMYCIN TROUGH [CHEM] Timed 04/13/20 05:11 INR,PT,PROTHROMBIN TIME [COAG] AM 04/14/20 05:11 INR,PT,PROTHROMBIN TIME [COAG] AM 04/15/20 05:11 INR,PT,PROTHROMBIN TIME [COAG] AM 04/16/20 05:11 INR,PT,PROTHROMBIN TIME [COAG] AM - Assessment Assessment:: Assessment: Covid-19 Infection Hospital-acquired pneumonia Viral Pneumonitis COPD Leukocytosisslightly deteriorated to 12.7, no bands Hyperglycemia, controlled CKD Stage IV CHF3 pound weight gain overnight 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 Switching to Coumadin AG Metabolic Acidosis Elevated CRP -increasing over the last 3 days. Currently 13.1 Hypoalbuminemia Oral thrush 2/2 steroids and antibx - Plan Plan:: Plan: 04/06/20 * Day 10 of dexamethasone * Has received 5 days of Rocephin, 3 days of Zithromax, 5 days of remdesivir for the treatment of Covid * Continues on 6 L of oxygen per nasal cannula * Nursing staff reports that patient's heart rate dropped into the 20s several times last evening while he was sleeping. * Labs reveal: WBC 10.13, hemoglobin 13.5, neutrophil percentage auto 91.7, D- dimer 1.99, anion gap 17.6, BUN 72, creatinine 1.9, C-reactive protein 2.9 * Patient slowly improving * Currently on full dose Lovenox and Plavix 04/07/20 * Now off Steroid * On ASA 81 mg , Plavix 75 mg, Lovenox 80 mg SubQ Q12H, and Crestor 20 mg Daily * Eliqiuis discontinued due to cardiac event; he has been switched to Warfarin for prophylaxis after consultation with cardiology * Now completely off Metoprolol, no bradycadic episode * Antifungal started on 04/05/2020 * Continue RT and PT/OT * Encourage prone positioning * IS and FV with bedside pulmonary exercise * He remains on 6L sating anywhere at 86-91% * Continue supportive care * Recommend SNF placement 04/08/20 * Continue current treatement * On Low dose Coreg 6.25 po BID for V-tach/PVCs * INR is still subtherapeutic * Continue antifungal agent * Routine AM labs and INR level * PRN Douneb for SOB and Wheezing * Continue to encourage proning position * IS and FV with bedside pulmonary exercise * Prognosis remains guarded * Recommend SNF Placement 04/09/2020 * Started yesterday on Coreg 6.25 twice daily secondary to V. tach/PVCs * Worsening respiratory status today requiring high flow nasal cannula * INR is still subtherapeutic at 1.2, continue Lovenox * Give additional Lasix 20 mg IV this afternoon * Continue monitoring Covid related labs * Prognosis remains guarded but has deteriorated * Recommend SNF placement * Continue oral nystatin for thrush 04/10/1930 * Switch today to metoprolol succinate 12.5 mg daily secondary to worsening respiratory status. Coreg can have some increase bronchoconstriction because of its nonselective nature. * Still on full dose Lovenox. INR improving and up to 1.52. * Continue Lasix 20 mg p.o. daily. Hold off on additional Lasix today. * Remove patient from Covid strict precautions. He has been 20 days since diagnosis and longer since initial symptoms. * Stop nystatin. Oral thrush resolved. * Prognosis remains poor. Called just before 1900 secondary to dose of having a ground-level fall from the commode. Patient hit his head and had laceration of the left side of his forehead measuring approximately 2 cm. There was no loss of consciousness. Laceration was bandaged with Steri-Strips and a pressure dressing. Will do neuro checks and follow overnight. Consider CT.
[2020-04-10] MEDS: LORazepam 0.5 MG Tab PO PRN (15:00)
[2020-04-10] MEDS ORDERED: Warfarin 4 MG Tab PO SCH (18:00)
[2020-04-10] MEDS: LORazepam 2 MG/ML SDV IVPUSH PRN ×2 (18:55→22:59)
[2020-04-11] MEDS: ALBUTEROL INH SCH ×2 (08:19→20:09)
[2020-04-11] MEDS: SYMBICORT INH SCH ×2 (08:19→20:08)
[2020-04-11] MEDS: Tiotropium Bromide 4 GM Inhalation Spray (2.5mcg/1 dose; 10 doses) INH SCH (08:20)
--- NOTE | 2020-04-11 09:55 | CT ---
Head CT Technique: Multiple axial sections were obtained through the brain. Intravenous contrast was not utilized. Comparison: Previous MRI brain dated 02/28/14. Findings: Intracranial: Ventricles as well as basal cisterns and sulci over the convexities are moderately prominent. Scattered areas of diminished density are seen within the periventricular and within the subcortical white matter which is most likely due to small vessel ischemic demyelination change. No evidence of intracranial hemorrhage. No midline shift or mass-effect is seen. Osseous structures: Areas of probable retention cysts are seen within both maxillary sinuses. Probable additional retention cyst is noted within the right ethmoid sinus. Mild areas of mucosal thickening are also seen within the paranasal sinuses. Mastoid sinuses show nothing acute. No acute calvarial finding is seen. Impression: 1. Senescent change as described above. 2. Chronic appearing sinus findings. 3. No acute intracranial abnormality is seen. Diagnostic code #2
[2020-04-11] MEDS: Rosuvastatin 10 MG Tab PO SCH (09:58)
[2020-04-11] MEDS: Furosemide 20 MG Tab PO SCH (09:58)
[2020-04-11] MEDS: guaiFENesin 600 MG Tab.ER PO SCH ×2 (09:58→21:09)
[2020-04-11] MEDS: Aspirin 81 MG Tab.Chew PO SCH (09:58)
[2020-04-11] MEDS: Saccharomyces Boulardii (Probiotic) 250 MG Cap PO SCH (09:58)
[2020-04-11] MEDS: Oxybutynin 5 MG Tab.ER PO SCH (09:58)
[2020-04-11] MEDS: Cholecalciferol (Vitamin D3) 25 MCG Tab PO SCH ×2 (09:58→21:09)
[2020-04-11] MEDS: Metoprolol Succinate 25 MG Tab.ER PO SCH (09:59)
[2020-04-11] MEDS: Isosorbide Mononitrate 30 MG Tab.ER PO SCH ×2 (09:59→15:40)
[2020-04-11] MEDS: Ascorbic Acid 500 MG Tab PO SCH (09:59)
[2020-04-11] MEDS: Zinc Sulfate 220 MG Cap PO SCH (09:59)
[2020-04-11] MEDS: Enoxaparin 80 MG/0.8 ML Syringe SUBCUT SCH ×2 (10:02→21:08)
[2020-04-11] MEDS: Clopidogrel 75 MG Tab PO SCH (10:03)
[2020-04-11] MEDS: Losartan 25 MG Tab PO SCH (10:03)
[2020-04-11] MEDS: [UNRECOGNIZED DRUG - OTHER] PO SCH ×2 (10:03→21:09)
[2020-04-11] MEDS: [UNRECOGNIZED DRUG - OTHER] PO SCH ×2 (10:03→21:10)
[2020-04-11] MEDS: [UNRECOGNIZED DRUG - OTHER] PO SCH ×2 (10:04→21:10)
[2020-04-11] MEDS: Cefepime 2 GM in Premix Bag 1 BAG IV SCH (10:11)
--- NOTE | 2020-04-11 10:48 | PCM.PN ---
- General Info Date of Service: 04/11/20 Admission Dx/Problem (Free Text): Admission Diagnosis/Problem Admission Diagnosis/Problem Hypoxia Subjective Update: Patient appears to be more comfortable today. He is having less dyspnea, but his oxygen saturations and requirements are unchanged at high flow nasal cannula at 25 L and 90%. Unfortunately, he did have a fall yesterday and developed epistaxis in his left nostril which required them to decrease the high flow and increase the FiO2. - Review of Systems General: Reports: Fatigue HEENT: Reports: Sinus Congestion, Rhinitis Pulmonary: Reports: Shortness of Breath, Cough, Sputum Cardiovascular: Reports: No Symptoms Gastrointestinal: Reports: No Symptoms Musculoskeletal: Reports: No Symptoms Neurological: Reports: No Symptoms Psychiatric: Reports: No Symptoms - Patient Data Vitals - Most Recent: Last Vital Signs Temp 98.1 F 04/11/20 04:00 Pulse 81 04/11/20 09:59 Resp 26 H 04/11/20 05:00 BP 109/59 L 04/11/20 10:03 Pulse Ox 89 L 04/11/20 08:20 Weight - Most Recent: 171 lb I&O - Last 24 Hours: Intake & Output 04/10/20 04/11/20 04/11/20 22:59 06:59 14:59 Intake Total 650 100 Output Total 775 440 Balance -125 -340 Lab Results Last 24 Hours: Laboratory Results - last 24 hr 04/10/20 04/10/20 04/11/20 Range/Units 05:33 15:00 04:22 WBC 10.96 H (4.23-9.07) K/mm3 RBC 3.98 L (4.63-6.08) M/mm3 Hgb 12.0 L (13.7-17.5) gm/dl Hct 36.3 L (40.1-51.0) % MCV 91.2 (79.0-92.2) fl MCH 30.2 (25.7-32.2) pg MCHC 33.1 (32.2-35.5) g/dl RDW Std Deviation 49.2 H (35.1-43.9) fL Plt Count 153 L (163-337) K/mm3 MPV 10.6 (9.4-12.3) fl Neut % (Auto) 87.1 H (34.0-67.9) % Lymph % (Auto) 3.9 L (21.8-53.1) % [place] % (Auto) 6.0 (5.3-12.2) % Eos % (Auto) 0.6 L (0.8-7.0) Baso % (Auto) 0.1 (0.1-1.2) % Neut # (Auto) 9.54 H (1.78-5.38) K/mm3 Lymph # (Auto) 0.43 L (1.32-3.57) K/mm3 [place] # (Auto) 0.66 (0.30-0.82) K/mm3 Eos # (Auto) 0.07 (0.04-0.54) K/mm3 Baso # (Auto) 0.01 (0.01-0.08) K/mm3 Manual Slide Review Abnormal smear PT (9.7-12.0) SECONDS INR Puncture Site Rt radial ABG pH 7.51 H (7.35-7.45) ABG pCO2 19.8 L* (35.0-45.0) mmHg ABG pO2 55.0 L (80.0-100.0) mmHg ABG HCO3 15.9 L (22.0-26.0) meq/L ABG O2 Saturation 89.0 L (96.0-97.0) % ABG Base Excess -5.2 L (-2-2.0) Bradley Test Positive A-a Gradient 562 mmHg O2 Delivery Device [place] nasal cannula Oxygen Flow Rate 60.0 FiO2 90.00 (21.00-100.00) % Sodium (136-145) mEq/L Potassium (3.5-5.1) mEq/L Chloride (98-107) mEq/L Carbon Dioxide (21-32) mEq/L Anion Gap (5-15) BUN (7-18) mg/dL Creatinine (0.7-1.3) mg/dL Est Cr Clr Drug Dosing mL/min Estimated GFR (MDRD) (>60) mL/min BUN/Creatinine Ratio (14-18) Glucose (83-115) mg/dL Calcium (8.5-10.1) mg/dL Total Bilirubin (0.2-1.0) mg/dL AST (15-37) U/L ALT (16-63) U/L Alkaline Phosphatase (46-116) U/L C-Reactive Protein (<1.0) mg/dL Total Protein (6.4-8.2) g/dl Albumin (3.4-5.0) g/dl Globulin gm/dL Albumin/Globulin Ratio (1-2) Procalcitonin 0.19 H (<0.10) ng/mL 04/11/20 04/11/20 Range/Units 04:22 04:22 WBC (4.23-9.07) K/mm3 RBC (4.63-6.08) M/mm3 Hgb (13.7-17.5) gm/dl Hct (40.1-51.0) % MCV (79.0-92.2) fl MCH (25.7-32.2) pg MCHC (32.2-35.5) g/dl RDW Std Deviation (35.1-43.9) fL Plt Count (163-337) K/mm3 MPV (9.4-12.3) fl Neut % (Auto) (34.0-67.9) % Lymph % (Auto) (21.8-53.1) % [place] % (Auto) (5.3-12.2) % Eos % (Auto) (0.8-7.0) Baso % (Auto) (0.1-1.2) % Neut # (Auto) (1.78-5.38) K/mm3 Lymph # (Auto) (1.32-3.57) K/mm3 [place] # (Auto) (0.30-0.82) K/mm3 Eos # (Auto) (0.04-0.54) K/mm3 Baso # (Auto) (0.01-0.08) K/mm3 Manual Slide Review PT 17.8 H (9.7-12.0) SECONDS INR 1.68 Puncture Site ABG pH (7.35-7.45) ABG pCO2 (35.0-45.0) mmHg ABG pO2 (80.0-100.0) mmHg ABG HCO3 (22.0-26.0) meq/L ABG O2 Saturation (96.0-97.0) % ABG Base Excess (-2-2.0) Bradley Test A-a Gradient mmHg O2 Delivery Device Oxygen Flow Rate FiO2 (21.00-100.00) % Sodium 135 L (136-145) mEq/L Potassium 3.7 (3.5-5.1) mEq/L Chloride 104 (98-107) mEq/L Carbon Dioxide 18 L (21-32) mEq/L Anion Gap 16.7 H (5-15) BUN 59 H (7-18) mg/dL Creatinine 2.0 H (0.7-1.3) mg/dL Est Cr Clr Drug Dosing 19.10 mL/min Estimated GFR (MDRD) 32 (>60) mL/min BUN/Creatinine Ratio 29.5 H (14-18) Glucose 95 (83-115) mg/dL Calcium 8.1 L (8.5-10.1) mg/dL Total Bilirubin 0.5 (0.2-1.0) mg/dL AST 28 (15-37) U/L ALT 48 (16-63) U/L Alkaline Phosphatase 60 (46-116) U/L C-Reactive Protein 15.5 H* (<1.0) mg/dL Total Protein 5.9 L (6.4-8.2) g/dl Albumin 1.8 L (3.4-5.0) g/dl Globulin 4.1 gm/dL Albumin/Globulin Ratio 0.4 L (1-2) Procalcitonin (<0.10) ng/mL Med Orders - Current: Current Medications Acetaminophen (Tylenol) 650 mg PO Q4H PRN PRN Reason: Pain (Mild 1-3)/fever Albuterol (Proventil Neb Soln) 2.5 mg NEB Q2H PRN PRN Reason: Shortness Of Breath/wheezing Last Admin: 04/07/20 06:25 Dose: 2.5 mg Documented by: Albuterol/Ipratropium (Duoneb 3.0-0.5 Mg/3 Ml) 3 ml INH Q6H PRN PRN Reason: Shortness of Breath Last Admin: 04/09/20 20:49 Dose: 3 ml Documented by: Ascorbic Acid (Vitamin C) 1,000 mg PO DAILY [facility] Last Admin: 04/11/20 09:59 Dose: 1,000 mg Documented by: Aspirin (Aspirin) 81 mg PO DAILY [facility] Last Admin: 04/11/20 09:58 Dose: 81 mg Documented by: Benzocaine/Menthol (Cepacol Sore Throat) 1 lozenge MUCMEM Q2HR PRN PRN Reason: Sore Throat Last Admin: 04/06/20 12:11 Dose: 1 lozenge Documented by: Cholecalciferol (Vitamin D3) 50 mcg PO BID [facility] Last Admin: 04/11/20 09:58 Dose: 50 mcg Documented by: Clopidogrel Bisulfate (Plavix) 75 mg PO DAILY [facility] Last Admin: 04/11/20 10:03 Dose: 75 mg Documented by: Docusate Sodium (Colace) 100 mg PO BID PRN PRN Reason: Constipation Enoxaparin Sodium (Lovenox) 80 mg SUBCUT Q12H [facility] Last Admin: 04/11/20 10:02 Dose: 80 mg Documented by: Furosemide (Lasix) 20 mg PO DAILY [facility] Last Admin: 04/11/20 09:58 Dose: 20 mg Documented by: Guaifenesin (Mucinex) 600 mg PO BID [facility] Last Admin: 04/11/20 09:58 Dose: 600 mg Documented by: Cefepime HCl 2 gm/ Premix 50 mls @ 100 mls/hr IV Q24H [facility] Last Admin: 04/11/20 10:11 Dose: 100 mls/hr Documented by: Levofloxacin/Dextrose 750 mg/ (Premix) 150 mls @ 100 mls/hr IV Q48H [facility] Last Admin: 04/10/20 11:15 Dose: 100 mls/hr Documented by: Vancomycin HCl 1 gm/Vancomycin HCl 250 mg/ Sodium Chloride 250 mls @ 166.667 mls/hr IV Q24H [facility] Isosorbide Mononitrate (Imdur) 30 mg PO DAILY [facility] Last Admin: 04/11/20 09:59 Dose: Not Given Documented by: Lorazepam (Ativan) 0.5 mg IVPUSH Q2H PRN PRN Reason: Anxiety Last Admin: 04/10/20 22:59 Dose: 0.5 mg Documented by: Losartan Potassium (Cozaar) 25 mg PO DAILY [facility] Last Admin: 04/11/20 10:03 Dose: 25 mg Documented by: Metoprolol Succinate (Toprol Xl) 12.5 mg PO DAILY [facility] Last Admin: 04/11/20 09:59 Dose: 12.5 mg Documented by: Nitroglycerin (Nitrostat) 0.4 mg SL Q5M PRN PRN Reason: Chest Pain Symbicort 160/4.5 (Mcg Inhaler Ptom) 2 puff INH BID [facility] Last Admin: 04/11/20 08:19 Dose: 2 puff Documented by: Ondansetron HCl (Zofran) 4 mg IV Q4H PRN PRN Reason: Nausea/Vomiting Oxybutynin Chloride (Oxybutynin Er) 10 mg PO DAILY [facility] Last Admin: 04/11/20 09:58 Dose: 10 mg Documented by: Proair Inhaler 6.7 (Gm Inhaler Ptom) 0 each INH BID [facility] Last Admin: 04/11/20 08:19 Dose: 2 each Documented by: Vegetable Juice Plus 0 each PO BID [facility] Last Admin: 04/11/20 10:04 Dose: 1 each Documented by: Fruit Blend Juice (Plus) 0 each PO BID [facility] Last Admin: 04/11/20 10:03 Dose: 1 each Documented by: Thorne Blend Juice (Plus) 0 each PO BID [facility] Last Admin: 04/11/20 10:03 Dose: 1 each Documented by: Quetiapine Fumarate (Seroquel) 12.5 mg PO BEDTIME PRN PRN Reason: Insomnia Last Admin: 04/10/20 01:43 Dose: 12.5 mg Documented by: Rosuvastatin Calcium (Crestor) 20 mg PO DAILY [facility] Last Admin: 04/11/20 09:58 Dose: 20 mg Documented by: Saccharomyces Boulardii (Florastor) 250 mg PO DAILY [facility] Last Admin: 04/11/20 09:58 Dose: 250 mg Documented by: Sodium Chloride (Saline Flush) 10 ml FLUSH ASDIRECTED PRN PRN Reason: Keep Vein Open Tiotropium [place] (Spiriva Respimat) 0 gm INH DAILY [facility] Last Admin: 04/11/20 08:20 Dose: 4 gm Documented by: Vancomycin HCl (Pharmacy To Dose - Vancomycin) 1 dose .XX ASDIRECTED PRN PRN Reason: RX TO DOSE VANCO Warfarin Sodium (Pharmacy To Dose - Warfarin) 1 dose PO ASDIRECTED PRN PRN Reason: RX TO DOSE WARFARIN Warfarin Sodium (Coumadin) 6 mg PO QPM [facility] Stop: 04/11/20 18:01 Zinc Sulfate (Zincate) 220 mg PO DAILY [facility] Last Admin: 04/11/20 09:59 Dose: 220 mg Documented by: Discontinued Medications Albuterol (Proventil Hfa) 0 gm INH QID PRN PRN Reason: Shortness of Breath Albuterol (Proventil Hfa) 0 gm INH QID PRN PRN Reason: Shortness of Breath Apixaban (Eliquis) 2.5 mg PO BID [facility] Last Admin: 04/02/20 09:08 Dose: 2.5 mg Documented by: Aspirin (Aspirin) 243 mg PO ONETIME ONE Stop: 04/02/20 11:32 Last Admin: 04/02/20 11:34 Dose: 243 mg Documented by: Aspirin (Aspirin) Confirm Administered Dose 81 mg .ROUTE .STK-MED ONE Stop: 04/02/20 11:33 Last Admin: 04/02/20 11:40 Dose: 81 mg Documented by: Carvedilol (Coreg) 6.25 mg PO ONETIME ONE Stop: 04/07/20 22:22 Last Admin: 04/07/20 22:30 Dose: 6.25 mg Documented by: [facility] Admin: 04/09/20 17:51 Dose: 6.25 mg Documented by: Cholecalciferol (Vitamin D3) 50 mcg PO DAILY [facility] Last Admin: 04/04/20 08:01 Dose: 50 mcg Documented by: Dexamethasone (Dexamethasone) 6 mg PO Q24H [facility] Stop: 04/06/20 16:01 Last Admin: 04/06/20 16:53 Dose: 6 mg Documented by: Enoxaparin Sodium (Lovenox) 80 mg SUBCUT ONETIME ONE Stop: 04/02/20 11:31 Last Admin: 04/02/20 11:51 Dose: 80 mg Documented by: Enoxaparin Sodium (Lovenox) 80 mg SUBCUT ONETIME ONE Stop: 04/02/20 12:01 Last Admin: 04/02/20 11:51 Dose: Not Given Documented by: Furosemide (Lasix) 20 mg PO DAILY [facility] Last Admin: 04/08/20 09:19 Dose: 20 mg Documented by: Furosemide (Lasix) 20 mg IVPUSH NOW ONE Stop: 04/03/20 11:01 Last Admin: 04/03/20 12:02 Dose: 20 mg Documented by: Furosemide (Lasix) 40 mg IVPUSH NOW ONE Stop: 04/04/20 08:19 Last Admin: 04/04/20 10:11 Dose: 40 mg Documented by: Furosemide (Lasix) 20 mg PO DAILY [facility] Furosemide (Lasix) 20 mg IVPUSH NOW ONE Stop: 04/09/20 16:01 Last Admin: 04/09/20 17:50 Dose: 20 mg Documented by: Remdesivir 200 mg/ Sodium (Chloride) 250 mls @ 250 mls/hr IV ONETIME ONE Stop: 03/28/20 13:44 Last Admin: 03/28/20 16:38 Dose: Not Given Documented by: Remdesivir 100 mg/ Sodium (Chloride) 100 mls @ 100 mls/hr IV DAILY [facility] Stop: 04/01/20 09:59 Azithromycin 500 mg/ Sodium (Chloride) 250 mls @ 250 mls/hr IV Q24H [facility] Stop: 03/30/20 17:29 Last Admin: 03/30/20 15:39 Dose: 250 mls/hr Documented by: Ceftriaxone Sodium 2 gm/ (Sodium Chloride) 100 mls @ 200 mls/hr IV Q24H [facility] Stop: 04/01/20 16:29 Last Admin: 04/01/20 16:13 Dose: 200 mls/hr Documented by: Remdesivir 200 mg/ Sodium (Chloride) 250 mls @ 250 mls/hr IV ONETIME ONE Stop: 03/28/20 18:59 Last Admin: 03/28/20 19:13 Dose: 250 mls/hr Documented by: Remdesivir 100 mg/ Sodium (Chloride) 100 mls @ 100 mls/hr IV Q24H [facility] Stop: 04/01/20 18:59 Last Admin: 04/01/20 17:12 Dose: 100 mls/hr Documented by: Sodium Chloride (Normal Saline) 250 mls @ 100 mls/hr IV ASDIRECTED [facility] Stop: 03/28/20 23:00 Sodium Chloride (Normal Saline) 1,000 mls @ 999 mls/hr IV ONETIME ONE Stop: 03/28/20 19:45 Last Admin: 03/28/20 19:26 Dose: 999 mls/hr Documented by: Sodium Chloride (Normal Saline) Confirm Administered Dose 1,000 mls @ as directed .ROUTE .STK-MED ONE Stop: 03/28/20 18:38 Last Admin: 03/28/20 19:45 Dose: Not Given Documented by: Sodium Chloride (Normal Saline) 250 mls @ 999 mls/hr IV .BOLUS ONE Stop: 04/08/20 17:03 Last Admin: 04/08/20 16:58 Dose: 999 mls/hr Documented by: Vancomycin HCl 1 gm/Vancomycin HCl 500 mg/ Sodium Chloride 500 mls @ 250 mls/hr IV ONETIME ONE Stop: 04/10/20 12:59 Last Admin: 04/10/20 12:14 Dose: 250 mls/hr Documented by: Levofloxacin/Dextrose (Levaquin In D5w 750 Mg/150 Ml) Confirm Administered Dose 150 mls @ as directed IV .STK-MED ONE Stop: 04/10/20 10:17 Last Admin: 04/10/20 11:27 Dose: Not Given Documented by: Isosorbide Mononitrate (Imdur) 60 mg PO DAILY [facility] Last Admin: 04/08/20 09:24 Dose: 60 mg Documented by: Isosorbide Mononitrate (Imdur) 30 mg PO DAILY [facility] Lorazepam (Ativan) 0.25 mg PO Q2H PRN PRN Reason: Anxiety Last Admin: 04/10/20 15:00 Dose: 0.25 mg Documented by: Losartan Potassium (Cozaar) 25 mg PO DAILY [facility] Last Admin: 04/08/20 09:17 Dose: 25 mg Documented by: Losartan Potassium (Cozaar) 25 mg PO DAILY [facility] Metoprolol Tartrate (Lopressor) 25 mg PO BID [facility] Last Admin: 04/03/20 09:55 Dose: 25 mg Documented by: Metoprolol Tartrate (Lopressor) 12.5 mg PO BID [facility] Last Admin: 04/06/20 10:00 Dose: Not Given Documented by: Midodrine (Midodrine) 5 mg PO ONETIME ONE Stop: 04/08/20 16:50 Last Admin: 04/08/20 16:55 Dose: 5 mg Documented by: Mometasone Furoate/Formoterol Fumar (Dulera 200-5 Mcg) 2 puff IH BID [facility] Last Admin: 03/30/20 08:41 Dose: Not Given Documented by: Morphine Sulfate (Morphine) 1 mg IVPUSH ONETIME ONE Stop: 04/10/20 10:31 Last Admin: 04/10/20 11:15 Dose: 1 mg Documented by: Non-Formulary Medication (Budesonide/Formoterol) 2 puff INH BID [facility] Nystatin (Nystatin Oral Syringe) 500,000 unit PO QID [facility] Last Admin: 04/10/20 09:26 Dose: 500,000 unit Documented by: Quetiapine Fumarate (Seroquel) 12.5 mg PO ONETIME ONE Stop: 04/07/20 22:22 Last Admin: 04/07/20 22:30 Dose: 12.5 mg Documented by: Sertraline HCl (Zoloft) 25 mg PO DAILY [facility] Last Admin: 04/09/20 09:44 Dose: 25 mg Documented by: Warfarin Sodium (Coumadin) 3 mg PO QPM [facility] Stop: 04/06/20 18:01 Last Admin: 04/06/20 19:19 Dose: Not Given Documented by: Warfarin Sodium (Coumadin) 3 mg PO QPM [facility] Stop: 04/07/20 18:01 Last Admin: 04/07/20 18:18 Dose: 3 mg Documented by: Warfarin Sodium (Coumadin) 4 mg PO QPM [facility] Stop: 04/08/20 18:01 Last Admin: 04/08/20 17:29 Dose: 4 mg Documented by: Warfarin Sodium (Coumadin) 5 mg PO QPM [facility] Stop: 04/09/20 18:01 Last Admin: 04/09/20 17:51 Dose: 5 mg Documented by: Warfarin Sodium (Coumadin) 4 mg PO QPM [facility] Stop: 04/10/20 18:01 Last Admin: 04/10/20 19:19 Dose: 4 mg Documented by: - Exam Quality Assessment: Supplemental Oxygen General: Alert HEENT: Other (Ecchymosis around both eyes and they are swollen shut. Large bandage on the left forehead.) Neck: Supple Lungs: Rales (Throughout both lung vitale). No: Normal Respiratory Effort (Increased respiratory rate and effort) Cardiovascular: Regular Rate, Regular Rhythm GI/Abdominal Exam: Normal Bowel Sounds, Soft, Non-Tender, No Distention Extremities: Normal Inspection, Normal Range of Motion, No Pedal Edema Skin: Warm, Dry, Intact Psy/Mental Status: Alert, Normal Affect, Normal Mood Sepsis Event Note - Evaluation Sepsis Screening Result: No Definite Risk - Focused Exam Vital Signs: Vital Signs Temp Pulse Pulse Resp BP BP Pulse Ox 04/11/20 10:03 109/59 L 12/02/20 09:59 81 109/59 L 04/11/20 08:20 04/11/20 06:01 04/11/20 05:00 26 H 92 L 04/11/20 04:00 98.1 F 83 26 H 116/58 L 92 L 04/11/20 03:00 18 92 L 04/11/20 02:08 04/11/20 02:00 23 H 92 L 04/11/20 01:00 31 H 89 L 04/10/20 23:00 31 H 87 L Pulse Ox 04/11/20 10:03 04/11/20 09:59 04/11/20 08:20 89 L 04/11/20 06:01 93 L 04/11/20 05:00 04/11/20 04:00 04/11/20 03:00 04/11/20 02:08 91 L 04/11/20 02:00 04/11/20 01:00 04/10/20 23:00 - Problem List & Annotations (1) Pneumonia due to 2019 novel coronavirus SNOMED Code(s): 905207266659714635 Code(s): U07.1 - COVID-19; J12.89 - OTHER VIRAL PNEUMONIA Status: Acute Priority: High Current Visit: Yes (2) COPD (chronic obstructive pulmonary disease) SNOMED Code(s): 79875146 Code(s): J44.9 - CHRONIC OBSTRUCTIVE PULMONARY DISEASE, UNSPECIFIED Status: Chronic Priority: High Current Visit: Yes Qualifiers: COPD type: emphysema Emphysema type: panlobular Qualified Code(s): J43.1 - Panlobular emphysema (3) Chronic renal insufficiency, stage IV (severe) SNOMED Code(s): 513470613 Code(s): N18.4 - CHRONIC KIDNEY DISEASE, STAGE 4 (SEVERE) Status: Chronic Priority: High Current Visit: Yes (4) Mild congestive heart failure SNOMED Code(s): 77987276 Code(s): I50.9 - HEART FAILURE, UNSPECIFIED Status: Chronic Priority: High Current Visit: Yes (5) Right lumbar radiculopathy SNOMED Code(s): 632884236 Code(s): M54.16 - RADICULOPATHY, LUMBAR REGION Status: Acute Current Visit: No (6) Thrush SNOMED Code(s): 76076739 Code(s): B37.0 - CANDIDAL STOMATITIS Status: Acute Current Visit: Yes - Problem List Review Problem List Initiated/Reviewed/Updated: Yes - My Orders Last 24 Hours: My Active Orders 04/10/20 10:00 Pharmacy to Dose - Vancomycin 1 dose .XX ASDIRECTED PRN 04/10/20 10:30 Cefepime [Maxipime in D5W 2 GM/50 ML] 2 gm Premix Bag 1 bag IV Q24H Levofloxacin/Dextrose 5%-Water [Levaquin in D5W 750 MG/150 ML] 750 mg Premix Bag 1 bag IV Q48H 04/10/20 15:24 Code Status [Resuscitation Status] Routine 04/10/20 16:51 LORazepam [Ativan] 0.5 mg IVPUSH Q2H PRN 04/11/20 10:20 CULTURE SPUTUM + SMEAR [RM] Routine 04/11/20 11:00 Vancomycin 1 gm Vancomycin 250 mg Sodium Chloride 0.9% [Normal Saline] 250 ml IV Q24H 04/12/20 05:11 INR,PT,PROTHROMBIN TIME [COAG] AM 04/12/20 10:00 VANCOMYCIN TROUGH [CHEM] Timed 04/13/20 05:11 INR,PT,PROTHROMBIN TIME [COAG] AM 04/14/20 05:11 INR,PT,PROTHROMBIN TIME [COAG] AM 04/15/20 05:11 INR,PT,PROTHROMBIN TIME [COAG] AM 04/16/20 05:11 INR,PT,PROTHROMBIN TIME [COAG] AM - Assessment Assessment:: Assessment: Covid-19 Infection Hospital-acquired pneumonia Viral Pneumonitis COPD Leukocytosisimproved to 11,000 Hyperglycemia, controlled CKD Stage IV CHF3 pound weight gain overnight 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 Switching to Coumadin. Considered an Eliquis failure. Respiratory alkalosis secondary to increased respiratory rate Elevated CRP -increasing over the last 3 days. Currently 13.1 Hypoalbuminemia Oral thrush 2/2 steroids and antibx Fall with left-sided forehead laceration. Negative CT of the head for bleeding - Plan Plan:: Plan: 04/06/20 * Day 10 of dexamethasone * Has received 5 days of Rocephin, 3 days of Zithromax, 5 days of remdesivir for the treatment of Covid * Continues on 6 L of oxygen per nasal cannula * Nursing staff reports that patient's heart rate dropped into the 20s several times last evening while he was sleeping. * Labs reveal: WBC 10.13, hemoglobin 13.5, neutrophil percentage auto 91.7, D- dimer 1.99, anion gap 17.6, BUN 72, creatinine 1.9, C-reactive protein 2.9 * Patient slowly improving * Currently on full dose Lovenox and Plavix 04/07/20 * Now off Steroid * On ASA 81 mg , Plavix 75 mg, Lovenox 80 mg SubQ Q12H, and Crestor 20 mg Daily * Eliqiuis discontinued due to cardiac event; he has been switched to Warfarin for prophylaxis after consultation with cardiology * Now completely off Metoprolol, no bradycadic episode * Antifungal started on 04/05/2020 * Continue RT and PT/OT * Encourage prone positioning * IS and FV with bedside pulmonary exercise * He remains on 6L sating anywhere at 86-91% * Continue supportive care * Recommend SNF placement 04/08/20 * Continue current treatement * On Low dose Coreg 6.25 po BID for V-tach/PVCs * INR is still subtherapeutic * Continue antifungal agent * Routine AM labs and INR level * PRN Douneb for SOB and Wheezing * Continue to encourage proning position * IS and FV with bedside pulmonary exercise * Prognosis remains guarded * Recommend SNF Placement 04/09/2020 * Started yesterday on Coreg 6.25 twice daily secondary to V. tach/PVCs * Worsening respiratory status today requiring high flow nasal cannula * INR is still subtherapeutic at 1.2, continue Lovenox * Give additional Lasix 20 mg IV this afternoon * Continue monitoring Covid related labs * Prognosis remains guarded but has deteriorated * Recommend SNF placement * Continue oral nystatin for thrush 04/10/2020 * Switch today to metoprolol succinate 12.5 mg daily secondary to worsening respiratory status. Coreg can have some increase bronchoconstriction because of its nonselective nature. * Still on full dose Lovenox. INR improving and up to 1.5. * Continue Lasix 20 mg p.o. daily. Hold off on additional Lasix today. * Remove patient from Covid strict precautions. He has been 20 days since diagnosis and longer since initial symptoms. * Stop nystatin. Oral thrush resolved. * Prognosis remains poor. 04/11/2020 * Fall yesterday caused significant bruising of the face. Fortunately there is no bleeding. Continue to monitor. * No significant arrhythmias since starting metoprolol succinate 12.5 mg daily and may be some slight improvement in respiratory status. * INR up to 1.68 * Continue Lasix 20 mg daily * Continue following closely. * Covid related labs in the morning
[2020-04-11] MEDS ORDERED: Vancomycin 1 GM, Vancomycin 250 MG in Sodium Chloride 0.9% 250 ML IV SCH (11:00)
[2020-04-11] MEDS ORDERED: Warfarin 3 MG Tab PO SCH (18:00)
[2020-04-12] MEDS: Oxybutynin 5 MG Tab.ER PO SCH (08:01)
[2020-04-12] MEDS: Enoxaparin 80 MG/0.8 ML Syringe SUBCUT SCH (08:01)
[2020-04-12] MEDS: Losartan 25 MG Tab PO SCH (08:01)
[2020-04-12] MEDS: guaiFENesin 600 MG Tab.ER PO SCH (08:02)
[2020-04-12] MEDS: Metoprolol Succinate 25 MG Tab.ER PO SCH (08:02)
[2020-04-12] MEDS: Ascorbic Acid 500 MG Tab PO SCH (08:02)
[2020-04-12] MEDS: Furosemide 20 MG Tab PO SCH (08:02)
[2020-04-12] MEDS: Zinc Sulfate 220 MG Cap PO SCH (08:02)
[2020-04-12] MEDS: Aspirin 81 MG Tab.Chew PO SCH (08:02)
[2020-04-12] MEDS: Isosorbide Mononitrate 30 MG Tab.ER PO SCH (08:03)
[2020-04-12] MEDS: Rosuvastatin 10 MG Tab PO SCH (08:03)
[2020-04-12] MEDS: Clopidogrel 75 MG Tab PO SCH (08:03)
[2020-04-12] MEDS: Saccharomyces Boulardii (Probiotic) 250 MG Cap PO SCH (08:03)
[2020-04-12] MEDS: Cholecalciferol (Vitamin D3) 25 MCG Tab PO SCH (08:03)
[2020-04-12] MEDS: [UNRECOGNIZED DRUG - OTHER] PO SCH (08:04)
[2020-04-12] MEDS: [UNRECOGNIZED DRUG - OTHER] PO SCH (08:04)
[2020-04-12] MEDS: [UNRECOGNIZED DRUG - OTHER] PO SCH (08:04)
[2020-04-12] MEDS: ALBUTEROL INH SCH (10:04)
[2020-04-12] MEDS: Tiotropium Bromide 4 GM Inhalation Spray (2.5mcg/1 dose; 10 doses) INH SCH (10:04)
[2020-04-12] MEDS: SYMBICORT INH SCH (10:04)
[2020-04-12] MEDS: Levofloxacin/Dextrose 5%-Water 750 MG in Premix Bag 1 BAG IV SCH (10:08)
[2020-04-12] MEDS: Cefepime 2 GM in Premix Bag 1 BAG IV SCH (10:08)
[2020-04-12] MEDS: Albuterol 0.083% 2.5 MG/3 ML Neb Soln NEB PRN (10:21)
--- NOTE | 2020-04-12 14:35 | PCM.DCSUM1 ---
Discharge Summary - Hospital Course HPI Initial Comments: 84-year-old male presented to the ED for evaluation of COVID-19 illness on 03/24/20. Patient has known quite bad COPD and chronic bronchitis. Increased fatigue and weakness over the last 24 hours. He fell last night and had a great deal of difficulty getting back up. He did not hit his head. He is not on home oxygen therapy. O2 sats here are 94 to 95% at rest. Patient knows he desaturates quite badly on exertion. Uses a cane or a walker to aid his ambulation. His was positive with COVID-19 illness on 03/14/2020. He got tested on March 20 and was phoned 03/23/2020 that he is COVID-19 positive. He has been suffering fever chills mildly sore throat nasal congestion and increased paroxysmal cough not all that productive. Mildly decreased appetite with no diarrhea. He has not taken any medication for fever at this time Pt is sent to us as a direct admit today. States he has increased shortness of breath and weakness despite receiving Bamlanivimad, the monoclonal antibody approved for emergency use for COVID-19 positive patients who are high risk on 03/24/20. Patient is 86% on room air at the time of admit. States he has had an increased cough as he also has a chronic cough prior to Covid diagnosis. States he is able to taste and smell however his appetite has been poor to fair. Denies body aches, nausea, vomiting, or diarrhea. Assessment/Plan Comment:: * 84-year-old male with an 8-day history of cough, shortness of breath, fever, chills, decreased appetite and general malaise. * Tested positive for Covid on 03/23/2020. * Received Bamlanivimab on 03/24/20. States that he felt better for about 24 hours and then symptoms of Covid returned. * Chest x-ray taken 03/28/20 shows patchy groundglass and interstitial opacities mid right and left lungs suggesting bilateral pneumonia. * Blood cultures x2 collected * Labs reveal: WBC 3.94, hemoglobin 13.1, platelet count 99, D-dimer 0.76, sodium 135, potassium 4.7, BUN 55, creatinine 2.4, GFR 26, ferritin 418, LDH 310, alk phos 43, C-reactive protein 7.6, BNP 1868, procalcitonin has been ordered. * Blood gases on 2 L of oxygen per nasal cannula reveal a pH of 7.43, PCO2 of 24.9, PO2 of 70.0, bicarb of 16.1 * Patient does have a significant history of COPD, chronic renal failure, CHF, and has atrial fibrillation taking Eliquis. PLAN: * Will be admitted to [facility] floor with telemetry and continuous pulse oximetry. * Renally dose all medications. * Respiratory therapy to titrate oxygen as needed to maintain O2 saturations greater than 88%. * Incentive spirometer and flutter valve every 1 hour while awake. * Per Dr. Sellers we will give the patient loading dose of remdesivir even though his GFR is 26. * Rocephin 2 g IV daily x5 days and Zithromax 500 mg daily x3 days to treat pneumonia. * Patient received 2 units of convalescent plasma. Consent has been obtained. I spoke with the patient to provide information about convalescent plasma for himself. I offered him the fax sheet for patients and parents/caregivers for COVID-19 convalescent plasma to read and review. I stated the therapy has been approved by an emergency youth authorization process and has not fully been FDA reviewed or approved. I shared potential risks from the therapy including transmission of blood-borne pathogens such as HIV and hepatitis C, allergic and transfusion related reactions, post transfusion purpura. Additionally theoretical risks including a phenomenon called antibody dependent enhancement of infection such as seen in dengue or attenuation of an immune response that may may make the patients more susceptible to reinfection. I discussed there are other potential treatment options that are currently not FDA approved to treat Covid. Offered opportunity to ask questions and all questions were answered. Patient voiced understanding and agreed to proceed with the treatment for himself. * Closely monitor intake and output and daily weights as patient does have congestive heart failure. * Eliquis for DVT prophylaxis. * Repeat labs in the a.m. * real estate services coordinator consult for discharge planning * PT and OT to evaluate and treat the patient * Dietitian to consult regarding dietary needs. * Spiritual care * Patient is a full code. Diagnosis: Stroke: No - Discharge Data Discharge Date: 04/12/20 Discharge Disposition: DC/Tfer to Hospice - Home 49 Condition: Poor - Referral to Home Health Primary Care Physician: Dave Ziegler MD - Discharge Diagnosis/Problem(s) (1) Pneumonia due to 2019 novel coronavirus SNOMED Code(s): 088595003414158820 ICD Code: U07.1 - COVID-19; J12.89 - OTHER VIRAL PNEUMONIA Status: Acute Priority: High (2) COPD (chronic obstructive pulmonary disease) SNOMED Code(s): 10288061 ICD Code: J44.9 - CHRONIC OBSTRUCTIVE PULMONARY DISEASE, UNSPECIFIED Status: Chronic Priority: High Qualifiers: COPD type: emphysema Emphysema type: panlobular Qualified Code(s): J43.1 - Panlobular emphysema (3) Chronic renal insufficiency, stage IV (severe) SNOMED Code(s): 020965625 ICD Code: N18.4 - CHRONIC KIDNEY DISEASE, STAGE 4 (SEVERE) Status: Chronic Priority: High (4) Mild congestive heart failure SNOMED Code(s): 56446765 ICD Code: I50.9 - HEART FAILURE, UNSPECIFIED Status: Chronic Priority: High (5) Right lumbar radiculopathy SNOMED Code(s): 671414624 ICD Code: M54.16 - RADICULOPATHY, LUMBAR REGION Status: Acute (6) Thrush SNOMED Code(s): 04716942 ICD Code: B37.0 - CANDIDAL STOMATITIS Status: Acute - Patient Summary/Data Consults: Consultations 03/28/20 13:36 Consult to Case Management/Strategic Account Director [CONS] Routine Consult to Central Office Repairer [CONS] Routine Consult to Spiritual Care [CONS] Routine Respiratory Care Assess and Treatment [CONS] Routine 04/04/20 08:15 OT Evaluation and Treatment [CONS] Routine PT Evaluation and Treatment [CONS] Routine Hospital Course: Patient was admitted for treatment of COVID-19 pneumonia. He was started on dexamethasone and remdesivir. He was tried on convalescent plasma but he had a significant drop in his blood pressure to the 70s systolic with only 15 mL of convalescent plasma. He also had a temperature to increase up to 101. We stopped infusion and he had no further considerations. He did receive Bamlanibimab in the emergency room a few days earlier. It is unknown if this was the cause of his drop in his blood pressure. Unfortunately, patient progressed from just 2 L of nasal cannula to high flow nasal cannula 11 days. Patient also had a significant elevation in his D-dimer from just 0.76 up to greater than 35. Patient has kidney disease and heart failure and it was felt that he would be too high risk for renal failure if we did a CTA of the chest. Patient was treated empirically for presumed VTE or PE with Lovenox 1 mg/kg twice daily. Patient was then started on Coumadin and stopped Eliquis. It was felt that he failed Eliquis treatment. Patient progressively worsened and then 2 days prior to discharge fell getting off the commode and sustained a laceration of his left forehead. CT of the head was negative for bleed. On day of discharge patient had decided, with his , that he was going to become a comfort measures. He did not want to continue in the hospital, did not want to stay on high flow nasal cannula, and wanted to go home today. Patient was put on a nonrebreather and sent home by ambulance. Patient will be on 8 L facemask at home. Patient does have a concentrator at home. Morphine and Ativan were prescribed for comfort and hospice was consulted. - Patient Instructions Diet: Usual Diet as Tolerated Activity: As Tolerated Driving: Do Not Drive Showering/Bathing: No Showering Other/Special Instructions: Hospice will be in contact with you. - Discharge Plan *PRESCRIPTION DRUG MONITORING PROGRAM REVIEWED*: No *COPY OF PRESCRIPTION DRUG MONITORING REPORT IN PATIENT PARAMJIT: No Prescriptions/Med Rec: LORazepam [Ativan ORAL Concentrate 1MG/0.5 ML U/D] 1 mg PO Q2H PRN #10 ml PRN Reason: Anxiety Morphine [Morphine 10 MG/0.5 ML Oral Syringe] 10 mg PO Q1H PRN #6 syringe PRN Reason: Dyspnea Home Medications: Home Meds Albuterol Sulfate [Proair Respiclick] 2 puff IH QID PRN 04/29/17 [History] Albuterol/Ipratropium [DuoNeb 3.0-0.5 MG/3 ML] 3 ml INH QID PRN 04/29/17 [History] Budesonide/Formoterol [Symbicort 160-4.5 MCG] 2 puff INH BID 03/29/20 [History] Tiotropium [Spiriva HandiHaler] 2 puff INH DAILY 03/29/20 [History] LORazepam [Ativan ORAL Concentrate 1MG/0.5 ML U/D] 1 mg PO Q2H PRN #10 ml 04/12/20 [Rx] Morphine [Morphine 10 MG/0.5 ML Oral Syringe] 10 mg PO Q1H PRN #6 syringe 1 06/13/19 [Rx] Nitroglycerin [Nitrostat] 0.4 mg SL Q5M PRN tab.sl 04/12/20 [Rx] Oxygen Therapy Mode: Non-Rebreather Mask Patient Handouts: Heart Failure Action Plan, Sepsis, Diagnosis, Adult, COVID- 19: How to Protect Yourself and Others - CDC, Prevent the Spread of COVID-19 if You Are Sick - [facility] Referrals: Dave Ziegler MD [Primary Care Provider] - - Discharge Summary/Plan Comment DC Time >30 min.: Yes Discharge Summary/Plan Comment: Discharged home on hospice - General Info Date of Service: 04/12/20 Admission Dx/Problem (Free Text: Admission Diagnosis/Problem Admission Diagnosis/Problem Hypoxia Subjective Update: Worsening respiratory effort today. Patient requests hospice and comfort measures. Functional Status: Reports: Pain Controlled - Review of Systems General: Reports: Weakness, Fatigue, Malaise Pulmonary: Reports: Shortness of Breath, Cough, Sputum - Patient Data Vitals - Most Recent: Last Vital Signs Temp 97.9 F 04/12/20 10:00 Pulse 80 04/12/20 08:02 Resp 30 H 04/12/20 10:00 BP 99/60 04/12/20 08:03 Pulse Ox 90 L 04/12/20 13:00 Weight - Most Recent: 175 lb 8 oz I&O - Last 24 hours: Intake & Output 04/11/20 04/12/20 04/12/20 22:59 06:59 14:59 Intake Total 1780 300 Output Total 330 525 Balance 1450 -225 Lab Results - Last 24 hrs: Laboratory Results - last 24 hr 04/12/20 04/12/20 Range/Units 05:19 10:05 PT 20.4 H (9.7-12.0) SECONDS INR 1.93 Vancomycin Trough 14.9 (10.0-20.0) TREV Results - Last 24 hrs: Microbiology 04/11/20 10:20 Gram Stain - Final Sputum - Expectorated Sputum Culture - Preliminary Med Orders - Current: Current Medications Acetaminophen (Tylenol) 650 mg PO Q4H PRN PRN Reason: Pain (Mild 1-3)/fever Last Admin: 04/11/20 22:22 Dose: 650 mg Documented by: Albuterol (Proventil Neb Soln) 2.5 mg NEB Q2H PRN PRN Reason: Shortness Of Breath/wheezing Last Admin: 04/12/20 10:21 Dose: 2.5 mg Documented by: Albuterol/Ipratropium (Duoneb 3.0-0.5 Mg/3 Ml) 3 ml INH Q6H PRN PRN Reason: Shortness of Breath Last Admin: 04/09/20 20:49 Dose: 3 ml Documented by: Benzocaine/Menthol (Cepacol Sore Throat) 1 lozenge MUCMEM Q2HR PRN PRN Reason: Sore Throat Last Admin: 04/06/20 12:11 Dose: 1 lozenge Documented by: Lorazepam (Ativan) 0.5 mg IVPUSH Q2H PRN PRN Reason: Anxiety Last Admin: 04/10/20 22:59 Dose: 0.5 mg Documented by: Metoprolol Succinate (Toprol Xl) 12.5 mg PO DAILY [facility] Last Admin: 04/12/20 08:02 Dose: 12.5 mg Documented by: Nitroglycerin (Nitrostat) 0.4 mg SL Q5M PRN PRN Reason: Chest Pain Symbicort 160/4.5 (Mcg Inhaler Ptom) 2 puff INH BID [facility] Last Admin: 04/12/20 10:04 Dose: 2 puff Documented by: Ondansetron HCl (Zofran) 4 mg IV Q4H PRN PRN Reason: Nausea/Vomiting Proair Inhaler 6.7 (Gm Inhaler Ptom) 0 each INH BID [facility] Last Admin: 04/12/20 10:04 Dose: Not Given Documented by: Vegetable Juice Plus 0 each PO BID [facility] Last Admin: 04/12/20 08:04 Dose: 1 each Documented by: Fruit Blend Juice (Plus) 0 each PO BID [facility] Last Admin: 04/12/20 08:04 Dose: 1 each Documented by: Thorne Blend Juice (Plus) 0 each PO BID [facility] Last Admin: 04/12/20 08:04 Dose: 1 each Documented by: Sodium Chloride (Saline Flush) 10 ml FLUSH ASDIRECTED PRN PRN Reason: Keep Vein Open Tiotropium [place] (Spiriva Respimat) 0 gm INH DAILY [facility] Last Admin: 04/12/20 10:04 Dose: 4 gm Documented by: Discontinued Medications Albuterol (Proventil Hfa) 0 gm INH QID PRN PRN Reason: Shortness of Breath Albuterol (Proventil Hfa) 0 gm INH QID PRN PRN Reason: Shortness of Breath Apixaban (Eliquis) 2.5 mg PO BID [facility] Last Admin: 04/02/20 09:08 Dose: 2.5 mg Documented by: Ascorbic Acid (Vitamin C) 1,000 mg PO DAILY [facility] Last Admin: 04/12/20 08:02 Dose: 1,000 mg Documented by: Aspirin (Aspirin) 81 mg PO DAILY [facility] Last Admin: 04/12/20 08:02 Dose: 81 mg Documented by: Aspirin (Aspirin) 243 mg PO ONETIME ONE Stop: 04/02/20 11:32 Last Admin: 04/02/20 11:34 Dose: 243 mg Documented by: Aspirin (Aspirin) Confirm Administered Dose 81 mg .ROUTE .STK-MED ONE Stop: 04/02/20 11:33 Last Admin: 04/02/20 11:40 Dose: 81 mg Documented by: Carvedilol (Coreg) 6.25 mg PO ONETIME ONE Stop: 04/07/20 22:22 Last Admin: 04/07/20 22:30 Dose: 6.25 mg Documented by: Carvedilol (Coreg) 6.25 mg PO BIDMEALS [facility] Last Admin: 04/09/20 17:51 Dose: 6.25 mg Documented by: Cholecalciferol (Vitamin D3) 50 mcg PO DAILY [facility] Last Admin: 04/04/20 08:01 Dose: 50 mcg Documented by: Cholecalciferol (Vitamin D3) 50 mcg PO BID [facility] Last Admin: 04/12/20 08:03 Dose: 50 mcg Documented by: Clopidogrel Bisulfate (Plavix) 75 mg PO DAILY [facility] Last Admin: 04/12/20 08:03 Dose: 75 mg Documented by: Dexamethasone (Dexamethasone) 6 mg PO Q24H [facility] Stop: 04/06/20 16:01 Last Admin: 04/06/20 16:53 Dose: 6 mg Documented by: Docusate Sodium (Colace) 100 mg PO BID PRN PRN Reason: Constipation Enoxaparin Sodium (Lovenox) 80 mg SUBCUT ONETIME ONE Stop: 04/02/20 11:31 Last Admin: 04/02/20 11:51 Dose: 80 mg Documented by: Enoxaparin Sodium (Lovenox) 80 mg SUBCUT Q12H [facility] Last Admin: 04/12/20 08:01 Dose: 80 mg Documented by: Enoxaparin Sodium (Lovenox) 80 mg SUBCUT ONETIME ONE Stop: 04/02/20 12:01 Last Admin: 04/02/20 11:51 Dose: Not Given Documented by: Furosemide (Lasix) 20 mg PO DAILY [facility] Last Admin: 04/08/20 09:19 Dose: 20 mg Documented by: Furosemide (Lasix) 20 mg IVPUSH NOW ONE Stop: 04/03/20 11:01 Last Admin: 04/03/20 12:02 Dose: 20 mg Documented by: Furosemide (Lasix) 40 mg IVPUSH NOW ONE Stop: 04/04/20 08:19 Last Admin: 04/04/20 10:11 Dose: 40 mg Documented by: Furosemide (Lasix) 20 mg PO DAILY [facility] Furosemide (Lasix) 20 mg PO DAILY [facility] Last Admin: 04/12/20 08:02 Dose: 20 mg Documented by: Furosemide (Lasix) 20 mg IVPUSH NOW ONE Stop: 04/09/20 16:01 Last Admin: 04/09/20 17:50 Dose: 20 mg Documented by: Guaifenesin (Mucinex) 600 mg PO BID [facility] Last Admin: 04/12/20 08:02 Dose: 600 mg Documented by: Remdesivir 200 mg/ Sodium (Chloride) 250 mls @ 250 mls/hr IV ONETIME ONE Stop: 03/28/20 13:44 Last Admin: 03/28/20 16:38 Dose: Not Given Documented by: Remdesivir 100 mg/ Sodium (Chloride) 100 mls @ 100 mls/hr IV DAILY [facility] Stop: 04/01/20 09:59 Azithromycin 500 mg/ Sodium (Chloride) 250 mls @ 250 mls/hr IV Q24H [facility] Stop: 03/30/20 17:29 Last Admin: 03/30/20 15:39 Dose: 250 mls/hr Documented by: Ceftriaxone Sodium 2 gm/ (Sodium Chloride) 100 mls @ 200 mls/hr IV Q24H [facility] Stop: 04/01/20 16:29 Last Admin: 04/01/20 16:13 Dose: 200 mls/hr Documented by: Remdesivir 200 mg/ Sodium (Chloride) 250 mls @ 250 mls/hr IV ONETIME ONE Stop: 03/28/20 18:59 Last Admin: 03/28/20 19:13 Dose: 250 mls/hr Documented by: Remdesivir 100 mg/ Sodium (Chloride) 100 mls @ 100 mls/hr IV Q24H [facility] Stop: 04/01/20 18:59 Last Admin: 04/01/20 17:12 Dose: 100 mls/hr Documented by: Sodium Chloride (Normal Saline) 250 mls @ 100 mls/hr IV ASDIRECTED [facility] Stop: 03/28/20 23:00 Sodium Chloride (Normal Saline) 1,000 mls @ 999 mls/hr IV ONETIME ONE Stop: 03/28/20 19:45 Last Admin: 03/28/20 19:26 Dose: 999 mls/hr Documented by: Sodium Chloride (Normal Saline) Confirm Administered Dose 1,000 mls @ as directed .ROUTE .STK-MED ONE Stop: 03/28/20 18:38 Last Admin: 03/28/20 19:45 Dose: Not Given Documented by: Sodium Chloride (Normal Saline) 250 mls @ 999 mls/hr IV .BOLUS ONE Stop: 04/08/20 17:03 Last Admin: 04/08/20 16:58 Dose: 999 mls/hr Documented by: Cefepime HCl 2 gm/ Premix 50 mls @ 100 mls/hr IV Q24H [facility] Last Admin: 04/12/20 10:08 Dose: 100 mls/hr Documented by: Levofloxacin/Dextrose 750 mg/ (Premix) 150 mls @ 100 mls/hr IV Q48H [facility] Last Admin: 04/12/20 10:08 Dose: 100 mls/hr Documented by: Vancomycin HCl 1 gm/Vancomycin HCl 500 mg/ Sodium Chloride 500 mls @ 250 mls/hr IV ONETIME ONE Stop: 04/10/20 12:59 Last Admin: 04/10/20 12:14 Dose: 250 mls/hr Documented by: Vancomycin HCl 1 gm/Vancomycin HCl 250 mg/ Sodium Chloride 250 mls @ 166.667 mls/hr IV Q24H [facility] Last Admin: 04/11/20 10:58 Dose: 166.667 mls/hr Documented by: Levofloxacin/Dextrose (Levaquin In D5w 750 Mg/150 Ml) Confirm Administered Dose 150 mls @ as directed IV .STK-MED ONE Stop: 04/10/20 10:17 Last Admin: 04/10/20 11:27 Dose: Not Given Documented by: Isosorbide Mononitrate (Imdur) 60 mg PO DAILY [facility] Last Admin: 04/08/20 09:24 Dose: 60 mg Documented by: Isosorbide Mononitrate (Imdur) 30 mg PO DAILY [facility] Isosorbide Mononitrate (Imdur) 30 mg PO DAILY [facility] Last Admin: 04/12/20 08:03 Dose: Not Given Documented by: Lorazepam (Ativan) 0.25 mg PO Q2H PRN PRN Reason: Anxiety Last Admin: 04/10/20 15:00 Dose: 0.25 mg Documented by: Losartan Potassium (Cozaar) 25 mg PO DAILY [facility] Last Admin: 04/08/20 09:17 Dose: 25 mg Documented by: Losartan Potassium (Cozaar) 25 mg PO DAILY [facility] Losartan Potassium (Cozaar) 25 mg PO DAILY [facility] Last Admin: 04/12/20 08:01 Dose: 25 mg Documented by: Metoprolol Tartrate (Lopressor) 25 mg PO BID [facility] Last Admin: 04/03/20 09:55 Dose: 25 mg Documented by: Metoprolol Tartrate (Lopressor) 12.5 mg PO BID [facility] Last Admin: 04/06/20 10:00 Dose: Not Given Documented by: Midodrine (Midodrine) 5 mg PO ONETIME ONE Stop: 04/08/20 16:50 Last Admin: 04/08/20 16:55 Dose: 5 mg Documented by: Mometasone Furoate/Formoterol Fumar (Dulera 200-5 Mcg) 2 puff IH BID [facility] Last Admin: 03/30/20 08:41 Dose: Not Given Documented by: Morphine Sulfate (Morphine) 1 mg IVPUSH ONETIME ONE Stop: 04/10/20 10:31 Last Admin: 04/10/20 11:15 Dose: 1 mg Documented by: Non-Formulary Medication (Budesonide/Formoterol) 2 puff INH BID [facility] Nystatin (Nystatin Oral Syringe) 500,000 unit PO QID [facility] Last Admin: 04/10/20 09:26 Dose: 500,000 unit Documented by: Oxybutynin Chloride (Oxybutynin Er) 10 mg PO DAILY [facility] Last Admin: 04/12/20 08:01 Dose: 10 mg Documented by: Quetiapine Fumarate (Seroquel) 12.5 mg PO ONETIME ONE Stop: 04/07/20 22:22 Last Admin: 04/07/20 22:30 Dose: 12.5 mg Documented by: Quetiapine Fumarate (Seroquel) 12.5 mg PO BEDTIME PRN PRN Reason: Insomnia Last Admin: 04/10/20 01:43 Dose: 12.5 mg Documented by: Rosuvastatin Calcium (Crestor) 20 mg PO DAILY [facility] Last Admin: 04/12/20 08:03 Dose: 20 mg Documented by: Saccharomyces Boulardii (Florastor) 250 mg PO DAILY [facility] Last Admin: 04/12/20 08:03 Dose: 250 mg Documented by: Sertraline HCl (Zoloft) 25 mg PO DAILY [facility] Last Admin: 04/09/20 09:44 Dose: 25 mg Documented by: Vancomycin HCl (Pharmacy To Dose - Vancomycin) 1 dose .XX ASDIRECTED PRN PRN Reason: RX TO DOSE VANCO Warfarin Sodium (Pharmacy To Dose - Warfarin) 1 dose PO ASDIRECTED PRN PRN Reason: RX TO DOSE WARFARIN Warfarin Sodium (Coumadin) 3 mg PO QPM [facility] Stop: 04/06/20 18:01 Last Admin: 04/06/20 19:19 Dose: Not Given Documented by: Warfarin Sodium (Coumadin) 3 mg PO QPM [facility] Stop: 04/07/20 18:01 Last Admin: 04/07/20 18:18 Dose: 3 mg Documented by: Warfarin Sodium (Coumadin) 4 mg PO QPM [facility] Stop: 04/08/20 18:01 Last Admin: 04/08/20 17:29 Dose: 4 mg Documented by: Warfarin Sodium (Coumadin) 5 mg PO QPM [facility] Stop: 04/09/20 18:01 Last Admin: 04/09/20 17:51 Dose: 5 mg Documented by: Warfarin Sodium (Coumadin) 4 mg PO QPM [facility] Stop: 04/10/20 18:01 Last Admin: 04/10/20 19:19 Dose: 4 mg Documented by: Warfarin Sodium (Coumadin) 6 mg PO QPM [facility] Stop: 04/11/20 18:01 Last Admin: 04/11/20 17:36 Dose: 6 mg Documented by: Zinc Sulfate (Zincate) 220 mg PO DAILY [facility] Last Admin: 04/12/20 08:02 Dose: 220 mg Documented by: - Exam Quality Assessment: Reports: Supplemental Oxygen General: Reports: Alert HEENT: Reports: Pupils Equal, Mucous Membr. Moist/[place] Neck: Reports: Supple Lungs: Reports: Rales. Denies: Normal Respiratory Effort (Increased respiratory effort with abdominal paradoxical breathing) Cardiovascular: Reports: Regular Rate, Regular Rhythm GI/Abdominal Exam: Normal Bowel Sounds, Soft, Non-Tender, No Distention Extremities: Slow Capillary Refill Psy/Mental Status: Reports: Alert
[2020-04-12] MEDS: LORazepam 2 MG/ML SDV IVPUSH PRN (15:23)
[2020-04-12] MEDS ORDERED: Oxymetazoline 0.05% Nasal Spray 30 ML Bottle NAS PRN (15:26)
[2020-04-12] MEDS ORDERED: Lidocaine 1% with EPINEPHrine 1:100,000 10 ML MDV INFILT PRN (15:28)
== END 2020-04-12 16:15 | disposition hospice, home (50) | DRG 177 ==
LOC: JD.MS 13:24 → JD.ICU 04-03 15:10
PROVIDERS: ADMIT Family Medicine; ATTEND Family Medicine
PROC: XW033E5 Introduction of Remdesivir Anti-infective into Peripheral Vein, Percutaneous Approach, New Technology Group 5 (ICD-10-PCS; principal; 2020-03-28)
PROC: XW13325 Transfusion of Convalescent Plasma (Nonautologous) into Peripheral Vein, Percutaneous Approach, New Technology Group 5 (ICD-10-PCS; 2020-03-28)
PROC: 5A0945A Assistance with Respiratory Ventilation, 24-96 Consecutive Hours, High Flow/Velocity Cannula (ICD-10-PCS; 2020-03-28)
PROC: 8E0ZXY6 Isolation (ICD-10-PCS; 2020-03-28)
DX: U07.1 COVID-19 (principal); J12.89 Other viral pneumonia; J18.9 Pneumonia, unspecified organism; N18.4 Chronic kidney disease, stage 4 (severe); B37.0 Candidal stomatitis; I13.0 Hypertensive heart and chronic kidney disease with heart failure and stage 1 through stage 4 chronic kidney disease, or unspecified chronic kidney disease; E87.3 Alkalosis; I47.2 Ventricular tachycardia; I50.9 Heart failure, unspecified; I48.91 Unspecified atrial fibrillation; J43.1 Panlobular emphysema; M54.16 Radiculopathy, lumbar region; H91.90 Unspecified hearing loss, unspecified ear; H54.7 Unspecified visual loss; E78.00 Pure hypercholesterolemia, unspecified; Z96.659 Presence of unspecified artificial knee joint; W19.XXXA Unspecified fall, initial encounter; S00.83XA Contusion of other part of head, initial encounter; R73.9 Hyperglycemia, unspecified; R79.1 Abnormal coagulation profile; E88.09 Other disorders of plasma-protein metabolism, not elsewhere classified; I49.3 Ventricular premature depolarization; Z79.82 Long term (current) use of aspirin; Z79.01 Long term (current) use of anticoagulants; Z79.899 Other long term (current) drug therapy; Z86.73 Personal history of transient ischemic attack (TIA), and cerebral infarction without residual deficits; Z95.1 Presence of aortocoronary bypass graft; Z95.5 Presence of coronary angioplasty implant and graft
CPT/HCPCS: 36415; 36430; 36600; 51702; 70450; 70450-26; 71045; 71045-26; 80048; 80053; 80202; 81001; 82728; 82803; 83605; 83615; 83735; 83880; 84100; 84145; 84484; 85025; 85379; 85610; 85730; 86140; 86900; 86901; 87040; 87070; 87077; 87186; 87205; 93005; 93306; 94640; 94667; 94668; 94761; 97110-GP; 97116-GP; 97162-GP; 97165-GO; 97530-GO; 97530-GP; 97535-GO; 99222; 99232; 99239; A9270-GY; J0456; J0692; J0696; J1650; J1940; J1956; J2060; J2270; J3370; J7030; J7040; J7050; J7620-GY; J8540; P9017